=== PATIENT | female | born 1965 | race Caucasian/White ===

== ENCOUNTER → 2024-10-28 | Outpatient (REF) | payer MEDICAID, SELFPAY ==
[2024-10-28 09:16] LABS: Hematocrit 27.8 % (37-47); Hemoglobin 9.1 g/dL (12.0-15.0); Mean Corp Hgb Conc 32.7 g/dL (32-36); Mean Corpuscular Hgb 27.9 pg (27.0-32.0); Mean Corpuscular Volume 85.3 fL (81-99); Mean Platelet Vol. 9.9 fl (6.2-12.0); Platelet Count 155 K/mm3 (150-450); RBC Distribution Width CV 13.5 % (11.6-14.6); RBC Distribution Width SD 41.5 fl (35.1-43.9); Red Blood Count 3.26 M/mm3 (4.2-5.4); White Blood Count 4.9 K/mm3 (4.4-11.0)
[2024-10-28 09:38] LABS: Hemoglobin A1c 5.4 % (<=5.6)
[2024-10-28 09:46] LABS: Anion Gap 9 (5-15); BUN 14 mg/dL (4-19); BUN/Creat Ratio 17.7 RATIO (10-20); Calcium,Total 9.1 mg/dL (7.6-11.0); Chloride 110 mmol/L (98-108); Creatinine, Serum 0.77 mg/dL (0.70-1.20); EST Glomerular Filtration Rate 89 (>60); Glucose 107 mg/dL (70-99); Potassium 4.6 mmol/L (3.3-5.1); Sodium Level 139 mmol/L (133-145)
[2024-10-28 09:48] LABS: Vitamin D,25 Hydroxy 14.6 ng/mL (30-100)
== END | disposition home or self-care (01) ==
LOC: OLS.ACW100 05:00
PROVIDERS: PCP Student in an Organized Health Care Education/Training Program; Visit Provider Family Medicine
DX: Z00.00 Encounter for general adult medical examination without abnormal findings (principal)
CPT/HCPCS: 36415; 80048; 82306; 83036; 84443; 85027

== ENCOUNTER → 2024-11-04 | Outpatient (REF) | payer MEDICAID, SELFPAY ==
[2024-11-04 10:13] LABS: Anion Gap 10 (5-15); BUN 22 mg/dL (4-19); BUN/Creat Ratio 25.6 RATIO (10-20); Calcium,Total 9.4 mg/dL (7.6-11.0); Carbon Dioxide 20.4 mmol/L (21.0-32.0); Chloride 110 mmol/L (98-108); Creatinine, Serum 0.88 mg/dL (0.70-1.20); EST Glomerular Filtration Rate 76 (>60); Glucose 96 mg/dL (70-99); Potassium 4.2 mmol/L (3.3-5.1); Sodium Level 140 mmol/L (133-145)
== END | disposition home or self-care (01) ==
LOC: OLS.ACW100 05:00
PROVIDERS: PCP Student in an Organized Health Care Education/Training Program; Visit Provider Family Medicine
DX: Z00.00 Encounter for general adult medical examination without abnormal findings (principal)
CPT/HCPCS: 36415; 80048

== ENCOUNTER → 2024-12-08 | Outpatient (REF) | payer MEDICAID, SELFPAY ==
[2024-12-08 10:25] LABS: Color, Urine Yellow (Yellow); Glucose, Dipstick Normal (Normal); Ketone-Dipstick Negative (Negative); Leukocyte Esterase-Dipstick 100 /ul (Negative); Nitrite-Dipstick Negative (Negative); Occult Blood-Urine 250 /ul (Negative); Protein-Dipstick 15 mg/dl (Negative); Urine Bilirubin Dipstick Negative (Negative); Urine Clarity Clear (Clear); Urine Urobilinogen Normal (Normal)
== END | disposition home or self-care (01) ==
LOC: OLS.ACW100 01:00
PROVIDERS: PCP Student in an Organized Health Care Education/Training Program; Visit Provider Family Medicine
DX: N39.0 Urinary tract infection, site not specified (principal)
CPT/HCPCS: 81002; 87077; 87086; 87088; 87186

== ENCOUNTER → 2024-12-11 05:00 | Outpatient (REF) | payer MEDICAID, SELFPAY ==
--- OUTSIDE RECORDS SUMMARY | 2024-12-11 04:33 | XMS RPT_ITS | CCD ---
Author Organization [facility] Care Team Providers Care Video Camera Operator Name Role Phone PROVIDER, UNKNOWN Unavailable Unavailable Augustin Jordan Unavailable Unavailable Augustin Jordan Unavailable Unavailable CHRISTINA ANDERSEN, DR ADRIANA Lopez Primary Care Physician Unava ilable AUGUSTIN JORDAN Attending Unavailable Augustin Jordan MD Primary Care Provider NIKKI ANDERSEN, DR WAN Primary Care Physician [phone] DARON CHRISTIANSEN, DR MERLINE Lee Attending Unavailable NIKKI ANDERSEN, DR WAN Primary Care UnavailJOE Painter MD Attending Unavail able CHRISTINA ANDERSEN, DR ADRIANA Lopez Primary Care Unavailable NIKKI ANDERSEN, DR WAN Primary Care UnavailRios ANGEL, OSMAR Richardson Attending Tyson ANGEL, OSMAR Richardson Consulting Tyson ANGEL, OSMAR Richardson Admitting Tyson JORDAN MD, DR RENETTA Jaime Consulting Unavailab brianna SAGASTUME MD, MICHAEL Smalls Attending Unavailable NIKKI ANDERSEN, DR WAN Primary Care UnavailHENRIETTA Gagnon Attending Unavailable AUGUSTIN JORDAN Primary Care Unavailable AUGUSTIN JORDAN Attending Unavailable AUGUSTIN JORDAN Primary Care Unavailable ESTELLAENTHAL, OSBALDO Referring Unavailable JOSE M, OSBALDO Attending Unavailable AUGUSTIN JORDAN Primary Care Unavailable AUGUSTIN JORDAN Primary Care Unavailable HENRIETTA KNOWLES Referring Unavailable HENRIETTA KNOWLES Attending Unavailable MIKEAL, OSBALDO Attending Unavailable MIKEAL, OSBALDO Referring Unavailable AUGUSTIN JORDAN Primary Care Unavailable AUGUSTIN JORDAN Primary Care Unavailable HENRIETTA KNOWLES Referring Unavailable HENRIETTA KNOWLES Attending Unavailable AUGUSTIN JORDAN Primary Care Unavailable HENRIETTA KNOWLES Referring Unavailable HENRIETTA KNOWLES Attending Unavailable AUGUSTIN JORDAN Primary Care Unavailable HENRIETTA KNOWLES Attending Unavailable AUGUSTIN JORDAN Primary Care Unavailable AUGUSTIN JORDAN Primary Care Unavailable AUGUSTIN JORDAN Primary Care Unavailable OSBALDO SALGUERO Attending Unavailable AUGUSTIN JORDAN Primary Care Unavailable Dr. Adriana Vasquez MD Primary Care Provider Adolfo Hughes Attending Provider UnavailAdriana Hernández Primary Care Unavailable Adolfo Hughes Attending Unavailable Adriana Vasquez Primary Care Unavailable Adolfo Hughes Attending Unavailable Adolfo Hughes Attending Unavailable Adriana Vasquez Primary Care Unavailable Allergies Allergy Classification Reported Allergen(s) Allergy Type Date of Onset Reaction(s) Facility (20 sources) buPROPion; Translations: [bupropion] Drug Allergy 10-27-19 16 [facility] (6 sources) Clarithromycin; Translations: [clarithromycin] Drug Allergy 11-28-19 16 Nausea/Vom/Janet [facility] (20 sources) Erythromycin; Translations: [erythromycin] Drug Allergy 11-28-19 16 Nausea/Vom/Janet [facility] (20 sources) Clarithromycin Propensity to adverse reactions 10-27-19 16 [facility] (3 sources) buPROPion; Translations: [bupropion HCl] Drug Allergy 11-28-19 16 Nausea/Vom/Janet [facility] (1 source) Clarithromycin Drug Allergy 11-28-19 16 [facility] (1 source) Erythromycin Drug Allergy 11-28-19 16 [facility] Medications Current Medications Medication Drug Class(es) Dates Sig (Normalized) Sig (Original) acetaminophen 1000 mg oral tablet (1 source) Start: 10-26-2024 Tylenol Dose : 1,000 mg = 2 tab(s), Oral, TID, 0 Refill(s) Start Date: 10/26/24 Status: Ordered Repeat number: 1 albuterol 0.83 mg/ml inhalation solution (20 sources) beta2-Adrenergic Agonist Start: 10-26-2024 albuterol 2.5 mg/3 mL (0.083%) inhalation solution Dose : 2.5 mg = 3 mL, Inhalation, QIDRT, 0 Refill(s) Start Date: 10/26/24 Status: Ordered Repeat number: 1 Start: 09-23-2024 take 4 puff(s) by inhalation o nce 4 puff, Inhalation, Once, On Sat09/23/24 at 1200, For 1 dose Start: 03-09-2024 End: 04-27-2024 take 2 puff(s) by inhalation every six hours as needed for wheezing albuterol 108 (90 Base) MCG/ACT inhaler Indications: Chronic shortness of breath Inhale 2 puffs every 6 hours as needed for wheezing. 8.5 g 3 04/27/2024 Active Start: 12-04-2023 End: 03-09-2024 take 2 puff(s) by inhalation every six hours as needed for wheezing albuterol 108 (90 Base) MCG/ACT inhaler Indications: Chronic shortness of breath Inhale 2 puffs every 6 hours as needed for wheezing. 1 each 2 12/04/2023 03/09/2024 Discontinued Start: 09-17-2023 take 1 dose by inhal ation four times daily albuterol 0.63 mg/3 mL (0.021%) inhalation solution Dose : 0.63 mg = 3 mL, Inhalation, QID, # 90 mL, 0 Refill(s) Start Date: 09/17/23 Status: Ordered Start: 02-22-2023 End: 08-21-2023 take 2 puff(s) by inhalation every six hours as needed for wheezing albuterol 108 (90 Base) MCG/ACT inhaler Indications: Chronic shortness of breath Inhale 2 puffs every 6 hours as needed for wheezing. 1 each 2 08/21/2023 Active amoxicillin 875 mg / clavulanate 125 mg oral tablet (4 sources) Penicillin-class Antibacterial Start: 08-21-2023 End: 08-28-2023 take 1 tablet by mouth twice daily amoxicillin-clavulanate (Augmentin) 875-125 MG tablet Indications: Sinobronchitis Take 1 tablet by mouth 2 times daily for 7 days. 14 tablet 0 08/21/2023 08/28/2023 Active Start: 05-23-2023 End: 05-30-2023 take 1 tablet by mouth twice daily amoxicillin-clavulanate (Augmentin) 875-125 MG tablet Indications: Acute non-recurrent pansinusitis Take 1 tablet by mouth 2 times daily for 7 days. 14 tablet 0 05/23/2023 05/30/2023 Active ARIPiprazole 15 mg oral tablet (20 sources) Atypical Antipsychotic Start: 10-21-2024 ARIPipr azole 15 mg oral tablet Dose : 15 mg = 1 tab(s), Oral, qDay, # 30 tab(s), 0 Refill(s) Start Date: 10/21/24 Status: Ordered Quantity: 30.0 Unit: tab(s) Repeat number: 1 Start: 05-20-2024 take 1 tablet by jp th once daily ARIPiprazole (Abilify) 15 MG tablet Take 15 mg by mouth daily. 05/20/2024 Active Start: 03-12-2023 End: 06-10-2024 ARIPiprazole (Abilify) 10 MG tablet Take 15 mg by mouth daily. 03/12/2023 06/10/2024 Discontinued Start: 03-12-2023 take 1 tablet by jp th once daily ARIPiprazole (Abilify) 10 MG tablet Take 10 mg by mouth daily. 03/12/2023 Active End: 03-26-2023 take 1 tablet by mouth once daily ARIPiprazole (Abilify) 5 MG tablet Take 5 mg by mouth daily. 0 03/26/2023 Discontinued (Therapy completed) atorvastatin 20 mg oral tablet (2 sources) HMG-CoA Reductase Inhibitor Start: 12-01-2019 atorvastatin 20 mg oral tablet Dose : 20 mg = 1 tab(s), take 1 tablet by mouth once daily Start Date: 12/01/19 Status: Ordered azithromycin 500 mg oral tablet (2 sources) Macrolide Antimicrobial Start: 09-16-2023 End: 09-21-2023 take 1 tablet by mouth once daily azithromycin (Zithromax) 500 MG tablet Indications: Bronchitis Take 1 tablet (500 mg) by mouth daily for 5 days. 5 tablet 0 09/16/2023 09/21/2023 Active Start: 03-26-2023 End: 03-31-2023 azithromycin (Zithromax) 250 MG tablet Indications: Bronchitis Take 2 tabs (500 mg) by mouth today, than 1 daily for 4 days. 6 tablet 0 03/26/2023 03/31/2023 Active benzonatate 200 mg oral capsule (1 source) Non-narcotic Antitussive Start: 06-10-2024 End: 06-20-2024 take 1 capsule by mouth three times daily as needed for cough benzonatate (Tessalon) 200 MG capsule Take 1 capsule (200 mg) by mouth 3 times daily as needed for cough for up to 10 days. Do not crush or chew. 30 capsule 06/10/2024 06/20/2024 Active budesonide 0.25 mg/ml inhalation suspension (1 source) Corticosteroid Start: 10-26-2024 budesonide 0.5 mg/2 mL inhalation suspension Dose : 0.5 mg = 2 mL, Inhalation, BIDRT, 0 Refill(s) Start Date: 10/26/24 Status: Ordered Repeat number: 1 0.5 ml buprenorphine 200 mg/ml prefilled syringe (20 sources) Partial Opioid Agonist Start: 10-21-2024 Sublocade 100 mg/0.5 mL subcutaneous solution, extended release Dose : 100 mg =, See Instructions, Saturday, takes shot in abdomen, 0 Refill(s) Start Date: 10/21/24 Status: Ordered Repeat number: 1 buprenorphine ER (Sublocade) 100 mg/0.5mL injection Inject 1 each under the skin every month to absorb continually. Active buprenorphine 8 mg / naloxone 2 mg sublingual film (20 sources) Partial Opioid Agonist, Opioid Antagonist Start: 11-28-2015 Buprenorphine-Naloxo ne (Suboxone 8 Mg-2 Mg Sl Film) 1 EACH film Active 16 NMA SL DAILY November 28, 2015 12:00am Start: 10-14-2015 take 1 dose under th e tongue twice daily Suboxone 8 mg-2 mg sublingual film Dose = 1 EA, Sublingual, BID, 0 Refill(s) Start Date: 10/14/15 Status: Ordered End: 10-22-2023 buprenorphine-naloxone (Subo xone) 2-0.[address] 100 tablets under the tongue. 10/22/2023 Discontinued (Therapy completed) busPIRone hydrochloride 10 mg oral tablet (20 sources) Start: 07-08-2020 busPIRone 10 mg oral tablet Dose : 10 mg = 1 tab(s), Oral, TID, PRN Anxiety, 0 Refill(s) Start Date: 10/20/23 Status: Ordered Repeat number: 1 cephalexin 500 mg oral capsule (2 sources) Cephalosporin Antibacterial Start: 10-20-2023 End: 10-27-2023 cephalexin 500 mg oral capsule Dose : 500 mg = 1 cap(s), Oral, QID, Take with a probiotic, X 7 day(s), # 28 cap(s), 0 Refill(s), 10/27/23 5:40:00 PM EDT, 70 Start Date: 10/20/23 Stop Date: 10/27/23 Status: Ordered cloNIDine hydrochloride 0.1 mg oral tablet (20 sources) Central alpha-2 Adrenergic Agonist Start: 03-29-2021 take 1 tablet by mouth twice daily as needed for anxiety cloNIDine (Catapres) 0.1 MG tablet TAKE 1 TABLET BY MOUTH TWICE A DAY NEEDED FOR RESTLESSNESS OR ANXIETY 03/29/2021 Active docusate sodium 100 mg oral capsule (1 source) Start: 10-26-2024 Colace 100 mg oral capsule Dose : 100 mg = 1 cap(s), Oral, qDay, 0 Refill(s) Start Date: 10/26/24 Status: Ordered Repeat number: 1 60 actuat formoterol fumarate 0.005 mg/actuat / mometasone furoate 0.1 mg/actuat metered dose inhaler (13 sources) Corticosteroid, beta2-Adrenergic Agonist Start: 06-10-2024 End: 10-14-2024 take 2 puff(s) by mouth twice daily mometasone-formote rol (Dulera) 100-5 MCG/ACT inhaler Indications: Centrilobular emphysema (HCC) Inhale 2 puffs 2 times daily. Rinse mouth with water after use to reduce aftertaste and incidence of candidiasis. Do not swallow. 13 g 1 10/14/2024 Active Lasix (2 sources) Loop Diuretic Start: 01-03-2019 Lasix qDay, 0 Refill(s) Start Date: 01/03/19 Status: Ordered hydrOXYzine (4 sources) Antihistamine Start: 01-03-2019 Atarax use hydrOXYzine hydrochloride 0 Refill(s) Start Date: 01/03/19 Status: Ordered Start: 12-02-2015 Vistaril 50 mg oral capsule Dose : 50 mg = 1 cap(s), Oral, TID, PRN as needed for anxiety, # 90 cap(s), 0 Refill(s) Start Date: 12/02/15 Status: Ordered ibuprofen 600 mg oral tablet (1 source) Nonsteroidal Anti-inflammatory Drug Start: 10-26-2024 End: 10-27-2024 ibuprofen 600 mg oral tablet Dose : 600 mg = 1 tab(s), Oral, q8h, # 30 tab(s), 0 Refill(s), 10/27/24 11:56:00 AM EDT, other reason (Rx) Start Date: 10/26/24 Stop Date: 10/27/24 Status: Ordered Quantity: 30.0 Unit: tab(s) Repeat number: 1 ketorolac tromethamine 10 mg oral tablet (1 source) Nonsteroidal Anti-inflammatory Drug, Cyclooxygenase Inhibitor Start: 12-25-2021 End: 12-30-2021 ketorolac 10 mg oral tablet Dose : 10 mg = 1 tab(s), Oral, QID, PRN as needed for pain, not to exceed 40 mg/day and 5 days duration for all dose forms, X 5 day(s), # 20 tab(s), 0 Refill(s), 12/30/21 13:15:00 EDT, Chest wall pain Start Date: 12/25/21 Stop Date: 12/30/21 Status: Ordered mirtazapine 15 mg oral tablet (2 sources) Start: 12-02-2015 Remeron 15 mg oral tablet Dose : 30 mg = 2 tab(s), Oral, qHS, # 60 tab(s), 0 Refill(s) Start Date: 12/02/15 Status: Ordered Multivitamin preparation (1 source) Start: 10-21-2024 take 1 tablet by mouth once daily Multivitamin Dose = 1 tab(s), Oral, Daily, 0 Refill(s) Start Date: 10/21/24 Status: Ordered Repeat number: 1 OLANZapine 5 mg oral tablet (2 sources) Atypical Antipsychotic Start: 12-01-2019 take 1 tablet by mouth at bedtime OLANZapine 5 mg oral tablet take 1 tablet by mouth at bedtime Start Date: 12/01/19 Status: Ordered 24 hr oxybutynin chloride 5 mg extended release oral tablet (2 sources) Cholinergic Muscarinic Antagonist Start: 10-14-2024 take 1 tablet by mouth once daily oxybutynin XL (Ditropan XL) 5 MG 24 hr tablet Indications: OAB (overactive bladder) , Urinary urgency Take 1 tablet (5 mg) by mouth daily. Do not crush, chew, or split. 30 tablet 10/14/2024 Active polyethylene glycol 3350 03573 mg powder for oral solution (1 source) Osmotic Laxative Start: 10-26-2024 Miralax Powder Packet Oral, BID, PRN Constipation, 0 Refill(s) Start Date: 10/26/24 Status: Ordered Repeat number: 1 potassium chloride 20 meq oral tablet (3 sources) Start: 12-01-2019 potassium chloride 20 mEq oral tablet, extended release Dose : 20 mEq = 1 tab(s), Oral, qDay, Take with food, # 30 tab(s), 0 Refill(s), Lymphedema Cellulitis Start Date: 12/01/19 Status: Ordered Phenergan (2 sources) Phenothiazine Start: 01-03-2019 Phenergan 0 Refill(s) Start Date: 01/03/19 Status: Ordered Seroquel (2 sources) Atypical Antipsychotic Start: 01-03-2019 SEROquel Oral, 0 Refill(s) Start Date: 01/03/19 Status: Ordered risperiDONE 1 mg oral tablet (2 sources) Atypical Antipsychotic Start: 12-02-2015 RisperDAL 1 mg oral tablet Dose : 1 mg = 1 tab(s), Oral, qHS, # 30 tab(s), 0 Refill(s) Start Date: 12/02/15 Status: Ordered topiramate 300 mg oral tablet (20 sources) Start: 01-03-2019 take 1 dose by mouth once daily at bedtime Topamax Dose : 300 mg =, Oral, qHS, 0 Refill(s) Start Date: 01/03/19 Status: Ordered Repeat number: 1 Start: 01-03-2019 Topamax Oral, BID, 0 Refill(s) Start Date: 01/03/19 Status: Ordered Start: 08-06-2018 take 3 tablets by mo uth once daily in the evening topiramate (Topamax) 100 MG tablet Take 3 tablets by mouth every evening. 08/06/2018 Active Vitamin D3 (1 source) Start: 10-21-2024 Vitamin D3 Dos e : 10 mcg = 1 tab(s), Oral, Daily, 0 Refill(s) Start Date: 10/21/24 Status: Ordered Repeat number: 1 vortioxetine 20 mg oral tabl et (20 sources) Start: 01-03-2019 Trintellix Ora l, qDay, 0 Refill(s) Start Date: 01/03/19 Status: Ordered Start: 11-05-2016 take 1 dose by mouth once fredo y Trintellix Dose : 20 mg =, Oral, qDay, 0 Refill(s) Start Date: 01/03/19 Status: Ordered Repeat number: 1 Completed/Discontinued Medications Medication Drug Class(es) Dates Sig (Normalized) Sig (Original) benztropine mesylate 0.5 mg oral tablet (9 sources) Anticholinergic, Antihistamine Start: 03-22-2024 End: 06-10-2024 take 1 tablet by mouth once daily benztropine (Cogentin) 0.5 MG tablet Take 0.5 mg by mouth daily. 03/22/2024 06/10/2024 Discontinued (Therapy completed) dextromethorphan hydrobromide 2 mg/ml / guaiFENesin 20 mg/ml oral suspension (2 sources) Uncompetitive A-gmkles-W-aspartat e Receptor Antagonist, Sigma-1 Agonist Start: 03-24-2024 End: 04-15-2024 take 10 mL by mouth every four hours as needed for cough guaiFENesin-dextr omethorphan (Robitussin DM) 100-10 MG/5ML syrup Indications: Bronchitis Take 10 mL by mouth every 4 hours as needed for cough for up to 10 days. 118 mL 03/24/2024 04/15/2024 Discontinued Elastic Bandages & Supports (Medical Compression Stockings) misc (17 sources) Start: 03-04-2023 End: 08-21-2023 [facility] Indications: Varicose veins of both lower extremities with pain 2 each daily. 15-20 mmHg; knee high 2 each 03/04/2023 08/21/2023 Discontinued Start: 03-04-2023 End: 08-21-2023 Elastic Bandages & Supports (Medical Compression Stockings) [facility] [place] Indications: Varicose veins of both lower extremities with pain 2 each daily. 15-20 mmHg; knee high 2 each 0 03/04/2023 08/21/2023 Discontinued Start: 03-04-2023 Elastic Bandag es & Supports (Medical Compression Stockings) [facility] [place] Indications: Varicose veins of both lower extremities with pain 2 each daily. 15-20 mmHg; knee high 2 each 0 03/04/2023 Active fluticasone-salmeterol, sensor, (AirDuo Digihaler) 55-14 MCG/ACT inhaler (2 sources) Start: 03-24-2024 End: 04-15-2024 take 1 puff(s) by mouth twice daily fluticasone-salmeterol, sensor, (AirDuo Digihaler) 55-14 MCG/ACT inhaler Indications: Bronchitis Inhale 1 puff 2 times daily. Rinse mouth with water after use to reduce aftertaste and incidence of candidiasis. Do not swallow. 1 each 03/24/2024 04/15/2024 Discontinued (Med list cleanup) Start: 03-24-2024 End: 03-24-2025 take 1 puff(s) by mouth twice daily fluticasone-salmeterol, sensor, (AirDuo Digihaler) 55-14 MCG/ACT inhaler Indications: Bronchitis Inhale 1 puff 2 times daily. Rinse mouth with water after use to reduce aftertaste and incidence of candidiasis. Do not swallow. 1 each 03/24/2024 03/24/2025 Active 12 hr guaiFENesin 600 mg extended release oral tablet (20 sources) Start: 10-07-2023 End: 11-11-2023 take 1 tablet by mouth twice daily as needed for cough guaiFENesin (Mucinex) 600 MG 12 hr tablet Indications: Bronchitis Take 1 tablet (600 mg) by mouth 2 times daily as needed for cough or congestion. Do not crush, chew, or split. 60 tablet 0 10/07/2023 11/11/2023 Discontinued (Therapy completed) Start: 04-08-2023 End: 04-25-2023 take 10 mL by mouth three times daily as needed for cough guaiFENesin (Robitussin) 100 MG/5ML liquid Indications: Cough, unspecified type , Chest congestion Take 10 mL (200 mg) by mouth 3 times daily as needed for cough or congestion for up to 10 days. 210 mL 04/08/2023 04/15/2023 Discontinued (Reorder) End: 10-14-2024 guaiFENesin (Mucinex) 600 MG 12 hr tablet Take 1,200 mg by mouth 2 times daily. Do not crush, chew, or split. 10/14/2024 Discontinued (Med list cleanup) hydroCHLOROthiazide 25 mg / triamterene 37.5 mg oral tablet (15 sources) Potassium-sparing Diuretic, Thiazide Diuretic Start: 01-31-2024 End: 03-24-2024 take 1 tablet by mouth once daily triamterene-hydrochlorothiazide (Maxzide-25) 37.5-25 MG tablet take 1 tablet by mouth once daily 90 tablet 01/31/2024 03/24/2024 Discontinued (Med list cleanup) Start: 10-22-2023 take 1 tablet by mouth once daily triamterene-hydrochlorothiazide (Maxzide -25) 37.5-25 MG tablet Take 1 tablet by mouth daily. 30 tablet 2 10/22/2023 Active ipratropium bromide 0.042 mg/actuat metered dose nasal spray (4 sources) Anticholinergic Start: 10-05-2022 End: 04-08-2023 ipratropium (Atrovent) 0.06 % nasal spray Indications: Rhinorrhea associated with the Common Cold Administer 2 sprays into each nostril in the morning and 2 sprays at noon and 2 sprays in the evening and 2 sprays before bedtime. Do all this for 7 days. 15 mL 0 10/05/2022 04/08/2023 Discontinued methylPREDNISolone 4 mg oral tablet (20 sources) Corticosteroid Start: 06-10-2024 End: 10-14-2024 methylPREDNISolone (Medrol Dospak) 4 MG tablets Take as directed on package. 21 tablet 06/10/2024 10/14/2024 Discontinued (Med list cleanup) Start: 04-15-2023 End: 08-21-2023 methylPREDNISolone (Medrol D ospak) 4 MG tablets Take as directed on package. 21 tablet 0 04/15/2023 08/21/2023 Discontinued predniSONE 20 mg oral tablet (6 sources) Start: 03-24-2024 End: 04-15-2024 predniSONE (Deltasone) 20 MG tablet Indications: Bronchitis Take 3 tabs (60mg) daily for 3 days, then take 2 tabs (40mg) daily for 3 days, then take 1 tab (20mg) daily for 3 days. 18 tablet 03/24/2024 04/15/2024 Discontinued Start: 10-31-2023 End: 11-11-2023 predniSONE (Deltasone) 20 MG tablet Take 3 tabs (60mg) daily for 5 days, then take 2 tabs (40mg) daily for 3 days, then take 1 tab (20mg) daily for 2 days. 23 tablet 0 10/31/2023 11/11/2023 Discontinued (Therapy completed) Start: 09-16-2023 End: 09-25-2023 predniSONE (Deltasone) 20 MG tablet Indications: Bronchitis Take 3 tabs (60mg) daily for 3 days, then take 2 tabs (40mg) daily for 3 days, then take 1 tab (20mg) daily for 3 days. 18 tablet 0 09/16/2023 09/25/2023 Active Start: 03-26-2023 End: 03-31-2023 take 2 tablets by mouth once daily predniSONE (Deltasone) 20 MG tablet Indications: Bronchitis Take 2 tablets (40 mg) by mouth daily for 5 days. 10 tablet 0 03/26/2023 03/31/2023 Active rosuvastatin calcium 5 mg oral tablet (18 sources) HMG-CoA Reductase Inhibitor Start: 12-13-2021 End: 08-21-2023 take 1 tablet by mouth in the morning rosuvastatin (Crestor) 5 MG tablet Take 1 tablet by mouth in the morning. 12/13/2021 08/21/2023 Discontinued (Other) Problems Active Problems Problem Classification Problem Date Documented Da te Episodic/Chronic Anxiety disorders (20 sources) Panic attack; Translations: [Posttraumatic stress disorder] Onset: 10-27-2015 11-29-2015 Chronic Asthma (4 sources) Uncomplicated moderate persistent asthma; Translations: [Moderate persistent asthma, uncomplicated] Onset: 06-10-2024 09-24-2024 Chronic Chronic obstructive pulmonary disease and bronchiectasis (14 sources) Centriacinar emphysema; Translations: [Centrilobular emphysema] Onset: 06-10-2024 06-10-2024 Chronic Complication of device; implant or graft (15 sources) Pain from breast implant; Translations: [Pain due to other internal prosthetic devices, implants and grafts, initial encounter] 02-22-2023 Episodic Diabetes mellitus without complication (1 source) Hyperglycemia; Translations: [Impaired fasting glucose] 10-07-2023 Episodic Disorders of lipid metabolism (20 sources) Hyperlipidemia; Translations: [Hyperlipidemia, unspecified] Onset: 04-05-2021 02-22-2023 Chronic Essential hypertension (1 source) Essential (primary) hypertension; Translations: [Essential (primary) hypertension] Onset: 11-27-2024 Chronic Fracture of lower limb (3 sources) Closed fracture proximal tibia, bicondylar ; Translations: [Displaced bicondylar fracture of unspecified tibia, initial encounter for closed fracture] Onset: 10-21-2024 Episodic Genitourinary symptoms and ill-defined conditions (20 sources) Urge incontinence of urine; Translations: [Urge incontinence] Onset: 04-06-2019 Resolved: 04-08-2023 04-07-2022 Chronic Genitourinary symptoms and ill-defined conditions (4 sources) Urgent desire to urinate; Translations: [Urgency of urination] Onset: 10-14-2024 10-14-2024 Episodic Heart valve disorders (4 sources) Mitral valve prolapse 11-29-2015 Chronic Hepatitis (20 sources) Chronic hepatitis C; Translations: [Chronic viral hepatitis C] Onset: 12-16-2015 04-07-2022 Chronic Hepatitis (4 sources) Viral hepatitis C 11-29-2015 Episodic Malaise and fatigue (1 source) Weakness; Translations: [Weakness] Onset: 11-26-2024 Episodic Miscellaneous mental health disorders (20 sources) Primary insomnia; Translations: [Primary insomnia] Onset: 12-01-2018 04-07-2022 Chronic Mood disorders (20 sources) Depressive disorder; Translations: [Depression] Onset: 10-27-2015 04-07-2022 Chronic Mood disorders (20 sources) Mood disorders; Translations: [Depression, unspecified] Onset: 04-08-2023 Resolved: 10-14-2024 04-08-2023 Other circulatory disease (3 sources) Pulmonary congestion ; Translations: [Other specified symptoms and signs involving the circulatory and respiratory systems] 04-08-2023 Episodic Other connective tissue disease (1 source) Swelling of bilateral feet; Translations: [Other specified soft tissue disorders] 11-26-2023 Episodic Other connective tissue disease (1 source) Pain of left lower leg; Translations: [Pain in left lower leg] 11-26-2023 Episodic Other diseases of bladder and urethra (20 sources) Overactive bladder; Translations: [Overactive bladder] Onset: 04-06-2019 04-07-2022 Chronic Other diseases of bladder and urethra (2 sources) Spasm of bladder; Translations: [Other specified disorders of bladder] 10-14-2024 Chronic Other diseases of bladder and urethra (2 sources) Other specified disorders of bladder; Translations: [Other specified disorders of bladder] Onset: 10-14-2024 Chronic Other diseases of bladder and urethra (2 sources) Overactive bladder; Translations: [Overactive bladder] Onset: 04-07-2022 Chronic Other fractures (1 source) Multiple fractures of ribs, left side, subsequent encounter for fracture with routine healing; Translations: [Multiple fractures of ribs, left side, subsequent encounter for fracture with routine healing] Onset: 11-26-2024 Episodic Other gastrointestinal disorders (20 sources) Constipation; Translations: [Constipation, unspecified] Onset: 10-27-2015 04-07-2022 Episodic Other inflammatory condition of skin (1 source) Erythema; Translations: [Erythematous condition, unspecified] 11-26-2023 Episodic Other lower respiratory disease (3 sources) Cough; Translations: [Cough, unspecified type] 04-08-2023 Episodic Other lower respiratory disease (2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 mm at baseline OR new 4 mm to < 6 mm Part solid nodule(s) 6 mm total diameter with solid component < 6 mm OR new < 6 mm total diameter Nonsolid nodule(s) (GGN) > 30 mm on baseline or new Atypical cyst Category 4a nodule unchanged for 3 months Category 4A - Suspicious - 3 month follow up or PET/CT when >8mm Solid nodule(s): 8 to < 15 mm at baseline OR growing < 8 mm OR new 6 to <8 mm Part solid nodule(s): > 6 mm with solid component > 6 mm to < 8 mm OR with a new or growing < 4 mm solid component Airway nodule - segmental, more proximal than baseline or new Atypical cyst with thick wall or multilocular or changed Category 4B - Suspicious - chest CT with or without contrast, PET/CT and/or tissue sampling depending on the *probability of malignancy and comorbidities. PET/CT may be used when there is a > 8 mm solid component. For new large nodules that develop on an annual repeat screening CT, a [address] may be recommended. Airway nodule growing Solid nodule(s): > 15 mm OR new or growing, and > 8 mm Part solid nodule(s) with: a solid component > 8 mm OR a new or growing > 4mm solid component Atypical cyst with growth Category 4X - Suspicious - (same work up as Category 4B) Category 3 or 4 nodules with additional features or imaging findings that increases the suspicion of malignancy - spiculation, rapid growth or associated lymph node enlargement Modifier to add to Category 0-4: Category S - Clinically or potentially significant non lung cancer related findings Report Dictated on Electronically Signed By: Devin Quinn MD Electronically Signed Date/Time: 08/13/2024 4:38 PM [facility] RADIOLOGY SYSTEM [facility] Name[facility] 1965 [id number] Exam Date/Time: 08/13/2024 14:23 Procedure: CT LUNG SCREENING LOW DOSE Ordering Provider: KNOWLES HOLLY Reason For Exam: Lung cancer screening, >= 20 pk-yr smoking history (Age >= 50y) CT CHEST SCREENING WITHOUT CONTRAST CLINICAL INDICATION: Long smoking history. Former smoker. Lung-screening CT. Low-dose axial CT images of the thorax from the lung apices through the bases were obtained. Coronal and sagittal reformatted images were also made available for interpretation. Dose reduction was employed with automated exposure control. COMPARISON: None FINDINGS: Mild emphysematous changes are noted diffusely. There are no focal infiltrates. A 0.4 cm perifissural nodule is noted in the right lower lobe (image #233). A punctate 2 mm pleural-based nodule is noted in the left lower lobe (image #215). Both are too small to further characterize. The heart size is normal. There is no significant mediastinal lymphadenopathy. There are no significant coronary arterial calcifications. A ruptured saline breast implant is noted on the left. This is unchanged from a prior mammogram. Upper cuts of the abdomen included on the examination are grossly normal on this unenhanced scan. [facility] RADIOLOGY SYSTEM Devin Quinn MD - 08/13/2024 Patient Name: IDALIA GIPSON : 1965 Exam Date/Time: 08/13/2024 14:23 Procedure: CT LUNG SCREENING LOW DOSE Ordering Provider: KNOWLES HOLLY Reason For Exam: Lung cancer screening, >= 20 pk-yr smoking history (Age >= 50y) CT CHEST SCREENING WITHOUT CONTRAST CLINICAL INDICATION: Long smoking history. Former smoker. Lung-screening CT. Low-dose axial CT images of the thorax from the lung apices through the bases were obtained. Coronal and sagittal reformatted images were also made available for interpretation. Dose reduction was employed with automated exposure control. COMPARISON: None FINDINGS: Mild emphysematous changes are noted diffusely. There are no focal infiltrates. A 0.4 cm perifissural nodule is noted in the right lower lobe (image #233). A punctate 2 mm pleural-based nodule is noted in the left lower lobe (image #215). Both are too small to further characterize. The heart size is normal. There is no significant mediastinal lymphadenopathy. There are no significant coronary arterial calcifications. A ruptured saline breast implant is noted on the left. This is unchanged from a prior mammogram. Upper cuts of the abdomen included on the examination are grossly normal on this unenhanced scan. IMPRESSION: 1. Mild COPD. 2. No focal infiltrates. 3. Tiny right and left lower lobe lung nodules as described. These are too small to further characterize. ASSESSMENT CATEGORY: Lung-RADS Category 2 - Benign appearance or behavior. Recommend continued annual low-dose screening CT in 12 months. No other clinically significant findings. Lung-RADS Version 2022 Assessment Categories - for Screening CT Chest Only. Release date: Apr 2022 Category 0 - Incomplete Part of lungs cannot be evaluated Findings suggestive of an inflammatory or infectious process Category 1 - Negative - Continue annual screening No nodules Nodules with benign characteristics (complete, central, popcorn Ca++) or fat Category 2 - Benign appearance or behavior - Continue annual screening Perifissural nodule(s) < 10 mm at baseline or new with oval, lentiform or triangular shape Solid nodule(s): < 6 mm at baseline or new < 4 mm Part solid nodule(s): < 6 mm mean diameter at baseline Nonsolid nodule(s) (GGN): 30 mm and unchanged or slowly growing Airway nodule in subsegmental branch Category 3 or 4 nodules unchanged for > 6 months Category 3 - Probably benign finding(s) - 6 month follow up Solid nodule(s): 6 to < 8 mm at baseline OR new 4 mm to < 6 mm Part solid nodule(s) 6 mm total diameter with solid component < 6 mm OR new < 6 mm total diameter Nonsolid nodule(s) (GGN) > 30 mm on baseline or new Atypical cyst Category 4a nodule unchanged for 3 months Category 4A - Suspicious - 3 month follow up or PET/CT when >8mm Solid nodule(s): 8 to < 15 mm at baseline OR growing < 8 mm OR new 6 to <8 mm Part solid nodule(s): > 6 mm with solid component > 6 mm to < 8 mm OR with a new or growing < 4 mm solid component Airway nodule - segmental, more proximal than baseline or new Atypical cyst with thick wall or multilocular or changed Category 4B - Suspicious - chest CT with or without contrast, PET/CT and/or tissue sampling depending on the *probability of malignancy and comorbidities. PET/CT may be used when there is a > 8 mm solid component. For new large nodules that develop on an annual repeat screening CT, a [address] may be recommended. Airway nodule growing Solid nodule(s): > 15 mm OR new or growing, and > 8 mm Part solid nodule(s) with: a solid component > 8 mm OR a new or growing > 4mm solid component Atypical cyst with growth Category 4X - Suspicious - (same work up as Category 4B) Category 3 or 4 nodules with additional features or imaging findings that increases the suspicion of malignancy - spiculation, rapid growth or associated lymph node enlargement Modifier to add to Category 0-4: Category S - Clinically or potentially significant non lung cancer related findings Report Dictated on Electronically Signed By: Devin Quinn MD Electronically Signed Date/Time: 08/13/2024 4:38 PM EST [facility] Study observation (narrative) Chely Alvarenga alth CT Chest for screening WO co ntrastOrdered By: Devin Quinn on 08-13-2024 [facility] Work Phone: CT LUNG SCREENING LOW DOSEon 08-13-2024 CT LUNG SCREENING LOW DOSE This is a summary report. The complete report is available in the patient's medical record. If you cannot access the medical record, please contact the sending organization for a detailed fax or copy. Patient Name: IDALIA GIPSON : 1965 Exam Date/Time: 08/13/2024 14:23 Procedure: CT LUNG SCREENING LOW DOSE Ordering Provider: KNOWLES HOLLY Reason For Exam: Lung cancer screening, >= 20 pk-yr smoking history (Age >= 50y) CT CHEST SCREENING WITHOUT CONTRAST CLINICAL INDICATION: Long smoking history. Former smoker. Lung-screening CT. Low-dose axial CT images of the thorax from the lung apices through the bases were obtained. Coronal and sagittal reformatted images were also made available for interpretation. Dose reduction was employed with automated exposure control. COMPARISON: None FINDINGS: Mild emphysematous changes are noted diffusely. There are no focal infiltrates. A 0.4 cm perifissural nodule is noted in the right lower lobe (image #233). A punctate 2 mm pleural-based nodule is noted in the left lower lobe (image #215). Both are too small to further characterize. The heart size is normal. There is no significant mediastinal lymphadenopathy. There are no significant coronary arterial calcifications. A ruptured saline breast implant is noted on the left. This is unchanged from a prior mammogram. Upper cuts of the abdomen included on the examination are grossly normal on this unenhanced scan. IMPRESSION: 1. Mild COPD. 2. No focal infiltrates. 3. Tiny right and left lower lobe lung nodules as described. These are too small to further characterize. ASSESSMENT CATEGORY: Lung-RADS Category 2 - Benign appearance or behavior. Recommend continued annual low-dose screening CT in 12 months. No other clinically significant findings. Lung-RADS Version 2022 Assessment Categories - for Screening CT Chest Only. Release date: Apr 2022 Category 0 - Incomplete Part of lungs cannot be evaluated Findings suggestive of an inflammatory or infectious process Category 1 - Negative - Continue annual screening No nodules Nodules with benign characteristics (complete, central, popcorn Ca++) or fat Category 2 - Benign appearance or behavior - Continue annual screening Perifissural nodule(s) < 10 mm at baseline or new with oval, lentiform or triangular shape Solid nodule(s): < 6 mm at baseline or new < 4 mm Part solid nodule(s): < 6 mm mean diameter at baseline Nonsolid nodule(s) (GGN): 30 mm and unchanged or slowly growing Airway nodule in subsegmental branch Category 3 or 4 nodules unchanged for > 6 months Category 3 - Probably benign finding(s) - 6 month follow up Solid nodule(s): 6 to < 8 mm at baseline OR new 4 mm to < 6 mm Part solid nodule(s) 6 mm total diameter with solid component < 6 mm OR new < 6 mm total diameter Nonsolid nodule(s) (GGN) > 30 mm on baseline or new Atypical cyst Category 4a nodule unchanged for 3 months Category 4A - Suspicious - 3 month follow up or PET/CT when >8mm Solid nodule(s): 8 to < 15 mm at baseline OR growing < 8 mm OR new 6 to <8 mm Part solid nodule(s): > 6 mm with solid component > 6 mm to < 8 mm OR with a new or growing < 4 mm solid component Airway nodule - segmental, more proximal than baseline or new Atypical cyst with thick wall or multilocular or changed Category 4B - Suspicious - chest CT with or without contrast, PET/CT and/or tissue sampling depending on the *probability of malignancy and comorbidities. PET/CT may be used when there is a > 8 mm solid component. For new large nodules that develop on an annual repeat screening CT, a [address] may be recommended. Airway nodule growing Solid nodule(s): > 15 mm OR new or growing, and > 8 mm Part solid nodule(s) with: a solid component > 8 mm OR a new or growing > 4mm solid component Atypical cyst with growth Category 4X - Suspicious - (same work up as Category 4B) Category 3 or 4 nodules with additional features or imaging findings that increases the suspicion of malignancy - spiculation, rapid growth or associated lymph node enlargement Modifier to add to Category 0-4: Category S - Clinically or potentially significant non lung cancer related findings Report Dictated on Electronically Signed By: Devin Quinn MD Electronically Signed Date/Time: 08/13/2024 4:38 PM EST FORMER SMOKER QUIT 2 MONTHS. 30 YEARS 1 PPD. [facility] Office Visiton 06-10-2024 Follow-up visit [id number] Elizabeth Gipson 1965 F Date Provider Department Center 06/10/2024 [id number] [facility]ORDAN [facility] Family History Problem Relation Age of Onset Other Mother Comments: cancer Heart disease Mother Mental illness Mother COPD Mother Skin cancer Mother 50 Cervical cancer Mother 50 Colon cancer Mother 50 Stomach cancer Mother 50 Drug abuse Father Drug abuse Sister Mental illness Sister Leukemia Paternal Grandmother 50 Breast cancer Father's Sister 40 Family Status - Relation Status Age at Mother Alive Father Alive Sister Sister Alive Paternal Grandmother Father's Sister Level of Service:28091 [place] OFFICE/OUTPATIENT ESTABLISHED LOW MDM 20 MIN Reason for Visit and Comments: Wheezing [[id number]] - When start moving around - bring up light green Cough [28] Chills [[id number]] - Sometimes hot and sometimes cold [facility] Progress Noteon 06-10-2024 Progress Note Dulera 100-5 2 puffs twice a day, continue to use albuterol as needed and follow-up for testing as scheduled. [facility] Progress Note 06/10/2024 Idalia Jaime Brandan (: 1965) is a 58 y.o. female , Established patient, here for evaluation of the following chief complaint(s): Wheezing (When start moving around - bring up light green), Cough, and Chills (Sometimes hot and sometimes cold) ASSESSMENT/PLAN: 1. Centrilobular emphysema (HCC) Assessment & Plan: Dulera 100-5 2 puffs twice a day, continue to use albuterol as needed and follow-up for testing as scheduled. Follow up if symptoms worsen or fail to improve. SUBJECTIVE/OBJECTIVE: HPI -Idalia comes in today stating that she is very anxious and worried about her breathing, a friend gave her a inhaler called Breztri and she says that when she gets up in the morning if she is wheezy and cannot hardly breathe so she takes 2 puffs on the Breztri and that opens her up and she does not have to use her albuterol inhaler as often but she said this is a several and she is afraid she is going to run out and she is not going to be able to breathe and she can end up going emergency room. Review of Systems Constitutional: Negative for chills and fever. HENT: Negative for ear pain, rhinorrhea and sinus pressure. Respiratory: Positive for shortness of breath and wheezing. Cardiovascular: Negative for chest pain and palpitations. Vitals: 06/10/24 1411 BP: 133/78 Pulse: 66 Temp: 37.1 ?C (98.8 ?F) SpO2: 94% Weight: 193 lb 6.4 oz (87.7 kg) Height: 5' 6" (1.676 m) Physical Exam Vitals and nursing note reviewed. Constitutional: General: She is not in acute distress. Appearance: Normal appearance. HENT: Head: Normocephalic and atraumatic. Right Ear: Tympanic membrane, ear canal and external ear normal. Left Ear: Tympanic membrane, ear canal and external ear normal. Mouth/Throat: Mouth: Mucous membranes are moist. Pharynx: Oropharynx is clear. Eyes: Extraocular Movements: Extraocular movements intact. Pupils: Pupils are equal, round, and reactive to light. Cardiovascular: Rate and Rhythm: Normal rate and regular rhythm. Heart sounds: Normal heart sounds. No murmur heard. Pulmonary: Effort: Pulmonary effort is normal. Breath sounds: Examination of the right-lower field reveals decreased breath sounds. Examination of the left-lower field reveals decreased breath sounds. Decreased breath sounds present. Musculoskeletal: Cervical back: Neck supple. Lymphadenopathy: Cervical: No cervical adenopathy. Neurological: Mental Status: She is alert. An electronic signature was used to authenticate this note. Augustin Jordan MD 06/10/2024 3:14 PM [facility] Progress Note Patient verified by last name and date of . [facility] 36on 06-09-2024 36 S: Patient spoke ta swenson [facility] nurse regarding Cough chest congestion chills and hot flashes Provider: Dr. Jordan Practice Name: [facility] B: Onset of symptoms/concern 3 days A: Starting to have wheezes, coughing, coughed up sputum, starting to look bad, starting to feel pretty sick, getting hot and cold but hasn't checked temp, hasn't been exposed, states she has stayed away from everyone so no covid or flu exposure, using rescue inhaler more frequently, R: Patient scheduled tomorrow with Dr. Jordan 06/10 at 2:15p. Advised to wear mask to appointment due to symptoms. Patient understands care advice. No further needs at this time. Patient instructed to call back with new or worsening symptoms. Reason for Disposition Continuous (nonstop) coughing interferes with work or school and no improvement using cough treatment per Care Advice Protocols used: [id number] [address] 06-05-2024 36 Thank you Valerie. [address] 06-04-2024 36 Spoke to Idalia, she is going to call to schedule this. [address] 06-01-2024 36 Please check with Idalia if she still plans to get this done. Thank you. [facility] 36 Pt given orders for CT-Lung Screen on 04/15/24 Several attempts to contact pt including a follow up letter were made. No response from pt to sched; Okay to closed orders? [address] 05-22-2024 36 S: Patient spoke ta [facility] nurse regarding cough B: Onset of symptoms/concern 3 days A: Wheezing, non productive cough. Pt speaking in full sentences without audible wheezing. Denies - shortness of breath, fever, chest congestion Pt requesting to have prednisone to be sent to pharmacy. R: Home care advised given for non-productive cough - Cough - Acute Vfk-Kmjofjcaza-ISQLH-A H Care Advice COUGH DROPS FOR COUGH: * Cough drops can help a lot, especially for mild coughs. They reduce coughing by soothing your irritated throat and removing that tickle sensation in the back of the throat. * Cough drops also have the advantage of portability - you can carry them with you. * Cough drops are available [id number] (OTC). * HOME REMEDY - HARD CANDY: Hard candy works just as well as a medicine-flavored OTC cough drops. COUGHING SPELLS: * Drink warm fluids. Inhale warm mist. This can help relax the airway and also loosen up phlegm. * Suck on cough drops or hard candy to coat the irritated throat. HUMIDIFIER: * If the air is dry, use a humidifier in the bedroom. * Dry air makes coughs worse. AVOID TOBACCO SMOKE: * Avoid smoke from tobacco and e-cigarettes. * Smoking or being exposed to smoke makes coughs much worse. CALL BACK IF: * Cough lasts over 3 weeks * Continuous coughing lasts over 2 hours after cough treatment * Fever over 103 F (39.4 C) * Fever lasts more than 3 days * Difficulty breathing occurs * You become worse HOME CARE: * You should be able to treat this at home. Patient understands care advice. No further needs at this time. Patient instructed to call back with new or worsening symptoms. 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 Medication dosage: 2 puff(s) Monthly quantity needed: N/A How many day supply requestin days Medication route: inhalation (inhaler) Medication administration time(s): every 6 hours If taking medication PRN, reason for taking medication: Wheezing If this is a controlled substance do you receive this or any other controlled medication from any other doctor or facility: N/A Ordering provider: Dr. Jordan Date of last office visit: 04/15/2024 Date of next office visit: 10/14/2024 Date of last refill: (see medication tab): 03/24/2024 Updated/Validated preferred pharmacy: Yes Patient instructed to contact the pharmacy prior to picking up the medication: Yes [facility] 36on 04-24-2024 36 Noted [place] [address] Please leave open fo r 90 days. Then if not scheduled ok to close. [facility] 36 Pt given orders for Complete PFT on 03/24/24 Several attempts to contact pt including a follow up letter were maid. No response from pt to sched; Okay to closed orders? [facility] Office Visiton 04-15-2024 Follow-up visit [id number] Elizabeth Gipson 1965 F Date Provider Department Center 04/15/2024 [id number] KNOWLES [facility] Family History Problem Relation Age of Onset Other Mother Comments: cancer Heart disease Mother Mental illness Mother COPD Mother Skin cancer Mother 50 Cervical cancer Mother 50 Colon cancer Mother 50 Stomach cancer Mother 50 Drug abuse Father Drug abuse Sister Mental illness Sister Leukemia Paternal Grandmother 50 Breast cancer Father's Sister 40 Family Status - Relation Status Age at Mother Alive Father Alive Sister Sister Alive Paternal Grandmother Father's Sister Level of Service:77295 [place] PERIODIC PREVENTIVE MED EST PATIENT 40-64YRS Reason for Visit and Comments: Gynecologic Exam [50] Health Maintenance [872] - Lung cx screen- declines CRCS- declines Flu- agrees Covid- not done Blood Work [773719] [facility] Progress Noteon 04-15-2024 Progress Note Patient verified by last name and . After obtaining consent, and per orders of STANLEY Payne, injection of Influenza given in the Right Deltoid by Damaris Linda. Patient instructed to report any adverse reactions immediately. [facility] Progress Note [facility] - [address] [address] Dept: [phone] Dept Loc: [phone] HPI: Idalia Gipson is a 58 y.o. female who presents today for her medical conditions/complaints as noted below. Idalia Gipson is c/o of Gynecologic Exam, Health Maintenance (Lung cx screen- declines /CRCS- declines /Flu- agrees/Covid- not done ), and Blood Work HPI- Idalia Gipson presents today for her well female examination. LMP was in 2018. Insomnia: Takes Topamax at bedtime and this helps. Feels symptoms are stable. Chronic Hep C/History of Drug Abuse: Has been clean for 8.5 years. Is doing well overall. States she was fully treated for hep c and was told she is clear. Constipation: States symptoms are currently well controlled. Strives to remain well hydrated. Denies current concerns or worries. OAB/Cystocele: Feels symptoms are well controlled. Denies current concerns or worries. Denies issues with recurrent UTI's, pelvic pain/pressure, or difficulty urinating. Hyperlipidemia: Has not been taking her Rosuvastatin. Her levels were stable off of the medication when checked last checked in February 2023. Would like to remain off of the medication at this time. Will recheck levels today. Component Ref Range & Units (02/22/23) (04/04/22) (05/12/21) (04/03/21) (11/25/19) CHOLESTEROL, TOTAL <200 mg/dL 220 High HDL CHOLESTEROL > OR = 50 mg/dL 107 70 High R 67 High R 67 High R 54 R TRIGLYCERIDES <150 mg/dL 83 114 139 103 287 Abnormal LDL-CHOLESTEROL mg/dL (calc) 96 CHOL/HDLC RATIO <5.0 (calc) 2.1 NON HDL CHOLESTEROL <130 mg/dL (calc) 113 Depression/Anxiety/PTS D: Takes Abilify, Buspar, and Trintellix as prescribed. Continues to follow up with weekly counseling and psych. Her mother last week, which has been difficult. Feels she has a good social and emotional support system. Nicotine Use: Currently smoking less than 1 PPD recently but typically smokes 1 PPD and has been smoking for the past 52 years. Denies interest in smoking cessation. Health Maintenance: Mammogram was 05/20/23- normal findings- would like a new order placed. Pap smear was 04/08/23- normal findings. Declines screening for HIV- states she had this done several years ago and it was negative. Declines a colonoscopy for colon cancer screening, but willing to do a home Cologuard test- had an order placed and never got this done. Declines to have it done at this time. Declines to be vaccinated for COVID-19. Is current on her pneumococcal vaccinations (PCV13 on 05/21/18 and PPSV23 on 06/01/19). Tdap is current: 02/04/23. Is fully vaccinated for shingles. Would like a lung CT for lung cancer screening. Would like a flu vaccine. See ROS for additional information. Past Medical History: Diagnosis Date Anxiety Bronchitis 12/13/2021 Chest wall pain 12/13/2021 Constipation Dependent edema 04/06/2019 Depression Drug abuse (CMS/HCC) (HCC) Dysfunctional uterine bleeding 03/17/2019 Headache Hyperlipidemia 04/05/2021 Mitral valve prolapse PTSD (post-traumatic stress disorder) Urge incontinence 04/06/2019 Urge incontinence 04/06/2019 Uterine prolapse Uterine prolapse Viral URI with cough 10/05/2022 Past Surgical History: Procedure Laterality Date BREAST ENHANCEMENT SURGERY 1994 EXPLORATORY LAPAROTOMY EXTREMITY SURGERY 2002 After water skiing accident, significant issues with antibiotic and wound healing TEMPOROMANDIBULAR JOINT SURGERY 1989 Family History Problem Relation Name Age of Onset Other (88450) Mother cancer Heart disease Mother Mental illness Mother COPD Mother Skin cancer Mother 50 Cervical cancer Mother 50 Colon cancer Mother 50 Stomach cancer Mother 50 Drug abuse Father Drug abuse Sister Mental illness Sister Leukemia Paternal Grandmother 50 Breast cancer Father's Sister 40 Social History Tobacco Use Smoking status: Every Day Current packs/day: 1.00 Average packs/day: 1 pack/day for 52.7 years (52.7 ttl pk-yrs) Types: Cigarettes Start date: 1971 Smokeless tobacco: Never Tobacco comments: Quit smoking: Attempted multiple times Substance Use Topics Alcohol use: No E-cigarette/Vaping Questions Responses E-cigarette/Vaping Use Never User Current Outpatient Medications Medication Sig Dispense Refill albuterol 108 (90 Base) MCG/ACT inhaler Inhale 2 puffs every 6 hours as needed for wheezing. 8.5 g 0 ARIPiprazole (Abilify) 10 MG tablet Take 15 mg by mouth daily. benztropine (Cogentin) 0.5 MG tablet Take 0.5 mg by mouth daily. buprenorphine ER (Sublocade) 100 mg/0.5mL injection Inject 1 each under the skin every month to absorb continually. busPIRone (Buspar) 10 MG tablet Take 10 mg by mouth in the morning and 10 mg in the evening. cloNIDine (Catapres) 0.1 MG tablet TAKE 1 TABLET BY MOUTH T (more content not included)... [facility] Office Visiton 03-24-2024 Follow-up visit [id number] Elizabeth Gipson 1965 F Date Provider Department Center 03/24/2024 [id number] SALGUERO [facility] Family History Problem Relation Age of Onset Other Mother Comments: cancer Heart disease Mother Mental illness Mother COPD Mother Skin cancer Mother 50 Cervical cancer Mother 50 Colon cancer Mother 50 Stomach cancer Mother 50 Drug abuse Father Drug abuse Sister Mental illness Sister Leukemia Paternal Grandmother 50 Breast cancer Father's Sister 40 Family Status - Relation Status Age at Mother Alive Father Alive Sister Sister Alive Paternal Grandmother Father's Sister Level of Service:22661 [place] OFFICE/OUTPATIENT ESTABLISHED LOW [facility] 20 MIN Reason for Visit and Comments: Cough [28] - States that she has been wheezing, feels like her chest is crackling, feels like she can't breathe. Also has an ear ache along with sore throat. Has been using her albuterol. [facility] PATINSon 03-24-2024 PATINS Please call Central Scheduling at [phone] to schedule your outpatient test [facility] Progress Noteon 03-24-2024 Progress Note Suspect COPD. Will obtain PFT [facility] Progress Note Will treat for suspected COPD exacerbation. Most likely secondary to viral illness. No acute distress, pulse ox 94% on room air. Recommend starting ICS/LABA for better control of symptoms. Obtain PFTs [facility] Progress Note Patient verified by last name and . [facility] Progress Note 03/24/2024 Idalai Gipson (: 1965) is a 58 y.o. female , Established patient, here for evaluation of the following chief complaint(s): Cough (States that she has been wheezing, feels like her chest is crackling, feels like she can't breathe. Also has an ear ache along with sore throat. Has been using her albuterol. ) ASSESSMENT/PLAN: 1. Bronchitis Assessment & Plan: Will treat for suspected COPD exacerbation. Most likely secondary to viral illness. No acute distress, pulse ox 94% on room air. Recommend starting ICS/LABA for better control of symptoms. Obtain PFTs Orders: - predniSONE (Deltasone) 20 MG tablet; Take 3 tabs (60mg) daily for 3 days, then take 2 tabs (40mg) daily for 3 days, then take 1 tab (20mg) daily for 3 days., Normal - fluticasone-salmeterol , sensor, (AirDuo Digihaler) 55-14 MCG/ACT inhaler; Inhale 1 puff 2 times daily. Rinse mouth with water after use to reduce aftertaste and incidence of candidiasis. Do not swallow., Starting Sat03/24/2024, Until Sat03/24/2025, Normal - guaiFENesin-dextrometh orphan (Robitussin DM) 100-10 MG/5ML syrup; Take 10 mL by mouth every 4 hours as needed for cough for up to 10 days., Starting Sat03/24/2024, Until Sat04/03/2024 at 2359, Normal 2. Chronic shortness of breath Assessment & Plan: Suspect COPD. Will obtain PFT Orders: - Complete PFT pre and post bronchodilator - albuterol 108 (90 Base) MCG/ACT inhaler; Inhale 2 puffs every 6 hours as needed for wheezing., Starting Sat03/24/2024, Normal Follow up for as directed pending test results. SUBJECTIVE/OBJECTIVE: PADMA Gipson (: 1965) is a 58 y.o. female , Established patient, here for the evaluation of the following chief complaint(s): Cough (States that she has been wheezing, feels like her chest is crackling, feels like she can't breathe. Also has an ear ache along with sore throat. Has been using her albuterol. ) Coughing, felt feverish slightly. Initially has sore throat, denies nasal congestion. Started couple days ago. Shortness of breath, tightness. No known sick contacts. Increased sputum of thick green/yellow. No chest pain. Has been using albuterol inhaler a lot without significant relief. Smoker. Has decreased to 1/2 pack daily. Hx of recurrent bronchitis. Not officially diagnosed with copd. States last spring was using an inhaler Breo that her friend gave her samples of and was using that for several months. Reports she felt a lot better and was not needing the albuterol at all. Ran out of the Breo about 6 months ago. Thinks she used it for about 3-4 months in total. Prior to Admission medications Medication Sig Start Date End Date Taking? Authorizing Provider albuterol 108 (90 Base) MCG/ACT inhaler INHALE 2 PUFFS EVERY 6 HOURS NEEDED FOR WHEEZING 03/09/24 Yes Augustin Jordan MD ARIPiprazole (Abilify) 10 MG tablet Take 15 mg by mouth daily. 03/12/23 Yes Historical Provider, benztropine (Cogentin) 0.5 MG tablet Take 0.5 mg by mouth daily. 03/22/24 Yes Historical Provider, buprenorphine ER (Sublocade) 100 mg/0.5mL injection Inject 1 each under the skin every month to absorb continually. Yes Historical Provider, busPIRone (Buspar) 10 MG tablet Take 10 mg by mouth in the morning and 10 mg in the evening. 07/08/20 Yes Historical Provider, cloNIDine (Catapres) 0.1 MG tablet TAKE 1 TABLET BY MOUTH TWICE A DAY NEEDED FOR RESTLESSNESS OR ANXIETY 03/29/21 Yes Historical Provider, topiramate (Topamax) 100 MG tablet Take 3 tablets by mouth every evening. 08/06/18 Yes Historical Provider, Vortioxetine HBr (Trintellix) 20 MG tablet Take 20 mg by mouth in the morning. 11/05/16 Yes Historical Provider, triamterene-hydrochlor othiazide (Maxzide-25) 37.5-25 MG tablet take 1 tablet by mouth once daily Patient not taking: Reported on 03/24/2024 01/31/24 Henrietta Knowles APRN - COLLECTIONS ASSISTANT Review of Systems Constitutional: Positive for activity change and fatigue. Negative for chills and fever. HENT: Positive for sore throat. Negative for congestion, postnasal drip, rhinorrhea, sinus pressure and trouble swallowing. Respiratory: Positive for cough, chest tightness, shortness of breath and wheezing. Cardiovascular: Negative for chest pain. Gastrointestinal: Negative. Genitourinary: Negative. Neurological: Positive for headaches (mild). Negative for dizziness and light-headedness. Vitals: 03/24/24 1056 BP: 110/68 Pulse: 103 Temp: 36.9 ?C (98.4 ?F) SpO2: 94% Weight: 193 lb (87.5 kg) Height: 5' 6" (1.676 m) Physical Exam Constitutional: General: She is not in acute distress. Appearance: Normal appearance. She is ill-appearing. HENT: Head: Normocephalic and atraumatic. Right Ear: Tympanic membrane normal. Left Ear: Tympanic membrane normal. Nose: Nose normal. Mouth/Throat: Mouth: Mucous membranes are moist. Pharynx: Oropharynx is clear. No posterior oropharyngeal erythema. (more content not included)... [facility] 36on 03-23-2024 36 Noted. Agree with disposition. [facility] 36 S: Patient spoke wit h [facility] nurse regarding congestion, difficulty breathing. B: Onset of symptoms/concern couple days A: Calls with concern of having wheezing, and using her albuterol inhaler, has green sputum, slight throat and ears pain. Had chills yesterday, feeling hot. Has not taken covid test with this call. Able to speak in complete sentences without audible wheezing or distress noted. Denies chest pain. R: Insurance verified. Scheduled appointment for tomorrow as declined offered POD for today. Advised to wear mask, bring ID and insurance cards, current medications and arrive 15 minutes early. Given home care advice to include increasing fluids, inhale mist of warm liquids. Patient understands care advice. No further needs at this time. Patient instructed to call back with new or worsening symptoms. Reason for Disposition Longstanding difficulty breathing (e.g., CHF, COPD, emphysema) and worse than normal Protocols used: Breathing [id number] [facility] 36on 03-17-2024 36 I gave her the danyel ge on her results from Dr. Jordan. [facility] 36 Name of caller: Idalia Contact phone number: [phone] Relationship to Patient: naun Provider: Dr. Jordan Practice: [facility] Chief Complaint/Reason for Call: Pt requesting call back to discuss recent lab results. Pt states she does not use My Chart Best time of day caller can be reached: Any Patient advised that office/PCP has 24-48 business hours to return their call: No [facility] Progress Noteon 03-16-2024 Progress Note Venipuncture complet ed by [facility]. [place] [address]on 03-12-2024 36 Notified. [place] [address]on 03-11-2024 36 Left a message to return call. [facility] 36 Labs ordered [facility] 36 Name of caller: Idalia Contact phone number: [phone] Relationship to Patient: patient Provider: Dr Jordan Practice: [facility] Chief Complaint/Reason for Call: Patient is requesting order for Hormone level blood work lab. Patient states that she has been going through menopause, which she thinks is causing her anxiety. Patient states that her psych doctor advised her to check levels. Please call patient when order has been placed. Please advise. Best time of day caller can be reached: any Patient advised that office/PCP has 24-48 business hours to return their call: Yes [place] [address]on 03-09-2024 36 Prescription Request : Last medication check: 10/07/2023 Last physical exam: 04/08/2023 Next scheduled appointment: 04/15/2024 Last date of refill on this medication: 12/04/2023 [place] [address]on 02-03-2024 36 Refill not appropriate. [facility] 36 Prescription Request : Last medication check: 11/11/23 Last physical exam: 04/08/23 Next scheduled appointment: 04/15/24 Last date of refill on this medication UNK ' [facility] 36 RX refused- short te rm use only. [facility] 36 Please refuse. 3601-31-2024 36 Rx sent. Follow up a s scheduled. [facility] 36 Prescription Request : Last medication check: 10/07/2023 Last physical exam: 04/08/2023 Next scheduled appointment: 04/15/2024 Last date of refill on this medication: 10/22/2023 [facility] Progress Noteon 12-18-2023 Progress Note Venipuncture complet ed by [employer]. [facility] 36on 12-14-2023 36 We have been unable to reach your patient to schedule their testing. Test Name: Vascular Ultrasound 1st Attempt: Mychart 2nd Attempt: Voicemail message [facility] 36on 12-11-2023 36 LM to call for appointment. Will try to submit for removal of rupture but patient may have to pay for new implant. Did patient stop smoking. [address] 12-04-2023 36 Spoke to patient, no questions. [place] [address] Rx sent [place] [address] S: Patient called [facility] clinical access center with complaint of shortness of breath B: She ran out of her rescue inhaler last evening A: She has symptoms of mild shortness of breath , She is speaking in complete sentences and has no audible wheezing . She has has a nebulizer machine with solution but stated " I don't want to waste the solution" . R: She was advised to use her nebulizer , refill request sent to office . She declined to schedule an appointment. Patient instructed to call back with worsening symptoms, concerns or questions. Reason for Disposition MILD difficulty breathing (e.g., minimal/no SOB at rest, SOB with walking, pulse < 100) of new-onset or worse than normal Protocols used: Breathing [id number] [address] 12-02-2023 36 Thank you appreciate your help [place] [address] Spoke to patient, e states when she saw Dr. Parker he advised her he couldn't do anything further for her. I let her know I will send this message to Dr. Parker to advise on what other studies and lab work she should have so we can order. [address] 11-29-2023 36 I reviewed his [facility] visit note and he did not say she needed to see a vascular surgeon he said she possibly needed some more vascular studies but she also needed some more lab work and I am not sure why he did not order these because he is perfectly capable of ordering labs and vascular studies. I am not sure what he is thinking as far as which studies he thinks he needs. I would recommend a follow-up visit with him and he can order what ever labs and studies he thinks are appropriate. [place] [address] Name of caller: Idalia Contact phone number: [phone] Relationship to Patient: patient Provider: Practice: [facility] Chief Complaint/Reason for Call: Patient states told her needs needs a vascular referral so patient would like to know if she can get one put in. Please advise Best time of day caller can be reached: Any Patient advised that office/PCP has 24-48 business hours to return their call: No [facility] Office Visiton 11-26-2023 Follow-up visit [id number] Elizabeth Gipson 1965 F Date Provider Department Center 11/26/2023 [id number] PARKER [facility] None Family History Problem Relation Age of Onset Other Mother Comments: cancer Heart disease Mother Mental illness Mother COPD Mother Skin cancer Mother 50 Cervical cancer Mother 50 Colon cancer Mother 50 Stomach cancer Mother 50 Drug abuse Father Drug abuse Sister Mental illness Sister Leukemia Paternal Grandmother 50 Breast cancer Father's Sister 40 Family Status - Relation Status Age at Mother Alive Father Alive Sister Sister Alive Paternal Grandmother Father's Sister Level of Service:51536 [place] OFFICE/OUTPATIENT NEW LOW MDM 30 MINUTES Reason for Visit and Comments: New Patient [542] Foot Pain [838541] - left [facility] Progress Noteon 11-26-2023 Progress Note [facility] [address] [place] [address] Dept: [phone] Dept Chief Complaint Patient presents with New Patient Foot Pain left Subjective History of Present Illness: Idalia Gipson is a 58 y.o. female who presents today for evaluation of left foot pain. Location: lateral and medial Onset: 1 month Injury: no Quality: aching, throbbing, and pins and needles also swelling Radiation of symptoms: yes - into the front of her ankle Severity: 5/10 at rest and 5/10 at worst Exacerbating factor(s): walking, prolonged standing, climbing/descending stairs, and wearing certain shoes Relieving factor(s): Advil Timing: all day Note: Onset, acute Redness and swelling was treated as cellulitis a month ago. By ER and PCP. improved. Has noted continued mild swelling and faint erythema of the lower one third leg and foot. Not associated with pain. She had some preliminary blood work, sed rate, CRP, CBC and uric acid level while she was on prednisone. Labs look relatively normal but there may have been some normalization of the CRP and sed rate from the prednisone that is less diagnostic. Imaging to date: X-ray October 2023 ankle and foot nondiagnostic. Treatment to date: PT/OT/HEP: no Ice: yes, helpful Heat: no Medications: Tylenol: no NSAIDs: no Oral steroids: was given prednisone but wasn't helpful Muscle relaxants: no Nerve medications: no Targeted injections: none Assistive devices: none Prior surgery: no Occupation: Unemployed Fall risk assessment: Less than 65, not applicable Objective There were no vitals taken for this visit. Physical Exam: General: Alert, well appearing, no acute distress. Respiratory: Breathing comfortably on room air. No respiratory distress. Skin: Warm, dry, intact. No visible rashes or erythema overlying area of focused exam. Physical Exam Musculoskeletal: Right foot: Normal range of motion and normal capillary refill. Swelling (Trace) and tenderness (Diffuse mild foot) present. No deformity, bunion, Charcot foot or foot drop. Normal pulse. Left foot: Normal range of motion and normal capillary refill. Swelling (Trace) and tenderness (Diffuse mild lower leg ankle and foot) present. No deformity, bunion, Charcot foot or foot drop. Normal pulse. Comments: Sensation intact to light touch Strength and range of motion intact. External Notes No pertinent interval updates Labs Lab Results Component Value Date HGBA1C 5.5 10/07/2023 Lab Results Component Value Date CREATININE 0.90 10/07/2023 Imaging Images reviewed with patient today I have personally reviewed the images pertinent to the appointment today EMG/NCT N/A Procedure No procedures completed today Assessment Diagnosis Plan 1. Erythema of foot 2. Bilateral swelling of feet Plan Unclear etiology for her foot erythema and faint swelling. We discussed there are limited number of things in the lower extremities including skin, does not appear to be dermatologic: Musculoskeletal, x-rays within normal limits, range of motion, muscle testing intact, no indications of underlying arthritis. Vascular pulses palpable today but cannot rule out underlying vascular pathology, consider additional arterial or venous evaluations. And possible metabolic or rheumatological. It is possible that her blood work was altered by her course of prednisone, I would consider more extensive hematological workup including thyroid. Autoimmune processes and repeating inflammatory markers now that she is off of the prednisone. No follow-ups on file. Shahab Parker MD 11/26/2023 1:40 PM Please note that portions of this note may have been completed with voice recognition software. Documentation reviewed prior to signing but minor errors in hand tool lapper may have occurred. [facility] No Panel Informationon 11-13 Radiology Study observation (narrative) Chely julian XR Ankle - left 3 Viewson No acute osseous abnormality of the left ankle. Report Dictated on Electronically Signed By: Shahab Pinto MD Electronically Signed Date/Time: 11/14/2023 4:36 PM EDT [facility] Patient Name: IDALIA MEJIA : 1965 Exam Date/Time: 11/14/2023 12:18 Procedure: XR ANKLE 3+ VIEWS LEFT Ordering Provider: JORDAN DARRELL Reason For Exam: left ankle and foot pain CLINICAL INDICATION: left ankle and foot pain COMPARISON: None. Technique: AP, lateral, and oblique views were obtained of the left ankle. FINDINGS: Three views of the left ankle show no acute fracture or dislocation. The joint spaces are normal and the alignment is anatomic. The talar dome is intact and the ankle mortise is congruent. There is no effusion. The soft tissues are unremarkable. [facility] Miriam Pinto MD - 11/14/2023 Patient Name: IDALIA MEJIA : 1965 Exam Date/Time: 11/14/2023 12:18 Procedure: XR ANKLE 3+ VIEWS LEFT Ordering Provider: JORDAN DARRELL Reason For Exam: left ankle and foot pain CLINICAL INDICATION: left ankle and foot pain COMPARISON: None. Technique: AP, lateral, and oblique views were obtained of the left ankle. FINDINGS: Three views of the left ankle show no acute fracture or dislocation. The joint spaces are normal and the alignment is anatomic. The talar dome is intact and the ankle mortise is congruent. There is no effusion. The soft tissues are unremarkable. IMPRESSION: No acute osseous abnormality of the left ankle. Report Dictated on Electronically Signed By: Shahab Pinto MD Electronically Signed Date/Time: 11/14/2023 4:36 PM EDT [facility] XR Ankle - left 3 ViewsOrder ed By: Miriam Pinto on 11-14-2023 [facility] Work Phone: XR Foot - left 3 Viewson No acute osseous abnormality of the left foot. Report Dictated on Electronically Signed By: Shahab Pinto MD Electronically Signed Date/Time: 11/14/2023 4:[address] [facility] Patient Name: IDALIA MEJIA : 1965 Exam Date/Time: 11/14/2023 12:18 Procedure: XR FOOT 3+ VIEWS LEFT Ordering Provider: JORDAN DARRELL Reason For Exam: left ankle and foot pain CLINICAL HISTORY: Foot pain. COMPARISON: None. Technique: AP, lateral, and oblique views were obtained of the left foot. FINDINGS: Three views of the left foot show no acute fracture or dislocation. The joint spaces are normal and the alignment is anatomic. There is no effusion.The soft tissues are unremarkable. [facility] Miriam Pinto MD - 11/14/2023 Patient Name: IDALIA MEJIA : 1965 Exam Date/Time: 11/14/2023 12:18 Procedure: XR FOOT 3+ VIEWS LEFT Ordering Provider: JORDAN DARRELL Reason For Exam: left ankle and foot pain CLINICAL HISTORY: Foot pain. COMPARISON: None. Technique: AP, lateral, and oblique views were obtained of the left foot. FINDINGS: Three views of the left foot show no acute fracture or dislocation. The joint spaces are normal and the alignment is anatomic. There is no effusion.The soft tissues are unremarkable. IMPRESSION: No acute osseous abnormality of the left foot. Report Dictated on Electronically Signed By: Shahab Pinto MD Electronically Signed Date/Time: 11/14/2023 4:35 PM EDT [facility] DBT Breast - bilateral diagn osticon 05-20-2023 Ruptured left breast saline implant. No mammographic evidence of malignancy. A one year screening exam is recommended. Markings on images: BB's = Nipples; skin lesions Open manzanita = Palpable Line = Scar ASSESSMENT: Category 2 Benign RECOMMENDATION: Routine screening mammogram in 1 year. Bilateral Report Dictated on Electronically Signed By: Yanet Cardona MD Electronically Signed Date/Time: 05/20/2023 11:[address] [facility] Patient Name: IDALIA MEJIA : 1965 Exam Date/Time: 05/20/2023 11:13 Procedure: BI MAMMOGRAM DIAGNOSTIC TOMOSYNTHESIS BILATERAL Ordering Provider: BOUDREAUX ASHLEY Reason For Exam: possible ruptured left breast implant Prior study Comparisons: 02/13/2019 Image views: 2D CC and MLO views were acquired. 3D CC and MLO views were acquired. Tissue Density: BIRADS B - There are scattered fibroglandular densities. Images were reviewed with CAD. Findings: The patient presents for a bilateral diagnostic mammogram due to the history of a left implant rupture. The patient has bilateral saline implants with rupture of the left implant. No suspicious mass, calcifications, or architectural distortion is seen in either breast. There are no suspicious findings seen within either breast. [facility] Yanet Cardona MD - 05/20/2023 Patient Name: IDALIA MEJIA : 1965 Exam Date/Time: 05/20/2023 11:13 Procedure: BI MAMMOGRAM DIAGNOSTIC TOMOSYNTHESIS BILATERAL Ordering Provider: BOUDREAUX ASHLEY Reason For Exam: possible ruptured left breast implant Prior study Comparisons: 02/13/2019 Image views: 2D CC and MLO views were acquired. 3D CC and MLO views were acquired. Tissue Density: BIRADS B - There are scattered fibroglandular densities. Images were reviewed with CAD. Findings: The patient presents for a bilateral diagnostic mammogram due to the history of a left implant rupture. The patient has bilateral saline implants with rupture of the left implant. No suspicious mass, calcifications, or architectural distortion is seen in either breast. There are no suspicious findings seen within either breast. IMPRESSION: Ruptured left breast saline implant. No mammographic evidence of malignancy. A one year screening exam is recommended. Markings on images: BB's = Nipples; skin lesions Open manzanita = Palpable Line = Scar ASSESSMENT: Category 2 Benign RECOMMENDATION: Routine screening mammogram in 1 year. Bilateral Report Dictated on Electronically Signed By: Yanet Cardona MD Electronically Signed Date/Time: 05/20/2023 11:12 AM EST [facility] Radiology Study observation (narrative) [facility] DBT Breast - bilateral diagn osticOrdered By: Yanet Cardona on 05-20-2023 [facility] XR Chest 2 Viewson 3 No acute cardiopulmonary disease. Report Dictated on Electronically Signed By: Carmelo Espitia MD Electronically Signed Date/Time: 04/12/2023 7:12 PM EDT [facility] Patient Name: IDALIA MEJIA : 1965 Exam Date/Time: 04/12/2023 16:26 Procedure: XR CHEST 2 VIEWS Ordering Provider: KNOWLES HOLLY Reason For Exam: shortness of breath and chest congestion CHEST X-RAY PA/LATERAL CLINICAL INDICATION: shortness of breath and chest congestion Frontal and lateral plain films of the chest were obtained. COMPARISON: None FINDINGS: The cardiac silhouette is within normal limits. No focal consolidation is seen within the lungs. No pleural effusion or pneumothorax is identified. The bony structures of the chest are unremarkable as visualized for the patient's age. [facility] Carmelo Espitia MD - 04/12/2023 Patient Name: IDALIA MEJIA : 1965 Exam Date/Time: 04/12/2023 16:26 Procedure: XR CHEST 2 VIEWS Ordering Provider: KNOWLES HOLLY Reason For Exam: shortness of breath and chest congestion CHEST X-RAY PA/LATERAL CLINICAL INDICATION: shortness of breath and chest congestion Frontal and lateral plain films of the chest were obtained. COMPARISON: None FINDINGS: The cardiac silhouette is within normal limits. No focal consolidation is seen within the lungs. No pleural effusion or pneumothorax is identified. The bony structures of the chest are unremarkable as visualized for the patient's age. IMPRESSION: No acute cardiopulmonary disease. Report Dictated on Electronically Signed By: Carmelo Espitia MD Electronically Signed Date/Time: 04/12/2023 7:12 PM EDT [facility] Radiology Study observation (narrative) [facility] XR Chest 2 ViewsOrdered By: Carmelo Espitia on 04-12-2023 [facility] Work Phone: 36on 06-21-2022 36 Idalia Lofton. This is an important reminder about your recent Cologuard order. Our records indicate that you have not returned your Cologuard collection kit yet. Please plan to return your kit within the next two weeks. If it?s lost or you need a new kit, please contact the [facility] patient support team at . Pt on suboxone, has kit. Only goes to bathroom every two weeks or so but will try to get sent in within the next two weeks. [place] [address]on 05-04-2022 36 Called again and cou ld not reach pharmacy. Called in script on their vm instead. [address] 05-03-2022 36 Called 2x and cannot get through to anyone, the automated prompt menu just keeps going in circles. [place] [address] Tried to call the pharmacy to check on this but they are at lunch. [place] [address] Name of caller: Idalia Davila Contact phone number: [phone] Relationship to Patient: patient Provider: Nikki Yates Practice: [facility] Chief Complaint/Reason for Call: Patient states the pharmacy never received :Breestojl-Gylcrzno-GA 30-1-20 MG/5ML liquid . Please advise. Best time of day caller can be reached: any Patient advised that office/PCP has 24-48 business hours to return their call: Yes [facility] 36on 04-25-2022 36 Called and notified that her pap smear results were normal. [facility] 36 Please send this to Henrietta she is the one that did her Pap [facility] 36 Name of caller: Idalia Davila Contact phone number: [phone] Relationship to Patient: patient Provider: Augustin Jordan MD Practice: [facility] Chief Complaint/Reason for Call: Would like a call back of her Pap Smear on 04/04/22. Best time of day caller can be reached: any Patient advised that office/PCP has 24-48 business hours to return their call: No [facility] LABORATORYOrdered By: Lincoln Cunningham on 12-25-2021 Basophil, Absolute 0.1 103/mcL Invalid Interpretation Code 0.0 - 0.2 10^3/mcL AO Workflow SS Basophils/100 WBC (Bld) 0.9 % Invalid Interpretation Code 0.0 - 2.5 % AO Workflow SS Calcium [Mass/Vol] 9.5 mg/dL Invalid Interpretation Code 8.4 - 10.2 mg/dL AO ADM SS Chloride [Moles/Vol] 106 mmol/L Invalid Interpretation Code 98 - 107 mmol/L AO ADM SS CO2 [Moles/Vol] 26 mmol/L Invalid Interpretation Code 22 - 29 mmol/L AO ADM SS Creatinine [Mass/Vol] 1.06 mg/dL Invalid Interpretation Code 0.55 - 1.02 mg/dL AO ADM SS Electrolyte Balance 9.0 mEq/L Invalid Interpretation Code 4.0 - 15.0 mEq/L AO ADM SS Eosinophil, Absolute 0.1 103/mcL Invalid Interpretation Code 0.0 - 0.4 10^3/mcL AO Workflow SS Eosinophils/100 WBC (Bld) 1.1 % Invalid Interpretation Code 0.0 - 7.0 % AO Workflow SS Erythrocyte distribution width (RBC) [Ratio] 13.7 % Invalid Interpretation Code 11.5 - 14.5 % AO Workflow SS Fibrin D-dimer DDU (PPP) [Mass/Vol] 332 ng/mL D-DU Invalid Interpretation Code 0 - 230 ng/mL D-DU AO Coag SS Glucose [Mass/Vol] 106 mg/dL Invalid Interpretation Code 70 - 105 mg/dL AO ADM SS Hematocrit (Bld) [Volume fraction] 42.7 % Invalid Interpretation Code 37.0 - 47.0 % AO Workflow SS Hemoglobin (Bld) [Mass/Vol] 14.6 G/dL Invalid Interpretation Code 12.0 - 16.0 G/dL AO Workflow SS Lymphocyte, Absolute 2.6 103/mcL Invalid Interpretation Code 0.8 - 3.9 10^3/mcL AO Workflow SS Lymphocytes/100 WBC (Bld) 36.3 % Invalid Interpretation Code 10.0 - 50.0 % AO Workflow SS MCH (RBC) [Entitic mass] 29.4 pg Invalid Interpretation Code 27.0 - 31.2 pg AO Workflow SS MCHC 34.2 G/dL Invalid Interpretation Code 33.0 - 37.0 G/dL AO Workflow SS MCV (RBC) [Entitic vol] 86.0 fL Invalid Interpretation Code 80.0 - 94.0 fL AO Workflow SS Monocyte distribution width Auto (Bld) [Entitic vol] 15.02 Invalid Interpretation Code 0.00 - 20.00 AO Workflow SS Comment on above: Result Comment: For ED adult patients suspected of sepsis, MDW<=20.0 does not rule out sepsis or risk of sepsis Monocyte, Absolute 0.7 103/mcL Invalid Interpretation Code 0.2 - 1.0 10^3/mcL AO Workflow SS Monocytes/100 WBC (Bld) 9.7 % Invalid Interpretation Code 1.7 - 13.0 % AO Workflow SS Neutrophil, Absolute 3.7 103/mcL Invalid Interpretation Code 2.9 - 6.2 10^3/mcL AO Workflow SS Neutrophils/100 WBC (Bld) 52.0 % Invalid Interpretation Code 37.0 - 80.0 % AO Workflow SS Platelet mean volume (Bld) [Entitic vol] 7.8 fL Invalid Interpretation Code 7.4 - 10.4 fL AO Workflow SS Platelets (Bld) [#/Vol] 153 103/mcL Invalid Interpretation Code 130 - 400 10^3/mcL AO Workflow SS Potassium [Moles/Vol] 4.0 mmol/L Invalid Interpretation Code 3.5 - 5.1 mmol/L AO ADM SS RBC (Bld) [#/Vol] 4.97 106/mcL Invalid Interpretation Code 4.20 - 5.40 10^6/mcL AO Workflow SS Sodium [Moles/Vol] 141 mmol/L Invalid Interpretation Code 136 - 145 mmol/L AO ADM SS Troponin I.cardiac DL <= 0.01 ng/mL [Mass/Vol] 5.1 ng/L Invalid Interpretation Code 0.0 - 51.4 ng/L AO ADM SS Urea nitrogen [Mass/Vol] 12 mg/dL Invalid Interpretation Code 7 - 18 mg/dL AO ADM SS Urea nitrogen/Creatinine [Mass ratio] 11 ratio Invalid Interpretation Code 7 - 27 ratio AO ADM SS WBC 7.1 103/mcL Invalid Interpretation Code 4.6 - 10.8 10^3/mcL AO Workflow SS LABORATORYOrdered By: SYSTEM SYSTEM on 12-25-2021 GFR 65 ml/min/1.73sqm Invalid Interpretation Code AO Chemistry S GFR Non- 54 ml/min/1.73sqm Invalid Interpretation Code AO Chemistry S CMPon 08-11-2020 Albumin [Mass/Vol] 4.5 g/dL Normal 3.2-5.0 [facility] Comment on above: Performed By: #### L 500.22698, L500.31942 #### [facility] [address] [place] [address] Albumin/Globulin [Mass ratio] 1.7 {ratio} Normal 0.8-2.0 [facility] Comment on above: Performed By: #### L 500.68026, L500.39869 #### [facility] [address] [place] [address] ALK PHOS 50 U/L Normal 45-117 [facility] Comment on above: Performed By: #### L 500.90851, L500.38904 #### [facility] [address] [place], [place] [id number] ALT [Catalytic activity/Vol] 9 U/L Low 13-61 [facility] Comment on above: Result Comment: RESU LTS MAY BE FALSELY DEPRESSED AFTER THE ADMINISTRATION OF SULFASALAZINE AND/OR SULFAPYRIDINE. Performed By: #### L 500.15637, L500.48728 #### [facility] [address] [place], [place] [id number] Anion gap [Moles/Vol] 7 mmol/L Normal 5-16 [facility] Comment on above: Performed By: #### L 500.19260, L500.76711 #### [facility] [place] [id number] AST [Catalytic activity/Vol] 19 U/L Normal 8-34 [facility] Comment on above: Result Comment: RESU LTS MAY BE FALSELY DEPRESSED AFTER THE ADMINISTRATION OF SULFASALAZINE AND/OR SULFAPYRIDINE. Performed By: #### L 500.65167, L500.25285 #### [facility] [address] [place] [address] BILI TOTAL 0.30 MG/DL Normal 0.2-1.0 [facility] Comment on above: Performed By: #### L 500.93211, L500.06681 #### [facility] [address] [place] [address] Calcium [Mass/Vol] 10.8 mg/dL High 8.5-10.5 [facility] Comment on above: Result Comment: NOTE NEW NORMAL RANGE DUE TO REAGENT CHANGE Performed By: #### L 500.00854, L500.77834 #### [facility] [address] [place] [address] Chloride [Moles/Vol] 109 mmol/L High 98-107 [facility] Comment on above: Performed By: #### L 500.27093, L500.64239 #### [facility] [address] [place] [address] CO2 [Moles/Vol] 24.0 mmol/L Normal 21-32 [facility] Comment on above: Performed By: #### L 500.76658, L500.61502 #### [facility] [address] [place] [address] Creatinine [Mass/Vol] 0.82 mg/dL Normal 0.510-0.950 [facility] Comment on above: Result Comment: Brionna ents receiving either N-Acetylcysteine (NAC) or Metamizole prior to venipuncture, may have falsely depressed results. Performed By: #### L 500.42120, L500.61410 #### [facility] [place] [address] Globulin (S) [Mass/Vol] 2.6 g/dL Normal 2.2-4.2 [facility] Comment on above: Performed By: #### L 500.08547, L500.81912 #### [facility] [address] [place] [address] Glucose [Mass/Vol] 94 mg/dL Normal 70-100 [facility] Comment on above: Result Comment: 70-1 00- Normal Fasting; 100-125 Impaired Fasting; greater than 126 on more than one result- Diabetes. ADA guidelines. Results may be falsely elevated after the administration of Sulfapyridine. Results may be falsely depressed after the administration of Sulfasalazine. Performed By: #### L 500.61920, L500.34376 #### [facility] [address] [place] [address] Potassium [Moles/Vol] 4.5 mmol/L Normal 3.5-5.1 [facility] Comment on above: Result Comment: Slig ht Hemolysis, Result may be affected. Performed By: #### L 500.90245, L500.33040 #### [facility] [address] [place] [id number] Protein [Mass/Vol] 7.1 g/dL Normal 6.0-8.5 [facility] Comment on above: Performed By: #### L 500.25288, L500.83673 #### [facility] [address] [place] [address] Sodium [Moles/Vol] 140 mmol/L Normal 136-145 [facility] Comment on above: Performed By: #### L 500.12132, L500.82010 #### [facility] [place] [address] Urea nitrogen [Mass/Vol] 13 mg/dL Normal - [facility] Comment on above: Performed By: #### L 500.33160, L500.42953 #### [facility] [address] [place] [address] Urea nitrogen/Creatinine [Mass ratio] 16 mg/mg Normal 15-24 [facility] Comment on above: Performed By: #### L 500.11937, L500.07786 #### [facility] [address] [place] [address] GFR ESTon 08-11-2020 IF AMER Greater than 60 Normal [facility] Comment on above: Performed By: #### L 500.55433, L500.62036 #### [facility] [address] [place] [address] IF non-AFR AMER Greater than 60 Normal [facility] Comment on above: Performed By: #### L 500.88584, L500.68972 #### [facility] [address] [place] [address] Glucose,Bedsideon 06-18-2019 Glucose [Mass/Vol] 102 mg/dL High 70-100 [facility] [employer] [facility] Comment on above: Result Comment: Test performed by glucose meter. Results may be 10%-15% lower than serum/plasma values. (CLIA ID [id number]) Performed By: #### B GLU #### [facility] [address] [place] [address] US Pelvis TA/TVon 02-20-2019 US Pelvis TA/TV Patient Name: IDALIA LAROSE Ultrasound Exam Date/Time 02/19/2019 15:59:55 EDT Exam US Pelvis TA/TV Ordering Physician MD JORDAN DARRELL LEROY Accession Number [id number] CPT4 Codes 80507 (US Pelvis TA/TV), 53443 (US Transvaginal) Reason For Exam PAIN, PELVIS Report TRANSABDOMINAL AND TRANSVAGINAL PELVIC SONOGRAM History: Postmenopausal bleed, pelvic cramps, endometriosis Findings: Transabdominal and transvaginal pelvic sonogram were done. The uterus is heterogeneous measuring 8 x 5.4 x 3.9 cm and has at least two heterogeneous masses suggesting fibroids, one is isoechoic measuring 2.7 x 1.8 x 2.7 cm and the other is hyperechoic measuring 1.8 x 1.8 x 2.1 cm. The endometrium could not be clearly visualized for evaluation due to obscuring fibroids but measures approximately 6.3 mm in thickness. There are small cervical nabothian cysts. There is no free fluid in the cul-de-sac. To the extent visualized, the right ovary measures 2.7 x 1.7 x 1.4 cm and has color Doppler and spectral flow. The left ovary could not be visualized. There are degrading bowel gas artifacts. IMPRESSION: Heterogeneous uterus with at least two masses suggesting fibroids. Limited visualization of the endometrium. Unremarkable right ovary. Left ovary could not be visualized. Report Dictated on Final Dictating Physician: MD LAWSON AHMAD Signed Date and Time: 02/20/2019 8:20 am Signed by: MD LAWSON AHMAD Transcribed Date and Time: 02/20/2019 8:21 Normal [facility] MG Breast Tomosynthesis Scr Blon 02-13-2019 MG Breast Tomosynthesis Scr Bl Patient Name: IDALIA LAROSE Mammography Exam Date/Time 02/13/2019 16:41:27 EDT Exam MG Breast Tomosynthesis BI Scr Ordering Physician FLAVIA KNOWLES HOLLY S Accession Number [id number] CPT4 Codes 42723 (MG Breast Tomosynthesis Scr Bl), 49873 (MG MAMMO 2D SCREENING) Reason For Exam screening Report PATIENT HISTORY: Patient had first child at age 31. Family history of unknown cancer at age 50 in mother, breast cancer at age 40 in paternal aunt, unknown cancer in paternal grandmother. Saline implants in both breasts, 1994. Took hormonal contraceptives for 10 years. Patient is an every day smoker, and has smoked for 40 years. Patient's BMI is 29.6. TIME SINCE LAST MAMMOGRAM: Baseline mammogram. REASON FOR EXAM: screening, asymptomatic. PROCEDURE: MG BREAST TOMOSYNTHESIS BL SCR: FEBRUARY 13, 2019 - 2D/3D Procedure 3D Bilateral CC and MLO view(s) were taken. 2D Bilateral CC and MLO view(s) were taken. TISSUE DENSITY: There are scattered fibroglandular densities. . FINDINGS: The patient has bilateral implants. Additional Maura pushback views were obtained in both projections. The implants move freely for the pushback views. No suspicious masses, architectural distortions or suspiciously clustered microcalcifications are identified. This was a baseline study. Therefore, there were no studies used for comparison. Markings on images: BB's = Nipples; skin lesions Open manzanita = Palpable Line = Scar 2D digital mammography and tomosynthesis imaging were performed and reviewed with CAD. ASSESSMENT: Category 1 Negative No mammographic evidence of malignancy. RECOMMENDATION: Routine screening mammogram of both breasts in 1 year. . Report Dictated on Cancer Risk Assessment: This risk assessment is based on patient provided information collected in a risk survey taken at the time of this examination. Lifetime breast cancer risk: 26.3% - If greater than or equal to 20%, consider annual mammogram and annual screening Breast MRI or follow up in high risk clinic. Is the patient at elevated risk based on the HBOC criteria? Yes (Hereditary Breast and Ovarian Cancer) - If yes, consider genetic counseling and testing with high risk follow up. HNPCC mutation risk (Dobson Syndrome): 1% - if greater than or equal to 5%, consider genetic counseling, testing and screening colonoscopy. Final Signed Date and Time: 02/16/2019 8:10 am Signed by: MD DE LA O KERISTEN L [facility] CR Ankle 2 Views Lefton 04- CR Ankle 2 Views Left Patient Name: IDALIA LAROSE Diagnostic Radiology Exam Date/Time 10/09/2018 14:57:53 EDT Exam CR Ankle 2 Views Left Ordering Physician FLAVIA KNOWLES HOLLY S Accession Number [id number] CPT4 Codes 33195 () Reason For Exam fall with injury; pain and swelling Report Left ankle: 10/09/2018. Clinical Information: Pain. Findings: 3 weightbearing views of the left ankle reveal the bones to be well mineralized. There is no evidence of fracture or dislocation. The ankle mortise is intact. There is a small retrocalcaneal spur. There is soft tissue swelling over the lateral malleolus. Impression: Degenerative changes. No acute process. Report Dictated on Final Dictating Physician: MD TORRES RISA Signed Date and Time: 10/09/2018 3:01 pm Signed by: MD TORRES RISA Transcribed Date and Time: 10/09/2018 3:02 [facility] CR Foot Complete 3+ Views [place] 10-09-2018 CR Foot Complete 3+ Views Left Patient Name: IDALIA LAROSE Diagnostic Radiology Exam Date/Time 10/09/2018 14:57:53 EDT Exam CR Foot Complete 3+ Views Left Ordering Physician FLAVIA KNOWLES HOLLY S Accession Number [id number] CPT4 Codes [id number] () Reason For Exam fall with injury; pain and swelling Report LEFT FOOT: CLINICAL INDICATION: Fall with injury. Pain and swelling. TECHNIQUE: AP, Lat, Oblique all weightbearing views COMPARISON: None. FINDINGS: There is soft tissue swelling about the dorsal aspect of the foot. No evidence for fracture. There is a posterior calcaneal enthesophyte. Slight widening of the Lisfranc interval. IMPRESSION: 1. Swelling over the dorsal foot with slight widening of the Lisfranc interval. This finding can be seen in the setting of Lisfranc injury. Orthopedic surgery consult is recommended. Report Dictated on Final Dictating Physician: MD ASTORGA GEORGE RICHARD Signed Date and Time: 10/09/2018 4:08 pm Signed by: MD ASTORGA GEORGE RICHARD Transcribed Date and Time: 10/09/2018 4:09 Normal [facility] Vital Signs Date Time Vital Sign Value Performing Clinician Linda levi 10-26-2024 13:31-0400 Body temperature 98.6 [degF] OSMARMK MARQUEZANKUSH WATER CHEMIST-COLLECTIONS ASSISTANT [facility] 10-26-2024 13:31-0400 Diastolic Blood Pressure Non-Invasive 66 mm[Hg] OSMARMK BRITOVera WATER CHEMIST-COLLECTIONS ASSISTANT [facility] 10-26-2024 13:31-0400 Heart rate 91 /min OSMARMK BRITOVera WATER CHEMIST-COLLECTIONS ASSISTANT [facility] 10-26-2024 13:31-0400 Reason For Taking VItal Signs OSMAR BRITOVera WATER CHEMIST-COLLECTIONS ASSISTANT [facility] 10-26-2024 13:31-0400 Respiratory rate 16 /min OSMAR MARQUEZANKUSH WATER CHEMIST-COLLECTIONS ASSISTANT [facility] 10-26-2024 13:31-0400 Systolic Blood Pressure Non-Invasive 123 mm[Hg] OSMAR BRITOVera WATER CHEMIST-COLLECTIONS ASSISTANT [facility] 10-26-2024 10:58-0400 Body temperature 98.06 [degF] OSMAR BRITOVera WATER CHEMIST-COLLECTIONS ASSISTANT [facility] 10-26-2024 10:58-0400 Diastolic Blood Pressure Non-Invasive 73 mm[Hg] OSMARMK BRITOVera WATER CHEMIST-COLLECTIONS ASSISTANT [facility] 10-26-2024 10:58-0400 Heart rate 96 /min OSMAR BRITOVera WATER CHEMIST-COLLECTIONS ASSISTANT [facility] 10-26-2024 10:58-0400 Reason For Taking VItal Signs OSMAR BRITOVera WATER CHEMIST-COLLECTIONS ASSISTANT [facility] 10-26-2024 10:58-0400 Respiratory rate 16 /min OSMAR BRITON WATER CHEMIST-COLLECTIONS ASSISTANT [facility] 10-26-2024 10:58-0400 Systolic Blood Pressure Non-Invasive 131 mm[Hg] OSMARMK BRITON WATER CHEMIST-COLLECTIONS ASSISTANT [facility] 10-26-2024 09:48-0400 Heart rate 87 /min OSMARMK BRITON WATER CHEMIST-COLLECTIONS ASSISTANT [facility] 10-26-2024 09:48-0400 Respiratory rate 16 /min OSMARMK BRITON WATER CHEMIST-COLLECTIONS ASSISTANT [facility] 10-26-2024 06:28-0400 Body temperature 98.06 [degF] OSMARMK MARQUEZNEN WATER CHEMIST-COLLECTIONS ASSISTANT [facility] 10-26-2024 06:28-0400 Diastolic Blood Pressure Non-Invasive 75 mm[Hg] OSMARMK BRITON WATER CHEMIST-COLLECTIONS ASSISTANT [facility] 10-26-2024 06:28-0400 Heart rate 90 /min OSMARMK BRITON WATER CHEMIST-COLLECTIONS ASSISTANT [facility] 10-26-2024 06:28-0400 Reason For Taking VItal Signs OSMARMK BRITON WATER CHEMIST-COLLECTIONS ASSISTANT [facility] 10-26-2024 06:28-0400 Systolic Blood Pressure Non-Invasive 134 mm[Hg] OSMARMK MARQUEZNEN WATER CHEMIST-COLLECTIONS ASSISTANT [facility] 10-26-2024 06:14-0400 Heart rate 80 /min OSMARMK MARQUEZNEN WATER CHEMIST-COLLECTIONS ASSISTANT [facility] 10-26-2024 03:41-0400 Heart rate 87 /min OSMARMK MARQUEZNEN WATER CHEMIST-COLLECTIONS ASSISTANT [facility] 10-21-2024 15:38-0400 Body height 167.6 cm OSMAR WILBURN WATER CHEMIST-COLLECTIONS ASSISTANT [facility] 10-21-2024 15:38-0400 Body weight 91.3 kg OSMAR WILBURN WATER CHEMIST-COLLECTIONS ASSISTANT [facility] 10-21-2024 15:38-0400 Body weight 32.5 kg/m2 OSMAR WILBURN WATER CHEMIST-COLLECTIONS ASSISTANT [facility] 10-21-2024 14:39-0400 Mean blood pressure 80 mm[Hg] OSMAR WILBURN WATER CHEMIST-COLLECTIONS ASSISTANT [facility] 10-14-2024 12:58-0400 Body height 167.6 cm Henrietta Knowles WATER CHEMIST - COLLECTIONS ASSISTANT Work Phone: [facility] [employer] 10-14-2024 12:58-0400 Body mass index (BMI) [Ratio] 31.64 kg/m2 Henrietta Knowles WATER CHEMIST - COLLECTIONS ASSISTANT Work Phone: [employer] 10-14-2024 12:58-0400 Body weight 88.91 kg Henrietta Knowles WATER CHEMIST - COLLECTIONS ASSISTANT Work Phone: [employer] 10-14-2024 12:58-0400 Diastolic blood pressure 81 mm[Hg] Henrietta Benson WATER CHEMIST - COLLECTIONS ASSISTANT Work Phone: [employer] 10-14-2024 12:58-0400 Heart rate 75 /min Henrietta Knowles WATER CHEMIST - COLLECTIONS ASSISTANT Work Phone: [employer] 10-14-2024 12:58-0400 SaO2% (BldA) [Mass fraction] 94 % Henrietta Benson WATER CHEMIST - COLLECTIONS ASSISTANT Work Phone: [employer] 10-14-2024 12:58-0400 Systolic blood pressure 129 mm[Hg] Henrietta Benson WATER CHEMIST - COLLECTIONS ASSISTANT Work Phone: [facility] [employer] 09-25-2024 13:51-0400 Body height 167.6 cm Henrietta Knowles WATER CHEMIST - COLLECTIONS ASSISTANT Work Phone: [employer] 09-25-2024 13:51-0400 Body mass index (BMI) [Ratio] 31.47 kg/m2 Henrietta Knowles WATER CHEMIST - COLLECTIONS ASSISTANT Work Phone: [employer] 09-25-2024 13:51-0400 Body weight 88.45 kg Henrietta Knowles WATER CHEMIST - COLLECTIONS ASSISTANT Work Phone: [employer] 06-10-2024 14:11-0500 Body height 167.6 cm Augustin Jordan MD Work Phone: [employer] 06-10-2024 14:11-0500 Body mass index (BMI) [Ratio] 31.22 kg/m2 Augustin Jordan MD Work Phone: [employer] 06-10-2024 14:11-0500 Body temperature 98.8 [degF] Augustin Jordan MD Work Phone: [employer] 06-10-2024 14:11-0500 Body weight 87.73 kg Augustin Jordan MD Work Phone: [employer] 06-10-2024 14:11-0500 Diastolic blood pressure 78 mm[Hg] Augustin Jordan MD Work Phone: [employer] 06-10-2024 14:11-0500 Heart rate 66 /min Augustin Jordan MD Work Phone: [employer] 06-10-2024 14:11-0500 SaO2% (BldA) [Mass fraction] 94 % Augustin Jordan MD Work Phone: [employer] 06-10-2024 14:11-0500 Systolic blood pressure 133 mm[Hg] Augustin Jordan MD Work Phone: [employer] 04-15-2024 10:57-0400 Body height 167.6 cm Henrietta Knowles WATER CHEMIST - COLLECTIONS ASSISTANT Work Phone: [employer] 04-15-2024 10:57-0400 Body mass index (BMI) [Ratio] 31.38 kg/m2 Henrietta Knowles WATER CHEMIST - COLLECTIONS ASSISTANT Work Phone: [employer] 04-15-2024 10:57-0400 Body weight 88.18 kg Henrietta Knowles WATER CHEMIST - COLLECTIONS ASSISTANT Work Phone: [employer] 04-15-2024 10:57-0400 Diastolic blood pressure 80 mm[Hg] Henrietta Knowles WATER CHEMIST - COLLECTIONS ASSISTANT Work Phone: [employer] 04-15-2024 10:57-0400 Heart rate 90 /min Henrietta Knowles WATER CHEMIST - COLLECTIONS ASSISTANT Work Phone: [employer] 04-15-2024 10:57-0400 SaO2% (BldA) [Mass fraction] 95 % Henrietta Knowles WATER CHEMIST - COLLECTIONS ASSISTANT Work Phone: [employer] 04-15-2024 10:57-0400 Systolic blood pressure 118 mm[Hg] Henrietta Knowles WATER CHEMIST - COLLECTIONS ASSISTANT Work Phone: [employer] 03-24-2024 10:56-0400 Body height 167.6 cm Osbaldo Bridenthal WATER CHEMIST - COLLECTIONS ASSISTANT Work Phone: [employer] 03-24-2024 10:56-0400 Body mass index (BMI) [Ratio] 31.15 kg/m2 Osbaldo Bridenthal WATER CHEMIST - COLLECTIONS ASSISTANT Work Phone: [employer] 03-24-2024 10:56-0400 Body temperature 98.4 [degF] Osbaldo Bridenthal WATER CHEMIST - COLLECTIONS ASSISTANT Work Phone: [employer] 03-24-2024 10:56-0400 Body weight 87.54 kg Osbaldo Bridenthal WATER CHEMIST - COLLECTIONS ASSISTANT Work Phone: [employer] 03-24-2024 10:56-0400 Diastolic blood pressure 68 mm[Hg] Osbaldo Bridenthal WATER CHEMIST - COLLECTIONS ASSISTANT Work Phone: [employer] 03-24-2024 10:56-0400 Heart rate 103 /min Osbaldo Bridenthal WATER CHEMIST - COLLECTIONS ASSISTANT Work Phone: [employer] 03-24-2024 10:56-0400 SaO2% (BldA) [Mass fraction] 94 % Osbaldo Salguero WATER CHEMIST - COLLECTIONS ASSISTANT Work Phone: [employer] 03-24-2024 10:56-0400 Systolic blood pressure 110 mm[Hg] Osbaldo Salguero WATER CHEMIST - COLLECTIONS ASSISTANT Work Phone: [employer] 11-26-2023 13:40-0400 Body height 167.6 cm Shahab Parker MD Work Phone: [employer] 11-26-2023 13:40-0400 Body mass index (BMI) [Ratio] 30.83 kg/m2 Shahab Parker MD Work Phone: [employer] 11-26-2023 13:40-0400 Body weight 86.64 kg Shahab Parker MD Work Phone: [employer] 11-11-2023 13:17-0400 Body height 167.6 cm Augustin Jordan MD Work Phone: [employer] 11-11-2023 13:17-0400 Body mass index (BMI) [Ratio] 30.86 kg/m2 Augustin Jordan MD Work Phone: [employer] 11-11-2023 13:17-0400 Body weight 86.73 kg Augustin Jordan MD Work Phone: [employer] 11-11-2023 13:17-0400 Diastolic blood pressure 77 mm[Hg] Augustin Jordan MD Work Phone: [employer] 11-11-2023 13:17-0400 Heart rate 80 /min Augustin Jordan MD Work Phone: [employer] 11-11-2023 13:17-0400 SaO2% (BldA) [Mass fraction] 95 % Augustin Jordan MD Work Phone: [employer] 11-11-2023 13:17-0400 Systolic blood pressure 119 mm[Hg] Augustin Jordan MD Work Phone: [facility] [employer] 10-31-2023 10:31-0400 Body height 167.6 cm Augustin Jordan MD Work Phone: [facility] [employer] 10-31-2023 10:31-0400 Body mass index (BMI) [Ratio] 30.28 kg/m2 Augustin Jordan MD Work Phone: [facility] [employer] 10-31-2023 10:31-0400 Body weight 85.09 kg Augustin Jordan MD Work Phone: [facility] [employer] 10-31-2023 10:31-0400 Diastolic blood pressure 73 mm[Hg] Augustin Jordan MD Work Phone: [facility] [employer] 10-31-2023 10:31-0400 Heart rate 88 /min Augustin Jordan MD Work Phone: [facility] [employer] 10-31-2023 10:31-0400 SaO2% (BldA) [Mass fraction] 92 % Augustin Jordan MD Work Phone: [facility] [employer] 10-31-2023 10:31-0400 Systolic blood pressure 123 mm[Hg] Augustin Jordan MD Work Phone: [facility] [employer] 10-22-2023 08:14-0400 Body height 167.6 cm Augustin Jordan MD Work Phone: [facility] [employer] 10-22-2023 08:14-0400 Body mass index (BMI) [Ratio] 31.22 kg/m2 Augustin Jordan MD Work Phone: [facility] [employer] 10-22-2023 08:14-0400 Body weight 87.73 kg Augustin Jordan MD Work Phone: [facility] [employer] 10-22-2023 08:14-0400 Diastolic blood pressure 65 mm[Hg] Augustin Jordan MD Work Phone: [facility] [employer] 10-22-2023 08:14-0400 Heart rate 98 /min Augustin Jordan MD Work Phone: [facility] [employer] 10-22-2023 08:14-0400 SaO2% (BldA) [Mass fraction] 96 % Augustin Jordan MD Work Phone: [facility] [employer] 10-22-2023 08:14-0400 Systolic blood pressure 109 mm[Hg] Augustin Jordan MD Work Phone: [facility] 10-20-2023 17:26-[address] MERLINE NERI DO [facility] 10-20-2023 17:26-0400 Body temperature 98.24 [degF] DR MERLINE NERI DO [facility] 10-20-2023 17:26-0400 Diastolic Blood Pressure Non-Invasive 82 mm[Hg] DR MERLINE NERI DO [facility] 10-20-2023 17:26-0400 Heart rate 104 /min DR MERLINE NERI DO [facility] 10-20-2023 17:26-0400 Respiratory rate 16 /min DR MERLINE NERI DO [facility] 10-20-2023 17:26-0400 Systolic Blood Pressure Non-Invasive 137 mm[Hg] DR MERLINE NERI DO [facility] 10-07-2023 13:11-0400 Body height 167.6 cm Henrietta Knowles WATER CHEMIST - COLLECTIONS ASSISTANT Work Phone: [facility] [employer] 10-07-2023 13:11-0400 Body mass index (BMI) [Ratio] 30.96 kg/m2 Henrietta Knowles WATER CHEMIST - COLLECTIONS ASSISTANT Work Phone: [facility] [employer] 10-07-2023 13:11-0400 Body weight 87 kg Henrietta Knowles WATER CHEMIST - COLLECTIONS ASSISTANT Work Phone: [facility] [employer] 10-07-2023 13:11-0400 Diastolic blood pressure 72 mm[Hg] Henrietta Knowles WATER CHEMIST - COLLECTIONS ASSISTANT Work Phone: [facility] 10-07-2023 13:11-0400 Heart rate 67 /min Henrietta Knowles WATER CHEMIST - COLLECTIONS ASSISTANT Work Phone: [facility] 10-07-2023 13:11-0400 SaO2% (BldA) [Mass fraction] 95 % Henrietta Knowles WATER CHEMIST - COLLECTIONS ASSISTANT Work Phone: [facility] 10-07-2023 13:11-0400 Systolic blood pressure 118 mm[Hg] Henrietta Knowles WATER CHEMIST - COLLECTIONS ASSISTANT Work Phone: [facility] 09-17-2023 10:37-0400 Diastolic Blood Pressure Non-Invasive 67 mm[Hg] JOE TINOCO MD [facility] 09-17-2023 10:37-0400 Heart rate 87 /min JOE TINOCO MD [facility] 09-17-2023 10:37-0400 Respiratory rate 20 /min JOE TINOCO MD [facility] 09-17-2023 10:37-0400 Systolic Blood Pressure Non-Invasive 117 mm[Hg] JOE TINOCO MD [facility] 09-17-2023 09:57-0400 Heart rate 88 /min JOE TINOCO MD [facility] 09-17-2023 09:57-0400 Respiratory rate 20 /min JOE TINOCO MD [facility] 09-17-2023 09:50-0400 Blood Pressure Location JOE TINOCO MD [facility] 09-17-2023 09:50-0400 Blood Pressure Method JOE TINOCO MD [facility] 09-17-2023 09:50-0400 Body temperature 97.7 [degF] JOE TINOCO MD [facility] 09-17-2023 09:50-0400 Diastolic Blood Pressure Non-Invasive 68 mm[Hg] JOE TINOCO MD [facility] 09-17-2023 09:50-0400 Heart rate 92 /min JOE TINOCO MD [facility] 09-17-2023 09:50-0400 Respiratory rate 20 /min JOE TINOCO MD [facility] 09-17-2023 09:50-0400 Systolic Blood Pressure Non-Invasive 157 mm[Hg] JOE TINOCO MD [facility] 09-16-2023 09:14-0400 Body mass index (BMI) [Ratio] 29.7 kg/m2 Osbaldo Bridenthal WATER CHEMIST - COLLECTIONS ASSISTANT Work Phone: [facility] [employer] 09-16-2023 09:14-0400 Body temperature 97.7 [degF] Osbaldo Bridenthal WATER CHEMIST - COLLECTIONS ASSISTANT Work Phone: [facility] [employer] 09-16-2023 09:14-0400 Body weight 83.46 kg Osbaldo Bridenthal WATER CHEMIST - COLLECTIONS ASSISTANT Work Phone: [facility] [employer] 09-16-2023 09:14-0400 Diastolic blood pressure 65 mm[Hg] Osbaldo Bridenthal WATER CHEMIST - COLLECTIONS ASSISTANT Work Phone: [facility] [employer] 09-16-2023 09:14-0400 Heart rate 81 /min Osbaldo Bridenthal WATER CHEMIST - COLLECTIONS ASSISTANT Work Phone: [facility] [employer] 09-16-2023 09:14-0400 Respiratory rate 26 /min Osbaldo Wilsonal WATER CHEMIST - COLLECTIONS ASSISTANT Work Phone: [employer] 09-16-2023 09:14-0400 SaO2% (BldA) [Mass fraction] 95 % Osbaldoenmanuel Bairdenthal WATER CHEMIST - COLLECTIONS ASSISTANT Work Phone: [employer] 09-16-2023 09:14-0400 Systolic blood pressure 117 mm[Hg] Osbaldo Bridenthal WATER CHEMIST - COLLECTIONS ASSISTANT Work Phone: [employer] 08-21-2023 14:51-0500 Body height 167.6 cm Henrietta Knowles WATER CHEMIST - COLLECTIONS ASSISTANT Work Phone: [employer] 08-21-2023 14:51-0500 Body mass index (BMI) [Ratio] 29.7 kg/m2 Henrietta Benson WATER CHEMIST - COLLECTIONS ASSISTANT Work Phone: [employer] 08-21-2023 14:51-0500 Body temperature 98.71 [degF] Henrietta Knowles WATER CHEMIST - COLLECTIONS ASSISTANT Work Phone: [employer] 08-21-2023 14:51-0500 Body weight 83.46 kg Henrietta Knowles WATER CHEMIST - COLLECTIONS ASSISTANT Work Phone: [employer] 08-21-2023 14:51-0500 Diastolic blood pressure 70 mm[Hg] Henrietta Benson WATER CHEMIST - COLLECTIONS ASSISTANT Work Phone: [employer] 08-21-2023 14:51-0500 Heart rate 75 /min Henrietta Knowles WATER CHEMIST - COLLECTIONS ASSISTANT Work Phone: [employer] 08-21-2023 14:51-0500 SaO2% (BldA) [Mass fraction] 95 % Henrietta Knowles WATER CHEMIST - COLLECTIONS ASSISTANT Work Phone: [employer] 08-21-2023 14:51-0500 Systolic blood pressure 115 mm[Hg] Henriettamarivel Knowles WATER CHEMIST - COLLECTIONS ASSISTANT Work Phone: [employer] 04-08-2023 13:26-0400 Body mass index (BMI) [Ratio] 25.92 kg/m2 Henrietta Knowles WATER CHEMIST - COLLECTIONS ASSISTANT Work Phone: [facility] [employer] 04-08-2023 13:26-0400 Body temperature 97.81 [degF] Henrietta Knowles WATER CHEMIST - COLLECTIONS ASSISTANT Work Phone: [facility] [employer] 04-08-2023 13:26-0400 Body weight 72.85 kg Henrietta Knowles WATER CHEMIST - COLLECTIONS ASSISTANT Work Phone: [facility] [employer] 04-08-2023 13:26-0400 Diastolic blood pressure 62 mm[Hg] Henrietta Knowles WATER CHEMIST - COLLECTIONS ASSISTANT Work Phone: [facility] [employer] 04-08-2023 13:26-0400 Heart rate 73 /min Henrietta Knowles WATER CHEMIST - COLLECTIONS ASSISTANT Work Phone: [facility] [employer] 04-08-2023 13:26-0400 Respiratory rate 24 /min Henrietta Knowles WATER CHEMIST - COLLECTIONS ASSISTANT Work Phone: [facility] [employer] 04-08-2023 13:26-0400 SaO2% (BldA) [Mass fraction] 95 % Henrietta Knowles WATER CHEMIST - COLLECTIONS ASSISTANT Work Phone: [facility] [employer] 04-08-2023 13:26-0400 Systolic blood pressure 97 mm[Hg] Henrietta Knowles WATER CHEMIST - COLLECTIONS ASSISTANT Work Phone: [facility] [employer] 03-26-2023 14:30-0400 Body mass index (BMI) [Ratio] 25.82 kg/m2 Osbaldo Estellaenthal WATER CHEMIST - COLLECTIONS ASSISTANT Work Phone: [facility] [employer] 03-26-2023 14:30-0400 Body temperature 98.01 [degF] Osbaldo Bridenthal WATER CHEMIST - COLLECTIONS ASSISTANT Work Phone: [facility] [employer] 03-26-2023 14:30-0400 Body weight 72.58 kg Osbaldo Bridenthal WATER CHEMIST - COLLECTIONS ASSISTANT Work Phone: [facility] [employer] 03-26-2023 14:30-0400 Diastolic blood pressure 60 mm[Hg] Osbaldo Bridenthal WATER CHEMIST - COLLECTIONS ASSISTANT Work Phone: [facility] [employer] 03-26-2023 14:30-0400 Heart rate 88 /min Osbaldo Bridenthal WATER CHEMIST - COLLECTIONS ASSISTANT Work Phone: [employer] 03-26-2023 14:30-0400 Respiratory rate 24 /min Osbaldo Bridenthal WATER CHEMIST - COLLECTIONS ASSISTANT Work Phone: [facility] [employer] 03-26-2023 14:30-0400 SaO2% (BldA) [Mass fraction] 96 % Osbaldo Bridenthal WATER CHEMIST - COLLECTIONS ASSISTANT Work Phone: [employer] 03-26-2023 14:30-0400 Systolic blood pressure 120 mm[Hg] Osbaldo Bridenthal WATER CHEMIST - COLLECTIONS ASSISTANT Work Phone: [facility] [employer] 03-04-2023 11:13-0400 Body height 167.6 cm Henrietta Knowles WATER CHEMIST - COLLECTIONS ASSISTANT Work Phone: [facility] [employer] 03-04-2023 11:13-0400 Body mass index (BMI) [Ratio] 25.02 kg/m2 Henrietta Benson WATER CHEMIST - COLLECTIONS ASSISTANT Work Phone: [employer] 03-04-2023 11:13-0400 Body temperature 98.4 [degF] Henrietta Benson WATER CHEMIST - COLLECTIONS ASSISTANT Work Phone: [employer] 03-04-2023 11:13-0400 Body weight 70.31 kg Henrietta Benson WATER CHEMIST - COLLECTIONS ASSISTANT Work Phone: [facility] [employer] 03-04-2023 11:13-0400 Diastolic blood pressure 60 mm[Hg] Henrietta Knowles WATER CHEMIST - COLLECTIONS ASSISTANT Work Phone: [employer] 03-04-2023 11:13-0400 Heart rate 78 /min Henrietta Benson WATER CHEMIST - COLLECTIONS ASSISTANT Work Phone: [employer] 03-04-2023 11:13-0400 SaO2% (BldA) [Mass fraction] 98 % Henrietta Knowles WATER CHEMIST - COLLECTIONS ASSISTANT Work Phone: [facility] [employer] 03-04-2023 11:13-0400 Systolic blood pressure 106 mm[Hg] Henrietta Knowles WATER CHEMIST - COLLECTIONS ASSISTANT Work Phone: [facility] [employer] 02-22-2023 07:37-0400 Body height 167.6 cm Henrietta Knowles WATER CHEMIST - COLLECTIONS ASSISTANT Work Phone: [facility] [employer] 02-22-2023 07:37-0400 Body mass index (BMI) [Ratio] 24.05 kg/m2 Henrietta Knowles WATER CHEMIST - COLLECTIONS ASSISTANT Work Phone: [facility] [employer] 02-22-2023 07:37-0400 Body weight 67.59 kg Henrietta Knowles WATER CHEMIST - COLLECTIONS ASSISTANT Work Phone: [facility] [employer] 02-22-2023 07:37-0400 Diastolic blood pressure 60 mm[Hg] Henrietta Knowles WATER CHEMIST - COLLECTIONS ASSISTANT Work Phone: [facility] [employer] 02-22-2023 07:37-0400 Heart rate 80 /min Henrietta Knowles WATER CHEMIST - COLLECTIONS ASSISTANT Work Phone: [facility] [employer] 02-22-2023 07:37-0400 SaO2% (BldA) [Mass fraction] 97 % Henrietta Knowles WATER CHEMIST - COLLECTIONS ASSISTANT Work Phone: [facility] [employer] 02-22-2023 07:37-0400 Systolic blood pressure 120 mm[Hg] Henrietta Knowles WATER CHEMIST - COLLECTIONS ASSISTANT Work Phone: [facility] 12-25-2021 11:47-0400 Body height 167.6 cm JOE TINOCO MD [facility] 12-25-2021 11:47-0400 Body temperature 98.42 [degF] JOE TINOCO MD [facility] 12-25-2021 11:47-0400 Body weight 70 kg JOE TINOCO MD [facility] 12-25-2021 11:47-0400 Diastolic blood pressure 96 mm[Hg] JOE TINOCO MD [facility] 12-25-2021 11:47-0400 Heart rate 89 /min JOE TINOCO MD [facility] 12-25-2021 11:47-0400 Respiratory rate 20 /min JOE TINOCO MD [facility] 12-25-2021 11:47-0400 Systolic blood pressure 145 mm[Hg] JOE TINOCO MD [facility] Encounters Encounter Date Encounter Type Care Provider Facility Start: 12-08-2024 ambulatory Adolfo Kelley ity:[facility] Start: 11-04-2024 End: 11-04-[address] Adriana Vasquez MD Work Phone: [facility] Work Phone: Start: 11-04-2024 End: 11-04-2024 Departed Referred Adolfo Adams -[facility] - [address] Start: 11-04-2024 End: 11-04-2024 ambulatory Adriana Vasquez Facility:[facility] Start: 10-28-2024 End: 10-28-[address] Adriana Vasquez MD Work Phone: [facility] Work Phone: Start: 10-28-2024 End: 10-28-2024 Departed Referred Adolfo Adams -[facility] - [address] Start: 10-28-2024 Registered Referred Adolfo Adams -[facility] - [address] Start: 10-28-2024 End: 10-28-2024 ambulatory Adriana Vasquez Facility:[facility] Start: 10-21-2024 End: 10-26-2024 Evaluation and management of inpatient OSMAR WILBURN WATER CHEMIST-COLLECTIONS ASSISTANT [facility] Start: 10-14-2024 End: 10-14-2024 Office outpatient visit 25 minutes Henrietta Knowles WATER CHEMIST - COLLECTIONS ASSISTANT Work Phone: [facility] Comment on above: Primary insomnia (Pr imary Dx); History of drug abuse (HCC); Constipation, unspecified constipation type; OAB (overactive bladder); Midline cystocele; Urinary urgency; Bladder spasms; Hyperlipidemia, unspecified hyperlipidemia type; Mild episode of recurrent major depressive disorder (HCC); Anxiety; PTSD (post-traumatic stress disorder); Centrilobular emphysema (HCC); Cigarette nicotine dependence with nicotine-induced disorder Start: 10-14-2024 End: 10-14-2024 ambulatory [facility] Start: 09-25-2024 End: 09-25-2024 Subsequent hospital visit by physician Henrietta Knowles APRN - COLLECTIONS ASSISTANT Work Phone: [facility] Comment on above: Screening mammogram for breast cancer Start: 09-25-2024 End: 09-25-2024 ambulatory [facility] Start: 09-23-2024 End: 09-23-2024 Subsequent hospital visit by physician Osbaldo Salguero WATER CHEMIST - COLLECTIONS ASSISTANT Work Phone: [facility] Comment on above: Chronic shortness of breath Start: 09-23-2024 End: 09-23-2024 [facility]ulatory [facility] Start: 09-04-2024 End: 09-04-2024 ambulatory [facility] Start: 09-04-2024 End: 09-04-2024 Patient encounter procedure [facility] Start: 09-04-2024 End: 09-04-2024 Emergency department patient visit MICHAEL SAGASTUME MD Facility:[facility] Start: 08-14-2024 End: 08-14-2024 Telephone encounter Augustin Jordan MD Work Phone: [facility] Comment on above: Advice Only Start: 08-13-2024 End: 08-13-2024 Subsequent hospital visit by physician Henrietta Knowles WATER CHEMIST - COLLECTIONS ASSISTANT Work Phone: [facility] CT Comment on above: Cigarette nicotine d ependence without complication; Screening for lung cancer Start: 08-13-2024 End: 08-13-2024 ambulatory [facility] Start: 08-04-2024 End: 08-04-2024 ambulatory OSBALDO SALGUERO [facility] Start: 07-22-2024 End: 07-22-2024 ambulatory [facility] Start: 06-10-2024 End: 06-10-2024 Office outpatient visit 15 minutes Augustin Jordan MD Work Phone: [facility] Comment on above: Centrilobular emphys jocelyn (HCC) (Primary Dx) Start: 06-10-2024 End: 06-10-2024 ambulatory [facility] Start: 06-09-2024 End: 06-09-2024 ambulatory Maricruz Resendez RN [facility] Clinical Communication Start: 06-09-2024 End: 06-09-2024 Patient encounter procedure Maricruz Resendez RN [facility] Clinical Communication Start: 06-01-2024 End: 06-01-2024 Telephone encounter Henrietta Knowles WATER CHEMIST - COLLECTIONS ASSISTANT Work Phone: [facility] Comment on above: Orders (CT-Lung Scre en) Start: 05-22-2024 End: 05-22-2024 ambulatory Maria L Chen RN [facility] Clinical Communication Start: 05-22-2024 End: 05-22-2024 Patient encounter procedure Maria L Chen RN [facility] Clinical Communication Start: 04-27-2024 End: 04-27-2024 Refill Augustin Jordan MD Work Phone: [facility] Comment on above: Chronic shortness of breath Start: 04-15-2024 End: 04-15-2024 Patient encounter status Henrietta Knowles WATER CHEMIST - COLLECTIONS ASSISTANT Work Phone: [facility] Start: 04-15-2024 End: 04-15-2024 Periodic preventive med est patient 40-64yrs Henrietta Knowles WATER CHEMIST - COLLECTIONS ASSISTANT Work Phone: [facility] Comment on above: Well female exam wit h routine gynecological exam (Primary Dx); Primary insomnia; History of hepatitis C; History of drug abuse (CMS/HCC) (HCC); Constipation, unspecified constipation type; OAB (overactive bladder); Midline cystocele; Hyperlipidemia, unspecified hyperlipidemia type; Mild episode of recurrent major depressive disorder (HCC); Anxiety; PTSD (post-traumatic stress disorder); Cigarette nicotine dependence without complication; Encounter for Papanicolaou smear for cervical cancer screening; Screening for diabetes mellitus; Screening for lung cancer; Screening mammogram for breast cancer; Flu vaccine need Start: 04-15-2024 End: 04-15-2024 ambulatory [facility] Start: 04-15-2024 End: 04-15-2024 Encounter for gynecological examination (general) (routine) without abnormal findings [facility] Start: 03-24-2024 End: 03-24-2024 Office outpatient visit 15 minutes Osbaldo Salguero APRN - COLLECTIONS ASSISTANT Work Phone: [facility] Comment on above: Bronchitis (Primary Dx); Chronic shortness of breath Start: 03-24-2024 End: 03-24-2024 ambulatory OSBALDO SALGUERO [facility] Start: 03-23-2024 End: 03-25-2024 ambulatory [facility]arn[facility] Start: 03-23-2024 End: 03-25-2024 Patient encounter procedure Earnestine [facility]ween[facility] Start: 03-16-2024 End: 03-16-2024 ambulatory AUGUSTIN JORDAN [facility] Start: 03-11-2024 End: 03-11-2024 Telephone encounter Augustin Jordan MD Work Phone: [facility] Comment on above: Request For Order(s) Start: 03-08-2024 End: 03-09-2024 Refill Augustin Jordan MD Work Phone: [facility] Comment on above: Chronic shortness of breath Start: 12-18-2023 End: 12-18-2023 ambulatory [facility] Start: 12-14-2023 End: 12-14-2023 Telephone encounter Shahab Parker MD Work Phone: [facility] Central Scheduling Comment on above: Scheduling Start: 11-29-2023 Telephone encounter Augustin Mcfadden MD Work Phone: [facility] Comment on above: Referral Start: 11-26-2023 End: 11-26-2023 Office outpatient new 30 minutes Shahab Parker MD Work Phone: [facility] Comment on above: Erythema of foot (Pr imary Dx); Bilateral swelling of feet; Pain and swelling of left lower leg Start: 11-26-2023 End: 11-26-2023 ambulatory AUGUSTIN [facility] Start: 11-14-2023 Telephone encounter Augustin Mcfadden MD Work Phone: [facility] Comment on above: Test Scheduling Start: 11-14-2023 End: 11-14-2023 Subsequent hospital visit by physician Augustin Jordan MD Work Phone: [facility] Radiology Comment on above: Acute left ankle marilu n; Left foot pain Start: 11-11-2023 End: 11-11-2023 Office outpatient visit 15 minutes Augustin Jordan MD Work Phone: [facility] Comment on above: Dependent edema (Nicol siomara Dx); Acute left ankle pain; Left foot pain Start: 10-31-2023 End: 10-31-2023 Office outpatient visit 15 minutes Augustin Jordan MD Work Phone: [facility] Comment on above: Acute left ankle marilu n (Primary Dx) Start: 10-22-2023 End: 10-22-2023 Office outpatient visit 25 minutes Augustin Jordan MD Work Phone: [facility] Comment on above: Dependent edema (Nicol siomara Dx); OAB (overactive bladder); Mixed stress and urge urinary incontinence Start: 10-20-2023 End: 10-20-2023 Emergency department patient visit DR MERLINE NERI DO Facility:B Start: 10-20-2023 End: 10-20-2023 Emergency department patient visit DR MERLINE NERI DO [facility] Start: 10-07-2023 End: 10-07-2023 Office outpatient visit 25 minutes Henrietta Knowles WATER CHEMIST - COLLECTIONS ASSISTANT Work Phone: [facility] Medicine Comment on above: Primary insomnia (Pr imary Dx); History of hepatitis C; History of drug abuse (CMS/HCC) (HCC); Constipation, unspecified constipation type; OAB (overactive bladder); Midline cystocele; Hyperlipidemia, unspecified hyperlipidemia type; Mild episode of recurrent major depressive disorder (HCC); Anxiety; PTSD (post-traumatic stress disorder); Elevated fasting glucose; Cigarette nicotine dependence without complication; Bronchitis; Pedal edema; Screening for colon cancer Start: 09-17-2023 End: 09-17-2023 Emergency department patient visit JOE TINOCO MD Facility:[facility] Start: 09-17-2023 End: 09-17-2023 Emergency department patient visit JOE TINOCO MD [facility] Start: 09-16-2023 ambulatory [facility] Start: 09-16-2023 Patient encounter procedure Sravanthi Granda RN [facility] Start: 09-16-2023 End: 09-16-2023 Office outpatient visit 15 minutes Osbaldo Salguero WATER CHEMIST - COLLECTIONS ASSISTANT Work Phone: [facility] Comment on above: Bronchitis (Primary Dx); Cigarette nicotine dependence without complication Start: 08-21-2023 End: 08-21-2023 Office outpatient visit 15 minutes Henrietta Knowles WATER CHEMIST - COLLECTIONS ASSISTANT Work Phone: [facility] Comment on above: Sinobronchitis (Prim ken Dx); Chronic shortness of breath Start: 08-21-2023 ambulatory Sneha Spivey RN [facility] Start: 08-21-2023 Patient encounter procedure Sneha Spivey RN [facility] Clinical Communication Start: 05-29-2023 End: 05-29-2023 Office outpatient visit 10 minutes Godfrey Minaya MD Work Phone: [facility] Comment on above: Pain from breast imp lant, initial encounter (Primary Dx); Ruptured left breast implant, initial encounter Start: 05-29-[address] [facility] Godfrey Minaya MD Work Phone: [facility] Comment on above: Pain from breast imp lant, initial encounter (Primary Dx) Start: 05-29-2023 ambulatory Godfrey Minaya MD Work Phone: [facility] Start: 05-23-2023 ambulatory Betty Patino RN [facility] Clinical Communication Start: 05-23-2023 End: 05-23-2023 Office outpatient visit 15 minutes Trudy Perez WATER CHEMIST - COLLECTIONS ASSISTANT Work Phone: [facility] Comment on above: Acute non-recurrent pansinusitis (Primary Dx) Start: 05-23-2023 Patient encounter procedure Betty Patino RN [facility] Clinical Communication Start: 05-20-2023 End: 05-20-2023 Subsequent hospital visit by physician Rach Boudreaux PA-C Work Phone: [facility] Comment on above: Pain from breast imp lant, initial encounter; Ruptured left breast implant, initial encounter Start: 04-19-2023 Orders Only Rach guy PA-C Work Phone: [facility] Comment on above: Pain from breast imp lant, initial encounter (Primary Dx); Ruptured left breast implant, initial encounter Start: 04-12-2023 End: 04-12-2023 Subsequent hospital visit by physician Henrietta Knowles APRN - COLLECTIONS ASSISTANT Work Phone: [facility] Radiology Comment on above: Cough, unspecified t ype; Chest congestion; Cigarette nicotine dependence without complication Start: 04-10-2023 End: 04-10-2023 Telephone encounter Godfrey Minaya MD Work Phone: [facility] Comment on above: Surgery Scheduling ( [facility] ) Start: 04-10-2023 End: 04-10-2023 Office outpatient new 30 minutes Godfrey Minaya MD Work Phone: [facility] Comment on above: Pain from breast imp lant, initial encounter (Primary Dx); Ruptured left breast implant, initial encounter Start: 04-08-2023 End: 04-08-2023 Patient encounter status Henrietta Knowles WATER CHEMIST - COLLECTIONS ASSISTANT Work Phone: [facility] [employer] Work Phone: Start: 04-08-2023 End: 04-08-2023 Periodic preventive med est patient 40-64yrs Henrietta Knowles WATER CHEMIST - COLLECTIONS ASSISTANT Work Phone: [facility] Comment on above: Well female exam wit h routine gynecological exam (Primary Dx); Chronic hepatitis C without hepatic coma (CMS/HCC) (HCC); Primary insomnia; History of drug abuse (CMS/HCC) (HCC); Constipation, unspecified constipation type; OAB (overactive bladder); Midline cystocele; Hyperlipidemia, unspecified hyperlipidemia type; Mild episode of recurrent major depressive disorder (HCC); Anxiety; PTSD (post-traumatic stress disorder); Cough, unspecified type; Chest congestion; Cigarette nicotine dependence without complication; Encounter for Papanicolaou smear for cervical cancer screening Start: 03-26-2023 End: 03-26-2023 Office outpatient visit 15 minutes Osbaldo Salguero WATER CHEMIST - COLLECTIONS ASSISTANT Work Phone: [facility] Comment on above: Bronchitis (Primary Dx) Start: 03-04-2023 End: 03-04-2023 Office outpatient visit 15 minutes Henrietta Knowles WATER CHEMIST - COLLECTIONS ASSISTANT Work Phone: [facility] Comment on above: Varicose veins of belkis th lower extremities with pain (Primary Dx) Start: 02-22-2023 End: 02-22-2023 Office outpatient visit 25 minutes Henrietta Knowles WATER CHEMIST - COLLECTIONS ASSISTANT Work Phone: [facility] Comment on above: Pain from breast imp lant, initial encounter (Primary Dx); Ruptured left breast implant, initial encounter; Hyperlipidemia, unspecified hyperlipidemia type; Screening for diabetes mellitus Start: 05-01-2022 End: 05-01-2022 ambulatory AUGUSTIN JORDAN [facility] Start: 12-25-2021 End: 12-25-2021 Emergency department patient visit JOE TINOCO MD [facility] Start: 09-18-2017 Ambulatory UNKNOWN PROVIDER [facility] Procedures Date Procedure Procedure Detail Performing Clinician Start: 10-28-2024 Vitamin D, 25-hydrox y measurement Dr. Adriana Vasquez MD Work Phone: Comment on above: Vitamin D StatusDefi ciency: <20 ng/mL (50nmol/L)Insufficiency: 20-30 ng/mL (50-75 nmol/L)Sufficiency: 30-100 ng/mL (75-250 nmol/L)Toxicity: >100 ng/mL (>250 nmol/L) Start: 10-14-2024 Urnls dip stick/tabl et rgnt non-auto w/o micrscp Henrietta Knowles WATER CHEMIST - COLLECTIONS ASSISTANT Work Phone: Start: 09-25-2024 End: 09-25-2024 Screening digital breast tomosynthesis bi Henrietta Knowles WATER CHEMIST - COLLECTIONS ASSISTANT Work Phone: Start: 09-23-2024 Brncdilat rspse spmt ry pre&post-brncdilat admn Osbaldoenmanuel Salguero WATER CHEMIST - COLLECTIONS ASSISTANT Work Phone: Start: 08-13-2024 CT Chest for screeni ng WO contrast Henrietta Knowles WATER CHEMIST - COLLECTIONS ASSISTANT Work Phone: Start: 04-15-2024 Lipid 1996 panel - S jayde or Plasma Augustin Jordan MD Work Phone: Start: 04-15-2024 Microscopic observat ion [Identifier] in Cervix by Cyto stain Augustin Jordan MD Work Phone: Start: 12-18-2023 Thyrotropin [Units/v olume] in Serum or Plasma Augustin Jordan MD Work Phone: Start: 11-14-2023 Radex ankle complete minimum 3 views Augustin Jordan MD Work Phone: Start: 05-20-2023 End: 05-20-2023 Diagnostic mammography computer-aided detcj bi Rach Boudreaux PA-C Work Phone: Start: 04-12-2023 Radiologic exam ches t 2 views Henrietta Knowles WATER CHEMIST - COLLECTIONS ASSISTANT Work Phone: Start: 04-08-2023 Microscopic observat ion [Identifier] in Cervix by Cyto stain Rach Boudreaux PA-C Work Phone: Start: 02-22-2023 Lipid 1996 panel - S jayde or Plasma Henrietta Knowles WATER CHEMIST - COLLECTIONS ASSISTANT Work Phone: Start: 04-04-2022 Lipid 1996 panel - S jayde or Plasma Henrietta Knowles WATER CHEMIST - COLLECTIONS ASSISTANT Work Phone: Start: 04-04-2022 Microscopic observat ion [Identifier] in Cervix by Cyto stain Henrietta Knowles WATER CHEMIST - COLLECTIONS ASSISTANT Work Phone: Abscess (disorder) OSMAR ROSALINO LEZAMA WATER CHEMIST-COLLECTIONS ASSISTANT Comment on above: removal right leg Augmentation mammoplasty ZAKIA WILBURN WATER CHEMIST-COLLECTIONS ASSISTANT Plan of Treatment Date Care Activity Detail Author Start: 2040 RSV Immunization for Adults (1 - 1-dose 75+ series) RSV Immunization for Adults (1 - 1-dose 75+ series) [employer] Start: 02-04-2033 DTaP/Tdap/Td Vaccines (2 - Td or Tdap) DTaP/Tdap/Td Vaccines (2 - Td or Tdap) [employer] Start: 2030 Pneumococcal Vaccine: Pediatrics (0 to 5 Years) and At-Risk Patients (6 to 64 Years) (3 - PPSV23 if available, else PCV20) Pneumococcal Vaccine: Pediatrics (0 to 5 Years) and At-Risk Patients (6 to 64 Years) (3 - PPSV23 if available, else PCV20) [facility] Start: 2030 Pneumococcal Vaccine: Pediatrics (0 to 5 Years) and At-Risk Patients (6 to 64 Years) (3 - PPSV23 or PCV20) Pneumococcal Vaccine: Pediatrics (0 to 5 Years) and At-Risk Patients (6 to 64 Years) (3 - PPSV23 or PCV20) [facility] Start: 2030 Pneumococcal Vaccine: Pediatrics (0 to 5 Years) and At-Risk Patients (6 to 64 Years) (3 of 3 - PPSV23 or PCV20) Pneumococcal Vaccine: Pediatrics (0 to 5 Years) and At-Risk Patients (6 to 64 Years) (3 of 3 - PPSV23 or PCV20) [facility] Start: 04-15-2029 Lipid panel Lipid Panel [facility] Start: 04-15-2029 Screening for malignant neoplasm of cervix [facility] Start: 02-23-2028 Lipid panel Lipid Panel [facility] Start: 04-15-2027 Screening for malignant neoplasm of cervix Pap Smear [facility] Start: 04-04-2027 Lipid panel Lipid Panel [facility] Start: 10-06-2026 Diabetes mellitus screening Diabetes Screening [facility] Start: 04-08-2026 Screening for malignant neoplasm of cervix [facility] Start: 04-03-2026 Screening for malignant neoplasm of cervix [facility] Start: 09-25-2025 Screening for malignant neoplasm of breast Mammogram [facility] Start: 08-13-2025 Screening for malignant neoplasm of lung Lung Cancer Screening [facility] Start: 2025 RSV Immunization aged 60 or older (1 - 1-dose 60+ series) RSV Immunization aged 60 or older (1 - 1-dose 60+ series) [facility] Start: 04-15-2025 COVID-19 Vaccine ( season) COVID-19 Vaccine ( season) [facility] Comment on above: Postponed from 02/23/2024 (Patient Refus ed) Start: 04-15-2025 Depression Monitoring Depression Monitoring [facility] Start: 04-04-2025 Screening for malignant neoplasm of cervix Pap Smear [facility] Start: 12-17-2024 Thyroid stimulating hormone measurement TSH Level [facility] Start: 11-18-2024 End: 11-18-2024 Patient encounter procedure 11/18/2024 10:40 AM EDT Office Visit [facility] [address] [facility] [place] [address] Henrietta Knowles, WATER CHEMIST - COLLECTIONS ASSISTANT [address] [facility] [place] [address] [facility] Start: 10-14-2024 End: 10-14-2025 Basic metabolic 1998 panel - Serum or Plasma Basic metabolic panel Lab Routine Primary insomnia History of drug abuse (HCC) Constipation, unspecified constipation type OAB (overactive bladder) Midline cystocele Urinary urgency Bladder spasms Mild episode of recurrent major depressive disorder (HCC) Anxiety PTSD (post-traumatic stress disorder) Centrilobular emphysema (HCC) Cigarette nicotine dependence with nicotine-induced disorder Expected: 10/14/2024 (Approximate), Expires: 10/14/2025 [facility] Work Phone: Comment on above: Expected: 10/14/2024 (Approximate), Expi res: 10/14/2025 Start: 10-14-2024 Depression Monitoring Depression Monitoring [facility] Start: 10-14-2024 End: 10-14-2024 Patient encounter procedure 10/14/2024 1:00 PM EDT Office Visit [facility] [address] [facility] [place] [address] Henrietta Knowles, WATER CHEMIST - COLLECTIONS ASSISTANT [address] [facility] [place] [address] [facility] Start: 10-06-2024 Diabetes mellitus screening Diabetes Screening [facility] Start: 10-06-2024 HIV screening HIV Screening [facility] Comment on above: Postponed from 1965 (Patient Refus ed) Start: 09-25-2024 End: 09-25-2024 Patient encounter procedure 09/25/2024 2:00 PM EDT Appointment [facility] [address] [place] [phone] Henrietta Knowles, WATER CHEMIST - COLLECTIONS ASSISTANT [address] [place] [address] [place] [address] [facility] Start: 09-23-2024 End: 09-23-2024 Patient encounter procedure 09/23/2024 12:00 PM EDT Appointment [facility] [address] [place] [phone] Osbaldo Salguero, WATER CHEMIST - COLLECTIONS ASSISTANT [address] [place] [address] [place] [address] [facility] Start: 08-04-2024 End: 08-04-2024 Patient encounter procedure 08/04/2024 9:30 AM EST Appointment [facility] [address] [place] [phone] Osbaldo Salguero, WATER CHEMIST - COLLECTIONS ASSISTANT [address] [place] [address] [place] [address] [facility] Start: 07-22-2024 End: 07-22-2024 Patient encounter procedure 07/22/2024 12:40 PM EST Appointment [facility] [address] [place] [phone] Henrietta Knowles, WATER CHEMIST - COLLECTIONS ASSISTANT [address] [place] [address] [facility] Start: 07-22-2024 End: 07-22-2024 Patient encounter procedure 07/22/2024 11:30 AM EST Appointment [facility] [address] [place] [phone] Henrietta Knowles, WATER CHEMIST - COLLECTIONS ASSISTANT [address] [place] [address] [facility] [address] Start: 06-10-2024 End: 06-10-2024 Patient encounter procedure 06/10/2024 2:15 PM EST Office Visit [facility] [address] [place] [address] Augustin Jordan MD [address] [place] [address] [place] [address] [facility] Start: 06-01-2024 Pneumococcal Vaccine: 50+ Years (3 of 3 - PCV20 or PCV21) Pneumococcal Vaccine: 50+ Years (3 of 3 - PCV20 or PCV21) [facility] Start: 05-21-2024 End: 06-15-2025 DBT Breast - bilateral screening Bilateral screening mammogram with tomosynthesis Imaging Routine Screening mammogram for breast cancer Expected: 05/21/2024, Expires: 06/15/2025 [facility] Comment on above: Expected: 05/21/2024, Expires: Start: 05-20-2024 Screening for malignant neoplasm of breast Mammogram [facility] Start: 04-15-2024 End: 04-14-2025 Comprehensive metabolic 1998 panel - Serum or Plasma Comprehensive metabolic panel Lab Routine Primary insomnia History of hepatitis C History of drug abuse (CMS/HCC) (HCC) Constipation, unspecified constipation type OAB (overactive bladder) Midline cystocele Hyperlipidemia, unspecified hyperlipidemia type Mild episode of recurrent major depressive disorder (HCC) Anxiety PTSD (post-traumatic stress disorder) Cigarette nicotine dependence without complication Screening for diabetes mellitus Expected: 04/15/2024 (Approximate), Expires: 04/14/2025 [facility] [employer] Comment on above: Expected: 04/15/2024 (Approximate), Expi res: 04/14/2025 Start: 04-15-2024 End: 04-15-2025 CT Chest for screening WO contrast CT lung screening low dose Imaging Routine Cigarette nicotine dependence without complication Screening for lung cancer Expected: 04/15/2024, Expires: 04/15/2025 [facility] [employer] Comment on above: Expected: 04/15/2024, Expires: Start: 04-15-2024 End: 04-14-2025 Lipid 1996 panel - Serum or Plasma Lipid panel Lab Routine Hyperlipidemia, unspecified hyperlipidemia type Expected: 04/15/2024 (Approximate), Expires: 04/14/2025 [facility] Work Phone: Comment on above: Expected: 04/15/2024 (Approximate), Expi res: 04/14/2025 Start: 04-15-2024 End: 04-15-2024 Patient encounter procedure [facility] Start: 04-08-2024 COVID-19 Vaccine (#1) COVID-19 Vaccine (#1) [facility] Comment on above: Postponed from 01/24/1966 (Patient Refus ed) Start: 04-08-2024 COVID-19 Vaccine () COVID-19 Vaccine () [facility] Comment on above: Postponed from 02/22/2023 (Patient Refus ed) Start: 04-08-2024 MMR Vaccines (1 of 1 - Standard series) MMR Vaccines (1 of 1 - Standard series) [facility] Comment on above: Postponed from 1966 (Patient Refus ed) Start: 04-07-2024 Depression Monitoring Depression Monitoring [facility] Start: 04-07-2024 Depresssion Monitoring Depresssion Monitoring [facility] Start: 03-24-2024 End: 03-24-2025 Complete PFT pre and post bronchodilator Complete PFT pre and post bronchodilator PFT Routine Chronic shortness of breath Expected: 03/24/2024 (Approximate), Expires: 03/24/2025 [facility] Work Phone: Comment on above: Expected: 03/24/2024 (Approximate), Expi res: 03/24/2025 Start: 03-16-2024 End: 03-16-2024 Clinical Support 03/16/2024 11:00 AM EDT Clinical Support [address] [facility] Start: 03-11-2024 End: 03-11-2025 Estradiol Estradiol Lab Routine Menopause Expected: 03/11/2024 (Approximate), Expires: 03/11/2025 [facility] [employer] Work Phone: Comment on above: Expected: 03/11/2024 (Approximate), Expi res: 03/11/2025 Start: 03-11-2024 End: 03-11-2025 Follicle stimulating hormone Follicle stimulating hormone Lab Routine Menopause Expected: 03/11/2024 (Approximate), Expires: 03/11/2025 [facility] Comment on above: Expected: 03/11/2024 (Approximate), Expi res: 03/11/2025 Start: 03-11-2024 End: 03-11-2025 Luteinizing hormone Luteinizing hormone Lab Routine Menopause Expected: 03/11/2024 (Approximate), Expires: 03/11/2025 [facility] Comment on above: Expected: 03/11/2024 (Approximate), Expi res: 03/11/2025 Start: 03-11-2024 End: 03-11-2025 Progesterone Progesterone Lab Routine Menopause Expected: 03/11/2024 (Approximate), Expires: 03/11/2025 [facility] Comment on above: Expected: 03/11/2024 (Approximate), Expi res: 03/11/2025 Start: 02-23-2024 COVID-19 Vaccine ( season) COVID-19 Vaccine ( season) [facility] Start: 02-23-2024 Influenza vaccination Influenza Vaccine (#1) [facility] Start: 12-02-2023 End: 12-01-2024 Antistreptolysin O screen Antistreptolysin O screen Lab Routine Bilateral lower extremity edema Polyarthralgia Expected: 12/02/2023 (Approximate), Expires: 12/01/2024 [facility] [employer] Work Phone: Comment on above: Expected: 12/02/2023 (Approximate), Expi res: 12/01/2024 Start: 12-02-2023 End: 12-01-2024 C reactive protein [Mass/volume] in Serum or Plasma C-reactive protein Lab Routine Bilateral lower extremity edema Polyarthralgia Expected: 12/02/2023 (Approximate), Expires: 12/01/2024 [facility] Comment on above: Expected: 12/02/2023 (Approximate), Expi res: 12/01/2024 Start: 12-02-2023 End: 12-01-2024 CBC W Auto Differential panel - Blood CBC auto differential Lab Routine Bilateral lower extremity edema Polyarthralgia Expected: 12/02/2023 (Approximate), Expires: 12/01/2024 [facility] [employer] Comment on above: Expected: 12/02/2023 (Approximate), Expi res: 12/01/2024 Start: 12-02-2023 End: 12-01-2024 Comprehensive metabolic 1998 panel - Serum or Plasma Comprehensive metabolic panel Lab Routine Bilateral lower extremity edema Polyarthralgia Expected: 12/02/2023 (Approximate), Expires: 12/01/2024 [facility] [employer] Comment on above: Expected: 12/02/2023 (Approximate), Expi res: 12/01/2024 Start: 12-02-2023 End: 12-01-2024 Nuclear Ab [Titer] in Serum by Immunofluorescence SIGIFREDO Lab Routine Bilateral lower extremity edema Polyarthralgia Expected: 12/02/2023 (Approximate), Expires: 12/01/2024 [facility] [employer] Comment on above: Expected: 12/02/2023 (Approximate), Expi res: 12/01/2024 Start: 12-02-2023 End: 12-01-2024 Rheumatoid factor [Units/volume] in Serum or Plasma Rheumatoid factor Lab Routine Bilateral lower extremity edema Polyarthralgia Expected: 12/02/2023 (Approximate), Expires: 12/01/2024 [facility] [employer] Comment on above: Expected: 12/02/2023 (Approximate), Expi res: 12/01/2024 Start: 12-02-2023 End: 12-01-2024 Thyrotropin [Units/volume] in Serum or Plasma TSH Lab Routine Bilateral lower extremity edema Polyarthralgia Hypothyroidism, unspecified type Expected: 12/02/2023 (Approximate), Expires: 12/01/2024 [facility] [employer] Comment on above: Expected: 12/02/2023 (Approximate), Expi res: 12/01/2024 Start: 12-02-2023 End: 12-01-2024 Urate [Mass/volume] in Serum or Plasma Uric acid Lab Routine Bilateral lower extremity edema Polyarthralgia Expected: 12/02/2023 (Approximate), Expires: 12/01/2024 [facility] Comment on above: Expected: 12/02/2023 (Approximate), Expi res: 12/01/2024 Start: 11-11-2023 End: 11-10-2024 C reactive protein [Mass/volume] in Serum or Plasma C-reactive protein Lab Routine Acute left ankle pain Left foot pain Expected: 11/11/2023 (Approximate), Expires: 11/10/2024 [facility] Comment on above: Expected: 11/11/2023 (Approximate), Expi res: 11/10/2024 Start: 11-11-2023 End: 11-10-2024 CBC panel - Blood by Automated count CBC Lab Routine Acute left ankle pain Left foot pain Expected: 11/11/2023 (Approximate), Expires: 11/10/2024 [facility] Comment on above: Expected: 11/11/2023 (Approximate), Expi res: 11/10/2024 Start: 11-11-2023 End: 11-10-2024 Erythrocyte sedimentation rate Sedimentation rate, automated Lab Routine Acute left ankle pain Left foot pain Expected: 11/11/2023 (Approximate), Expires: 11/10/2024 [facility] [employer] Comment on above: Expected: 11/11/2023 (Approximate), Expi res: 11/10/2024 Start: 11-11-2023 End: 11-10-2024 Urate [Mass/volume] in Serum or Plasma Uric acid Lab Routine Acute left ankle pain Left foot pain Expected: 11/11/2023 (Approximate), Expires: 11/10/2024 [facility] [employer] Comment on above: Expected: 11/11/2023 (Approximate), Expi res: 11/10/2024 Start: 11-11-2023 End: 11-10-2024 XR Ankle - left 3 Views XR ankle 3+ views left Imaging Routine Acute left ankle pain Left foot pain Expected: 11/11/2023, Expires: 11/10/2024 [facility] [employer] Comment on above: Expected: 11/11/2023, Expires: Start: 11-11-2023 End: 11-10-2024 XR Foot - left 3 Views XR foot 3+ views left Imaging Routine Acute left ankle pain Left foot pain Expected: 11/11/2023, Expires: 11/10/2024 [employer] Work Phone: Comment on above: Expected: 11/11/2023, Expires: Start: 10-08-2023 Depresssion Monitoring Depresssion Monitoring [facility] Start: 10-07-2023 End: 10-06-2024 Basic metabolic 1998 panel - Serum or Plasma Basic metabolic panel Lab Routine Primary insomnia History of hepatitis C History of drug abuse (CMS/HCC) (HCC) Constipation, unspecified constipation type OAB (overactive bladder) Midline cystocele Hyperlipidemia, unspecified hyperlipidemia type Mild episode of recurrent major depressive disorder (HCC) Anxiety PTSD (post-traumatic stress disorder) Elevated fasting glucose Cigarette nicotine dependence without complication Pedal edema Expected: 10/07/2023 (Approximate), Expires: 10/06/2024 [facility] Comment on above: Expected: 10/07/2023 (Approximate), Expi res: 10/06/2024 Start: 10-07-2023 End: 10-06-2024 Hemoglobin A1c measurement Hemoglobin A1c Lab Routine Elevated fasting glucose Expected: 10/07/2023 (Approximate), Expires: 10/06/2024 [employer] Work Phone: Comment on above: Expected: 10/07/2023 (Approximate), Expi res: 10/06/2024 Start: 10-07-2023 End: 10-06-2024 XR Chest 2 Views XR chest 2 views Imaging Routine Cigarette nicotine dependence without complication Bronchitis Expected: 10/07/2023, Expires: 10/06/2024 [employer] Comment on above: Expected: 10/07/2023, Expires: Start: 10-07-2023 End: 10-07-2023 Patient encounter procedure 10/07/2023 1:20 PM EDT Office Visit [facility] [address] [place] [address] [place] [address] Henrietta Knowles, WATER CHEMIST - COLLECTIONS ASSISTANT [address] [place] [address] [facility] Start: 08-21-2023 End: 08-21-2024 Complete PFT study Complete PFT study PFT Routine Chronic shortness of breath Expected: 08/21/2023 (Approximate), Expires: 08/21/2024 [facility] Work Phone: Comment on above: Expected: 08/21/2023 (Approximate), Expi res: 08/21/2024 Start: 05-24-2023 End: 05-24-2023 Patient encounter procedure 05/24/2023 2:00 PM EST Office Visit [facility] [address] [place] [phone] Godfrey Minaya MD [address] [place], [place] [id number] [facility] Start: 05-20-2023 End: 05-20-2023 Patient encounter procedure [facility] Start: 05-08-2023 End: 05-08-2023 Patient encounter procedure 05/08/2023 2:00 PM EST Office Visit [facility] [address] [place] [phone] Godfrey Minaya MD [address] [place], [place] [id number] [facility] Start: 04-19-2023 End: 06-19-2024 DBT Breast - bilateral diagnostic Bilateral diagnostic mammogram with tomosynthesis Imaging Routine Pain from breast implant, initial encounter Ruptured left breast implant, initial encounter Expected: 04/19/2023, Expires: 06/19/2024 [facility] Work Phone: Comment on above: Expected: 04/19/2023, Expires: Start: 04-19-2023 End: 06-19-2024 US Breast - left limited Left breast US limited Imaging Routine Pain from breast implant, initial encounter Ruptured left breast implant, initial encounter Expected: 04/19/2023, Expires: 06/19/2024 [employer] Work Phone: Comment on above: Expected: 04/19/2023, Expires: Start: 04-10-2023 End: 04-10-2023 Patient encounter procedure [facility] Start: 04-08-2023 End: 04-08-2024 XR Chest 2 Views XR chest 2 views Imaging Routine Cough, unspecified type Chest congestion Cigarette nicotine dependence without complication Expected: 04/08/2023, Expires: 04/08/2024 [employer] Work Phone: Comment on above: Expected: 04/08/2023, Expires: Start: 04-08-2023 End: 04-08-2023 Patient encounter procedure 04/08/2023 1:20 PM EDT Procedure Visit [facility] [address] [place], [place] [id number] Henrietta Knowles S, WATER CHEMIST - COLLECTIONS ASSISTANT [address] [place] [address] [facility] Start: 02-22-2023 End: 02-23-2024 CBC panel - Blood by Automated count CBC Lab Routine Pain from breast implant, initial encounter Ruptured left breast implant, initial encounter Expected: 02/22/2023 (Approximate), Expires: 02/23/2024 [employer] Work Phone: Comment on above: Expected: 02/22/2023 (Approximate), Expi res: 02/23/2024 Start: 02-22-2023 End: 02-23-2024 Comprehensive metabolic 1998 panel - Serum or Plasma Comprehensive metabolic panel Lab Routine Hyperlipidemia, unspecified hyperlipidemia type Screening for diabetes mellitus Expected: 02/22/2023 (Approximate), Expires: 02/23/2024 [facility] Comment on above: Expected: 02/22/2023 (Approximate), Expi res: 02/23/2024 Start: 02-22-2023 End: 02-23-2024 Lipid 1996 panel - Serum or Plasma Lipid panel Lab Routine Hyperlipidemia, unspecified hyperlipidemia type Expected: 02/22/2023 (Approximate), Expires: 02/23/2024 [facility] Comment on above: Expected: 02/22/2023 (Approximate), Expi res: 02/23/2024 Start: 2015 Screening for malignant neoplasm of lung Lung Cancer Screening [facility] Start: 2005 Screening for malignant neoplasm of breast Mammogram [facility] Start: 1983 Diabetes mellitus screening Diabetes Screening [facility] Start: 1977 Depresssion Monitoring Depresssion Monitoring [facility] Start: 1966 MMR Vaccines (1 of 1 - Standard series) MMR Vaccines (1 of 1 - Standard series) [facility] Start: 01-24-1966 COVID-19 Vaccine (#1) COVID-19 Vaccine (#1) [facility] Start: 1965 HIV screening HIV Screening [facility] Start: 1965 Screening for malignant neoplasm of colon [facility] Start: 1965 Thyroid stimulating hormone measurement TSH Level [facility] [facility] Cologuard colon cancer screening Lab Routine Screening for colon cancer Ordered: 10/07/2023 [employer] Comment on above: Ordered: 10/07/2023 Cytology Cervical or vaginal smear or scraping study Pap Smear Pathology and Cytology Routine Encounter for Papanicolaou smear for cervical cancer screening Ordered: 04/08/2023 [employer] Comment on above: Ordered: 04/08/2023 Cytology Cervical or vaginal smear or scraping study Pap Smear Pathology and Cytology Routine Encounter for Papanicolaou smear for cervical cancer screening 04/15/2024 11:27 AM EDT [facility] DBT Breast - bilater al diagnostic Bilateral diagnostic mammogram with tomosynthesis Imaging Routine Pain from breast implant, initial encounter Ruptured left breast implant, initial encounter Ordered: 04/10/2023 [employer] Work Phone: Comment on above: Ordered: 04/10/2023 HPV High Risk PCR HPV High Risk PCR Microbiology Routine Encounter for Papanicolaou smear for cervical cancer screening 04/15/2024 11:27 AM EDT [facility] OUTSIDE PROCEDURE SCAN OUTSIDE P ROCEDURE SCAN Procedures Ordered: 11/14/2023 [employer] Comment on above: Ordered: 11/14/2023 End: 05-20-2023 US Breast - left limited Left breast US limited Imaging Routine Pain from breast implant, initial encounter Ruptured left breast implant, initial encounter Once for 1 Occurrences starting 05/20/2023 until 05/20/2023 [facility] Work Phone: Comment on above: Once for 1 Occurrences starting 05/20/20 until 05/20/2023 Immunizations Immunization Date Immunization Notes Care Provider Gael galvez 04-15-2024 influenza virus vacc ine, unspecified formulation SOMAR WILBURN WATER CHEMIST-COLLECTIONS ASSISTANT [facility] 04-15-2024 influenza, seasonal, injectable, preservative free Henrietta Knowles WATER CHEMIST - COLLECTIONS ASSISTANT Work Phone: [facility] 02-04-2023 influenza, injectabl e, quadrivalent, preservative free Henrietta Knowles WATER CHEMIST - COLLECTIONS ASSISTANT Work Phone: [facility] 02-04-2023 tetanus toxoid, redu anjel diphtheria toxoid, and acellular pertussis vaccine, adsorbed Henrietta Knowles WATER CHEMIST - COLLECTIONS ASSISTANT Work Phone: [facility] 02-04-2023 influenza virus vacc ine, unspecified formulation Augustin Jordan MD Work Phone: [facility] 04-04-2022 influenza virus vacc ine, unspecified formulation OSMAR WILBURN WATER CHEMIST-COLLECTIONS ASSISTANT [facility] Comment on above: Result Comment: 2024: VIS DATE: 01/27/2021 04-04-2022 influenza, injectabl e, quadrivalent, preservative free Henrietta Knowles WATER CHEMIST - COLLECTIONS ASSISTANT Work Phone: [facility] 04-03-2021 influenza virus vacc ine, unspecified formulation OSMAR WILBURN WATER CHEMIST-COLLECTIONS ASSISTANT [facility] Comment on above: Result Comment: 2024: VIS DATE: 01/27/2021 04-03-2021 influenza, injectabl e, quadrivalent, contains preservative Henrietta Benson WATER CHEMIST - COLLECTIONS ASSISTANT Work Phone: [facility] [employer] 08-15-2020 influenza virus vacc ine, unspecified formulation OSMAR WILBURN WATER CHEMIST-COLLECTIONS ASSISTANT [facility] Comment on above: Result Comment: 2024: VIS DATE: 02/05/2019 08-15-2020 influenza, injectabl e, quadrivalent, contains preservative Henrietta Knowles WATER CHEMIST - COLLECTIONS ASSISTANT Work Phone: [facility] [employer] 06-03-2019 influenza virus vacc ine, unspecified formulation OSMAR WILBURN WATER CHEMIST-COLLECTIONS ASSISTANT [facility] Comment on above: Result Comment: 2024: VIS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 Practice Name: [facility] B: Onset of symptoms/concern 3 days A: Starting to have wheezes, coughing, coughed up sputum, starting to look bad, starting to feel pretty sick, getting hot and cold but hasn't checked temp, hasn't been exposed, states she has stayed away from everyone so no covid or flu exposure, using rescue inhaler more frequently, R: Patient scheduled tomorrow with Dr. Jordan 06/10 at 2:15p. Advised to wear mask to appointment due to symptoms. Patient understands care advice. No further needs at this time. Patient instructed to call back with new or worsening symptoms. Reason for Disposition Continuous (nonstop) coughing interferes with work or school and no improvement using cough treatment per Care Advice Protocols used: Wefid-OHLYP-VH [facility] [id number] Miscellaneous Notes* Telephone Encounter - Maricruz Resendez RN - 06/09/2024 2:53 PM EST S: Patient spoke with [facility] nurse regarding Cough chest congestion chills and hot flashes Provider: Dr. Jordan Practice Name: [facility] B: Onset of symptoms/concern 3 days A: Starting to have wheezes, coughing, coughed up sputum, starting to look bad, starting to feel pretty sick, getting hot and cold but hasn't checked temp, hasn't been exposed, states she has stayed away from everyone so no covid or flu exposure, using rescue inhaler more frequently, R: Patient scheduled tomorrow with Dr. Jordan 06/10 at 2:15p. Advised to wear mask to appointment due to symptoms. Patient understands care advice. No further needs at this time. Patient instructed to call back with new or worsening symptoms. Reason for Disposition Continuous (nonstop) coughing interferes with work or school and no improvement using cough treatment per Care Advice Protocols used: Zrqjf-ALWVR-JB documented in this encounterSBrecksville VA / Crille [id number] Telephone encounter Note* Telephone Encounter - CASSIE Guaman CNP - 06/05/2024 8:12 AM EST Thank you Valerie. [facility] [id number] Miscellaneous Notes* Telephone Encounter - CASSIE Guaman CNP - 06/05/2024 8:12 AM EST Thank you Valerie. * Telephone Encounter - Valerie Desir MA - 06/04/2024 5:12 PM EST Spoke to Idalia, she is going to call to schedule this. * Telephone Encounter - CASSIE Guaman CNP - 06/01/2024 1:14 PM EST Please check with Idalia if she still plans to get this done. Thank you. * Telephone Encounter - Osbaldo Liz - 06/01/2024 9:16 AM EST Pt given orders for CT-Lung Screen on 04/15/24 Several attempts to contact pt including a follow up letter were made. No response from pt to sched; Okay to closed orders? documented in this encounterSBrecksville VA / Crille [id number] Telephone encounter Note* Telephone Encounter - Valerie Desir MA - 06/04/2024 5:12 PM EST Spoke to Idalia, she is going to call to schedule this. [facility] [id number] Miscellaneous Notes* Telephone Encounter - Valerie Desir MA - 06/04/2024 5:12 PM EST Spoke to Idalia, she is going to call to schedule this. * Telephone Encounter - CASSIE Guaman CNP - 06/01/2024 1:14 PM EST Please check with Idalia if she still plans to get this done. Thank you. * Telephone Encounter - Osbaldo Liz - 06/01/2024 9:16 AM EST Pt given orders for CT-Lung Screen on 04/15/24 Several attempts to contact pt including a follow up letter were made. No response from pt to sched; Okay to closed orders? documented in this encounterSBrecksville [facility] [id number] Telephone encounter Note* Telephone Encounter - CASSIE Guaman CNP - 06/01/2024 1:14 PM EST Please check with Idalia if she still plans to get this done. Thank you. [facility] [id number] Telephone encounter Note* Telephone Encounter - Osbaldo Liz - 06/01/2024 9:16 AM EST Pt given orders for CT-Lung Screen on 04/15/24 Several attempts to contact pt including a follow up letter were made. No response from pt to sched; Okay to closed orders? [facility] [id number] Telephone encounter Note* Telephone Encounter - Maria L Chen RN - 05/22/2024 2:29 PM EST S: Patient spoke with [facility] nurse regarding cough B: Onset of symptoms/concern 3 days A: Wheezing, non productive cough. Pt speaking in full sentences without audible wheezing. Denies - shortness of breath, fever, chest congestion Pt requesting to have prednisone to be sent to pharmacy. R: Home care advised given for non-productive cough - Cough - Acute Evv-Qhqnaloefe-HULDD- Care Advice COUGH DROPS FOR COUGH: * Cough drops can help a lot, especially for mild coughs. They reduce coughing by soothing your irritated throat and removing that tickle sensation in the back of the throat. *Cough drops also have the advantage of portability - you can carry them with you. * Cough drops areavailable dywd-bem-oizfanh (OTC). * HOME REMEDY - HARD CANDY: Hard candy works just as well as a medicine-flavored OTC cough drops. COUGHING SPELLS: * Drink warm fluids. Inhale warm mist. This can help relax the airway and also loosen up phlegm. * Suck on cough drops or hard candy to coat the irritated throat. HUMIDIFIER: * If the air is dry, use a humidifier in the bedroom. * Dry air makes coughs worse. AVOID TOBACCO SMOKE: * Avoid smoke from tobacco and e-cigarettes. * Smoking or being exposed to smoke makes coughs much worse. CALL BACK IF: * Cough lasts over 3 weeks * Continuous coughing lasts over 2 hours after cough treatment * Fever over 103 F (39.4 C) * Fever lasts more than 3 days * Difficulty breathing occurs * You become worse HOME CARE: * You should be able to treat this at home. Patient understands care advice. No further needs at this time. Patient instructed to call back with new or worsening symptoms. Reason for Disposition Cough Protocols used: Cough - Acute Onv-Hwdllvfxkh-AVTOU- [facility] [id number] Miscellaneous Notes* Telephone Encounter - Maria L Chen RN - 05/22/2024 2:29 PM EST S: Patient spoke with [facility] nurse regarding cough B: Onset of symptoms/concern 3 days A: Wheezing, non productive cough. Pt speaking in full sentences without audible wheezing. Denies - shortness of breath, fever, chest congestion Pt requesting to have prednisone to be sent to pharmacy. R: Home care advised given for non-productive cough - Cough - Acute Jeq-Avolrcmlaj-YMNXY- Care Advice COUGH DROPS FOR COUGH: * Cough drops can help a lot, especially for mild coughs. They reduce coughing by soothing your irritated throat and removing that tickle sensation in the back of the throat. *Cough drops also have the advantage of portability - you can carry them with you. * Cough drops areavailable ejpv-nic-uiykgwv (OTC). * HOME REMEDY - HARD CANDY: Hard candy works just as well as a medicine-flavored OTC cough drops. COUGHING SPELLS: * Drink warm fluids. Inhale warm mist. This can help relax the airway and also loosen up phlegm. * Suck on cough drops or hard candy to coat the irritated throat. HUMIDIFIER: * If the air is dry, use a humidifier in the bedroom. * Dry air makes coughs worse. AVOID TOBACCO SMOKE: * Avoid smoke from tobacco and e-cigarettes. * Smoking or being exposed to smoke makes coughs much worse. CALL BACK IF: * Cough lasts over 3 weeks * Continuous coughing lasts over 2 hours after cough treatment * Fever over 103 F (39.4 C) * Fever lasts more than 3 days * Difficulty breathing occurs * You become worse HOME CARE: * You should be able to treat this at home. Patient understands care advice. No further needs at this time. Patient instructed to call back with new or worsening symptoms. 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 Medication dosage: 2 puff(s) Monthly quantity needed: N/A How many day supply requestin days Medication route: inhalation (inhaler) Medication administration time(s): every 6 hours If taking medication PRN, reason for taking medication: Wheezing If this is a controlled substance do you receive this or any other controlled medication from any other doctor or facility: N/A Ordering provider: Dr. 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 Medication dosage: 2 puff(s) Monthly quantity needed: N/A How many day supply requestin days Medication route: inhalation (inhaler) Medication administration time(s): every 6 hours If taking medication PRN, reason for taking medication: Wheezing If this is a controlled substance do you receive this or any other controlled medication from any other doctor or facility: N/A Ordering provider: Dr. Jordan Date of last office visit: 04/15/2024 Date of next office visit: 10/14/2024 Date of last refill: (see medication tab): 03/24/2024 Updated/Validated preferred pharmacy: Yes Patient instructed to contact the pharmacy prior to picking up the medication: Yes documented in this [facility]10-23-2024 History of Present illness Narrative* Damaris Linda MA - 04/15/2024 11:20 AM EDT Patient verified by last name and . After obtaining consent, and per orders of STANLEY Payne, injection of Influenza given in the Right Deltoid by Damaris Linda. Patient instructed to report any adverse reactions immediately. * CASSIE Guaman CNP - 04/15/2024 11:20 AM EDT Images from the original note were not included. [address] [address] Dept: [phone] Dept Loc: [phone] HPI: Idalia Gipson is a 58 y.o. female who presents today for her medical conditions/complaints as noted below. Idalia Gipson is c/o of Gynecologic Exam, Health Maintenance (Lung cx screen- declines /CRCS- declines /Flu- agrees/Covid- not done ), and Blood Work HPI- Idalia MejiaMashaDavon presents today for her well female examination. LMP was in 2018. Insomnia: Takes Topamax at bedtime and this helps. Feels symptoms are stable. Chronic Hep C/History of Drug Abuse: Has been clean for 8.5 years. Is doing well overall. States she was fully treated for hep c and was told she is clear. Constipation: States symptoms are currently well controlled. Strives to remain well hydrated. Denies current concerns or worries. OAB/Cystocele: Feels symptoms are well controlled. Denies current concerns or worries. Denies issues with recurrent UTI's, pelvic pain/pressure, or difficulty urinating. Hyperlipidemia: Has not been taking her Rosuvastatin. Her levels were stable off of the medication when checked last checked in February 2023. Would like to remain off of the medication at this time. Will recheck levels today. Component Ref Range & Units (02/22/23) (04/04/22) (05/12/21) (04/03/21) (11/25/19) CHOLESTEROL, TOTAL <200 mg/dL 220 High HDL CHOLESTEROL > OR = 50 mg/dL 107 70 High R 67 High R 67 High R 54 R TRIGLYCERIDES <150 mg/dL 83 114 139 103 287 Abnormal LDL-CHOLESTEROL mg/dL (calc) 96 CHOL/HDLC RATIO <5.0 (calc) 2.1 NON HDL CHOLESTEROL <130 mg/dL (calc) 113 Depression/Anxiety/PTSD: Takes Abilify, Buspar, and Trintellix as prescribed. Continues to follow up with weekly counseling and psych. Her mother last week, which has been difficult. Feels she has a good social and emotional support system. Nicotine Use: Currently smoking less than 1 PPD recently but typically smokes 1 PPD and has been smoking for the past 52 years. Denies interest in smoking cessation. Health Maintenance: Mammogram was 05/20/23- normal findings- would like a new order placed. Pap smear was 04/08/23- normal findings. Declines screening for HIV- states she had this done several yearsago and it was negative. Declines a colonoscopy for colon cancer screening, but willing to do a home Cologuard test- had an order placed and never got this done. Declines to have it done at this time. Declines to be vaccinated for COVID-19. Is current on her pneumococcal vaccinations (PCV13 on 05/21/18 and PPSV23 on 06/01/19). Tdap is current: 02/04/23. Is fully vaccinated for shingles. Would like a lung CT for lung cancer screening. Would like a flu vaccine. See ROS for additional information. Past Medical History: Diagnosis Date Anxiety Bronchitis 12/13/2021 Chest wall pain 12/13/2021 Constipation Dependent edema 04/06/2019 Depression Drug abuse (CMS/HCC) (HCC) Dysfunctional uterine bleeding 03/17/2019 Headache Hyperlipidemia 04/05/2021 Mitral valve prolapse PTSD (post-traumatic stress disorder) Urge incontinence 04/06/2019 Urge incontinence 04/06/2019 Uterine prolapse Uterine prolapse Viral URI with cough 10/05/2022 Past Surgical History: Procedure Laterality Date BREAST ENHANCEMENT SURGERY 1994 EXPLORATORY LAPAROTOMY EXTREMITY SURGERY 2002 After water skiing accident, significant issues with antibiotic and wound healing TEMPOROMANDIBULAR JOINT SURGERY 1989 Family History Problem Relation Name Age of Onset Other (37683) Mother cancer Heart disease Mother Mental illness Mother COPD Mother Skin cancer Mother 50 Cervical cancer Mother 50 Colon cancer Mother 50 Stomach cancer Mother 50 Drug abuse Father Drug abuse Sister Mental illness Sister Leukemia Paternal Grandmother 50 Breast cancer Father's Sister 40 Social History Tobacco Use Smoking status: Every Day Current packs/day: 1.00 Average packs/day: 1 pack/day for 52.7 years (52.7 ttl pk-yrs) Types: Cigarettes Start date: 1971 Smokeless tobacco: Never Tobacco comments: Quit smoking: Attempted multiple times Substance Use Topics Alcohol use: No E-cigarette/Vaping Questions Responses E-cigarette/Vaping Use Never User Current Outpatient Medications Medication Sig Dispense Refill albuterol 108 (90 Base) MCG/ACT inhaler Inhale 2 puffs every 6 hours as needed for wheezing. 8.5 g 0 ARIPiprazole (Abilify) 10 MG tablet Take 15 mg by mouth daily. benztropine (Cogentin) 0.5 MG tablet Take 0.5 mg by mouth daily. buprenorphine ER (Sublocade) 100 mg/0.5mL injection Inject 1 each under the skin every month to absorb continually. busPIRone (Buspar) 10 MG tablet Take 10 mg by mouth in the morning and 10 mg in the evening. cloNIDine (Catapres) 0.1 MG tablet TAKE 1 TABLET BY MOUTH TWICE A DAY NEEDED FOR RESTLESSNESS ORANXIETY topiramate (Topamax) 100 MG tablet Take 3 tablets by mouth every evening. Vortioxetine HBr (Trintellix) 20 MG tablet Take 20 mg by mouth in the morning. No current facility-administered medications for this visit. Allergies Allergen Reactions Bupropion Other Irritability Wellbutrin Clarithromycin Biaxin Erythromycin Health Maintenance Topic Date Due Colorectal Cancer Screening Never done Lung Cancer Screening Never done Influenza Vaccine (1) 02/23/2024 Depression Monitoring 04/07/2024 Mammogram 05/20/2024 HIV Screening 10/06/2024 (Originally 1965) COVID-19 Vaccine () 04/15/2025 (Originally 02/23/2024) Diabetes Screening 10/06/2024 TSH Level 12/17/2024 Cervical Cancer Screening 04/08/2026 Lipid Panel 02/23/2028 Pneumococcal Vaccine: Pediatrics (0 to 5 Years) and At-Risk Patients (6 to 64 Years) (3 of 3 - PPSV23 or PCV20) 2030 DTaP/Tdap/Td Vaccines (2 - Td or Tdap) 02/04/2033 RSV Immunization for Adults (1 - 1-dose 75+ series) 2040 Hepatitis B Vaccines Completed Hepatitis A Vaccines Completed Zoster Vaccines Completed RSV Immunization under 20 Months Aged Out HIB Vaccines Aged Out IPV Vaccines Aged Out Meningococcal Vaccine Aged Out Rotavirus Vaccines Aged Out HPV Vaccines Aged Out MMR Vaccines Discontinued Subjective: Review of Systems Constitutional: Negative for chills and fever. HENT: Negative for hearing loss and trouble swallowing. Eyes: Negative for pain and visual disturbance. Respiratory: Negative for cough, chest tightness, shortness of breath and wheezing. Cardiovascular: Negative for chest pain, palpitations and leg swelling. Gastrointestinal: Positive for constipation. Negative for abdominal distention, abdominal pain, blood in stool and diarrhea. Endocrine: Negative for polydipsia, polyphagia and polyuria. Genitourinary: Negative for dysuria, hematuria, menstrual problem, pelvic pain, vaginal bleeding, vaginal discharge and vaginal pain. Musculoskeletal: Negative for arthralgias and myalgias. Skin: Negative for color change, pallor, rash and wound. Neurological: Negative for dizziness, syncope, weakness and headaches. Hematological: Does not bruise/bleed easily. Psychiatric/Behavioral: Positive for dysphoric mood. Negative for self-injury and suicidal ideas. The patient is nervous/anxious. Objective: BP 118/80 Pulse 90 Ht 5' 6" (1.676 m) Wt 194 lb 6.4 oz (88.2 kg) SpO2 95% BMI 31.38 kg/m Last 3 PHQ-2 Scores 04/15/2024 1124 Patient Health Questionnaire-2 Score: 6 Physical Exam Constitutional: Oriented to person, place, and time. Appears well-developed and well-nourished. No distress. HENT: Head: Normocephalic and atraumatic. Right Ear: External ear normal. Left Ear: External ear normal. Nose: Nose normal. Mouth/Throat: Oropharynx is clear and moist. No oropharyngeal exudate. Bilateral TM's pearly chavez with a good cone of light bilaterally. Eyes: Conjunctivae and EOM are normal. Pupils are equal, round, and reactive to light. Right eye exhibits no discharge. Left eye exhibits no discharge. Neck: Normal range of motion. Neck supple. No thyromegaly present. Cardiovascular: Normal rate, regular rhythm, normal heart sounds and intact distal pulses. Exam reveals no friction rub. No murmur heard. Carotid upstrokes brisk and without bruits bilaterally. Pulmonary/Chest: Effort normal and breath sounds normal. No respiratory distress. No wheezes. No rales. Breast Examination: Bilateral breast symmetrical and smooth without masses. Free from discoloration, thickening of the skin, and prominent pores. Nipples without discharge,asymmetry, ulcerations, rashes, and inversions bilaterally. Breasts free from dimpling and retractions. [place] palpatedbilaterally and free from axillary lymphadenopathy. Left breast implant palpable. Abdominal: Soft. Bowel sounds are normal. No distension and no mass. There is no hepatosplenomegaly. There is no tenderness. Pelvic Examination: There is no rash, tenderness, or lesion on the right labia. There is no rash, tenderness or lesion on the left labia. Urethra without swelling or lesion. Rectum negative for external hemorrhoid, lesions, or abnormal tone. Vagina with normal rugae. Mild cystocele noted. Uterus normal size, shape, and consistency; non tender to compression. Cervix exhibits no motion tenderness, no discharge, and no friability. Right adnexum displays no mass, no tenderness and no fullness. Leftadnexum displays no mass, no tenderness and no fullness. Pap smear obtained. Musculoskeletal: Normal range of motion. No edema, tenderness or deformity. Strength 5/5 with flexion and extension of extremities x4. Lymphadenopathy: No cervical adenopathy. Neurological: Alert and oriented to person, place, and time.Normal reflexes. Coordination normal. Skin: Skin is warm and dry. No rash noted. No erythema. No pallor. Psychiatric: Tearful affect. Behavior is normal. Judgment and thought content normal. Assessment and Plan: 1. Well female exam with routine gynecological exam - Encouraged a healthy diet low in cholesterol and saturated fats. - Encouraged regular exercise. 2. Primary insomnia - Comprehensive metabolic panel - Stable with Topiramate. Will continue current treatment plan. 3. History of hepatitis C - Comprehensive metabolic panel - Stable. 4. History of drug abuse (CMS/HCC) (HCC) - Comprehensive metabolic panel - Stable. 5. Constipation, unspecified constipation type - Comprehensive metabolic panel - Stable. 6. OAB (overactive bladder) - Comprehensive metabolic panel - Stable. 7. Midline cystocele - Comprehensive metabolic panel - Stable. 8. Hyperlipidemia, unspecified hyperlipidemia type - Lipid panel - Comprehensive metabolic panel - Managed via lifestyle modifications. Will notify of blood work results and provide recommendations accordingly. 9. Mild episode of recurrent major depressive disorder (HCC) - Comprehensive metabolic panel - Not well controlled with recent loss of mother. Encouraged close follow up with counseling and psych. Denies suicidal ideations at time of visit. 10. Anxiety - Comprehensive metabolic panel - Not well controlled with recent loss of mother. Encouraged close follow up with counseling and psych. Denies suicidal ideations at time of visit. 11. PTSD (post-traumatic stress disorder) - Comprehensive metabolic panel - Not well controlled with recent loss of mother. Encouraged close follow up with counseling and psych. Denies suicidal ideations at time of visit. 12. Cigarette nicotine dependence without complication - Comprehensive metabolic panel - CT lung screening low dose - Encouraged smoking cessation. Denies interest at this time. 13. Encounter for Papanicolaou smear for cervical cancer screening - Pap Smear 14. Screening for diabetes mellitus - Comprehensive metabolic panel - Will notify of blood work results. 15. Screening for lung cancer - CT lung screening low dose 16. Screening mammogram for breast cancer - Bilateral screening mammogram with tomosynthesis 17. Flu vaccine need - Flu vaccine (FLUZONE/FLULAVAL/FLUARIX), trivalent, split virus (VFC product) - VIS provided in AVS. Idalia A received counseling on the following healthy behaviors: continue current medications Patient given educational materials on: flu vaccinations Discussed use, benefit, and side effects of prescribed medications. Barriers to medication compliance addressed. All patient questions answered. Pt voiced understanding. Follow Up: Follow up in about 6 months (around 10/14/2024) for medication maintenance. Orders Placed This Encounter Procedures CT lung screening low dose Standing Status: Future Standing Expiration Date: 04/15/2025 Order Specific Question: Is the patient ? Answer: No Order Specific Question: For this exam, the patient must be between 50-80 years of age. Does this patient meet that criteria? Answer: Yes Order Specific Question: Does the patient show any signs or symptoms of lung cancer? Answer: No Order Specific Question: Is this the first (baseline) CT or an annual exam? Answer: Baseline [1] Order Specific Question: What is the patient's current smoking status? Answer: Current Smoker Order Specific Question: What type of nicotine is the patient using? Answer: Cigarettes Order Specific Question: What is the patient's total pack years? (must be at least 20 pack years) Answer: 52 Order Specific Question: Is there documentation of shared decision making? Answer: Yes Order Specific Question: Has it been at least 11 months since the patient's last CT scan? Answer: Yes Bilateral screening mammogram with tomosynthesis Standing Status: Future Standing Expiration Date: 06/15/2025 Flu vaccine (FLUZONE/FLULAVAL/FLUARIX), trivalent, split virus (VFC product) Lipid panel Standing Status: Future Number of Occurrences: 1 Standing Expiration Date: 04/14/2025 Comprehensive metabolic panel Standing Status: Future Number of Occurrences: 1 Standing Expiration Date: 04/14/2025 CASSIE Guaman CNP 04/15/2024 11:26 AM documented in this [facility]10-01-2024 Evaluation + Plan note* Assessment & Plan Note - CASSIE Mora CNP - 03/24/2024 12:53 PM EDTAssociated Problem(s): Chronic shortness of breath Suspect COPD. Will obtain PFT [facility] [id number] Miscellaneous Notes* Assessment & Plan Note - CASSIE Mora CNP - 03/24/2024 12:53 PM EDTAssociated Problem(s): Chronic shortness of breath Suspect COPD. Will obtain PFT * Assessment & Plan Note - CASSIE Mora CNP - 03/24/2024 12:51 PM EDTAssociated Problem(s): Bronchitis Will treat for suspected COPD exacerbation. Most likely secondary to viral illness. No acute distress, pulse ox 94% on room air. Recommend starting ICS/LABA for better control of symptoms. Obtain PFTs documented in this encounterSBrec[facility] [id number] Evaluation + Plan note* Assessment & Plan Note - CASSIE Mora CNP - 03/24/2024 12:51 PM EDTAssociated Problem(s): Bronchitis Will treat for suspected COPD exacerbation. Most likely secondary to viral illness. No acute distress, pulse ox 94% on room air. Recommend starting ICS/LABA for better control of symptoms. Obtain PFTs [facility] [id number] History of Present illness Narrative* CASSIE Mora CNP - 03/24/2024 11:00 AM EDT Images from the original note were not included. 03/24/2024 Idalia Gipson (: 1965) is a 58 y.o. female , Established patient, here for evaluation of the following chief complaint(s): Cough (States that she has been wheezing, feels like her chest is crackling, feels like she can't breathe. Also has an ear ache along with sore throat. Has been using her albuterol. ) ASSESSMENT/PLAN: 1. Bronchitis Assessment & Plan: Will treat for suspected COPD exacerbation. Most likely secondary to viral illness. No acute distress, pulse ox 94% on room air. Recommend starting ICS/LABA for better control of symptoms. Obtain PFTs Orders: - predniSONE (Deltasone) 20 MG tablet; Take 3 tabs (60mg) daily for 3 days, then take 2 tabs (40mg)daily for 3 days, then take 1 tab (20mg) daily for 3 days., Normal - fluticasone-salmeterol, sensor, (AirDuo Digihaler) 55-14 MCG/ACT inhaler; Inhale 1 puff 2 times daily. Rinse mouth with water after use to reduce aftertaste and incidence of candidiasis. Do not swallow., Starting Sat03/24/2024, Until Sat03/24/2025, Normal - guaiFENesin-dextromethorphan (Robitussin DM) 100-10 MG/5ML syrup; Take 10 mL by mouth every 4 hours as needed for cough for up to 10 days., Starting Sat03/24/2024, Until Sat04/03/2024 at 2359, Normal 2. Chronic shortness of breath Assessment & Plan: Suspect COPD. Will obtain PFT Orders: - Complete PFT pre and post bronchodilator - albuterol 108 (90 Base) MCG/ACT inhaler; Inhale 2 puffs every 6 hours as needed for wheezing., Starting Sat03/24/2024, Normal Follow up for as directed pending test results. SUBJECTIVE/OBJECTIVE: HPI - Idalia Gipson (: 1965) is a 58 y.o. female , Established patient, here for the evaluation of the following chief complaint(s): Cough (States that she has been wheezing, feels like her chest is crackling, feels like she can't breathe. Also has an ear ache along with sore throat. Has been using her albuterol. ) Coughing, felt feverish slightly. Initially has sore throat, denies nasal congestion. Started couple days ago. Shortness of breath, tightness. No known sick contacts. Increased sputum of thick green/yellow. No chest pain. Has been using albuterol inhaler a lot without significant relief. Smoker. Has decreased to 1/2 pack daily. Hx of recurrent bronchitis. Not officially diagnosed with copd. States last spring was using an inhaler Breo that her friend gave her samples of and was using that for several months. Reports she felt a lot better and was not needing the albuterol at all. Ran out of the Breo about 6 months ago. Thinks she used it for about 3-4 months in total. Prior to Admission medications Medication Sig Start Date End Date Taking? Authorizing Provider albuterol 108 (90 Base) MCG/ACT inhaler INHALE 2 PUFFS EVERY 6 HOURS NEEDED FOR WHEEZING 03/09/24Yes Augustin Jordan MD ARIPiprazole (Abilify) 10 MG tablet Take 15 mg by mouth daily. 03/12/23 Yes Historical Provider, benztropine (Cogentin) 0.5 MG tablet Take 0.5 mg by mouth daily. 03/22/24 Yes Historical Provider, buprenorphine ER (Sublocade) 100 mg/0.5mL injection Inject 1 each under the skin every month to absorb continually. Yes Historical Provider, busPIRone (Buspar) 10 MG tablet Take 10 mg by mouth in the morning and 10 mg in the evening. 07/08/20 Yes Historical Provider, cloNIDine (Catapres) 0.1 MG tablet TAKE 1 TABLET BY MOUTH TWICE A DAY NEEDED FOR RESTLESSNESS ORANXIETY 03/29/21 Yes Historical Provider, topiramate (Topamax) 100 MG tablet Take 3 tablets by mouth every evening. 08/06/18 Yes Historical Provider, Vortioxetine HBr (Trintellix) 20 MG tablet Take 20 mg by mouth in the morning. 11/05/16 Yes Historical Provider, triamterene-hydrochlorothiazide (Maxzide-25) 37.5-25 MG tablet take 1 tablet by mouth once daily Patient not taking: Reported on 03/24/2024 01/31/24 CASSIE Guaman CNP Review of Systems Constitutional: Positive for activity change and fatigue. Negative for chills and fever. HENT: Positive for sore throat. Negative for congestion, postnasal drip, rhinorrhea, sinus pressureand trouble swallowing. Respiratory: Positive for cough, chest tightness, shortness of breath and wheezing. Cardiovascular: Negative for chest pain. Gastrointestinal: Negative. Genitourinary: Negative. Neurological: Positive for headaches (mild). Negative for dizziness and light-headedness. Vitals: 03/24/24 1056 BP: 110/68 Pulse: 103 Temp: 36.9 C (98.4 F) SpO2: 94% Weight: 193 lb (87.5 kg) Height: 5' 6" (1.676 m) Physical Exam Constitutional: General: She is not in acute distress. Appearance: Normal appearance. She is ill-appearing. HENT: Head: Normocephalic and atraumatic. Right Ear: Tympanic membrane normal. Left Ear: Tympanic membrane normal. Nose: Nose normal. Mouth/Throat: Mouth: Mucous membranes are moist. Pharynx: Oropharynx is clear. No posterior oropharyngeal erythema. Eyes: Conjunctiva/sclera: Conjunctivae normal. Cardiovascular: Rate and Rhythm: Normal rate and regular rhythm. Pulses: Normal pulses. Heart sounds: Normal heart sounds. Pulmonary: Effort: Pulmonary effort is normal. Breath sounds: Wheezing and rhonchi present. Comments: Intermittent productive sounding cough, speaking full sentences without difficulty Lymphadenopathy: Cervical: No cervical adenopathy. Neurological: Mental Status: She is alert. An electronic signature was used to authenticate this note. CASSIE Hernandez CNP 03/24/2024 12:53 PM * Damaris Linda MA - 03/24/2024 11:00 AM EDT Patient verified by last name and . documented in this [facility]10-01-2024 Instructions* Patient Instructions* CASSIE Mora CNP - 03/24/2024 11:00 AM EDT Please call Central Scheduling at [phone] to schedule your outpatient test * Attachments The following attachments cannot be sent through Care Everywhere. * Acute Bronchitis Discharge Instructions, Adult (Zambian) documented in this encounterSBrecksville [facility] [id number] Telephone encounter Note* Telephone Encounter - CASSIE Mora CNP - 03/23/2024 12:07 PM EDT Noted. Agree with disposition. [facility] [id number] Miscellaneous Notes* Telephone Encounter - CASSIE Mora CNP - 03/23/2024 12:07 PM EDT Noted. Agree with disposition. * Telephone Encounter - Earnestine Sweeney RN - 03/23/2024 10:44 AM EDT S: Patient spoke with [facility] nurse regarding congestion, difficulty breathing. B: Onset of symptoms/concern couple days A: Calls with concern of having wheezing, and using her albuterol inhaler, has green sputum, slightthroat and ears pain. Had chills yesterday, feeling hot. Has not taken covid test with this call. Able to speak in complete sentences without audible wheezing or distress noted. Denies chest pain. R: Insurance verified. Scheduled appointment for tomorrow as declined offered POD for today. Advised to wear mask, bring ID and insurance cards, current medications and arrive 15 minutes early. Givenhome care advice to include increasing fluids, inhale mist of warm liquids. Patient understands care advice. No further needs at this time. Patient instructed to call back with new or worsening symptoms. Reason for Disposition Longstanding difficulty breathing (e.g., CHF, COPD, emphysema) and worse than normal Protocols used: Breathing [id number] documented in this encounterSBrecksville VA / Crille [id number] Telephone encounter Note* Telephone Encounter - Earnestine Sweeney RN - 03/23/2024 10:44 AM EDT S: Patient spoke with [facility] nurse regarding congestion, difficulty breathing. B: Onset of symptoms/concern couple days A: Calls with concern of having wheezing, and using her albuterol inhaler, has green sputum, slightthroat and ears pain. Had chills yesterday, feeling hot. Has not taken covid test with this call. Able to speak in complete sentences without audible wheezing or distress noted. Denies chest pain. R: Insurance verified. Scheduled appointment for tomorrow as declined offered POD for today. Advised to wear mask, bring ID and insurance cards, current medications and arrive 15 minutes early. Givenhome care advice to include increasing fluids, inhale mist of warm liquids. Patient understands care advice. No further needs at this time. Patient instructed to call back with new or worsening symptoms. Reason for Disposition Longstanding difficulty breathing (e.g., CHF, COPD, emphysema) and worse than normal Protocols used: Breathing [id number] [facility] [id number] Telephone encounter Note* Telephone Encounter - Valerie Desir MA - 03/12/2024 1:26 PM EDT Notified. [facility] [id number] Miscellaneous Notes* Telephone Encounter - Valerie Desir MA - 03/12/2024 1:26 PM EDT Notified. * Telephone Encounter - Damaris Linda MA - 03/11/2024 4:35 PM EDT Left a message to return call. * Telephone Encounter - Augustin Jordan MD - 03/11/2024 3:32 PM EDT Labs ordered * Telephone Encounter - Ayah Robertson - 03/11/2024 12:05 PM EDT Name of caller: Idalia Contact phone number: [phone] Relationship to Patient: patient Provider: Dr Jordan Practice: [facility] Chief Complaint/Reason for Call: Patient is requesting order for Hormone level blood work lab. Patient states that she has been going through menopause, which she thinks is causing her anxiety. Patient states that her psych doctor advised her to check levels. Please call patient when order has beenplaced. Please advise. Best time of day caller can be reached: any Patient advised that office/PCP has 24-48 business hours to return their call: Yes documented in this encounterSBrecksville [facility]ille [id number] Telephone encounter Note* Telephone Encounter - Damaris Linda MA - 03/11/2024 4:35 PM EDT Left a message to return call. [facility] [id number] Miscellaneous Notes* Telephone Encounter - Damaris Linda MA - 03/11/2024 4:35 PM EDT Left a message to return call. * Telephone Encounter - Augustin Jordan MD - 03/11/2024 3:32 PM EDT Labs ordered * Telephone Encounter - Ayah Robertson - 03/11/2024 12:05 PM EDT Name of caller: Idalia Contact phone number: [phone] Relationship to Patient: patient Provider: Dr Jordan Practice: [facility] Chief Complaint/Reason for Call: Patient is requesting order for Hormone level blood work lab. Patient states that she has been going through menopause, which she thinks is causing her anxiety. Patient states that her psych doctor advised her to check levels. Please call patient when order has beenplaced. Please advise. Best time of day caller can be reached: any Patient advised that office/PCP has 24-48 business hours to return their call: Yes documented in this encounterSBrecksville VA / Crille [id number] Telephone encounter Note* Telephone Encounter - Augustin Jordan MD - 03/11/2024 3:32 PM EDT Labs ordered [facility] [id number] Telephone encounter Note* Telephone Encounter - Ayah Robertson - 03/11/2024 12:05 PM EDT Name of caller: Idalia Contact phone number: [phone] Relationship to Patient: patient Provider: Dr Jordan Practice: [facility] Chief Complaint/Reason for Call: Patient is requesting order for Hormone level blood work lab. Patient states that she has been going through menopause, which she thinks is causing her anxiety. Patient states that her psych doctor advised her to check levels. Please call patient when order has beenplaced. Please advise. Best time of day caller can be reached: any Patient advised that office/PCP has 24-48 business hours to return their call: Yes [facility] [id number] Telephone encounter Note* Telephone Encounter - Damaris Linda MA - 03/09/2024 8:58 AM EDT Prescription Request: Last medication check: 10/07/2023 Last physical exam: 04/08/2023 Next scheduled appointment: 04/15/2024 Last date of refill on this medication: 12/04/2023 [facility] [id number] Miscellaneous Notes* Telephone Encounter - Damaris Linda MA - 03/09/2024 8:58 AM EDT Prescription Request: Last medication check: 10/07/2023 Last physical exam: 04/08/2023 Next scheduled appointment: 04/15/2024 Last date of refill on this medication: 12/04/2023 documented in this [facility]06-22-2024 Telephone encounter Note* Telephone Encounter - Daly Sanchez - 12/14/2023 10:15 AM EDT We have been unable to reach your patient to schedule their testing. Test Name: Vascular Ultrasound 1st Attempt: Mychart 2nd Attempt: Voicemail message [facility] [id number] Miscellaneous Notes* Telephone Encounter - Daly Sanchez - 12/14/2023 10:15 AM EDT We have been unable to reach your patient to schedule their testing. Test Name: Vascular Ultrasound 1st Attempt: Mychart 2nd Attempt: Voicemail message documented in this [facility]06-19-2024 Telephone encounter Note* Telephone Encounter - Sharyn Mann - 12/11/2023 10:44 AM EDT LM to call for appointment. Will try to submit for removal of rupture but patient may have to pay for new implant. Did patient stop smoking. [facility] [id number] Miscellaneous Notes* Telephone Encounter - Sharyn Mann - 12/11/2023 10:44 AM EDT LM to call for appointment. Will try to submit for removal of rupture but patient may have to pay for new implant. Did patient stop smoking. * Telephone Encounter - Sharyn Mann - 04/10/2023 12:24 PM EDT Case# Procedure: Sx Date: Time: Location: Anesthesia: CPT: ICD-10: Special Equipment: PAT: Submitted auth thru insurance portal, awaiting determination. * Telephone Encounter - Sharyn Mann - 04/10/2023 12:23 PM EDT ----- Message from Godfrey Minaya MD sent at 04/10/2023 12:02 PM EDT ----- Can you please submit this patient's paperwork to her insurance for preauthorization. Bilateral mildly patient mastopexy. I informed the patient that her insurance due to the fact she had in the pastprocedure. If that is the case please provide her a quote for self pay. Also written her for a mammogram. Please confirm that the mammogram is negative to her surgery. Breast implants. Thank you. documented in this encounterSBrecksville VA / Crille [id number] Telephone encounter Note* Telephone Encounter - Augustin Jordan MD - 12/02/2023 1:08 PM EDT Thank you appreciate your help [facility] [id number] Miscellaneous Notes* Telephone Encounter - Augustin Jordan MD - 12/02/2023 1:08 PM EDT Thank you appreciate your help * Addendum Note - Shahab Parker MD - 12/02/2023 1:01 PM EDTAddended by: SHAHAB PARKER on: 12/02/2023 01:01 PM Modules accepted: Orders * Telephone Encounter - Shahab Parker MD - 12/02/2023 12:59 PM EDT Appreciate above note, we can start the workup and send her off for secondary referrals as indicated. Preliminary and labs ordered, pending results we will need to have her see a cloth finishing range operator, not sports medicine issue. Bilateral lower extremity edema, preliminary testing ordered, follow-up with cardiology for underlying vascular issue, not sports medicine issue * Telephone Encounter - Valerie Desir MA - 12/02/2023 10:29 AM EDT Spoke to patient, she states when she saw Dr. Parker he advised her he couldn't do anything further for her. I let her know I will send this message to Dr. Parker to advise on what other studies and lab work she should have so we can order. * Telephone Encounter - Augustin Jordan MD - 11/29/2023 12:29 PM EDT I reviewed his office visit note and he did not say she needed to see a vascular surgeon he said she possibly needed some more vascular studies but she also needed some more lab work and I am not sure why he did not order these because he is perfectly capable of ordering labs and vascular studies. I am not sure what he is thinking as far as which studies he thinks he needs. I would recommend a follow-up visit with him and he can order what ever labs and studies he thinks are appropriate. * Telephone Encounter - Ko Loera - 11/29/2023 10:34 AM EDT Name of caller: Idalia Contact phone number: [phone] Relationship to Patient: patient Provider: Practice: [facility] Chief Complaint/Reason for Call: Patient states told her needs needs a vascular referral so patient would like to know if she can get one put in. Please advise Best time of day caller can be reached: Any Patient advised that office/PCP has 24-48 business hours to return their call: No documented in this [facility]06-10-2024 Note* Addendum Note - Shahab Parker MD - 12/02/2023 1:01 PM EDTAddended by: SHAHAB PARKER on: 12/02/2023 01:01 PM Modules accepted: Orders [facility] [id number] Note* Addendum Note - Shahab Parker MD - 12/02/2023 1:01 PM EDTAddended by: SHAHAB PARKER on: 12/02/2023 01:01 PM Modules accepted: Orders [facility] [id number] Note* Addendum Note - Shahab Parker MD - 12/02/2023 1:01 PM EDTAddended by: SHAHAB PARKER on: 12/02/2023 01:01 PM Modules accepted: Orders [facility] [id number] NoteAddended by: SHAHAB PARKER on: 12/02/2023 01:01 PM Modules accepted: [facility]06-10-2024 NoteAppreciate above note, we can start the workup and send her off for secondary referrals as indicated. Preliminary and labs ordered, pending results we will need to have her see a cloth finishing range operator, not sports medicine issue. Bilateral lower extremity edema, preliminary testing ordered, follow-up with cardiology for underlying vascular issue, not sports medicine issueSMcLaren Bay [facility]06-10-2024 Telephone encounter Note* Telephone Encounter - Shahab Parker MD - 12/02/2023 12:59 PM EDT Appreciate above note, we can start the workup and send her off for secondary referrals as indicated. Preliminary and labs ordered, pending results we will need to have her see a cloth finishing range operator, not sports medicine issue. Bilateral lower extremity edema, preliminary testing ordered, follow-up with cardiology for underlying vascular issue, not sports medicine issue [facility] [id number] Telephone encounter Note* Telephone Encounter - Valerie Desir MA - 12/02/2023 10:29 AM EDT Spoke to patient, she states when she saw Dr. Parker he advised her he couldn't do anything further for her. I let her know I will send this message to Dr. Parker to advise on what other studies and lab work she should have so we can order. [facility] [id number] Telephone encounter Note* Telephone Encounter - Augustin Jordan MD - 11/29/2023 12:29 PM EDT I reviewed his office visit note and he did not say she needed to see a vascular surgeon he said she possibly needed some more vascular studies but she also needed some more lab work and I am not sure why he did not order these because he is perfectly capable of ordering labs and vascular studies. I am not sure what he is thinking as far as which studies he thinks he needs. I would recommend a follow-up visit with him and he can order what ever labs and studies he thinks are appropriate. [facility] [id number] Telephone encounter Note* Telephone Encounter - Ko Loera - 11/29/2023 10:34 AM EDT Name of caller: Idalia Contact phone number: [phone] Relationship to Patient: patient Provider: Practice: [facility] Chief Complaint/Reason for Call: Patient states told her needs needs a vascular referral so patient would like to know if she can get one put in. Please advise Best time of day caller can be reached: Any Patient advised that office/PCP has 24-48 business hours to return their call: No [facility] [id number] History of Present illness Narrative* Sal Springer MA - 11/26/2023 1:45 PM EDT Images from the original note were not included. [facility] [address] [place] [address] Dept: [phone] Dept Chief Complaint Patient presents with New Patient Foot Pain left Subjective History of Present Illness: Idalia Gipson is a 58 y.o. female who presents today for evaluation of left foot pain. Location: lateral and medial Onset: 1 month Injury: no Quality: aching, throbbing, and pins and needles also swelling Radiation of symptoms: yes - into the front of her ankle Severity: 5/10 at rest and 5/10 at worst Exacerbating factor(s): walking, prolonged standing, climbing/descending stairs, and wearing certain shoes Relieving factor(s): Advil Timing: all day Note: Onset, acute Redness and swelling was treated as cellulitis a month ago. By ER and PCP. improved. Has noted continued mild swelling and faint erythema of the lower one third leg and foot. Not associated with pain. She had some preliminary blood work, sed rate, CRP, CBC and uric acid level while she was on prednisone. Labs look relatively normal but there may have been some normalization of the CRP and sed rate from the prednisone that is less diagnostic. Imaging to date: X-ray October 2023 ankle and foot nondiagnostic. Treatment to date: PT/OT/HEP: no Ice: yes, helpful Heat: no Medications: Tylenol: no NSAIDs: no Oral steroids: was given prednisone but wasn't helpful Muscle relaxants: no Nerve medications: no Targeted injections: none Assistive devices: none Prior surgery: no Occupation: Unemployed Fall risk assessment: Less than 65, not applicable Objective There were no vitals taken for this visit. Physical Exam: General: Alert, well appearing, no acute distress. Respiratory: Breathing comfortably on room air. No respiratory distress. Skin: Warm, dry, intact. No visible rashes or erythema overlying area of focused exam. Physical Exam Musculoskeletal: Right foot: Normal range of motion and normal capillary refill. Swelling (Trace) and tenderness (Diffuse mild foot) present. No deformity, bunion, Charcot foot or foot drop. Normal pulse. Left foot: Normal range of motion and normal capillary refill. Swelling (Trace) and tenderness (Diffuse mild lower leg ankle and foot) present. No deformity, bunion, Charcot foot or foot drop. Normalpulse. Comments: Sensation intact to light touch Strength and range of motion intact. External Notes No pertinent interval updates Labs Lab Results Component Value Date HGBA1C 5.5 10/07/2023 Lab Results Component Value Date CREATININE 0.90 10/07/2023 Imaging Images reviewed with patient today I have personally reviewed the images pertinent to the appointment today EMG/NCT N/A Procedure No procedures completed today Assessment Diagnosis Plan 1. Erythema of foot 2. Bilateral swelling of feet Plan Unclear etiology for her foot erythema and faint swelling. We discussed there are limited number ofthings in the lower extremities including skin, does not appear to be dermatologic: Musculoskeletal, x-rays within normal limits, range of motion, muscle testing intact, no indications of underlying arthritis. Vascular pulses palpable today but cannot rule out underlying vascular pathology, consider additional arterial or venous evaluations. And possible metabolic or rheumatological. It is possible that her blood work was altered by her course of prednisone, I would consider more extensive hematological workup including thyroid. Autoimmune processes and repeating inflammatory markers now thatshe is off of the prednisone. No follow-ups on file. Shahab Parker MD 11/26/2023 1:40 PM Please note that portions of this note may have been completed with voice recognition software. Documentation reviewed prior to signing but minor errors in hand tool lapper may have occurred. documented in this [facility]05-24-2024 Telephone encounter Note* Telephone Encounter - CASSIE Guaman CNP - 11/15/2023 8:20 AM EDT Noted. Thank you. [facility] [id number] Miscellaneous Notes* Telephone Encounter - CASSIE Guaman CNP - 11/15/2023 8:20 AM EDT Noted. Thank you. * Telephone Encounter - Obi Rice - 11/14/2023 11:55 AM EDT DOMINGA called to schedule pt for PFT put in by Henrietta Knowles on 08.21.23 1st attempt-My Chart 11/04/2023 TJ 2nd attempt//pt at and wants another mychart message sent with info, she will c/b to schedule// TE to office// 11.14.23 KGK documented in this [facility]05-23-2024 Telephone encounter Note* Telephone Encounter - Obi Rice - 11/14/2023 11:55 AM EDT DOMINGA called to schedule pt for PFT put in by Henrietta Knowles on 08.21.23 1st attempt-My Chart 11/04/2023 TJ 2nd attempt//pt at and wants another mychart message sent with info, she will c/b to schedule// TE to office// 11.14.23 KGK [facility] [id number] Evaluation + Plan note* Assessment & Plan Note - Augustin Jordan MD - 11/11/2023 2:01 PM EDTAssociated Problem(s): Left foot pain X-ray of the foot and ankle, lab work to be obtained. [facility] [id number] Miscellaneous Notes* Assessment & Plan Note - Augustin Jordan MD - 11/11/2023 2:01 PM EDTAssociated Problem(s): Left foot pain X-ray of the foot and ankle, lab work to be obtained. * Assessment & Plan Note - Augustin Jordan MD - 11/11/2023 2:00 PM EDT Associated Problem(s): Dependent edema Lab work to be done, she is to keep her leg elevated. * Assessment & Plan Note - Augustin Jordan MD - 11/11/2023 2:00 PM EDT Associated Problem(s): Acute left ankle pain X-ray to be obtained. Will get blood work looking for signs of infection or inflammation. documented in this encounterSBrecksville VA / [facility]ille [id number] Evaluation + Plan note* Assessment & Plan Note - Augustin Jordan MD - 11/11/2023 2:00 PM EDT Associated Problem(s): Dependent edema Lab work to be done, she is to keep her leg elevated. [facility] [id number] Evaluation + Plan note* Assessment & Plan Note - Augustin Jordan MD - 11/11/2023 2:00 PM EDTAssociated Problem(s): Acute left ankle pain X-ray to be obtained. Will get blood work looking for signs of infection or inflammation. [facility] [id number] History of Present illness Narrative* Rosa M Kate MA - 11/11/2023 1:15 PM EDT * Augustin Jordan MD - 11/11/2023 1:15 PM EDT Images from the original note were not included. 11/11/2023 Idalia Mejia (: 1965) is a 58 y.o. female , Established patient, here for evaluation of the following chief complaint(s): Follow-up (Left foot and leg- still painful, swollen up to knee and pain goes to under knee cap/Finished steroid /Antibiotic- pt thinks has given her diarrhea - has 2 more days and not sure if she can finish it (was given Keflex from a previous ED visit )) ASSESSMENT/PLAN: 1. Dependent edema Assessment & Plan: Lab work to be done, she is to keep her leg elevated. 2. Acute left ankle pain Assessment & Plan: X-ray to be obtained. Will get blood work looking for signs of infection or inflammation. Orders: - XR foot 3+ views left - XR ankle 3+ views left - CBC - C-reactive protein - Sedimentation rate, automated - Uric acid 3. Left foot pain Assessment & Plan: X-ray of the foot and ankle, lab work to be obtained. Orders: - XR foot 3+ views left - XR ankle 3+ views left - CBC - C-reactive protein - Sedimentation rate, automated - Uric acid Follow up if symptoms worsen or fail to improve. SUBJECTIVE/OBJECTIVE: HPI -Idalia comes in again today complaining of the left ankle and foot pain and some swelling. Currently there is almost no swelling and she does have some mild tenderness to palpation around theankle but nothing real significant. Review of Systems Respiratory: Negative for shortness of breath. Cardiovascular: Positive for leg swelling. Negative for chest pain and palpitations. Musculoskeletal: Positive for gait problem, joint swelling and myalgias. Negative for arthralgias. Vitals: 11/11/23 1317 BP: 119/77 Pulse: 80 SpO2: 95% Weight: 191 lb 3.2 oz (86.7 kg) Height: 5' 6" (1.676 m) Physical Exam Vitals and nursing note reviewed. Constitutional: General: She is not in acute distress. Appearance: Normal appearance. Musculoskeletal: General: Swelling and tenderness present. No deformity. Comments: She has minimal swelling around her left ankle, she has some mild tenderness to palpationshe has good pulses both DP and PT Neurological: Mental Status: She is alert. An electronic signature was used to authenticate this note. Augustin Jordan MD 11/11/2023 2:02 PM documented in this [facility]05-09-2024 Evaluation + Plan note* Assessment & Plan Note - Augustin Jordan MD - 10/31/2023 10:48 AM EDT Associated Problem(s): Acute left ankle pain I am still not convinced that this is a cellulitis but I want her to finish all the antibiotics, will start her on prednisone, instructions given. I suspect this could be gout so when this is cleared up we will check her uric acid level. [id number] Miscellaneous Notes* Assessment & Plan Note - Augustin Jordan MD - 10/31/2023 10:48 AM EDTAssociated Problem(s): Acute left ankle pain I am still not convinced that this is a cellulitis but I want her to finish all the antibiotics, will start her on prednisone, instructions given. I suspect this could be gout so when this is cleared up we will check her uric acid level. documented in this [facility]05-09-2024 History of Present illness Narrative* Rosa M Kate MA - 10/31/2023 10:30 AM EDT Patient verified by last name and date of . * Augustin Jordan MD - 10/31/2023 10:30 AM EDT Images from the original note were not included. 10/31/2023 Idalia Mejia (: 1965) is a 58 y.o. female , Established patient, here for evaluation of the following chief complaint(s): Foot Problem (Left- still red, hard to bend at ankle area, painful ) ASSESSMENT/PLAN: 1. Acute left ankle pain Assessment & Plan: I am still not convinced that this is a cellulitis but I want her to finish all the antibiotics, will start her on prednisone, instructions given. I suspect this could be gout so when this is cleared up we will check her uric acid level. Follow up if symptoms worsen or fail to improve. SUBJECTIVE/OBJECTIVE: PADMA Curry comes in today for follow-up on her left foot and ankle pain, she did get her antibiotics and has been started on those however she continues to have pain along the anterior aspect of her farfan down into her foot some pain along the lateral aspect of her ankle and the medial aspect ofher ankle. She does have some redness to it but there is no warmth to it. She said she has been taking 3 ibuprofen at a time without significant benefit. Review of Systems Musculoskeletal: Positive for arthralgias, gait problem and joint swelling. Negative for myalgias. Neurological: Negative for weakness and numbness. Vitals: 10/31/23 1031 BP: 123/73 Pulse: 88 SpO2: 92% Weight: 187 lb 9.6 oz (85.1 kg) Height: 5' 6" (1.676 m) Physical Exam Vitals and nursing note reviewed. Constitutional: General: She is not in acute distress. Appearance: Normal appearance. Musculoskeletal: Comments: Left ankle with some mild swelling around the ankle itself, there is redness mostly on the lateral aspect of the foot and ankle, she has pain to palpation along the flexor tendons of the ankle. She has normal muscle strength with pain with resistance of dorsiflexion of the foot. Neurological: Mental Status: She is alert. An electronic signature was used to authenticate this note. Augustin Jordan MD 10/31/2023 10:48 AM documented [facility] this [id number] Evaluation + Plan note* Assessment & Plan Note - Augustin Jordan MD - 10/22/2023 12:46 PM EDT Associated Problem(s): Dependent edema Stable, edema is significantly decreased from yesterday no erythema will give her Maxzide to use susan as-needed basis if she wakes up and can make a dent in her skin she is to take a water pill. [facility] [id number] Miscellaneous Notes* Assessment & Plan Note - Augustin Jordan MD - 10/22/2023 12:46 PM EDTAssociated Problem(s): Dependent edema Stable, edema is significantly decreased from yesterday no erythema will give her Maxzide to use susan as-needed basis if she wakes up and can make a dent in her skin she is to take a water pill. * Assessment & Plan Note - Augustin Jordan MD - 10/22/2023 12:45 PM EDT Associated Problem(s): OAB (overactive bladder) Discussed possible use of medication if needed currently she is deferring. * Assessment & Plan Note - Augustin Jordan MD - 10/22/2023 12:45 PM EDT Associated Problem(s): Mixed stress and urge urinary incontinence Discussed Kegel exercises at length, she will start doing these multiple times during the day and call or return if she continues to have a problem. documented in this [facility]SB[facility] [id number] Evaluation + Plan note* Assessment & Plan Note - Augustin Jordan MD - 10/22/2023 12:45 PM EDT Associated Problem(s): OAB (overactive bladder) Discussed possible use of medication if needed currently she is deferring. [facility] [id number] Evaluation + Plan note* Assessment & Plan Note - Augustin Jordan MD - 10/22/2023 12:45 PM EDTAssociated Problem(s): Mixed stress and urge urinary incontinence Discussed Kegel exercises at length, she will start doing these multiple times during the day and call or return if she continues to have a problem. [facility] [id number] History of Present illness Narrative* Rosa M Kate MA - 10/22/2023 7:45 AM EDT Patient verified by last name and date of . * Augustin Jordan MD - 10/22/2023 7:45 AM EDT Images from the original note were not included. 10/22/2023 Idalia Mejia (: 1965) is a 58 y.o. female , Established patient, here for evaluation of the following chief complaint(s): ER Follow-up (Berta Rowland- 10/20/23- started on Keflex but has not started it yet - cellulitis //Leg swelling ) ASSESSMENT/PLAN: 1. Dependent edema Assessment & Plan: Stable, edema is significantly decreased from yesterday no erythema will give her Maxzide to use susan as-needed basis if she wakes up and can make a dent in her skin she is to take a water pill. 2. OAB (overactive bladder) Assessment & Plan: Discussed possible use of medication if needed currently she is deferring. 3. Mixed stress and urge urinary incontinence Assessment & Plan: Discussed Kegel exercises at length, she will start doing these multiple times during the day and call or return if she continues to have a problem. Follow up if symptoms worsen or fail to improve. SUBJECTIVE/OBJECTIVE: PADMA Curry comes in today complaining of swelling in her legs she says they are doing better over the weekend they were much worse and she went to the emergency room where they said she had cellulitis gave her 2 doses of Keflex and send in a prescription if she has not picked up yet. The swelling has decreased significantly and she has almost no redness to her legs. She also is complaining that she is having some issues with urge and stress incontinence, she does have a history of OAB and we discussed Kegel exercises which she says she will start doing we also discussed medications for OAB if she is interested. Follow-up Review of Systems Constitutional: Negative for chills and fever. Respiratory: Negative for shortness of breath. Cardiovascular: Positive for leg swelling. Negative for chest pain and palpitations. Gastrointestinal: Negative for abdominal pain, constipation and diarrhea. Genitourinary: Positive for frequency and urgency. Negative for dysuria. Vitals: 10/22/23 0814 BP: 109/65 Pulse: 98 SpO2: 96% Weight: 193 lb 6.4 oz (87.7 kg) Height: 5' 6" (1.676 m) Physical Exam Vitals and nursing note reviewed. Constitutional: General: She is not in acute distress. Appearance: Normal appearance. HENT: Head: Normocephalic and atraumatic. Mouth/Throat: Mouth: Mucous membranes are moist. Pharynx: Oropharynx is clear. Eyes: Extraocular Movements: Extraocular movements intact. Pupils: Pupils are equal, round, and reactive to light. Cardiovascular: Rate and Rhythm: Normal rate and regular rhythm. Heart sounds: Normal heart sounds. No murmur heard. Pulmonary: Effort: Pulmonary effort is normal. Breath sounds: Normal breath sounds. Abdominal: General: Abdomen is flat. Bowel sounds are normal. Palpations: Abdomen is soft. Tenderness: There is no abdominal tenderness. Musculoskeletal: Cervical back: Neck supple. Right lower leg: No tenderness. 1+ Edema present. Left lower leg: No tenderness. 2+ Edema present. Comments: There is no erythema of her legs at this time. Lymphadenopathy: Cervical: No cervical adenopathy. Neurological: Mental Status: She is alert. An electronic signature was used to authenticate this note. Augustin Jordan MD 10/22/2023 12:46 PM documented in this [facility]04-28-2024 Hospital Discharge instructions Patient Education 10/20/2023 17:40:26 Cellulitis Skin Infection Cellulitis Cellulitis is an infection of the deep layers of skin. A break in the skin, such as a cut or scratch, can let bacteria under the skin. If the bacteria get to deep layers of the skin, it can be serious. If not treated, cellulitis can get into the bloodstream and lymph nodes. The infection can then spread throughout the body. This causes serious illness. Cellulitis causes the affected skin to become red, swollen, warm, and sore. The reddened areas havea visible border. An open sore may leak fluid (pus). You may have a fever, chills, and pain. Cellulitis is treated with antibiotics taken for 7 to 10 days. An open sore may be cleaned and covered with cool wet gauze. Symptoms should get better 1 to 2 days after treatment is started. Make sure to take all the antibiotics for the full number of days until they are gone. Keep taking the medicine even if your symptoms go away. Home care Follow these tips: Limit the use of the part of your body with cellulitis. If the infection is on your leg, keep your leg raised while sitting. This will help to reduce swelling. Take all of the antibiotic medicine exactly as directed until it is gone. Do not miss any doses, especially during the first 7 days. Don t stop taking the medicine when your symptoms get better. Keep the affected area clean and dry. Wash your hands with soap and warm water before and after touching your skin. Anyone else who touches your skin should also wash his or her hands. Don't share towels. Follow-up care Follow up with your healthcare provider, or as advised. If your infection does not go away on the first antibiotic, your healthcare provider will prescribe a different one. When to seek medical advice Call your healthcare provider right away if any of these occur: Red areas that spread Swelling or pain that gets worse Fluid leaking from the skin (pus) Fever higher of 100.4 F (38.0 C) or higher after 2 days on antibiotics 8631-3209 The [employer]. [address] [place] [address]. All rights reserved. This information is not intended as a substitute for professional medical care. Always follow yourhealthcare professional's instructions. Follow Up Care 10/20/2023 17:12:53 With:AUGUSTIN JORDAN MD Address: [address] [place] [address]- When:2-4 days [facility] 04-28-2024 Emergency department Discharge summary Discharge Instructions Thank you for allowing [facility] to assist you with your healthcare needs. The following is importantdischarge information regarding your hospital visit. Diagnosis from Today's Visit BLE Leg pain-swelling What to Do Next Instructions from Your Care Team No qualifying data available. Post Acute Orders No qualifying data available. You Need to Schedule the Following Appointments Follow Up with AUGUSTIN JORDAN MD When Within 2-4 days Where: [address] [place] [address]- Allergies Biaxin Wellbutrin erythromycin base Medications Please ask your primary doctor or pharmacist before taking any other medication not listed, including over the counter drugs, herbal medications, vitamins and or supplements as they may interact withyour home medications. What How Much When Why Instructions Last Dose New cephalexin (cephalexin 500 mg oral capsule) 1 cap by mouth Four (4) times a day Duration: 7 Days Take with a probiotic Printed Prescription Unchanged ARIPiprazole (ARIPiprazole 10 mg oral tablet) See instructions 1 tab(s) Oral qDay Unchanged buprenorphine-naloxone (Suboxone 8 mg-2 mg sublingual film) 1 Each under the tongue Two (2) times a day Unchanged busPIRone (busPIRone 10 mg oral tablet) See instructions 1 tab(s) Oral BID Unchanged potassium chloride (potassium chloride 20 mEq oral tablet, extended release) 1 tab(s) by mouth Once a day Lymphedema Cellulitis Take with food Unchanged topiramate (Topamax) by mouth Two (2) times a day Unchanged vortioxetine (Trintellix) by mouth Once a day Please take this list to your next doctor s visit. Bring all medications you take, including over the counter medications, herbals and other supplements with you to your doctor s visit. Patients and families are reminded to discard old lists and to update any records with all medication providers or retail pharmacies. Medication Leaflets cephalexin (sef a MAINOR in) What is the most important information I should know about cephalexin? You should not use this medicine if you are allergic to cephalexin or to similar antibiotics, such as Ceftin, Cefzil, Omnicef, and others. Tell your doctor if you are allergic to any drugs, especially penicillins or other antibiotics. What is cephalexin? Cephalexin is a cephalosporin (SEF a low spor in) antibiotic that is used to treat bacterial infections of the lungs, ear, skin, bones, bladder, and kidneys. Cephalexin is used to treat infections in adults and children who are at least 1 year old. Cephalexin may also be used for purposes not listed in this medication guide. What should I discuss with my healthcare provider before taking cephalexin? You should not use this medicine if you are allergic to cephalexin or any other cephalosporin antibiotic (cefdinir, cefadroxil, cefoxitin, cefprozil, ceftriaxone, cefuroxime, Omnicef, and others). Tell your doctor if you have ever had: an allergy to any drug (especially penicillin); liver or kidney disease; or intestinal problems, such as colitis. The liquid form of cephalexin may contain sugar. This may affect you if you have diabetes. Tell your doctor if you are or breast-feeding. How should I take cephalexin? Follow all directions on your prescription label and read all medication guides or instruction sheets. Use the medicine exactly as directed. Do not use cephalexin to treat any condition that has not been checked by your doctor. Measure liquid medicine carefully. Use the dosing syringe provided, or use a medicine dose-measuring device (not a kitchen spoon). Use this medicine for the full prescribed length of time, even if your symptoms quickly improve. Skipping doses can increase your risk of infection that is resistant to medication. Cephalexin will not treat a viral infection such as the flu or a common cold. Do not share cephalexin with another person, even if they have the same symptoms you have. This medicine can affect the results of certain medical tests. Tell any doctor who treats you that you are using cephalexin. Store the tablets and capsules at room temperature away from moisture, heat, and light. Store the liquid medicine in the refrigerator. Throw away any unused liquid after 14 days. What happens if I miss a dose? Take the medicine as soon as you can, but skip the missed dose if it is almost time for your next dose. Do not take two doses at one time. What happens if I overdose? Seek emergency medical attention or call the Poison Help line at . Overdose symptoms may include nausea, vomiting, stomach pain, diarrhea, and blood in your urine. What should I avoid while taking cephalexin? Antibiotic medicines can cause diarrhea, which may be a sign of a new infection. If you have diarrhea that is watery or bloody, call your doctor before using anti-diarrhea medicine. What are the possible side effects of cephalexin? Get emergency medical help if you have signs of an allergic reaction (hives, difficult breathing, swelling in your face or throat) or a severe skin reaction (fever, sore throat, burning eyes, skin pain, red or purple skin rash with blistering and peeling). Call your doctor at once if you have: severe stomach pain, diarrhea that is watery or bloody (even if it occurs months after your last dose); unusual tiredness, feeling light-headed or short of breath; easy bruising, unusual bleeding, purple or red spots under your skin; a seizure; pale skin, cold hands and feet; yellowed skin, dark colored urine; fever, weakness; or pain in your side or lower back, painful urination. Common side effects may include: diarrhea; nausea, vomiting; indigestion, stomach pain; or vaginal itching or discharge. This is not a complete list of side effects and others may occur. Call your doctor for medical advice about side effects. You may report side effects to FDA at 8-746-QNL-7437. What other drugs will affect cephalexin? Tell your doctor about all your other medicines, especially: metformin; or probenecid. This list is not complete. Other drugs may affect cephalexin, including prescription and gbqe-zob-moorqsx medicines, vitamins, and herbal products. Not all possible drug interactions are listed here. Where can I get more information? Your pharmacist can provide more information about cephalexin. Remember, keep this and all other medicines out of the reach of children, never share your medicines with others, and use this medication only for the indication prescribed. Every effort has been made to ensure that the information provided by [employer]. ('[employer]') is accurate, up-to-date, and complete, but no guarantee is made to that effect. Drug information contained herein may be time sensitive. [employer] information has been compiled for use by healthcare practitioners and consumers in the [place] and therefore [employer] does not warrant that uses outside of the [place] are appropriate, unless specifically indicated otherwise. [employer] drug information does not endorse drugs, diagnose patients or recommend therapy. [employer] drug information isan informational resource designed to assist licensed healthcare practitioners in caring for their p atients and/or to serve consumers viewing this service as a supplement to, and not a substitute for, the expertise, skill, knowledge and judgment of healthcare practitioners. The absence of a warningfor a given drug or drug combination in no way should be construed to indicate that the drug or drug combination is safe, effective or appropriate for any given patient. [employer] does not assume any responsibility for any aspect of healthcare administered with the aid of information [employer] provides. The information contained herein is not intended to cover all possible uses, directions, precautions, warnings, drug interactions, allergic reactions, or adverse effects. If you have questions about the drugs you are taking, check with your doctor, nurse or pharmacist. Copyright 4165-9606 [employer]. Version: .. Revision Date: 01/23/2023. Education Materials Cellulitis Cellulitis is an infection of the deep layers of skin. A break in the skin, such as a cut or scratch, can let bacteria under the skin. If the bacteria get to deep layers of the skin, it can be serious. If not treated, cellulitis can get into the bloodstream and lymph nodes. The infection can then spread throughout the body. This causes serious illness. Cellulitis causes the affected skin to become red, swollen, warm, and sore. The reddened areas havea visible border. An open sore may leak fluid (pus). You may have a fever, chills, and pain. Cellulitis is treated with antibiotics taken for 7 to 10 days. An open sore may be cleaned and covered with cool wet gauze. Symptoms should get better 1 to 2 days after treatment is started. Make sure to take all the antibiotics for the full number of days until they are gone. Keep taking the medicine even if your symptoms go away. Home care Follow these tips: Limit the use of the part of your body with cellulitis. If the infection is on your leg, keep your leg raised while sitting. This will help to reduce swelling. Take all of the antibiotic medicine exactly as directed until it is gone. Do not miss any doses, especially during the first 7 days. Don t stop taking the medicine when your symptoms get better. Keep the affected area clean and dry. Wash your hands with soap and warm water before and after touching your skin. Anyone else who touches your skin should also wash his or her hands. Don't share towels. Follow-up care Follow up with your healthcare provider, or as advised. If your infection does not go away on the first antibiotic, your healthcare provider will prescribe a different one. When to seek medical advice Call your healthcare provider right away if any of these occur: Red areas that spread Swelling or pain that gets worse Fluid leaking from the skin (pus) Fever higher of 100.4 F (38.0 C) or higher after 2 days on antibiotics 8271-5827 [employer]. [address] [place] [address]. All rights reserved. This information is not intended as a substitute for professional medical care. Always follow yourhealthcare professional's instructions. Additional Information VACCINATE! IT SAVES LIVES! Members of the community who have not yet received the COVID-19 vaccine and would like to receive it can visit one of [facility] vaccine clinics. There are many vaccine clinic locations within the [facility]. For locations and available times, please visit www.gettheshot.coronavirus.[place].gov/. It is important to note that some COVID mobile vaccine clinics are held outdoors and may be canceled in rainy or stormy conditions. To learn more about pediatric vaccinations (ages 5-11), we invite you to visit the [facility] webpage. [email or web address]/pages/[email or web address]-[email or web address]-Hjjglzokyc-Lipyh-[email or web address].htmlTo learn more about the COVID-19 vaccine, we invite you to visit the CDC website for a list of frequently asked questions. https://www.cdc.gov/coronavirus/2019-ncov/vaccines/faq.html [employer] Patient Portal Access Instructions: Stay connected with your healthcare team and access your personal medical information anytime with the [employer] Patient Portal. If you would like a full copy of your medical records please contact the [place] [facility] Saturday through Saturday between 8a.m. and 4:30p.m. Please follow the directions below to access the portal: 1.Access the email account you provided upon registration to the [facility].2.Look for an invitation email from [facility].3.Open the email and access the invitation link: Accept Invitation to [employer]4.Fill in the required smith to create your account. Sign into [email or web address] with your username and password that you created in the above steps to stay up to date. You can then view a summary of results, a summary of your visits, and the ability to download your summaries to your computer or send the information securely to a physician. Remember that your healthcare information is confidential, so carefully consider who you will allow to register on the [employer] Patient Portal for access to your information. You can also access the [employer] Patient Portal on the [employer]. Simply click on "Health Records" under "HealthData" and then click on the [employer] logo. HOW TO SAFELY DISPOSE OF PRESCRIPTION MEDICATIONS Please use one of the following methods to safely dispose of your unused medications. 1.Use a drug disposal kit: the drug disposal pouch allows you to safely discard your old and unuseddrugs. Ask your nurse to give you one when you are discharged.2.Visit a local take-back location: Many local pharmacies and police departments have programs that collect old and unwanted prescriptiondrugs. Call your local pharmacy or go to http://[employer] second hand information company.ly/6R2Ut6k to find one close to you.3.Make use of household items: Use cat litter or old coffee grounds to dispose medications if other options arenot available. Mix your drugs with these household products, seal them in an airtight container andthrow it into the garbage. Call [facility]: [phone] to be sure your drugs can be disposed of in this way. Some medicines may require a different approach.4.Never flush your medications down the toilet. IF YOU HAVE BEEN PRESCRIBED AN OPIOIDS FOR PAIN If you have been prescribed an opioid (such as hydrocodone, oxycodone or morphine), it is critical to understand the possible side effects and risks of opioid pain medications. Even when taken as directed, opioids can have several side effects including: Tolerance, meaning you might need to take more of a medication for the same pain relief. Nausea, vomiting and/or constipation. Sleepiness, dizziness, dry mouth, confusion, depression or itching. Physical dependence, meaning you have withdrawal symptoms when a medication is stopped ? this can develop within a few days. KNOW YOUR RESPONSIBILITIES It is important to know exactly how much and how often to take the opioid pain medications you are prescribed. Never take opioids in higher amounts or more often than prescribed. Do not combine opioids with alcohol or other drugs that cause drowsiness, such as benzodiazepines, also known as benzos,including diazepam and alprazolam, muscle relaxants or sleep aids. Never sell or share prescriptionopioids. This is illegal. Store opioids in a secure place and out of reach of others (including children, family, friends and visitors). The last page(s) of this document has been signed and retained as a CHART COPY Signatures Patient Education Materials Cellulitis Skin Infection Medication Leaflets cephalexin My discharge plan and instructions have been reviewed and explained to me and I,IDALIA GIPSON understand my current condition and have read and understand these discharge instructions. I have received a written copy of the plan/instructions. If I have questions, I am aware that I should contact my doctor. Patient/Waste Duster Signature: Date/Time: Relationship to Patient: Witness Name/Signature: Date/Time: [facility]04-15-2024 History of Present illness Narrative * Henrietta Knowles, CASSIE - COLLECTIONS ASSISTANT - 10/07/2023 1:20 PM EDT Images from the original note were not included. 10/07/2023 Idalia Mejia (: 1965) is a 58 y.o. female , Established patient, here for evaluation of the following chief complaint(s): Medication Check, Health Maintenance (HIV screen- declines/CRCS- has cologaurd at home /), Hyperlipidemia, Anxiety, and Depression ASSESSMENT/PLAN: 1. Primary insomnia - Basic metabolic panel - Stable with Topiramate. Will continue current treatment plan. 2. History of hepatitis C - Basic metabolic panel - Stable. 3. History of drug abuse (CMS/HCC) (HCC) - Basic metabolic panel - Stable. 4. Constipation, unspecified constipation type - Basic metabolic panel - Stable. 5. OAB (overactive bladder) - Basic metabolic panel - Stable. 6. Midline cystocele - Basic metabolic panel - Stable. 7. Hyperlipidemia, unspecified hyperlipidemia type - Basic metabolic panel - Stable off of medication. 8. Mild episode of recurrent major depressive disorder (HCC) - Basic metabolic panel - Stable. Follow up with specialist as directed. 9. Anxiety - Basic metabolic panel - Stable. Follow up with specialist as directed. 10. PTSD (post-traumatic stress disorder) - Basic metabolic panel - Stable. Follow up with specialist as directed. 11. Elevated fasting glucose - Hemoglobin A1c - Basic metabolic panel - Will notify of blood work results. 12. Cigarette nicotine dependence without complication - Basic metabolic panel - XR chest 2 views - Encouraged smoking cessation. 13. Bronchitis - XR chest 2 views - guaiFENesin (Mucinex) 600 MG 12 hr tablet; Take 1 tablet (600 mg) by mouth 2 times daily as needed for cough or congestion. Do not crush, chew, or split., Starting 10/07/2023, Normal - Will obtain a CXR for further evaluation and have her take Mucinex for cough and congestion. 14. Pedal edema - Basic metabolic panel - Will notify of blood work results. - Elevated legs when sitting down. 15. [facility] Follow up in about 6 months (around 04/07/2024) for WFE and fasting blood work. SUBJECTIVE/OBJECTIVE: HPI - Idalia presents today for follow up on her chronic health conditions. Insomnia: Takes Topamax at bedtime and this helps. Feels symptoms are stable. Chronic Hep C/History of Drug Abuse: Has been clean for 8 years. Is doing well overall. States she was fully treated for hep c and was told she is clear. Constipation: States symptoms are currently well controlled. Strives to remain well hydrated. Denies current concerns or worries. OAB/Cystocele: Feels symptoms are well controlled. Denies current concerns or worries. Denies issues with recurrent UTI's, pelvic pain/pressure, or difficulty urinating. Hyperlipidemia: Has not been taking her Rosuvastatin. Her levels were stable off of the medication when checked last checked in February 2023. Would like to remain off of the medication at this time. Component Ref Range & Units 7 mo ago (02/22/23) 1 yr ago (04/04/22) 2 yr ago (05/12/21) 2 yr ago (04/03/21) 3 yr ago (11/25/19) CHOLESTEROL, TOTAL <200 mg/dL 220 High HDL CHOLESTEROL > OR = 50 mg/dL 107 70 High R 67 High R 67 High R 54 R TRIGLYCERIDES <150 mg/dL 83 114 139 103 287 Abnormal LDL-CHOLESTEROL mg/dL (calc) 96 CHOL/HDLC RATIO <5.0 (calc) 2.1 NON HDL CHOLESTEROL <130 mg/dL (calc) 113 Depression/Anxiety/PTSD: Takes Abilify, Buspar, and Trintellix as prescribed. Continues to follow up with weekly counseling and psych. Feels symptoms are stable. Was treated for bronchitis back at the end of August and does not feel she has completely recovered.Was treated with a prednisone taper and azithromycin. Has noticed some swelling in her feet since being treated. Continues to cough and feel congested. Continues to smoke daily (less than half of a pack). Has not been using her PRN Albuterol inhaler. Her fasting blood sugar was mildly elevated at 111 back at her physical in February 2023. Will recheck today for follow up with a hemoglobin A1c. Health Maintenance: Mammogram was 05/20/23- normal findings. Pap smear was 04/08/23- normal findings. Declines screening for HIV- states she had this done several years ago and it was negative. Declines a colonoscopy for colon cancer screening, but willing to do a home Cologuard test. Declines to be vaccinated for COVID-19. Is current on her pneumococcal vaccinations (PCV13 on 05/21/18 and NPGA09ay 06/01/19). Tdap is current: 02/04/23. Is fully vaccinated for shingles. States she was vaccinated for MMR as a child. Review of Systems Constitutional: Negative for chills and fever. HENT: Positive for congestion. Negative for rhinorrhea. Respiratory: Positive for cough. Negative for chest tightness, shortness of breath and wheezing. Cardiovascular: Negative for chest pain and palpitations. Gastrointestinal: Negative for abdominal distention, abdominal pain and blood in stool. Skin: Negative for color change, pallor, rash and wound. Neurological: Negative for dizziness, syncope and headaches. Psychiatric/Behavioral: Positive for dysphoric mood. Negative for self-injury and suicidal ideas. The patient is nervous/anxious. Vitals: 10/07/23 1311 BP: 118/72 Pulse: 67 SpO2: 95% Weight: 191 lb 12.8 oz (87 kg) Height: 5' 6" (1.676 m) Body mass index is 30.96 kg/m . Physical Exam Constitutional: General: She is not in acute distress. Appearance: She is not ill-appearing. HENT: Head: Normocephalic and atraumatic. Right Ear: Tympanic membrane, ear canal and external ear normal. Left Ear: Tympanic membrane and external ear normal. Nose: Nose normal. Mouth/Throat: Mouth: Mucous membranes are moist. Pharynx: Oropharynx is clear. No oropharyngeal exudate. Neck: Vascular: No carotid bruit. Cardiovascular: Rate and Rhythm: Normal rate and regular rhythm. Pulses: Normal pulses. Heart sounds: Normal heart sounds. No murmur heard. No friction rub. Pulmonary: Effort: Pulmonary effort is normal. No accessory muscle usage or respiratory distress. Breath sounds: Normal breath sounds. No decreased air movement. No decreased breath sounds, wheezing, rhonchi or rales. Abdominal: General: Bowel sounds are normal. Palpations: Abdomen is soft. There is no mass. Tenderness: There is no abdominal tenderness. Musculoskeletal: Cervical back: Neck supple. Right lower leg: No edema. Left lower leg: No edema. Lymphadenopathy: Cervical: No cervical adenopathy. Skin: General: Skin is warm and dry. Coloration: Skin is not pale. Findings: No erythema or rash. Neurological: Mental Status: She is alert and oriented to person, place, and time. Psychiatric: Mood and Affect: Mood normal. Behavior: Behavior normal. Thought Content: Thought content normal. Judgment: Judgment normal. An electronic signature was used to authenticate this note. CASSIE Guaman CNP 10/07/2023 2:17 PM * Damaris Linda MA - 10/07/2023 1:20 PM EDT Patient verified by last name and . documented in this [facility]03-26-2024 Hospital Discharge instructions Patient Education 09/17/2023 10:22:29 Shortness of Breath (Dyspnea) Shortness of Breath (Dyspnea) Shortness of breath is the feeling that you can't catch your breath or get enough air. It is also known as dyspnea. Dyspnea can be caused by many different conditions. They include: Acute asthma attack Worsening of chronic lung diseases such as chronic bronchitis and emphysema Heart failure. This is when weak heart muscle allows extra fluid to collect in the lungs. Panic attacks or anxiety. Fear can cause rapid breathing (hyperventilation). Pneumonia, or an infection in the lung tissue Exposure to toxic substances, fumes, smoke, or certain medicines Blood clot in the lung (pulmonary embolism). This is often from a piece of blood clot in a deep vein of the leg (deep vein thrombosis) that breaks off and travels to the lungs. Heart attack or heart-related chest pain (angina) Anemia Collapsed lung (pneumothorax) Dehydration Based on your visit today, the exact cause of your shortness of breath is not certain. Your tests don t show any of the serious causes of dyspnea. You may need other tests to find out if you have a serious problem. It s important to watch for any new symptoms or symptoms that get worse. Follow up with your healthcare provider as directed. Home care Follow these tips to take care of yourself at home: When your symptoms are better, go back to your usual activities. If you smoke, you should stop. Join a quit-smoking program or ask your healthcare provider for help. Eat a healthy diet and get plenty of sleep. Get regular exercise. Talk with your healthcare provider before starting to exercise, especially ifyou have other medical problems. Cut down on the amount of caffeine and stimulants you consume. Follow-up care Follow up with your healthcare provider, or as advised. If tests were done, you will be told if your treatment needs to be changed. You can call as directed for the results. If an X-ray was taken, a specialist will review it. You will be notified of any new findings that may affect your care. Call 911 Shortness of breath may be a sign of a serious medical problem. For example, it may be a problem with your heart or lungs. Call 911 if you have worsening shortness of breath or trouble breathing, especially with any of the symptoms below: Confusion or difficulty waking Fainting or loss of consciousness. Fast or irregular heartbeat Coughing up blood Pain in your chest, arm, shoulder, neck, or upper back Sweating When to seek medical advice Call your healthcare provider right away if any of these occur: Slight shortness of breath or wheezing Redness, pain or swelling in your leg, arm, or other body area Swelling in both legs or ankles Fast weight gain Dizziness or weakness Fever of 100.4 F (38 C) or higher, or as directed by your healthcare provider 5551-4508 [employer]. [address] [place] [address], [place] [address]. All rights reserved. This information is not intended as a substitute for professional medical care. Always follow yourhealthcare professional's instructions. Follow Up Care 09/17/2023 09:43:40 With:Follow up with primary care provider Address:Unknown When:2-4 days [facility] 03-26-2024 Note Discharge Instructions Thank you for allowing [facility] to assist you with your healthcare needs. The following is importantdischarge information regarding your hospital visit. Diagnosis from Today's Visit Dyspnea Shortness of breath What to Do Next Instructions from Your Care Team No qualifying data available. Post Acute Orders No qualifying data available. You Need to Schedule the Following Appointments Follow Up with Follow up with primary care provider When Within 2-4 days Allergies Biaxin Wellbutrin erythromycin base Medications Please ask your primary doctor or pharmacist before taking any other medication not listed, including over the counter drugs, herbal medications, vitamins and or supplements as they may interact withyour home medications. What How Much When Why Instructions Last Dose New albuterol (albuterol 0.63 mg/ 3 mL (0.021%) inhalation solution) 3 Milliliter by inhalation Four (4) times a day Printed Prescription Unchanged atorvastatin (atorvastatin 20 mg oral tablet) 1 tab(s) take 1 tablet by mouth once daily Unchanged buprenorphine-naloxone (Suboxone 8 mg-2 mg sublingual film) 1 Each under the tongue Two (2) times a day Unchanged furosemide (Lasix) Once a day Unchanged hydrOXYzine (Atarax use hydrOXYzine hydrochloride ) Unchanged hydrOXYzine (Vistaril 50 mg oral capsule) 1 cap by mouth Three (3) times a day as needed for as needed for anxiety Unchanged mirtazapine (Remeron 15 mg oral tablet) 2 tab(s) by mouth Daily at bedtime Unchanged OLANZapine (OLANZapine 5 mg oral tablet) take 1 tablet by mouth at bedtime Unchanged potassium chloride (potassium chloride 20 mEq oral tablet, extended release) 1 tab(s) by mouth Once a day Lymphedema Cellulitis Take with food Unchanged promethazine (Phenergan) Unchanged QUEtiapine (SEROquel) by mouth Unchanged risperiDONE (RisperDAL 1 mg oral tablet) 1 tab(s) by mouth Daily at bedtime Unchanged topiramate (Topamax) by mouth Two (2) times a day Unchanged vortioxetine (Trintellix) by mouth Once a day Please take this list to your next doctor s visit. Bring all medications you take, including over the counter medications, herbals and other supplements with you to your doctor s visit. Patients and families are reminded to discard old lists and to update any records with all medication providers or retail pharmacies. Education Materials Shortness of Breath (Dyspnea) Shortness of breath is the feeling that you can't catch your breath or get enough air. It is also known as dyspnea. Dyspnea can be caused by many different conditions. They include: Acute asthma attack Worsening of chronic lung diseases such as chronic bronchitis and emphysema Heart failure. This is when weak heart muscle allows extra fluid to collect in the lungs. Panic attacks or anxiety. Fear can cause rapid breathing (hyperventilation). Pneumonia, or an infection in the lung tissue Exposure to toxic substances, fumes, smoke, or certain medicines Blood clot in the lung (pulmonary embolism). This is often from a piece of blood clot in a deep vein of the leg (deep vein thrombosis) that breaks off and travels to the lungs. Heart attack or heart-related chest pain (angina) Anemia Collapsed lung (pneumothorax) Dehydration Based on your visit today, the exact cause of your shortness of breath is not certain. Your tests don t show any of the serious causes of dyspnea. You may need other tests to find out if you have a serious problem. It s important to watch for any new symptoms or symptoms that get worse. Follow up with your healthcare provider as directed. Home care Follow these tips to take care of yourself at home: When your symptoms are better, go back to your usual activities. If you smoke, you should stop. Join a quit-smoking program or ask your healthcare provider for help. Eat a healthy diet and get plenty of sleep. Get regular exercise. Talk with your healthcare provider before starting to exercise, especially ifyou have other medical problems. Cut down on the amount of caffeine and stimulants you consume. Follow-up care Follow up with your healthcare provider, or as advised. If tests were done, you will be told if your treatment needs to be changed. You can call as directed for the results. If an X-ray was taken, a specialist will review it. You will be notified of any new findings that may affect your care. Call 911 Shortness of breath may be a sign of a serious medical problem. For example, it may be a problem with your heart or lungs. Call 911 if you have worsening shortness of breath or trouble breathing, especially with any of the symptoms below: Confusion or difficulty waking Fainting or loss of consciousness. Fast or irregular heartbeat Coughing up blood Pain in your chest, arm, shoulder, neck, or upper back Sweating When to seek medical advice Call your healthcare provider right away if any of these occur: Slight shortness of breath or wheezing Redness, pain or swelling in your leg, arm, or other body area Swelling in both legs or ankles Fast weight gain Dizziness or weakness Fever of 100.4 F (38 C) or higher, or as directed by your healthcare provider [id number] [employer]. [address] [place] [address]. All rights reserved. This information is not intended as a substitute for professional medical care. Always follow yourhealthcare professional's instructions. Additional Information VACCINATE! IT SAVES LIVES! Members of the community who have not yet received the COVID-19 vaccine and would like to receive it can visit one of [facility] vaccine clinics. There are many vaccine clinic locations within the [facility]. For locations and available times, please visit www.gettheshot.coronavirus.[place].gov/. It is important to note that some COVID mobile vaccine clinics are held outdoors and may be canceled in rainy or stormy conditions. To learn more about pediatric vaccinations (ages 5-11), we invite you to visit the [facility] webpage. https://www.[email or web address].org/pages/[email or web address]-Ucjxleuexx-[email or web address] stions.htmlTo learn more about the COVID-19 vaccine, we invite you to visit the CDC website for a list of frequently asked questions. https://www.cdc.gov/coronavirus/2019-ncov/vaccines/faq.html [facility] Access Instructions: Stay connected with your healthcare team and access your personal medical information anytime with the [facility] Patient Portal. If you would like a full copy of your medical records please contact the [facility] Medical Records Department Saturday through Saturday between 8a.m. and 4:30p.m. Please follow the directions below to access the portal: 1.Access the email account you provided upon registration to the [facility].2.Look for an invitation email from [facility].3.Open the email and access the invitation link: Accept Invitation to [facility] [employer].Fill in the required smith to create your account. Sign into [email or web address] with your username and password that you created in the above steps to stay up to date. You can then view a summary of results, a summary of your visits, and the ability to download your summaries to your computer or send the information securely to a physician. Remember that your healthcare information is confidential, so carefully consider who you will allow to register on the [facility] Patient Portal for access to your information. You can also access the [facility] Patient Portal on the [employer]. Simply click on "Health Records" under "[facility]" and then click on the [employer] logo. HOW TO SAFELY DISPOSE OF PRESCRIPTION MEDICATIONS Please use one of the following methods to safely dispose of your unused medications. 1.Use a drug disposal kit: the drug disposal pouch allows you to safely discard your old and unuseddrugs. Ask your nurse to give you one when you are discharged.2.Visit a local take-back location: Many local pharmacies and police departments have programs that collect old and unwanted prescriptiondrugs. Call your local pharmacy or go to http://[employer]/1N5Ys9z to find one close to you.3.Make use of household items: Use cat litter or old coffee grounds to dispose medications if other options arenot available. Mix your drugs with these household products, seal them in an airtight container andthrow it into the garbage. Call [facility]: [phone] to be sure your drugs can be disposed of in this way. Some medicines may require a different approach.4.Never flush your medications down the toilet. IF YOU HAVE BEEN PRESCRIBED AN OPIOIDS FOR PAIN If you have been prescribed an opioid (such as hydrocodone, oxycodone or morphine), it is critical to understand the possible side effects and risks of opioid pain medications. Even when taken as directed, opioids can have several side effects including: Tolerance, meaning you might need to take more of a medication for the same pain relief. Nausea, vomiting and/or constipation. Sleepiness, dizziness, dry mouth, confusion, depression or itching. Physical dependence, meaning you have withdrawal symptoms when a medication is stopped ? this can develop within a few days. KNOW YOUR RESPONSIBILITIES It is important to know exactly how much and how often to take the opioid pain medications you are prescribed. Never take opioids in higher amounts or more often than prescribed. Do not combine opioids with alcohol or other drugs that cause drowsiness, such as benzodiazepines, also known as benzos,including diazepam and alprazolam, muscle relaxants or sleep aids. Never sell or share prescriptionopioids. This is illegal. Store opioids in a secure place and out of reach of others (including children, family, friends and visitors). The last page(s) of this document has been signed and retained as a CHART COPY Signatures Patient Education Materials Shortness of Breath (Dyspnea) Medication Leaflets My discharge plan and instructions have been reviewed and explained to me and I,IDALIA GIPSON understand my current condition and have read and understand these discharge instructions. I have received a written copy of the plan/instructions. If I have questions, I am aware that I should contact my doctor. Patient/Waste Duster Signature: Date/Time: Relationship to Patient: Witness Name/Signature: Date/Time: [facility]03-25-2024 Evaluation + Plan note* Assessment & Plan Note - CASSIE Mora CNP - 09/16/2023 12:04 PM EDT Associated Problem(s): Cigarette nicotine dependence without complication Encourage cessation [id number] Evaluation + Plan note* Assessment & Plan Note - CASSIE Mora CNP - 09/16/2023 12:04 PM EDTAssociated Problem(s): Bronchitis Will treat for suspected copd exacerbation. No acute distress, pulse ox 95% on RA. Recommend getting the PFT completed to further evaluate once feeling a bet better and back to baseline. [facility] [id number] Miscellaneous Notes* Assessment & Plan Note - CASSIE Mora CNP - 09/16/2023 12:04 PM EDTAssociated Problem(s): Cigarette nicotine dependence without complication Encourage cessation * Assessment & Plan Note - CASSIE Mora CNP - 09/16/2023 12:04 PM EDTAssociated Problem(s): Bronchitis Will treat for suspected copd exacerbation. No acute distress, pulse ox 95% on RA. Recommend getting the PFT completed to further evaluate once feeling a bet better and back to baseline. documented in this [facility]03-25-2024 History of Present illness Narrative* Ruby Cee - 09/16/2023 9:40 AM EDT Patient was identified by name and Date of . * CASSIE Mora CNP - 09/16/2023 9:40 AM EDT Images from the original note were not included. 09/16/2023 Idalia Mejia (: 1965) is a 58 y.o. female , Established patient, here for evaluation of the following chief complaint(s): Cough, Shortness of Breath, and Wheezing (/) ASSESSMENT/PLAN: 1. Bronchitis Assessment & Plan: Will treat for suspected copd exacerbation. No acute distress, pulse ox 95% on RA. Recommend getting the PFT completed to further evaluate once feeling a bet better and back to baseline. Orders: - predniSONE (Deltasone) 20 MG tablet; Take 3 tabs (60mg) daily for 3 days, then take 2 tabs (40mg)daily for 3 days, then take 1 tab (20mg) daily for 3 days., Normal - azithromycin (Zithromax) 500 MG tablet; Take 1 tablet (500 mg) by mouth daily for 5 days., Starting 09/16/2023, Until 09/21/2023, Normal 2. Cigarette nicotine dependence without complication Assessment & Plan: Encourage cessation Follow up if symptoms worsen or fail to improve. SUBJECTIVE/OBJECTIVE: HPI - Idalia Mejia (: 1965) is a 58 y.o. female , Established patient, here for the evaluationof the following chief complaint(s): Cough, Shortness of Breath, and Wheezing (/) Reports that she has not been any better since being seen late in July. Chest pain with the coughing. Wheezing. Has been doing albuterol with the nebulizer. Helps for a short while only. Smoker. Hx of getting bronchitis. Was treated in July for sinusitis with Augmentin. Reports the sinus symptoms improved but the chest congestion worsened. No fever or chills. Is supposed to get a PFT done to further evaluate her shortness of breath. In the past she has had improvement in her symptoms with steroid burst and azithromycin. Prior to Admission medications Medication Sig Start Date End Date Taking? Authorizing Provider albuterol 108 (90 Base) MCG/ACT inhaler Inhale 2 puffs every 6 hours as needed for wheezing. 08/21/23 Yes Henrietta Knowles, WATER CHEMIST - COLLECTIONS ASSISTANT ARIPiprazole (Abilify) 10 MG tablet Take 10 mg by mouth daily. 03/12/23 Yes Historical Provider, buprenorphine ER (Sublocade) 100 mg/0.5mL injection Inject 1 each under the skin every month to absorb continually. Yes Historical Provider, buprenorphine-naloxone (Suboxone) 2-0.[address] 100 tablets under the tongue. Yes Historical Provider, busPIRone (Buspar) 10 MG tablet Take 10 mg by mouth in the morning and 10 mg in the evening. 07/08/20 Yes Historical Provider, cloNIDine (Catapres) 0.1 MG tablet TAKE 1 TABLET BY MOUTH TWICE A DAY NEEDED FOR RESTLESSNESS ORANXIETY 03/29/21 Yes Historical Provider, topiramate (Topamax) 100 MG tablet Take 3 tablets by mouth every evening. 08/06/18 Yes Historical Provider, Vortioxetine HBr (Trintellix) 20 MG tablet Take 20 mg by mouth in the morning. 11/05/16 Yes Historical Provider, Review of Systems Constitutional: Positive for activity change, appetite change and fatigue. Negative for chills and fever. HENT: Positive for congestion. Negative for sinus pressure, sneezing and sore throat. Respiratory: Positive for cough, chest tightness, shortness of breath and wheezing. Cardiovascular: Positive for chest pain (with cough). Gastrointestinal: Negative. Genitourinary: Negative for difficulty urinating. Neurological: Negative. Vitals: 09/16/23 0914 BP: 117/65 Pulse: 81 Resp: 26 Temp: 36.5 C (97.7 F) TempSrc: Infrared SpO2: 95% Weight: 184 lb (83.5 kg) Physical Exam Constitutional: General: She is not in acute distress. Appearance: Normal appearance. She is ill-appearing. HENT: Head: Normocephalic and atraumatic. Right Ear: Tympanic membrane normal. Left Ear: Tympanic membrane normal. Nose: Nose normal. Mouth/Throat: Mouth: Mucous membranes are moist. Pharynx: Oropharynx is clear. No posterior oropharyngeal erythema. Eyes: Conjunctiva/sclera: Conjunctivae normal. Cardiovascular: Rate and Rhythm: Normal rate and regular rhythm. Pulses: Normal pulses. Heart sounds: Normal heart sounds. Pulmonary: Effort: No respiratory distress. Breath sounds: Wheezing and rhonchi present. Comments: Speaking full sentences without difficulty Skin: General: Skin is warm and dry. Neurological: Mental Status: She is alert and oriented to person, place, and time. An electronic signature was used to authenticate this note. CASSIE Mora CNP 09/16/2023 12:04 PM documented in this [facility]03-25-2024 Instructions* Patient Instructions* CASSIE Mora CNP - 09/16/2023 9:40 AM EDT Please call Central Scheduling at [phone] to schedule your outpatient test -call and schedule your pulmonary function testing once you are feeling a little better. documented in this [facility]03-25-2024 Telephone encounter Note* Telephone Encounter - Sravanthi Granda RN - 09/16/2023 8:49 AM EDT S: Patient spoke with [facility] nurse regarding sinus congestion. B: Onset of symptoms A: Chest congestion, crackling and SOB and wheezing. Using nebulizer and inhaler. R: Appointment scheduled, address given to the patient, instructed to bring photo ID, insurance info and medication list to the appointment. Patient understands care advice. No further needs at this time. Patient instructed to call back with new or worsening symptoms. Reason for Disposition MILD difficulty breathing (e.g., minimal/no SOB at rest, SOB with walking, pulse <100) and stillpresent when not coughing Protocols used: [id number] [facility] [id number] Miscellaneous Notes* Telephone Encounter - Sravanthi Granda RN - 09/16/2023 8:49 AM EDT S: Patient spoke with [facility] nurse regarding sinus congestion. B: Onset of symptoms A: Chest congestion, crackling and SOB and wheezing. Using nebulizer and inhaler. R: Appointment scheduled, address given to the patient, instructed to bring photo ID, insurance info and medication list to the appointment. Patient understands care advice. No further needs at this time. Patient instructed to call back with new or worsening symptoms. Reason for Disposition MILD difficulty breathing (e.g., minimal/no SOB at rest, SOB with walking, pulse <100) and stillpresent when not coughing Protocols used: [id number] documented in this [facility]02-28-2024 History of Present illness Narrative* CASSIE Guaman CNP - 08/21/2023 2:40 PM EST Images from the original note were not included. 08/21/2023 Idalia Mejia (: 1965) is a 58 y.o. female , Established patient, here for evaluation of the following chief complaint(s): Earache (B/l), Sinus Problem (Congestion. States more respiratory, mucus started coming out of chest and nose, last Saturday started turning a green color Saturday/Saturday. OTC ), Fever, and Generalized Body Aches ASSESSMENT/PLAN: 1. Sinobronchitis - amoxicillin-clavulanate (Augmentin) 875-125 MG tablet; Take 1 tablet by mouth 2 times daily for 7days., Starting Sat08/21/2023, Until Sat08/28/2023, Normal - Saline nasal spray for congestion. - Encouraged increasing oral fluids to keep mucous secretions moist. - May use Tylenol/Motrin as needed for pain relief. - Sleep with humidified air. - Continue PRN Albuterol. 2. Chronic shortness of breath - albuterol 108 (90 Base) MCG/ACT inhaler; Inhale 2 puffs every 6 hours as needed for wheezing., Starting Sat08/21/2023, Normal - Complete PFT study - Will obtain a PFT for further evaluation- instructed to not have this done until current illness has resolved. Follow up in 7 weeks (on 10/07/2023) for Next scheduled follow-up. SUBJECTIVE/OBJECTIVE: HPI - Idalia presents today with concerns of bilateral ear pain, fevers, sinus pressure/pain, and congestion, with general malaise for the past 10 days. 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 Has been taking Mucinex, Sudafed, and other OTC cough/cold medications without much improvement. Has also been taking Ibuprofen- took some todaywithin the past 6 hours. Has not tested for COVID-19. Denies loss of taste or smell. Has a PRN Albuterol inhaler that she uses and this has been helpful. Needs a refill on this today. Has never been formally diagnosed with asthma but has had issues with intermittent wheezing and needing a rescue inhaler since she was a child. Is a chronic smoker as well. Had a CXR in March 2023 that did not show changes consistent with COPD. Review of Systems Constitutional: Positive for chills and fever. HENT: Positive for congestion, ear pain, rhinorrhea, sinus pressure, sinus pain and sore throat. Negative for ear discharge. Respiratory: Negative for cough, chest tightness, shortness of breath and wheezing. Cardiovascular: Negative for chest pain. Gastrointestinal: Negative for abdominal distention, abdominal pain, diarrhea, nausea and vomiting. Hematological: Positive for adenopathy. Vitals: 08/21/23 1451 BP: 115/70 Pulse: 75 Temp: 37.1 C (98.7 F) TempSrc: Oral SpO2: 95% Weight: 184 lb (83.5 kg) Height: 5' 6" (1.676 m) Body mass index is 29.7 kg/m . Physical Exam Constitutional: General: She is not in acute distress. Appearance: She is ill-appearing. She is not toxic-appearing or diaphoretic. HENT: Head: Normocephalic and atraumatic. Right Ear: Tympanic membrane, ear canal and external ear normal. Left Ear: Tympanic membrane, ear canal and external ear normal. Nose: Congestion and rhinorrhea present. Rhinorrhea is purulent. Right Turbinates: Swollen. Left Turbinates: Swollen. Mouth/Throat: Lips: [place]. Mouth: Mucous membranes are moist. Pharynx: Oropharynx is clear. No pharyngeal swelling, oropharyngeal exudate or posterior oropharyngeal erythema. Tonsils: No tonsillar exudate. Cardiovascular: Rate and Rhythm: Normal rate and regular rhythm. Heart sounds: Normal heart sounds. No murmur heard. No friction rub. Pulmonary: Effort: Pulmonary effort is normal. No respiratory distress. Breath sounds: No stridor. Wheezing (faint expiratory anteriorly) present. No rhonchi or rales. Lymphadenopathy: Head: Right side of head: No tonsillar adenopathy. Left side of head: No tonsillar adenopathy. Cervical: No cervical adenopathy. Skin: General: Skin is warm and dry. Coloration: Skin is not pale. Findings: No erythema or rash. Neurological: Mental Status: She is alert and oriented to person, place, and time. Psychiatric: Mood and Affect: Mood normal. Behavior: Behavior normal. Thought Content: Thought content normal. Judgment: Judgment normal. An electronic signature was used to authenticate this note. CASSIE Guaman CNP 08/21/2023 3:22 PM * Damaris Linda MA - 08/21/2023 2:40 PM EST Patient verified by name and documented in this [facility]02-28-2024 Telephone encounter Note* Telephone Encounter - Sneha Spivey RN - 08/21/2023 9:32 AM EST S: Patient spoke with [facility] nurse regarding URI symptoms B: Onset of symptoms/concern 1 week A: Patient states symptoms began 1 week ago with fever and fatigue states for the past few days shehas had ear pain and sinus congestion with green mucous production. Denies chest pain, shortness ofbreath, difficulty breathing, fevers. R: Insurance verified, appointment scheduled with James Knowles. Advised to wear a mask, arrive 15 minutes early, bring photo ID, list of medications and insurance card. Discussed Neti pot, over the counter decongestants, Flonase, Mucinex, and increasing fluids. Patient understands care advice. No further needs at this time. Patient instructed to call back with new or worsening symptoms. Reason for Disposition Earache Protocols used: Sinus Pain or [id number] [facility] [id number] Miscellaneous Notes* Telephone Encounter - Sneha Spivey RN - 08/21/2023 9:32 AM EST S: Patient spoke with [facility] nurse regarding URI symptoms B: Onset of symptoms/concern 1 week A: Patient states symptoms began 1 week ago with fever and fatigue states for the past few days shehas had ear pain and sinus congestion with green mucous production. Denies chest pain, shortness ofbreath, difficulty breathing, fevers. R: Insurance verified, appointment scheduled with James Knowles. Advised to wear a mask, arrive 15 minutes early, bring photo ID, list of medications and insurance card. Discussed Neti pot, over the counter decongestants, Flonase, Mucinex, and increasing fluids. Patient understands care advice. No further needs at this time. Patient instructed to call back with new or worsening symptoms. Reason for Disposition Earache Protocols used: Sinus Pain or [id number] documented in this [facility]12-06-2023 History of Present illness Narrative* Godfrey Minaya MD - 05/29/2023 3:15 PM EST Idalia Mejia is a very pleasant 57 years old female patient which was seen and evaluated on 04/10/2023 for left breast pain and possible ruptured left breast implant with breast asymmetry. After conducted clinical examination. The patient's left saline breast implant ruptured. Patient was sent for a screening mammogram to evaluate the status of the breast parenchyma as well as perform the implant rupture. Patient is presenting today to discuss her mammogram results prior to proceeding with her planned surgery. The mammogram revealed: Findings: The patient presents for a bilateral diagnostic mammogram due to the history of a left implant rupture. The patient has bilateral saline implants with rupture of the left implant. No suspicious mass, calcifications, or architectural distortion is seen in either breast. There are no suspicious findings seen within either breast. IMPRESSION: Ruptured left breast saline implant. No mammographic evidence of malignancy. A one year screening exam is recommended. Markings on images: BB's = Nipples; skin lesions Open manzanita = Palpable Line = Scar ASSESSMENT: Category 2 Benign RECOMMENDATION: Routine screening mammogram in 1 year. Bilateral Today patient is complaining of excessive pain particular with movements along the lateral aspect of the left chest wall. On clinical examination, patient was found to have subpectoral replacement with the breast implant which did explain the pain associated with animation deformity. Unfortunately, patient is still actively smoking tobacco. We discussed smoking cessation today as well as well as the adverse effect of smoking on nipple viability and wound healing following mastopexy. Of also recommended removing the breast implants and performing total capsulectomy placement of thebreast implants. Patient's left breast adequate C cup volume which is reasonable for her physique. Performing bilateral mastopexy will most likely be satisfactory without the need simultaneous breast augmentation. This patient happens to be dissatisfied with her breast size few months postoperatively, we can consider breast augmentation. In summary, patient will benefit from bilateral flanks capsulectomy, bilateral removal of breast implant and bilateral mastopexy. I recommended that the patient after surgery at least 2 months following complete smoking cessation. Meanwhile we will submit the patient's paperwork to her insurance for preauthorization. Photos were obtained and available upon request. Reason for Consult: Possible ruptured left breast implant with bilateral breast asymmetry Requesting Physician: Self-referral CHIEF COMPLAINT: Left breast pain secondary to possible ruptured left breast implant. History Obtained From: patient HISTORY OF PRESENT ILLNESS: The patient is a 57 y.o. female who presents with significant past surgical history of breast augmentation [place] [address] Whitley. Patient reported no issues with the breast implant September 2022 when she suddenly felt some breast pain and immediate deflation of her left breast. Patient suspected left breast implant rupture. However, she recently started to develop breast pain and discomfort and hence sought medical attention. Patient's last mammogram was 2 years ago and was negative for any suspicious lesions as per the patient. She is an active smoker, 1 pack/day for the last 45 years. She denies any chest pain or shortness of breath with walking. She has a significant past medical history. In her paternal great aunt. Past Medical History: Medical History Past Medical History: Diagnosis Date Anxiety Bronchitis 12/13/2021 Chest wall pain 12/13/2021 Constipation Dependent edema 04/06/2019 Depression Drug abuse (CMS/HCC) (HCC) Dysfunctional uterine bleeding 03/17/2019 Headache Hyperlipidemia 04/05/2021 Mitral valve prolapse PTSD (post-traumatic stress disorder) Urge incontinence 04/06/2019 Urge incontinence 04/06/2019 Uterine prolapse Uterine prolapse Viral URI with cough 10/05/2022 Past Surgical History: Surgical History Past Surgical History: Procedure Laterality Date BREAST ENHANCEMENT SURGERY 1994 EXPLORATORY LAPAROTOMY EXTREMITY SURGERY 2002 After water skiing accident, significant issues with antibiotic and wound healing TEMPOROMANDIBULAR JOINT SURGERY 1989 Current Medications: Current Outpatient Medications Medication Instructions albuterol 108 (90 Base) MCG/ACT inhaler 2 puffs, Inhalation, Every 6 hours PRN ARIPiprazole (ABILIFY) 10 mg, Oral, Daily buprenorphine ER (Sublocade) 100 mg/0.5mL injection 1 each, SubCUTAneous, Over 1 month buprenorphine-naloxone (Suboxone) 2-0.5 MG SL tablet 100 tablets, SubLINGual busPIRone (BUSPAR) 10 mg, Oral, 2 time daily cloNIDine (Catapres) 0.1 MG tablet TAKE 1 TABLET BY MOUTH TWICE A DAY NEEDED FOR RESTLESSNESS ORANXIETY Elastic Bandages & Supports (Medical Compression Stockings) misc 2 each, Does not apply, Daily,15-20 mmHg; knee high guaiFENesin (ROBITUSSIN) 200 mg, Oral, 3 times daily PRN rosuvastatin (Crestor) 5 MG tablet 1 tablet, Oral, Daily topiramate (Topamax) 100 MG tablet 3 tablets, Oral, Every evening Trintellix 20 mg, Oral, Daily Allergies: Bupropion, Clarithromycin, and Erythromycin Social History: Social History Socioeconomic History Marital status: Spouse name: Not on file Number of children: Not on file Years of education: Not on file Highest education level: Not on file Occupational History Not on file Tobacco Use Smoking status: Every Day Packs/day: 1 Types: Cigarettes Start date: 1971 Smokeless tobacco: Never Tobacco comments: Quit smoking: Attempted multiple times Substance and Sexual Activity Alcohol use: No Drug use: Not Currently Sexual activity: Not on file Other Topics Concern Not on file Social History Narrative Not on file Social Determinants of Health Financial Resource Strain: Low Risk (05/01/2022) Overall Financial Resource Strain (CARDIA) Difficulty of Paying Living Expenses: Not very hard Food Insecurity: No Food Insecurity (05/01/2022) Hunger Vital Sign Worried About Running Out of Food in the Last Year: Never true Ran Out of Food in the Last Year: Never true Transportation Needs: No Transportation Needs (05/01/2022) PRAPARE - Transportation Lack of Transportation (Medical): No Lack of Transportation (Non-Medical): No Physical Activity: Not on file Stress: Not on file Social Connections: Not on file Intimate Partner Violence: Not on file Housing Stability: Not on file Family History: Family History Family History Problem Relation Name Age of Onset Other ([id number]) Mother cancer Heart disease Mother Mental illness Mother Breast cancer Other Paternal Great Aunt COPD Mother Cancer Mother Skin, Cervical, Colon, Stomach Drug abuse Sister Drug abuse Father Mental illness Sister REVIEW OF SYSTEMS: CONSTITUTIONAL: negative for fevers, chills, sweats and fatigue EYES: negative for dipolpia or acute vision loss. RESPIRATORY: negative for dry cough, cough with sputum, dyspnea, wheezing and chest pain CARDIOVASCULAR: negative for chest pain, dyspnea, palpitations, syncope GASTROINTESTINAL: negative for nausea, vomiting, change in bowel habits, diarrhea, constipation andabdominal pain EXTREMITIES: negative for edema MUSCULOSKELETAL: negative for muscle weakness SKIN: negative for itching or rashes. BEHAVIOR/PSYCH: negative for poor appetite, increased appetite, decreased sleep and poor concentration PHYSICAL EXAM: VITALS: There were no vitals taken for this visit. CONSTITUTIONAL: awake, alert, cooperative, no apparent distress, and appears stated age EYES: PERRLA, EOMI, no signs of occular infection LUNGS: No increased work of breathing, good air exchange, clear to auscultation bilaterally, no crackles or wheezing CARDIOVASCULAR: Normal apical impulse, regular rate and rhythm, normal S1 and S2, no S3 or S4, and no murmur noted ABDOMEN: Soft, nontender nondistended. BREAST: Examination of the right breast reveals a palpable palpable deformity with the breast implant sitting higher than her breast mounds. This is due to her third- degree ptosis which developed over the years. Palpation of the breast reveals no palpable masses or lumps. No evidence of capsular contracture. Significant rippling is felt indicative of the possibility of saline breast implants. Patient shows animation deformity indicative of subpectoral placement of the breast implant. Examination of the right axilla reveals no palpable lymphadenopathy. Examination of the left breast reveals no palpable lumps. Left breast is 6 deflated due to the possible rupture of her saline breast implant. The left nipple is slightly retracted. Examination of theleft axilla reveals no palpable lymphadenopathy. Breast measurements are as follows: Right suprasternal notch to the nipple is at 29.5 cm, left is at 29.5 cm. Nipple to inframammary fold on the right is at 13 cm and on the left is at 12.5 cm. Midline to the nipple on the right is at 12 cm and on the left is at 12 cm. Areolar diameter on the right and left is at 4.5 cm. Patient has grade 3 ptosis bilaterally. Projected new nipple position is at 24 cm from the suprasternal notch. Patient has an inferior circumareolar incision which was utilized for her bilateral breast augmentation in the past. Incisions did heal well with primary intention. There is no evidence of capsular contracture bilaterally. EXTREMITIES: no signs of clubbing or cyanosis. MUSCULOSKELETAL: negative for flaccid muscle tone or spastic movements. SKIN: gross examination reveals no signs of rashes, or diaphoresis. NEURO: Cranial nerves II-XII grossly intact. No signs of agitated mood. CBC: Lab Results Component Value Date WBC 5.0 02/22/2023 RBC 4.55 02/22/2023 HGB 12.9 02/22/2023 HCT 39.8 02/22/2023 MCV 87.5 02/22/2023 MCH 28.4 02/22/2023 MCHC 32.4 02/22/2023 RDW 13.6 02/22/2023 PLT TNP 02/22/2023 MPV 9.7 04/04/2022 BMP: Lab Results Component Value Date NA 139 04/04/2022 K 4.7 04/04/2022 CL 110 (H) 04/04/2022 CO2 28 02/22/2023 BUN 16 02/22/2023 CREATININE 0.81 02/22/2023 CALCIUM 10.2 02/22/2023 GLUCOSE 111 (H) 02/22/2023 Hepatic Function Panel: Lab Results Component Value Date ALKPHOS 42 02/22/2023 ALT 26 02/22/2023 AST 25 02/22/2023 PROT 7.2 02/22/2023 BILITOT 0.5 02/22/2023 Data- Radiology Review: We will order screening mammogram IMPRESSION/RECOMMENDATIONS: Diagnosis: 1-ruptured left breast saline implant. 2-Breast asymmetry and pain. The Patients EMR report has been reviewed We will plan 1-ordered screening mammogram of bilateral 2-patient would benefit from augmentation mastopexy. This would manage both her third-degree ptosisand augment her breast. 3-patient reports that her breast implants are of the textured nature. Due to the increased risk ofBIA-ALCL and HAILEE-SCC of recommended removing both saline implants even the intact right breast implant. Risks or complications including but not limited to infection, bleeding, seroma and hematoma formation as well as remote risk of vascular compromise to the nipple areolar complex with partial or complete necrosis. Diminished nipple sensation. We also discussed risks associated with breast implants including but not limited to capsular contracture, loss of breast implant infection, implant rupture, implant malposition, and HAILEE-ALCL as well as HAILEE-SCC Follow Up In 1 months. Please disregard any typographical errors. This note was partially dictated using voice recognitionsoftware. Reason for Consult: Possible ruptured left breast implant with bilateral breast asymmetry Requesting Physician: Self-referral CHIEF COMPLAINT: Left breast pain secondary to possible ruptured left breast implant. History Obtained From: patient HISTORY OF PRESENT ILLNESS: The patient is a 57 y.o. female who presents with significant past surgical history of breast [place] [address] Whitley. Patient reported no issues with the breast implant September 2022 when she suddenly felt some breast pain and immediate deflation of her left breast. Patient suspected left breast implant rupture. However, she recently started to develop breast pain and discomfort and hence sought medical attention. Patient's last mammogram was 2 years ago and was negative for any suspicious lesions as per the patient. She is an active smoker, 1 pack/day for the last 45 years. She denies any chest pain or shortness of breath with walking. She has a significant past medical history. In her paternal great aunt. Past Medical History: Medical History Past Medical History: Diagnosis Date Anxiety Bronchitis 12/13/2021 Chest wall pain 12/13/2021 Constipation Dependent edema 04/06/2019 Depression Drug abuse ([facility]/HCC) (HCC) Dysfunctional uterine bleeding 03/17/2019 Headache Hyperlipidemia 04/05/2021 Mitral valve prolapse PTSD (post-traumatic stress disorder) Urge incontinence 04/06/2019 Urge incontinence 04/06/2019 Uterine prolapse Uterine prolapse Viral URI with cough 10/05/2022 Past Surgical History: Surgical History Past Surgical History: Procedure Laterality Date BREAST ENHANCEMENT SURGERY 1994 EXPLORATORY LAPAROTOMY EXTREMITY SURGERY 2002 After water skiing accident, significant issues with antibiotic and wound healing TEMPOROMANDIBULAR JOINT SURGERY 1989 Current Medications: Current Outpatient Medications Medication Instructions albuterol 108 (90 Base) MCG/ACT inhaler 2 puffs, Inhalation, Every 6 hours PRN ARIPiprazole (ABILIFY) 10 mg, Oral, Daily buprenorphine ER (Sublocade) 100 mg/0.5mL injection 1 each, SubCUTAneous, Over 1 month buprenorphine-naloxone (Suboxone) 2-0.5 MG SL tablet 100 tablets, SubLINGual busPIRone (BUSPAR) 10 mg, Oral, 2 time daily cloNIDine (Catapres) 0.1 MG tablet TAKE 1 TABLET BY MOUTH TWICE A DAY NEEDED FOR RESTLESSNESS ORANXIETY Elastic Bandages & Supports (Medical Compression Stockings) misc 2 each, Does not apply, Daily,15-20 mmHg; knee high guaiFENesin (ROBITUSSIN) 200 mg, Oral, 3 times daily PRN rosuvastatin (Crestor) 5 MG tablet 1 tablet, Oral, Daily topiramate (Topamax) 100 MG tablet 3 tablets, Oral, Every evening Trintellix 20 mg, Oral, Daily Allergies: Bupropion, Clarithromycin, and Erythromycin Social History: Social History Socioeconomic History Marital status: Spouse name: Not on file Number of children: Not on file Years of education: Not on file Highest education level: Not on file Occupational History Not on file Tobacco Use Smoking status: Every Day Packs/day: 1 Types: Cigarettes Start date: 1971 Smokeless tobacco: Never Tobacco comments: Quit smoking: Attempted multiple times Substance and Sexual Activity Alcohol use: No Drug use: Not Currently Sexual activity: Not on file Other Topics Concern Not on file Social History Narrative Not on file Social Determinants of Health Financial Resource Strain: Low Risk (05/01/2022) Overall Financial Resource Strain (CARDIA) Difficulty of Paying Living Expenses: Not very hard Food Insecurity: No Food Insecurity (05/01/2022) Hunger Vital Sign Worried About Running Out of Food in the Last Year: Never true Ran Out of Food in the Last Year: Never true Transportation Needs: No Transportation Needs (05/01/2022) PRAPARE - Transportation Lack of Transportation (Medical): No Lack of Transportation (Non-Medical): No Physical Activity: Not on file Stress: Not on file Social Connections: Not on file Intimate Partner Violence: Not on file Housing Stability: Not on file Family History: Family History Family History Problem Relation Name Age of Onset Other (39519) Mother cancer Heart disease Mother Mental illness Mother Breast cancer Other Paternal Great Aunt COPD Mother Cancer Mother Skin, Cervical, Colon, Stomach Drug abuse Sister Drug abuse Father Mental illness Sister REVIEW OF SYSTEMS: CONSTITUTIONAL: negative for fevers, chills, sweats and fatigue EYES: negative for dipolpia or acute vision loss. RESPIRATORY: negative for dry cough, cough with sputum, dyspnea, wheezing and chest pain CARDIOVASCULAR: negative for chest pain, dyspnea, palpitations, syncope GASTROINTESTINAL: negative for nausea, vomiting, change in bowel habits, diarrhea, constipation andabdominal pain EXTREMITIES: negative for edema MUSCULOSKELETAL: negative for muscle weakness SKIN: negative for itching or rashes. BEHAVIOR/PSYCH: negative for poor appetite, increased appetite, decreased sleep and poor concentration PHYSICAL EXAM: VITALS: There were no vitals taken for this visit. CONSTITUTIONAL: awake, alert, cooperative, no apparent distress, and appears stated age EYES: PERRLA, EOMI, no signs of occular infection LUNGS: No increased work of breathing, good air exchange, clear to auscultation bilaterally, no crackles or wheezing CARDIOVASCULAR: Normal apical impulse, regular rate and rhythm, normal S1 and S2, no S3 or S4, and no murmur noted ABDOMEN: Soft, nontender nondistended. BREAST: Examination of the right breast reveals a palpable palpable deformity with the breast implant sitting higher than her breast mounds. This is due to her third- degree ptosis which developed over the years. Palpation of the breast reveals no palpable masses or lumps. No evidence of capsular contracture. Significant rippling is felt indicative of the possibility of saline breast implants. Patient shows animation deformity indicative of subpectoral placement of the breast implant. Examination of the right axilla reveals no palpable lymphadenopathy. Examination of the left breast reveals no palpable lumps. Left breast is 6 deflated due to the possible rupture of her saline breast implant. The left nipple is slightly retracted. Examination of theleft axilla reveals no palpable lymphadenopathy. Breast measurements are as follows: Right suprasternal notch to the nipple is at 29.5 cm, left is at 29.5 cm. Nipple to inframammary fold on the right is at 13 cm and on the left is at 12.5 cm. Midline to the nipple on the right is at 12 cm and on the left is at 12 cm. Areolar diameter on the right and left is at 4.5 cm. Patient has grade 3 ptosis bilaterally. Projected new nipple position is at 24 cm from the suprasternal notch. Patient has an inferior circumareolar incision which was utilized for her bilateral breast augmentation in the past. Incisions did heal well with primary intention. There is no evidence of capsular contracture bilaterally. EXTREMITIES: no signs of clubbing or cyanosis. MUSCULOSKELETAL: negative for flaccid muscle tone or spastic movements. SKIN: gross examination reveals no signs of rashes, or diaphoresis. NEURO: Cranial nerves II-XII grossly intact. No signs of agitated mood. CBC: Lab Results Component Value Date WBC 5.0 02/22/2023 RBC 4.55 02/22/2023 HGB 12.9 02/22/2023 HCT 39.8 02/22/2023 MCV 87.5 02/22/2023 MCH 28.4 02/22/2023 MCHC 32.4 02/22/2023 RDW 13.6 02/22/2023 PLT TNP 02/22/2023 MPV 9.7 04/04/2022 BMP: Lab Results Component Value Date NA 139 04/04/2022 K 4.7 04/04/2022 CL 110 (H) 04/04/2022 CO2 28 02/22/2023 BUN 16 02/22/2023 CREATININE 0.81 02/22/2023 CALCIUM 10.2 02/22/2023 GLUCOSE 111 (H) 02/22/2023 Hepatic Function Panel: Lab Results Component Value Date ALKPHOS 42 02/22/2023 ALT 26 02/22/2023 AST 25 02/22/2023 PROT 7.2 02/22/2023 BILITOT 0.5 02/22/2023 Data- Radiology Review: We will order screening mammogram IMPRESSION/RECOMMENDATIONS: Diagnosis: 1-ruptured left breast saline implant. 2-Breast asymmetry and pain. The Patients EMR report has been reviewed We will plan 1-ordered screening mammogram of bilateral 2-patient would benefit from augmentation mastopexy. This would manage both her third-degree ptosisand augment her breast. 3-patient reports that her breast implants are of the textured nature. Due to the increased risk ofBIA-ALCL and HAILEE-SCC of recommended removing both saline implants even the intact right breast implant. Risks or complications including but not limited to infection, bleeding, seroma and hematoma formation as well as remote risk of vascular compromise to the nipple areolar complex with partial or complete necrosis. Diminished nipple sensation. We also discussed risks associated with breast implants including but not limited to capsular contracture, loss of breast implant infection, implant rupture, implant malposition, and HAILEE-ALCL as well as HAILEE-SCC Follow Up In 1 months. Please disregard any typographical errors. This note was partially dictated using voice recognitionsoftware. documented in this [facility]11-30-2023 History of Present illness Narrative* Trudy Preez APRN - COLLECTIONS ASSISTANT - 05/23/2023 2:00 PM EST Images from the original note were not included. Patient was identified and seen today via Telehealth by agreement and consent. I used the followingTelehealth technology: Audio and video capabilities. Patient location: Patient Location: Home. This patient encounter is appropriate and reasonable under the circumstances: too sick to leave home . The patient has been advised of the potential risks and limitations of this mode of treatment (including but not limited to the absence of in-person examination) and has agreed to be treated in a remote fashion in spite of them. Any and all of the patient's/patient's family's questions on this issue have been answered and I have made no promises or guarantees to the patient. The patient has alsobeen advised to contact this office for worsening conditions or problems, and seek emergency medical treatment and/or call 911 if the patient deems either necessary. The patient stated that they are currently in the [facility]. If the patient is a minor, permission has been obtained by the parent or guardian for the patient to receive medical care at this visit. [address] [address] Dept: [phone] Dept Visit type: Established patient Reason for Visit: No chief complaint on file. Assessment and Plan 1. Acute non-recurrent pansinusitis - amoxicillin-clavulanate (Augmentin) 875-125 MG tablet; Take 1 tablet by mouth 2 times daily for 7days., Starting Bhavani 05/23/2023, Until Bhavani 05/30/2023, Normal Acute. Day 6 and worsening. Will cover with abx. Risks/benefits/side effects of medication(s) prescribed were discussed. Follow up for new or worsening symptoms. Subjective HPI Pt initiated VV for acute concern POD schedule from Dr. Jordan States that sx started 6d ago States that she had wind in her ears at night and woke up the next am with swollen glands and ear pain Reports ear fullness, sore throat, congestion, facial pressure Has productive cough and states that mucous is green [place] feverish the first night but not since Pt states that sx are getting worse Review of Systems Constitutional: Positive for fatigue. Negative for activity change, chills and fever. Respiratory: Positive for cough. Negative for shortness of breath and wheezing. Cardiovascular: Negative for chest pain. Gastrointestinal: Negative for diarrhea, nausea and vomiting. Musculoskeletal: Positive for myalgias (resolved). Allergies Allergen Reactions Bupropion Other Irritability Wellbutrin Clarithromycin Biaxin Erythromycin Outpatient Medications Prior to Visit Medication Sig Dispense Refill albuterol 108 (90 Base) MCG/ACT inhaler Inhale 2 puffs every 6 hours as needed for wheezing. 1 each2 ARIPiprazole (Abilify) 10 MG tablet Take 10 mg by mouth daily. buprenorphine ER (Sublocade) 100 mg/0.5mL injection Inject 1 each under the skin every month to absorb continually. buprenorphine-naloxone (Suboxone) 2-0.[address] 100 tablets under the tongue. busPIRone (Buspar) 10 MG tablet Take 10 mg by mouth in the morning and 10 mg in the evening. cloNIDine (Catapres) 0.1 MG tablet TAKE 1 TABLET BY MOUTH TWICE A DAY NEEDED FOR RESTLESSNESS ORANXIETY Elastic Bandages & Supports (Medical Compression Stockings) misc 2 each daily. 15-20 mmHg; kneehigh 2 each 0 methylPREDNISolone (Medrol Dospak) 4 MG tablets Take as directed on package. 21 tablet 0 rosuvastatin (Crestor) 5 MG tablet Take 1 tablet by mouth in the morning. topiramate (Topamax) 100 MG tablet Take 3 tablets by mouth every evening. Vortioxetine HBr (Trintellix) 20 MG tablet Take 20 mg by mouth in the morning. No facility-administered medications prior to visit. Past Medical History: Diagnosis Date Anxiety Bronchitis 12/13/2021 Chest wall pain 12/13/2021 Constipation Dependent edema 04/06/2019 Depression Drug abuse (CMS/HCC) (HCC) Dysfunctional uterine bleeding 03/17/2019 Headache Hyperlipidemia 04/05/2021 Mitral valve prolapse PTSD (post-traumatic stress disorder) Urge incontinence 04/06/2019 Urge incontinence 04/06/2019 Uterine prolapse Uterine prolapse Viral URI with cough 10/05/2022 Social History Tobacco Use Smoking status: Every Day Packs/day: 1 Types: Cigarettes Start date: 1971 Smokeless tobacco: Never Tobacco comments: Quit smoking: Attempted multiple times Substance Use Topics Alcohol use: No Past Surgical History: Procedure Laterality Date BREAST ENHANCEMENT SURGERY 1994 EXPLORATORY LAPAROTOMY EXTREMITY SURGERY 2002 After water skiing accident, significant issues with antibiotic and wound healing TEMPOROMANDIBULAR JOINT SURGERY 1989 Family History Problem Relation Name Age of Onset Other ([id number]) Mother cancer Heart disease Mother Mental illness Mother COPD Mother Skin cancer Mother 50 Cervical cancer Mother 50 Colon cancer Mother 50 Stomach cancer Mother 50 Drug abuse Father Drug abuse Sister Mental illness Sister Leukemia Paternal Grandmother 50 Breast cancer Father's Sister 40 Objective There were no vitals taken for this visit. Physical Exam Constitutional: Appearance: She is ill-appearing (appears not to feel well). HENT: Nose: Comments: Voice sounds nasally congested Pulmonary: Effort: Pulmonary effort is normal. Comments: Able to speak full sentences. No cough or wheeze noted. Neurological: Mental Status: She is alert. Psychiatric: Mood and Affect: Mood normal. Data Reviewed and Summarized Labs: Imaging/Testing: CASSIE Larios CNP documented in this [facility]SBrec[id number] Telephone encounter Note* Telephone Encounter - CASSIE Mora CNP - 05/23/2023 12:06 PM EST Noted. Agree with disposition. [facility] [id number] Miscellaneous Notes* Telephone Encounter - CASSIE Mora CNP - 05/23/2023 12:06 PM EST Noted. Agree with disposition. * Telephone Encounter - Betty Patino RN - 05/23/2023 10:35 AM EST S: Patient spoke with [facility] nurse regarding sore throat B: Onset of symptoms/concern 05/17/23 A: Patient states they have sore throat, chest congestion with burning sensation when coughing, nasal congestion, ear pain. States they have severe sore throat pain "that feels like razor blades." Denies fever, denies shortness of breath, denies chest pain. R: POD MyChart appointment 05/23/23 @ 1400 with Janet Perez. Patient advised to log into MyChart 20 minutes early to complete e-check in and click begin visit to enter virtual waiting room. Patient understands care advice rest, hydration, OTC pain/fever relievers per package directions, cough drops, and warm fluids, warm salt water gargles. No further needs at this time. Patient instructed to call back with new or worsening symptoms. Reason for Disposition Earache also present Protocols used: Sore [id number] documented in this [facility]11-30-2023 Telephone encounter Note* Telephone Encounter - Betty Patino RN - 05/23/2023 10:35 AM EST S: Patient spoke with [facility] nurse regarding sore throat B: Onset of symptoms/concern 05/17/23 A: Patient states they have sore throat, chest congestion with burning sensation when coughing, nasal congestion, ear pain. States they have severe sore throat pain "that feels like razor blades." Denies fever, denies shortness of breath, denies chest pain. R: POD MyChart appointment 05/23/23 @ 1400 with Janet Perez. Patient advised to log into Appstarterhart 20 minutes early to complete e-check in and click begin visit to enter virtual waiting room. Patient understands care advice rest, hydration, OTC pain/fever relievers per package directions, cough drops, and warm fluids, warm salt water gargles. No further needs at this time. Patient instructed to call back with new or worsening symptoms. Reason for Disposition Earache also present Protocols used: Sore [id number] [facility] [id number] Telephone encounter Note* Telephone Encounter - Sharyn Mann - 04/10/2023 12:24 PM EDT Case# Procedure: Sx Date: Time: Location: Anesthesia: CPT: ICD-10: Special Equipment: PAT: Submitted auth thru insurance portal, awaiting determination. [facility] [id number] Telephone encounter Note* Telephone Encounter - Sharyn Mann - 04/10/2023 12:23 PM EDT ----- Message from Godfrey Minaya MD sent at 04/10/2023 12:02 PM EDT ----- Can you please submit this patient's paperwork to her insurance for preauthorization. Bilateral mildly patient mastopexy. I informed the patient that her insurance due to the fact she had in the pastprocedure. If that is the case please provide her a quote for self pay. Also written her for a mammogram. Please confirm that the mammogram is negative to her surgery. Breast implants. Thank you. [facility] [id number] History of Present illness Narrative* Godfrey Minaya MD - 04/10/2023 10:45 AM EDT Department of Plastic Surgery - Adult Attending Consult Note Reason for Consult: Possible ruptured left breast implant with bilateral breast asymmetry Requesting Physician: Self-referral CHIEF COMPLAINT: Left breast pain secondary to possible ruptured left breast implant. History Obtained From: patient HISTORY OF PRESENT ILLNESS: The patient is a 57 y.o. female who presents with significant past surgical history of breast [place] [address] Whitley. Patient reported no issues with the breast implant September 2022 when she suddenly felt some breast pain and immediate deflation of her left breast. Patient suspected left breast implant rupture. However, she recently started to develop breast pain and discomfort and hence sought medical attention. Patient's last mammogram was 2 years ago and was negative for any suspicious lesions as per the patient. She is an active smoker, 1 pack/day for the last 45 years. She denies any chest pain or shortness of breath with walking. She has a significant past medical history. In her paternal great aunt. Past Medical History: Past Medical History: Diagnosis Date Anxiety Bronchitis 12/13/2021 Chest wall pain 12/13/2021 Constipation Dependent edema 04/06/2019 Depression Drug abuse (CMS/HCC) (HCC) Dysfunctional uterine bleeding 03/17/2019 Headache Hyperlipidemia 04/05/2021 Mitral valve prolapse PTSD (post-traumatic stress disorder) Urge incontinence 04/06/2019 Urge incontinence 04/06/2019 Uterine prolapse Uterine prolapse Viral URI with cough 10/05/2022 Past Surgical History: Past Surgical History: Procedure Laterality Date BREAST ENHANCEMENT SURGERY 1994 EXPLORATORY LAPAROTOMY EXTREMITY SURGERY 2002 After water skiing accident, significant issues with antibiotic and wound healing TEMPOROMANDIBULAR JOINT SURGERY 1989 Current Medications: Current Outpatient Medications Medication Instructions albuterol 108 (90 Base) MCG/ACT inhaler 2 puffs, Inhalation, Every 6 hours PRN ARIPiprazole (ABILIFY) 10 mg, Oral, Daily buprenorphine ER (Sublocade) 100 mg/0.5mL injection 1 each, SubCUTAneous, Over 1 month buprenorphine-naloxone (Suboxone) 2-0.5 MG SL tablet 100 tablets, SubLINGual busPIRone (BUSPAR) 10 mg, Oral, 2 time daily cloNIDine (Catapres) 0.1 MG tablet TAKE 1 TABLET BY MOUTH TWICE A DAY NEEDED FOR RESTLESSNESS ORANXIETY Elastic Bandages & Supports (Medical Compression Stockings) misc 2 each, Does not apply, Daily,15-20 mmHg; knee high guaiFENesin (ROBITUSSIN) 200 mg, Oral, 3 times daily PRN rosuvastatin (Crestor) 5 MG tablet 1 tablet, Oral, Daily topiramate (Topamax) 100 MG tablet 3 tablets, Oral, Every evening Trintellix 20 mg, Oral, Daily Allergies: Bupropion, Clarithromycin, and Erythromycin Social History: Social History Socioeconomic History Marital status: Spouse name: Not on file Number of children: Not on file Years of education: Not on file Highest education level: Not on file Occupational History Not on file Tobacco Use Smoking status: Every Day Packs/day: 1 Types: Cigarettes Start date: 1971 Smokeless tobacco: Never Tobacco comments: Quit smoking: Attempted multiple times Substance and Sexual Activity Alcohol use: No Drug use: Not Currently Sexual activity: Not on file Other Topics Concern Not on file Social History Narrative Not on file Social Determinants of Health Financial Resource Strain: Low Risk (05/01/2022) Overall Financial Resource Strain (CARDIA) Difficulty of Paying Living Expenses: Not very hard Food Insecurity: No Food Insecurity (05/01/2022) Hunger Vital Sign Worried About Running Out of Food in the Last Year: Never true Ran Out of Food in the Last Year: Never true Transportation Needs: No Transportation Needs (05/01/2022) PRAPARE - Transportation Lack of Transportation (Medical): No Lack of Transportation (Non-Medical): No Physical Activity: Not on file Stress: Not on file Social Connections: Not on file Intimate Partner Violence: Not on file Housing Stability: Not on file Family History: Family History Problem Relation Name Age of Onset Other (98374) Mother cancer Heart disease Mother Mental illness Mother Breast cancer Other Paternal Great Aunt COPD Mother Cancer Mother Skin, Cervical, Colon, Stomach Drug abuse Sister Drug abuse Father Mental illness Sister REVIEW OF SYSTEMS: CONSTITUTIONAL: negative for fevers, chills, sweats and fatigue EYES: negative for dipolpia or acute vision loss. RESPIRATORY: negative for dry cough, cough with sputum, dyspnea, wheezing and chest pain CARDIOVASCULAR: negative for chest pain, dyspnea, palpitations, syncope GASTROINTESTINAL: negative for nausea, vomiting, change in bowel habits, diarrhea, constipation andabdominal pain EXTREMITIES: negative for edema MUSCULOSKELETAL: negative for muscle weakness SKIN: negative for itching or rashes. BEHAVIOR/PSYCH: negative for poor appetite, increased appetite, decreased sleep and poor concentration PHYSICAL EXAM: VITALS: There were no vitals taken for this visit. CONSTITUTIONAL: awake, alert, cooperative, no apparent distress, and appears stated age EYES: PERRLA, EOMI, no signs of occular infection LUNGS: No increased work of breathing, good air exchange, clear to auscultation bilaterally, no crackles or wheezing CARDIOVASCULAR: Normal apical impulse, regular rate and rhythm, normal S1 and S2, no S3 or S4, and no murmur noted ABDOMEN: Soft, nontender nondistended. BREAST: Examination of the right breast reveals a palpable palpable deformity with the breast implant sitting higher than her breast mounds. This is due to her third- degree ptosis which developed over the years. Palpation of the breast reveals no palpable masses or lumps. No evidence of capsular contracture. Significant rippling is felt indicative of the possibility of saline breast implants. Patient shows animation deformity indicative of subpectoral placement of the breast implant. Examination of the right axilla reveals no palpable lymphadenopathy. Examination of the left breast reveals no palpable lumps. Left breast is 6 deflated due to the possible rupture of her saline breast implant. The left nipple is slightly retracted. Examination of theleft axilla reveals no palpable lymphadenopathy. Breast measurements are as follows: Right suprasternal notch to the nipple is at 29.5 cm, left is at 29.5 cm. Nipple to inframammary fold on the right is at 13 cm and on the left is at 12.5 cm. Midline to the nipple on the right is at 12 cm and on the left is at 12 cm. Areolar diameter on the right and left is at 4.5 cm. Patient has grade 3 ptosis bilaterally. Projected new nipple position is at 24 cm from the suprasternal notch. Patient has an inferior circumareolar incision which was utilized for her bilateral breast augmentation in the past. Incisions did heal well with primary intention. There is no evidence of capsular contracture bilaterally. EXTREMITIES: no signs of clubbing or cyanosis. MUSCULOSKELETAL: negative for flaccid muscle tone or spastic movements. SKIN: gross examination reveals no signs of rashes, or diaphoresis. NEURO: Cranial nerves II-XII grossly intact. No signs of agitated mood. CBC: Lab Results Component Value Date WBC 5.0 02/22/2023 RBC 4.55 02/22/2023 HGB 12.9 02/22/2023 HCT 39.8 02/22/2023 MCV 87.5 02/22/2023 MCH 28.4 02/22/2023 MCHC 32.4 02/22/2023 RDW 13.6 02/22/2023 PLT TNP 02/22/2023 MPV 9.7 04/04/2022 BMP: Lab Results Component Value Date NA 139 04/04/2022 K 4.7 04/04/2022 CL 110 (H) 04/04/2022 CO2 28 02/22/2023 BUN 16 02/22/2023 CREATININE 0.81 02/22/2023 CALCIUM 10.2 02/22/2023 GLUCOSE 111 (H) 02/22/2023 Hepatic Function Panel: Lab Results Component Value Date ALKPHOS 42 02/22/2023 ALT 26 02/22/2023 AST 25 02/22/2023 PROT 7.2 02/22/2023 BILITOT 0.5 02/22/2023 Data- Radiology Review: We will order screening mammogram IMPRESSION/RECOMMENDATIONS: Diagnosis: 1-ruptured left breast saline implant. 2-Breast asymmetry and pain. The Patients EMR report has been reviewed We will plan 1-ordered screening mammogram of bilateral 2-patient would benefit from augmentation mastopexy. This would manage both her third-degree ptosisand augment her breast. 3-patient reports that her breast implants are of the textured nature. Due to the increased risk ofBIA-ALCL and HAILEE-SCC of recommended removing both saline implants even the intact right breast implant. Risks or complications including but not limited to infection, bleeding, seroma and hematoma formation as well as remote risk of vascular compromise to the nipple areolar complex with partial or complete necrosis. Diminished nipple sensation. We also discussed risks associated with breast implants including but not limited to capsular contracture, loss of breast implant infection, implant rupture, implant malposition, and HAILEE-ALCL as well as HAILEE-SCC Follow Up In 1 months. Please disregard any typographical errors. This note was partially dictated using voice recognitionsoftware. documented in this [facility]10-16-2023 History of Present illness Narrative* Ruby Cee - 04/08/2023 1:20 PM EDT Patient was identified by name and Date of . * Henrietta Knowles APRN - FLAVIA - 04/08/2023 1:20 PM EDT Images from the original note were not included. [facility] [address] [place] [place] [address] [place] [address] Dept: [phone] Dept Loc: [phone] HPI: Idalia Mejia is a 57 y.o. female who presents today for her medical conditions/complaints as noted below. Idalia Mejia is c/o of Gynecologic Exam HPI- Idalia Mejia presents today for her well female examination. No longer has menstrual cycles- has not had one in over 2 years. Had fasting blood work drawn last month so she does not need this repeated today. Is scheduled to see a plastic surgeon on 04/10/23 due to breast pain and concerns that her breast implant in the left breast may have ruptured. Insomnia: Takes Topamax at bedtime and this helps. Feels symptoms are stable. Chronic Hep C/History of Drug Abuse: Has been clean for 7 years. Is doing well overall. States she was fully treated for hep c and was told she is clear. Constipation: States symptoms are currently well controlled. Denies current concerns or worries. OAB/Cystocele: Feels symptoms are well controlled. Denies current concerns or worries. Denies issues with recurrent UTI's, pelvic pain/pressure, or difficulty urinating. Hyperlipidemia: Has not been taking her Rosuvastatin. Her levels were stable off of the medication when checked last month. Would like to remain off of the medication at this time. Depression/Anxiety/PTSD: Takes Abilify, Buspar, and Trintellix as prescribed. Continues to follow up with weekly counseling and psych. Feels symptoms are stable. Was treated for bronchitis a couple of weeks ago and is still feeling winded and has ongoing chest congestion. Denies fevers. Health Maintenance: Performs self breast examinations; denies nipple discharge, nodules, or discoloration. Positive family history of breast cancer- paternal great aunt. Last mammogram was 02/13/19- refuses repeat imaging stating it is too painful. Last pap smear was 04/04/22- normal findings. Declines screening for STI's. Declines screening for HIV- states she had this done several years ago and it was negative. Declines a colonoscopy for colon cancer screening, but willing to do a home Cologuard test- has this at home and plans to complete. Declines to be vaccinated for COVID-19. Is current on her pneumococcal vaccinations (PCV13 on 05/21/18 and PPSV23 on 06/01/19). Tdap is current: 02/04/23. Flu vaccination current: 02/04/23. Is fully vaccinated for shingles. See ROS for additional information. Past Medical History: Diagnosis Date Anxiety Bronchitis 12/13/2021 Chest wall pain 12/13/2021 Constipation Dependent edema 04/06/2019 Depression Drug abuse (CMS/HCC) (HCC) Dysfunctional uterine bleeding 03/17/2019 Headache Hyperlipidemia 04/05/2021 Mitral valve prolapse PTSD (post-traumatic stress disorder) Urge incontinence 04/06/2019 Urge incontinence 04/06/2019 Uterine prolapse Uterine prolapse Viral URI with cough 10/05/2022 Past Surgical History: Procedure Laterality Date BREAST ENHANCEMENT SURGERY 1994 EXPLORATORY LAPAROTOMY EXTREMITY SURGERY 2002 After water skiing accident, significant issues with antibiotic and wound healing TEMPOROMANDIBULAR JOINT SURGERY 1989 Family History Problem Relation Name Age of Onset Other (17697) Mother cancer Heart disease Mother Mental illness Mother Breast cancer Other Paternal Great Aunt COPD Mother Cancer Mother Skin, Cervical, Colon, Stomach Drug abuse Sister Drug abuse Father Mental illness Sister Social History Tobacco Use Smoking status: Every Day Packs/day: 1 Types: Cigarettes Start date: 1971 Smokeless tobacco: Never Tobacco comments: Quit smoking: Attempted multiple times Substance Use Topics Alcohol use: No Current Outpatient Medications Medication Sig Dispense Refill albuterol 108 (90 Base) MCG/ACT inhaler Inhale 2 puffs every 6 hours as needed for wheezing. 1 each2 ARIPiprazole (Abilify) 10 MG tablet Take 10 mg by mouth daily. buprenorphine ER (Sublocade) 100 mg/0.5mL injection Inject 1 each under the skin every month to absorb continually. busPIRone (Buspar) 10 MG tablet Take 10 mg by mouth in the morning and 10 mg in the evening. cloNIDine (Catapres) 0.1 MG tablet TAKE 1 TABLET BY MOUTH TWICE A DAY NEEDED FOR RESTLESSNESS ORANXIETY Elastic Bandages & Supports (Medical Compression Stockings) misc 2 each daily. 15-20 mmHg; kneehigh 2 each 0 rosuvastatin (Crestor) 5 MG tablet Take 1 tablet by mouth in the morning. topiramate (Topamax) 100 MG tablet Take 3 tablets by mouth every evening. Vortioxetine HBr (Trintellix) 20 MG tablet Take 20 mg by mouth in the morning. guaiFENesin (Robitussin) 100 MG/5ML liquid Take 10 mL (200 mg) by mouth 3 times daily as needed forcough or congestion for up to 10 days. 210 mL 0 No current facility-administered medications for this visit. Allergies Allergen Reactions Bupropion Other Irritability Wellbutrin Clarithromycin Biaxin Erythromycin Health Maintenance Topic Date Due HIV Screening Never done Colorectal Cancer Screening Never done Diabetes Screening Never done Mammogram Never done MMR Vaccines (1 of 1 - Standard series) 04/08/2024 (Originally 1966) COVID-19 Vaccine (1) 04/08/2024 (Originally 01/24/1966) Depresssion Monitoring 10/08/2023 Cervical Cancer Screening 04/03/2026 Lipid Panel 02/23/2028 Pneumococcal Vaccine: Pediatrics (0 to 5 Years) and At-Risk Patients (6 to 64 Years) (3 - PPSV23 orPCV20) 2030 DTaP/Tdap/Td Vaccines (2 - Td or Tdap) 02/04/2033 Hepatitis B Vaccines Completed Hepatitis A Vaccines Completed Influenza Vaccine Completed Zoster Vaccines Completed HIB Vaccines Aged Out IPV Vaccines Aged Out Meningococcal Vaccine Aged Out Rotavirus Vaccines Aged Out HPV Vaccines Aged Out Subjective: Review of Systems Constitutional: Negative for chills and fever. HENT: Positive for congestion. Negative for rhinorrhea, sinus pressure, sinus pain and sore throat. Eyes: Negative for pain and visual disturbance. Respiratory: Positive for cough and shortness of breath. Negative for chest tightness and wheezing. Cardiovascular: Negative for chest pain, palpitations and leg swelling. Gastrointestinal: Negative for abdominal distention, abdominal pain, blood in stool, constipation and diarrhea. Endocrine: Negative for polydipsia, polyphagia and polyuria. Genitourinary: Negative for dysuria, hematuria, menstrual problem, pelvic pain, vaginal bleeding, vaginal discharge and vaginal pain. Musculoskeletal: Negative for arthralgias and myalgias. Skin: Negative for color change, pallor, rash and wound. Neurological: Negative for dizziness, syncope, weakness and headaches. Hematological: Does not bruise/bleed easily. Psychiatric/Behavioral: Positive for dysphoric mood. Negative for self-injury and suicidal ideas. The patient is nervous/anxious. Objective: BP 97/62 Pulse 73 Temp 36.6 C (97.8 F) (Infrared) Resp 24 Wt 160 lb 9.6 oz (72.8 kg) [id number]% BMI 25.92 kg/m Physical Exam Constitutional: Oriented to person, place, and time. Appears well-developed and well-nourished. No distress. HENT: Head: Normocephalic and atraumatic. Right Ear: External ear normal. Left Ear: External ear normal. Nose: Nose normal. Mouth/Throat: Oropharynx is clear and moist. No oropharyngeal exudate. Bilateral TM's pearly chavez with a good cone of light bilaterally. Eyes: Conjunctivae and EOM are normal. Pupils are equal, round, and reactive to light. Right eye exhibits no discharge. Left eye exhibits no discharge. Neck: Normal range of motion. Neck supple. No thyromegaly present. Cardiovascular: Normal rate, regular rhythm, normal heart sounds and intact distal pulses. Exam reveals no friction rub. No murmur heard. Carotid upstrokes brisk and without bruits bilaterally. Pulmonary/Chest: Effort normal and breath sounds normal. No respiratory distress. No wheezes. No rales. Breast Examination: Breast asymmetry noted. Small firm, tender area noted in left breast. Right breast smooth without masses. Free from discoloration, thickening of the skin, and prominent pores. Nipples without discharge, asymmetry, ulcerations, rashes, and inversions bilaterally. Breasts free from dimpling and retractions. [place] palpated bilaterally and free from axillary lymphadenopathy. Abdominal: Soft. Bowel sounds are normal. No distension and no mass. There is no hepatosplenomegaly. There is no tenderness. Pelvic Examination: There is no rash, tenderness, or lesion on the right labia. There is no rash, tenderness or lesion on the left labia. Vagina with normal rugae.Uterus normal size, shape, and consistency; non tender to compression. Cervix exhibits no motion tenderness, no discharge, and no friability. Right adnexum displays no mass, no tenderness and no fullness. Left adnexum displays no mass, no tenderness and no fullness. Pap smear obtained. Mild cystocele noted. Musculoskeletal: Normal range of motion. No edema, tenderness or deformity. Strength 5/5 with flexion and extension of extremities x4. Lymphadenopathy: No cervical adenopathy. Neurological: Alert and oriented to person, place, and time.Normal reflexes. Coordination normal. Skin: Skin is warm and dry. No rash noted. No erythema. No pallor. Psychiatric: Normal mood and affect. Behavior is normal. Judgment and thought content normal. Assessment and Plan: 1. Well female exam with routine gynecological exam - Encouraged a healthy diet low in cholesterol and saturated fats. - Encouraged regular exercise. 2. Chronic hepatitis C without hepatic coma (CMS/HCC) (HCC) - Treated. Denies current concerns or worries. 3. Primary insomnia - Stable with Topamax. Will continue current treatment plan. 4. History of drug abuse (CMS/HCC) (HCC) - Clean for 7+ years and doing well. 5. Constipation, unspecified constipation type - Symptoms currently well controlled with lifestyle modifications. 6. OAB (overactive bladder) - Symptoms currently well controlled. 7. Midline cystocele - Symptoms currently well controlled. 8. Hyperlipidemia, unspecified hyperlipidemia type - Currently well controlled via lifestyle modifications. Wishes to remain off of Rosuvastatin at this time. 9. Mild episode of recurrent major depressive disorder (HCC) - Stable with Abilify, Buspar, and Trintellix. Will continue current treatment plan. - Continue to follow up with specialists as directed. 10. Anxiety - Stable with Abilify, Buspar, and Trintellix. Will continue current treatment plan. - Continue to follow up with specialists as directed. 11. PTSD (post-traumatic stress disorder) - Stable with Abilify, Buspar, and Trintellix. Will continue current treatment plan. - Continue to follow up with specialists as directed. 12. Cough, unspecified type - XR chest 2 views - guaiFENesin (Robitussin) 100 MG/5ML liquid; Take 10 mL (200 mg) by mouth 3 times daily as needed for cough or congestion for up to 10 days., Starting 04/08/2023, Until Bhavani 04/18/2023 at 2359, Normal - Will obtain a CXR for further evaluation. 13. Chest congestion - XR chest 2 views - guaiFENesin (Robitussin) 100 MG/5ML liquid; Take 10 mL (200 mg) by mouth 3 times daily as needed for cough or congestion for up to 10 days., Starting 04/08/2023, Until Bhavani 04/18/2023 at 2359, Normal - Will obtain a CXR for further evaluation. 14. Cigarette nicotine dependence without complication - XR chest 2 views - Encouraged smoking cessation. 15. Encounter for Papanicolaou smear for cervical cancer screening - Pap Smear Idalia Jaime received counseling on the following healthy behaviors: continue current medications Patient given educational materials on: pap smear Discussed use, benefit, and side effects of prescribed medications. Barriers to medication compliance addressed. All patient questions answered. Pt voiced understanding. Follow Up: Follow up in about 6 months (around 10/08/2023) for medication maintenance. Orders Placed This Encounter Procedures XR chest 2 views Standing Status: Future Standing Expiration Date: 04/08/2024 Order Specific Question: Is the patient ? Answer: No CASSIE Guaman CNP 04/08/2023 2:01 PM documented in this [facility]SBrec[id number] Evaluation + Plan note* Assessment & Plan Note - CASSIE Mora CNP - 03/26/2023 6:04 PM EDTAssociated Problem(s): Bronchitis Will will treat for suspected COPD exacerbation. A Zithromax x5 days and steroid burst, albuterol inhaler as directed. Follow-up for worsening or failure for symptoms to improve, consider obtaining PFT in future to further [id number] Miscellaneous Notes* Assessment & Plan Note - CASSIE Mora CNP - 03/26/2023 6:04 PM EDTAssociated Problem(s): Bronchitis Will will treat for suspected COPD exacerbation. A Zithromax x5 days and steroid burst, albuterol inhaler as directed. Follow-up for worsening or failure for symptoms to improve, consider obtaining PFT in future to further evaluate documented in this [facility]10-03-2023 History of Present illness Narrative* Ruby Cee - 03/26/2023 2:20 PM EDT Patient was identified by name and Date of . * CASSIE Mora CNP - 03/26/2023 2:20 PM EDT Images from the original note were not included. 03/26/2023 Idalia Mejia (: 1965) is a 57 y.o. female , Established patient, here for evaluation of the following chief complaint(s): Cough, Shortness of Breath, and Wheezing ASSESSMENT/PLAN: 1. Bronchitis Assessment & Plan: Will will treat for suspected COPD exacerbation. A Zithromax x5 days and steroid burst, albuterol inhaler as directed. Follow-up for worsening or failure for symptoms to improve, consider obtaining PFT in future to further evaluate Orders: - albuterol 108 (90 Base) MCG/ACT inhaler; Inhale 2 puffs every 6 hours as needed for wheezing., Starting Sat03/26/2023, Normal - azithromycin (Zithromax) 250 MG tablet; Take 2 tabs (500 mg) by mouth today, than 1 daily for 4 days., Normal - predniSONE (Deltasone) 20 MG tablet; Take 2 tablets (40 mg) by mouth daily for 5 days., Starting Sat03/26/2023, Until 03/31/2023, Normal Follow up if symptoms worsen or fail to improve. SUBJECTIVE/OBJECTIVE: HPI - Idalia Mejia (: 1965) is a 57 y.o. female , Established patient, here for the evaluationof the following chief complaint(s): Cough, Shortness of Breath, and Wheezing Symptoms greater than 10 days. Cough, shortness of breath, wheezing, cough is productive yellow with some green. Symptoms not improving. Smokes. Using albuterol inh helps some. Prior to Admission medications Medication Sig Start Date End Date Taking? Authorizing Provider albuterol 108 (90 Base) MCG/ACT inhaler Inhale 2 puffs every 6 hours as needed for wheezing. 02/22/23Yes CASSIE Guaman CNP ARIPiprazole (Abilify) 10 MG tablet Take 10 mg by mouth daily. 03/12/23 Yes Historical Provider, buprenorphine ER (Sublocade) 100 mg/0.5mL injection Inject 1 each under the skin every month to absorb continually. Yes Historical Provider, busPIRone (Buspar) 10 MG tablet Take 10 mg by mouth in the morning and 10 mg in the evening. 07/08/20 Yes Historical Provider, cloNIDine (Catapres) 0.1 MG tablet TAKE 1 TABLET BY MOUTH TWICE A DAY NEEDED FOR RESTLESSNESS ORANXIETY 03/29/21 Yes Historical Provider, Elastic Bandages & Supports (Medical Compression Stockings) misc 2 each daily. 15-20 mmHg; kneehigh 03/04/23 Yes CASSIE Guaman CNP ipratropium (Atrovent) 0.06 % nasal spray Administer 2 sprays into each nostril in the morning and 2 sprays at noon and 2 sprays in the evening and 2 sprays before bedtime. Do all this for 7 days. 10/05/22 03/26/23 Yes CASSIE Mora CNP rosuvastatin (Crestor) 5 MG tablet Take 1 tablet by mouth in the morning. 12/13/21 Yes Historical Provider, topiramate (Topamax) 100 MG tablet Take 3 tablets by mouth every evening. 08/06/18 Yes Historical Provider, Vortioxetine HBr (Trintellix) 20 MG tablet Take 20 mg by mouth in the morning. 11/05/16 Yes Historical Provider, ARIPiprazole (Abilify) 5 MG tablet Take 5 mg by mouth daily. 03/26/23 Historical Provider, Review of Systems Constitutional: Positive for fatigue. Negative for chills. HENT: Negative. Respiratory: Positive for cough, chest tightness, shortness of breath and wheezing. Cardiovascular: Negative for chest pain and palpitations. Neurological: Negative. Vitals: 03/26/23 1430 BP: 120/60 Pulse: 88 Resp: 24 Temp: 36.7 C (98 F) TempSrc: Infrared SpO2: 96% Weight: 160 lb (72.6 kg) Physical Exam Constitutional: General: She is not in acute distress. Appearance: Normal appearance. She is ill-appearing. HENT: Head: Normocephalic and atraumatic. Right Ear: Tympanic membrane normal. Left Ear: Tympanic membrane normal. Nose: Rhinorrhea present. Mouth/Throat: Mouth: Mucous membranes are dry. Pharynx: Oropharynx is clear. Eyes: Conjunctiva/sclera: Conjunctivae normal. Pulmonary: Effort: Pulmonary effort is normal. No respiratory distress. Breath sounds: No stridor. Wheezing and rhonchi present. No rales. Musculoskeletal: Right lower leg: No edema. Left lower leg: No edema. Skin: General: Skin is warm and dry. Neurological: Mental Status: She is alert and oriented to person, place, and time. An electronic signature was used to authenticate this note. CASSIE Mora CNP 03/26/2023 6:06 PM documented in this [facility]09-11-2023 History of Present illness Narrative* CASSIE Guaman CNP - 03/04/2023 11:00 AM EDT Images from the original note were not included. 03/04/2023 Idalia Mejia (: 1965) is a 57 y.o. female , Established patient, here for evaluation of the following chief complaint(s): Leg Swelling (Left leg swelling, warm) ASSESSMENT/PLAN: 1. Varicose veins of both lower extremities with pain - Elastic Bandages & Supports (Medical Compression Stockings) misc; 2 each daily. 15-20 mmHg; knee high, Starting 03/04/2023, Print - Keep feet elevated when sitting down. - Discussed signs and symptoms warranting follow up in the office- verbalized understanding. Follow up if symptoms worsen or fail to improve. SUBJECTIVE/OBJECTIVE: HPI - Idalia presents today with concerns of swelling and redness in her left leg behind her left knee that has been present for the past several weeks. Denies known injury or trauma to the area. Feels the swelling gets worse over the course of the day and improves when she lays down or elevatesher legs. When speaking with Idalia she is actually experiencing symptoms in both of her lower extremities. Review of Systems Cardiovascular: Positive for leg swelling (BLE). Skin: Positive for color change. Negative for wound. Vitals: 03/04/23 1113 BP: 106/60 Pulse: 78 Temp: 36.9 C (98.4 F) SpO2: 98% Weight: 155 lb (70.3 kg) Height: 5' 6" (1.676 m) Body mass index is 25.02 kg/m . Physical Exam Constitutional: General: She is not in acute distress. Appearance: She is not ill-appearing or diaphoretic. Cardiovascular: Comments: Varicose veins noted to BLE. Negative for erythema, edema, or open wounds. Warm to the touch. Pulmonary: Effort: Pulmonary effort is normal. Skin: General: Skin is warm and dry. Coloration: Skin is not pale. Findings: No erythema or rash. Neurological: Mental Status: She is alert and oriented to person, place, and time. Psychiatric: Mood and Affect: Mood normal. Behavior: Behavior normal. Thought Content: Thought content normal. Judgment: Judgment normal. An electronic signature was used to authenticate this note. CASSIE Guaman CNP 03/04/2023 11:48 AM documented in this [facility]09-01-2023 History of Present illness Narrative* CASSIE Guaman CNP - 02/22/2023 7:40 AM EDT Images from the original note were not included. 02/22/2023 Idalia Jaime Starr (: 1965) is a 57 y.o. female , Established patient, here for evaluation of the following chief complaint(s): breast implant problem ASSESSMENT/PLAN: 1. Pain from breast implant, initial encounter - [facility] Plastic Surgery - Referral placed with specialist. Discussed signs and symptoms warranting immediate attention- verbalized understanding. 2. Ruptured left breast implant, initial encounter - [facility] Plastic Surgery - Referral placed with specialist. Discussed signs and symptoms warranting immediate attention- verbalized understanding. 3. Hyperlipidemia, unspecified hyperlipidemia type - Comprehensive metabolic panel - Lipid panel - Will notify of blood work results and provide recommendations accordingly. 4. Screening for diabetes mellitus - Comprehensive metabolic panel - Will notify of blood work results. Follow up in about 6 weeks (around 04/05/2023) for WFE- does not need to fast. SUBJECTIVE/OBJECTIVE: PADMA Friedman presents today with concerns of her left breast implant bursting and being painful.States she gave her dad a hug and later that day she was topless and looked in the mirror and realized the left breast was "deflated". States she has left breast pain and discomfort when she raises her arms. States this happened about 3 months ago. Had bilateral breast implants (saline) in 1994. Denies skin discoloration, fevers, or open areas or drainage. Last mammogram was 02/13/19- declines to have another mammogram done stating it is too painful. Would like to have her cholesterol levels checked today while she is here. Has not been taking her Rosuvastatin for about 6 months. Would like to see if she still needs to be on this. Is due for her WFE next month and would like her fasting blood work drawn today as well. Review of Systems Constitutional: Negative for chills and fever. Respiratory: Negative for chest tightness. Cardiovascular: Negative for chest pain. Skin: Left breast asymmetry and tenderness. Vitals: 02/22/23 0737 BP: 120/60 Pulse: 80 SpO2: 97% Weight: 149 lb (67.6 kg) Height: 5' 6" (1.676 m) Body mass index is 24.05 kg/m . Physical Exam Constitutional: General: She is not in acute distress. Appearance: She is not ill-appearing or diaphoretic. Cardiovascular: Rate and Rhythm: Normal rate and regular rhythm. Heart sounds: Normal heart sounds. No murmur heard. No friction rub. Pulmonary: Effort: Pulmonary effort is normal. Breath sounds: Normal breath sounds. No wheezing, rhonchi or rales. Chest: Comments: Breast asymmetry- left breast lower than right. Tenderness to the touch. Negative for open areas or drainage. Negative for erythema. Neurological: Mental Status: She is alert and oriented to person, place, and time. An electronic signature was used to authenticate this note. CASSIE Guaman CNP 02/22/2023 8:50 AM documented in this [facility]07-04-2022 Hospital Discharge instructions Patient Education 12/25/2021 13:15:12 Chest Pain, Noncardiac Noncardiac Chest Pain Based on your visit today, the healthcare provider doesn t know what is causing your chest pain. Inmost cases, people who come to the emergency department with chest pain don t have a problem with their heart. Instead, the pain is caused by other conditions. It's important for the healthcare team to be sure you are not having a life threatening cause for chest pain such as a heart attack, blood c lot in the lungs, collapsed lung, ruptured esophagus, or tearing of the aorta. Once these major causes have been ruled out, you may have further evaluation for non-heart causes of chest pain. These may be problems with the lungs, muscles, bones, digestive tract, nerves, or mental health. Lung problems Inflammation around the lungs (pleurisy) Collapsed lung (pneumothorax) Fluid around the lungs (pleural effusion) Lung cancer (a rare cause of chest pain) Muscle or bone problems Inflamed cartilage between the ribs (costochondritis) Fibromyalgia Rheumatoid arthritis Chest wall strain Digestive system problems Reflux Stomach ulcer Spasms of the esophagus Gall stones Gallbladder inflammation Mental health conditions Panic or anxiety attacks Emotional distress Your condition doesn t seem serious and your pain doesn t appear to be coming from your heart. But sometimes the signs of a serious problem take more time to appear. Watch for the warning signs listed below. Home care Follow these guidelines when caring for yourself at home: Rest today and avoid strenuous activity. Take any prescribed medicine as directed. Follow-up care Follow up with your healthcare provider, or as advised, if you don t start to feel better within 24hours. When to seek medical advice Call your healthcare provider right away if any of these occur: A change in the type of pain. Call if it feels different, becomes more serious, lasts longer, or begins to spread into your shoulder, arm, neck, jaw, or back. Shortness of breath You feel more pain when you breathe Cough with dark-colored mucus or blood Weakness, dizziness, or fainting Fever of 100.4 F (38 C) or higher, or as directed by your healthcare provider Swelling, pain, or redness in one leg [id number] The [employer]. [address] [place] [address], [place] [address]. All rights reserved. This information is not intended as a substitute for professional medical care. Always follow yourhealthcare professional's instructions. Follow Up Care 12/25/2021 11:38:52 With:ADRIANA VASQUEZ MD Address: [address] [place] [address] When:2-4 days [facility] 07-04-2022 Evaluation + Plan note Diagnostic Tests Pending * Respiratory ID Panel with COVID-19 by PCR 12/25/21 [facility] 07-04-2022 Note Discharge Instructions Thank you for allowing [facility] to assist you with your healthcare needs. The following is importantdischarge information regarding your hospital visit. Diagnosis from Today's Visit Chest wall pain Chest pain - Pleuritic What to Do Next Instructions from Your Care Team No qualifying data available. Post Acute Orders No qualifying data available. You Need to Schedule the Following Appointments Follow Up with ADRIANA VASQUEZ MD When Within 2-4 days Where: [address] [place] [address] Allergies Biaxin Wellbutrin erythromycin base Medications Please ask your primary doctor or pharmacist before taking any other medication not listed, including over the counter drugs, herbal medications, vitamins and or supplements as they may interact withur home medications. What How Much When Why Instructions Last Dose New ketorolac (ketorolac 10 mg oral tablet) 1 tab(s) by mouth Four (4) times a day as needed for as needed for pain Chest wall pain Duration: 5 Days not to exceed 40 mg/ day and 5 days duration for all dose forms Printed Prescription Unchanged atorvastatin (atorvastatin 20 mg oral tablet) 1 tab(s) take 1 tablet by mouth once daily Unchanged buprenorphine-naloxone (Suboxone 8 mg-2 mg sublingual film) 1 Each under the tongue Two (2) times a day Unchanged furosemide (Lasix) Once a day Unchanged hydrOXYzine (Atarax use hydrOXYzine hydrochloride ) Unchanged hydrOXYzine (Vistaril 50 mg oral capsule) 1 cap by mouth Three (3) times a day as needed for as needed for anxiety Unchanged mirtazapine (Remeron 15 mg oral tablet) 2 tab(s) by mouth Daily at bedtime Unchanged OLANZapine (OLANZapine 5 mg oral tablet) take 1 tablet by mouth at bedtime Unchanged potassium chloride (potassium chloride 20 mEq oral tablet, extended release) 1 tab(s) by mouth Once a day Lymphedema Cellulitis Take with food Unchanged promethazine (Phenergan) Unchanged QUEtiapine (SEROquel) by mouth Unchanged risperiDONE (RisperDAL 1 mg oral tablet) 1 tab(s) by mouth Daily at bedtime Unchanged topiramate (Topamax) by mouth Two (2) times a day Unchanged vortioxetine (Trintellix) by mouth Once a day Please take this list to your next doctor s visit. Bring all medications you take, including over the counter medications, herbals and other supplements with you to your doctor s visit. Patients and families are reminded to discard old lists and to update any records with all medication providers or retail pharmacies. Medication Leaflets ketorolac (oral/injection) (ADDISON mayo ROLE ak) Toradol What is the most important information I should know about ketorolac? Ketorolac can increase your risk of fatal heart attack or stroke. Do not use this medicine just before or after heart bypass surgery (coronary artery bypass graft, or CABG). Ketorolac may also cause stomach or intestinal bleeding, which can be fatal. You should not use ketorolac if you have any active or recent bleeding (including bleeding inside your body), a head injury, a stomach ulcer, severe kidney disease, a bleeding or blood-clotting disorder, a history of severe allergic reaction to aspirin or an NSAID, if you are scheduled to have surgery, if you are in late , or if you are breast-feeding a baby. You should not use ketorolac if you also take pentoxifylline, probenecid, aspirin, or other NSAIDs. What is ketorolac? Ketorolac is a nonsteroidal anti-inflammatory drug (NSAID) that is used short- term (5 days or less)to treat moderate to severe pain. Ketorolac may also be used for purposes not listed in this medication guide. What should I discuss with my healthcare provider before taking ketorolac? Ketorolac can increase your risk of fatal heart attack or stroke, even if you don't have any risk factors. Do not use this medicine just before or after heart bypass surgery (coronary artery bypass graft, or CABG). Ketorolac may also cause stomach or intestinal bleeding, which can be fatal. These conditions can occur without warning while you are using ketorolac, especially in older adults. You should not use ketorolac if you are allergic to it, or if you have: active or recent stomach ulcer, stomach bleeding, or intestinal bleeding; a bleeding or blood-clotting disorder; a closed head injury or bleeding in your brain; bleeding from a recent surgery; severe kidney disease or dehydration; a history of asthma or severe allergic reaction after taking aspirin or an NSAID; if you are scheduled to have surgery (especially bypass surgery); or if you are in late or you are breast-feeding a baby. Some medicines can cause unwanted or dangerous effects when used with ketorolac. Your doctor may need to change your treatment plan if you use any of the following drugs: pentoxifylline; probenecid; or aspirin or other NSAIDs--ibuprofen (Advil, Motrin), naproxen (Aleve), celecoxib, diclofenac, indomethacin, meloxicam, and others. Tell your doctor if you have ever had: heart disease, high blood pressure, high cholesterol, diabetes, or if you smoke; a heart attack, stroke, or blood clot; stomach ulcers or bleeding; inflammatory bowel disease, ulcerative colitis, or Crohn's disease; liver disease; kidney disease (or if you are on dialysis); asthma; or fluid retention. If you are , you should not take ketorolac unless your doctor tells you to. Taking an NSAIDduring the last 20 weeks of can cause serious heart or kidney problems in the unborn babyand possible complications with your . Tell your doctor if you are . Ketorolac is not approved for use by anyone younger than 2 years old. How should I take ketorolac? Follow all directions on your prescription label and read all medication guides. Use the lowest dose that is effective in treating your condition. Ketorolac oral is taken by mouth. Ketorolac injection is given as an infusion into a vein. A healthcare provider will give you this injection Ketorolac should not be used for longer than 5 days, including both injection plus tablets. Long-term use of this medicine can damage your kidneys or cause bleeding. Store at room temperature away from moisture, heat, and light. Keep the bottle tightly closed when not in use. What happens if I miss a dose? Since ketorolac is used for pain, you are not likely to miss a dose. Skip any missed dose if it is almost time for your next dose. Do not use two doses at one time. What happens if I overdose? Seek emergency medical attention or call the Poison Help line at . What should I avoid while taking ketorolac? Avoid drinking alcohol. It may increase your risk of stomach bleeding. Ask a doctor or pharmacist before using other medicines for pain, fever, swelling, or cold/flu symptoms. They may contain ingredients similar to ketorolac (such as aspirin, ibuprofen, ketoprofen, or naproxen). What are the possible side effects of ketorolac? Get emergency medical help if you have signs of an allergic reaction (hives, difficult breathing, swelling in your face or throat) or a severe skin reaction (fever, sore throat, burning in your eyes,skin pain, red or purple skin rash that spreads and causes blistering and peeling). Get emergency medical help if you have signs of a heart attack or stroke: chest pain spreading to your jaw or shoulder, sudden numbness or weakness on one side of the body, slurred speech, feeling short of breath. Stop using ketorolac and call your doctor at once if you have: shortness of breath (even with mild exertion); swelling or rapid weight gain; a skin rash, no matter how mild; signs of stomach bleeding--bloody or tarry stools, coughing up blood or vomit that looks like coffee grounds; liver problems--loss of appetite, stomach pain (upper right side), tiredness, itching, dark urine, morena-colored stools, jaundice (yellowing of the skin or eyes); kidney problems--little or no urination, swelling in your feet or ankles, feeling tired or short ofbreath; o low red blood cells (anemia)--pale skin, unusual tiredness, feeling light-headed or short of breath, cold hands and feet. Common side effects may include: nausea, stomach pain, indigestion, diarrhea; dizziness, drowsiness; headache; or swelling. This is not a complete list of side effects and others may occur. Call your doctor for medical advice about side effects. You may report side effects to FDA at 2-962-CGG-4341. What other drugs will affect ketorolac? Ask your doctor before using ketorolac if you take an antidepressant. Taking certain antidepressants with an NSAID may cause you to bruise or bleed easily. Tell your doctor about all your other medicines, especially: lithium; methotrexate; heparin or warfarin (Coumadin, Jantoven); antipsychotic medicine; heart or blood pressure medication, including a diuretic or 'water pill'; seizure medicine (carbamazepine, phenytoin); or steroid medicine (such as prednisone). This list is not complete. Other drugs may affect ketorolac, including prescription and kqjt-une-pewdfcc medicines, vitamins, and herbal products. Not all possible drug interactions are listed here. Where can I get more information? Your pharmacist can provide more information about ketorolac. Remember, keep this and all other medicines out of the reach of children, never share your medicines with others, and use this medication only for the indication prescribed. Every effort has been made to ensure that the information provided by [employer]. ('[employer]') is accurate, up-to-date, and complete, but no guarantee is made to that effect. Drug information contained herein may be time sensitive. [employer] information has been compiled for use by healthcare practitioners and consumers in the [place] and therefore [employer] does not warrant that uses outside of the [place] are appropriate, unless specifically indicated otherwise. [employer] drug information does not endorse drugs, diagnose patients or recommend therapy. [employer] drug information isan informational resource designed to assist licensed healthcare practitioners in caring for their p atients and/or to serve consumers viewing this service as a supplement to, and not a substitute for, the expertise, skill, knowledge and judgment of healthcare practitioners. The absence of a warningfor a given drug or drug combination in no way should be construed to indicate that the drug or drug combination is safe, effective or appropriate for any given patient. [employer] does not assume any responsibility for any aspect of healthcare administered with the aid of information [employer] provides. The information contained herein is not intended to cover all possible uses, directions, precautions, warnings, drug interactions, allergic reactions, or adverse effects. If you have questions about the drugs you are taking, check with your doctor, nurse or pharmacist. Copyright 4672-7012 [employer]. Version: .. Revision Date: 07/08/2020. Education Materials Noncardiac Chest Pain Based on your visit today, the healthcare provider doesn t know what is causing your chest pain. Inmost cases, people who come to the emergency department with chest pain don t have a problem with their heart. Instead, the pain is caused by other conditions. It's important for the healthcare team to be sure you are not having a life threatening cause for chest pain such as a heart attack, blood c lot in the lungs, collapsed lung, ruptured esophagus, or tearing of the aorta. Once these major causes have been ruled out, you may have further evaluation for non-heart causes of chest pain. These may be problems with the lungs, muscles, bones, digestive tract, nerves, or mental health. Lung problems Inflammation around the lungs (pleurisy) Collapsed lung (pneumothorax) Fluid around the lungs (pleural effusion) Lung cancer (a rare cause of chest pain) Muscle or bone problems Inflamed cartilage between the ribs (costochondritis) Fibromyalgia Rheumatoid arthritis Chest wall strain Digestive system problems Reflux Stomach ulcer Spasms of the esophagus Gall stones Gallbladder inflammation Mental health conditions Panic or anxiety attacks Emotional distress Your condition doesn t seem serious and your pain doesn t appear to be coming from your heart. But sometimes the signs of a serious problem take more time to appear. Watch for the warning signs listed below. Home care Follow these guidelines when caring for yourself at home: Rest today and avoid strenuous activity. Take any prescribed medicine as directed. Follow-up care Follow up with your healthcare provider, or as advised, if you don t start to feel better within 24hours. When to seek medical advice Call your healthcare provider right away if any of these occur: A change in the type of pain. Call if it feels different, becomes more serious, lasts longer, or begins to spread into your shoulder, arm, neck, jaw, or back. Shortness of breath You feel more pain when you breathe Cough with dark-colored mucus or blood Weakness, dizziness, or fainting Fever of 100.4 F (38 C) or higher, or as directed by your healthcare provider Swelling, pain, or redness in one leg [id number] [employer]. [address] [place], [place] [address]. All rights reserved. This information is not intended as a substitute for professional medical care. Always follow yourhealthcare professional's instructions. Additional Information VACCINATE! IT SAVES LIVES! Members of the community who have not yet received the COVID-19 vaccine and would like to receive it can visit one of [facility] vaccine clinics. There are many vaccine clinic locations within the [facility]. For locations and available times, please visit [email or web address]. It is important to note that some COVID mobile vaccine clinics are held outdoors and may be canceled in rainy orstormy conditions. To learn more about pediatric vaccinations (ages 5-11), we invite you to visit the [facility] webpage. [email or web address] [email or web address] learn more about the COVID-19 vaccine, we invite you to visit the [facility] website for a list of frequently asked questions. [email or web address] [facility] Patient Portal Access Instructions: Stay connected with your healthcare team and access your personal medical information anytime with the [facility] Patient Portal. If you would like a full copy of your medical records please contact the [facility] Medical Records Department Saturday through Saturday between 8a.m. and 4:30p.m. Please follow the directions below to access the portal: 1.Access the email account you provided upon registration to the [facility].2.Look for an invitation email from [facility].3.Open the email and access the invitation link: Accept Invitation to [facility]4.Fill in the required smith to create your account. Sign into [email or web address] with your username and password that you created in the above steps to stay up to date. You can then view a summary of results, a summary of your visits, and the ability to download your summaries to your computer or send the information securely to a physician. Remember that your healthcare information is confidential, so carefully consider who you will allow to register on the [facility] [facility] Patient Portal for access to your information. You can also access the [facility] Patient Portal on the [employer]. Simply click on "Health Records" under "[employer]" and then click on the [employer] logo. HOW TO SAFELY DISPOSE OF PRESCRIPTION MEDICATIONS Please use one of the following methods to safely dispose of your unused medications. 1.Use a drug disposal kit: the drug disposal pouch allows you to safely discard your old and unuseddrugs. Ask your nurse to give you one when you are discharged.2.Visit a local take-back location: Many local pharmacies and police departments have programs that collect old and unwanted prescriptiondrugs. Call your local pharmacy or go to http://[employer]/7E4Fn3a to find one close to you.3.Make use of household items: Use cat litter or old coffee grounds to dispose medications if other options arenot available. Mix your drugs with these household products, seal them in an airtight container andthrow it into the garbage. Call [facility]: [phone] to be sure your drugs can be disposed of in this way. Some medicines may require a different approach.4.Never flush your medications down the toilet. IF YOU HAVE BEEN PRESCRIBED AN OPIOIDS FOR PAIN If you have been prescribed an opioid (such as hydrocodone, oxycodone or morphine), it is critical to understand the possible side effects and risks of opioid pain medications. Even when taken as directed, opioids can have several side effects including: Tolerance, meaning you might need to take more of a medication for the same pain relief. Nausea, vomiting and/or constipation. Sleepiness, dizziness, dry mouth, confusion, depression or itching. Physical dependence, meaning you have withdrawal symptoms when a medication is stopped ? this can develop within a few days. KNOW YOUR RESPONSIBILITIES It is important to know exactly how much and how often to take the opioid pain medications you are prescribed. Never take opioids in higher amounts or more often than prescribed. Do not combine opioids with alcohol or other drugs that cause drowsiness, such as benzodiazepines, also known as benzos,including diazepam and alprazolam, muscle relaxants or sleep aids. Never sell or share prescriptionopioids. This is illegal. Store opioids in a secure place and out of reach of others (including children, family, friends and visitors). The last page(s) of this document has been signed and retained as a CHART COPY Signatures Patient Education Materials Chest Pain, Noncardiac Medication Leaflets ketorolac (oral/injection) My discharge plan and instructions have been reviewed and explained to me and I,BRANDAN IDALIA understand my current condition and have read and understand these discharge instructions. I have received a written copy of the plan/instructions. If I have questions, I am aware that I should contact my doctor. Patient/Waste Duster Signature: Date/Time: Relationship to Patient: Witness Name/Signature: Date/Time: [facility]07-04-2022 Note ORIGINAL EXAMINATION: ONE XRAY VIEW OF THE CHEST 12/25/2021 12:43 pm COMPARISON: Chest radiograph April 02, 2019 HISTORY: ORDERING SYSTEM PROVIDED HISTORY: Reason for Exam: SOB/cough/fever FINDINGS: The cardiomediastinal silhouette is relatively stable. No overt central vascular congestion, large pleural effusion or significant appreciable pneumothorax. The lungs are predominantly clear. No acute osseous abnormality. IMPRESSION: No acute radiographic process. Interpreted by: Sharyn Evans MD Preliminary Report By: Sharyn Evans MD Electronically signed By Sharyn Evans MD Dictated Date: 12/25/2021 12:51:57 PM Prelim Date: 12/25/2021 12:53:05 PM Sign Date: 12/25/2021 12:53:05 PM Ordering Provider: JOE TINOCO [facility]07-04-2022 Note ORIGINAL EXAMINATION: ONE XRAY VIEW OF THE CHEST 12/25/2021 12:43 pm COMPARISON: Chest radiograph April 02, 2019 HISTORY: ORDERING SYSTEM PROVIDED HISTORY: Reason for Exam: SOB/cough/fever FINDINGS: The cardiomediastinal silhouette is relatively stable. No overt central vascular congestion, large pleural effusion or significant appreciable pneumothorax. The lungs are predominantly clear. No acute osseous abnormality. IMPRESSION: No acute radiographic process. Interpreted by: Sharyn Evans MD Preliminary Report By: Sharyn Evans MD Electronically signed By Sharyn Evans MD Dictated Date: 12/25/2021 12:51:57 PM Prelim Date: 12/25/2021 12:53:05 PM Sign Date: 12/25/2021 12:53:05 PM Ordering Provider[facility] [place] [facility] Diagnosis Pain from breast implant, initial encounter- Primary Ruptured left breast implant, initial encounter Hyperlipidemia, unspecified hyperlipidemia type Screening for diabetes mellitus [facility] Diagnosis Varicose veins of both lower extremities with pain- Primary [facility]* Diagnosis Bronchitis- Primary Bronchitis, not specified as acute or chronic [facility]* Diagnosis Well female exam with routine gynecological exam- Primary Routine gynecological examination Chronic hepatitis C without hepatic coma (CMS/HCC) (HCC) Primary insomnia Persistent disorder of initiating or maintaining sleep History of drug abuse (CMS/HCC) (HCC) Other, mixed, or unspecified nondependent drug abuse, in remission Constipation, unspecified constipation type OAB (overactive bladder) Midline cystocele Cystocele, midline Hyperlipidemia, unspecified hyperlipidemia type Mild episode of recurrent major depressive disorder (HCC) Anxiety Anxiety state, unspecified PTSD (post-traumatic stress disorder) Posttraumatic stress disorder Cough, unspecified type Chest congestion Other symptoms involving respiratory system and chest Cigarette nicotine dependence without complication Encounter for Papanicolaou smear for cervical cancer screening documented [facility] Diagnosis Pain from breast implant, initial encounter- Primary Ruptured left breast implant, initial encounter [facility]* Diagnosis Cough, unspecified type Chest congestion Other symptoms involving respiratory system and chest Cigarette nicotine dependence without complication [facility]* Diagnosis Pain from breast implant, initial encounter- Primary Ruptured left breast implant, initial encounter [facility]* Diagnosis Pain from breast implant, initial encounter Ruptured left breast implant, initial encounter [facility] Diagnosis Pain from breast implant, initial encounter Ruptured left breast [facility], initial encounter [facility] Diagnosis Acute non-recurrent pansinusitis- Primary [facility]* Diagnosis Pain from breast implant, initial encounter- Primary Ruptured left breast implant, initial encounter documented in this encounter [facility] note* Diagnosis Pain from breast implant, initial encounter- Primary [facility]* Diagnosis Sinobronchitis- Primary Chronic shortness of breath [facility]* Diagnosis Bronchitis- Primary Bronchitis, not specified as acute or chronic Cigarette nicotine dependence without complication documented in this encounter [facility] note* Diagnosis Primary insomnia- Primary Persistent disorder of initiating or maintaining sleep History of hepatitis C Personal history of other infectious and parasitic disease History of drug abuse (CMS/HCC) (HCC) Other, mixed, or unspecified nondependent drug abuse, in remission Constipation, unspecified constipation type OAB (overactive bladder) Midline cystocele Cystocele, midline Hyperlipidemia, unspecified hyperlipidemia type Mild episode of recurrent major depressive disorder (HCC) Anxiety Anxiety state, unspecified PTSD (post-traumatic stress disorder) Posttraumatic stress disorder Elevated fasting glucose Impaired fasting glucose Cigarette nicotine dependence without complication Bronchitis Bronchitis, not specified as acute or chronic Pedal edema Edema Screening for colon cancer Special screening for malignant neoplasms, colon documented in this encounter [facility] note* Diagnosis Dependent edema- Primary Edema OAB (overactive bladder) Mixed stress and urge urinary incontinence Mixed incontinence urge and stress (male)(female) documented [facility] this [facility]* Diagnosis Acute left ankle pain- Primary [facility]* Diagnosis Dependent edema- Primary Edema Acute left ankle pain Left foot pain Pain in soft tissues of limb documented in this encounter [facility] note* Diagnosis Acute left ankle pain Left foot pain Pain in soft tissues of limb [facility]* Diagnosis Erythema of foot- Primary Bilateral swelling of feet Swelling of limb Pain and swelling of left lower leg documented [facility] this [facility]* Diagnosis Bilateral lower extremity edema- Primary Polyarthralgia Pain in joint, multiple sites Hypothyroidism, unspecified type documented [facility]* Diagnosis Chronic shortness of breath documented [facility]* Diagnosis Menopause- Primary Symptomatic menopausal or female climacteric states [facility]* Diagnosis Menopause- Primary Symptomatic menopausal or female climacteric states documented [facility]* Diagnosis Bronchitis- Primary Bronchitis, not specified as acute or chronic Chronic shortness of breath [facility]* Diagnosis Bronchitis- Primary Bronchitis, not specified as acute or chronic Cigarette nicotine dependence without complication Dependent edema- Primary Edema OAB (overactive bladder) Mixed stress and urge urinary incontinence Mixed incontinence urge and stress (male)(female) Well female exam with routine gynecological exam- Primary Routine gynecological examination Primary insomnia Persistent disorder of initiating or maintaining sleep History of hepatitis C Personal history of other infectious and parasitic disease History of drug abuse (CMS/HCC) (HCC) Other, mixed, or unspecified nondependent drug abuse, in remission Constipation, unspecified constipation type OAB (overactive bladder) Midline cystocele Cystocele, midline Hyperlipidemia, unspecified hyperlipidemia type Mild episode of recurrent major depressive disorder ([facility]) Anxiety Anxiety state, unspecified PTSD (post-traumatic stress disorder) Posttraumatic stress disorder Cigarette nicotine dependence without complication Encounter for Papanicolaou smear for cervical cancer screening Screening for diabetes mellitus Screening for lung cancer Screening mammogram for breast cancer Flu vaccine need documented [facility]* Diagnosis Bronchitis- Primary Bronchitis, not specified as acute or chronic Cigarette nicotine dependence without complication Dependent edema- Primary Edema OAB (overactive bladder) Mixed stress and urge urinary incontinence Mixed incontinence urge and stress (male)(female) Chronic shortness of breath documented [facility]* Diagnosis Bronchitis- Primary Bronchitis, not specified as acute or chronic Cigarette nicotine dependence without complication Dependent edema- Primary Edema OAB (overactive bladder) Mixed stress and urge urinary incontinence Mixed incontinence urge and stress (male)(female) Centrilobular emphysema (HCC)- Primary documented [facility]* Diagnosis Bronchitis- Primary Bronchitis, not specified as acute or chronic Cigarette nicotine dependence without complication Dependent edema- Primary Edema OAB (overactive bladder) Mixed stress and urge urinary incontinence Mixed incontinence urge and stress (male)(female) Centrilobular emphysema (HCC)- Primary Cigarette nicotine dependence without complication Screening for lung cancer documented [facility]* Diagnosis Bronchitis- Primary Bronchitis, not specified as acute or chronic Cigarette nicotine dependence without complication Dependent edema- Primary Edema OAB (overactive bladder) Mixed stress and urge urinary incontinence Mixed incontinence urge and stress (male)(female) Centrilobular emphysema (HCC)- Primary Chronic shortness of breath [facility]* Diagnosis Bronchitis- Primary Bronchitis, not specified as acute or chronic Cigarette nicotine dependence without complication Dependent edema- Primary Edema OAB (overactive bladder) Mixed stress and urge urinary incontinence Mixed incontinence urge and stress (male)(female) Centrilobular emphysema (HCC)- Primary Screening mammogram for breast cancer documented in this [facility]* Diagnosis Bronchitis- Primary Bronchitis, not specified as acute or chronic Cigarette nicotine dependence without complication Dependent edema- Primary Edema OAB (overactive bladder) Mixed stress and urge urinary incontinence Mixed incontinence urge and stress (male)(female) Centrilobular emphysema (HCC)- Primary Primary insomnia- Primary Persistent disorder of initiating or maintaining sleep History of drug abuse (HCC) Other, mixed, or unspecified nondependent drug abuse, in remission Constipation, unspecified constipation type OAB (overactive bladder) Midline cystocele Cystocele, midline Urinary urgency Urgency of urination Bladder spasms Hypertonicity of bladder Hyperlipidemia, unspecified hyperlipidemia type Mild episode of recurrent major depressive disorder (HCC) Anxiety Anxiety state, unspecified PTSD (post-traumatic stress disorder) Posttraumatic stress disorder Centrilobular emphysema (HCC) Cigarette nicotine dependence with nicotine-induced disorder documented in this encounter [facility] noteNo assessment information availableWSelect [facility] Work Phone: Hospital course Narrative No data available for this section [facility] Instructions* Attachments The following attachments cannot be sent through Care Everywhere. * Cervical Cancer Screening Tests ([place]ian) [facility] Attachments The following attachments cannot be sent through Care Everywhere. * Flu Vaccine ([place]ian) [facility] (n[facility])* Consultation (Routine) - Pending Review Specialty Diagnoses / Procedures Referred By Kelsey gayle Referred To Contact Plastic Surgery Diagnoses Pain from breast implant, initial encounter Ruptured left breast implant, initial encounter Procedures [place] OFFICE/OUTPATIENT NEW HIGH MDM 60-74 MINUTES Henrietta Knowles, WATER CHEMIST - COLLECTIONS ASSISTANT [address] [place] [address] [facility] [employer] [address] [place] [address] [place] [address] Referral ID Status Reason Start Date Expiration Date Visits Requested Visits Authorized [id number] Pending Review Specialty Services Required 02/22/2023 02/22/2024 1 1 [facility] (narrative)* Consultation (Routine) - Authorized Specialty Diagnoses / Procedures Referred By Contac t Referred To Contact Cardiology Diagnoses Bilateral lower extremity edema Polyarthralgia Hypothyroidism, unspecified type Procedures [place] OFFICE/OUTPATIENT [facility] 60 MINUTES Shahab Parker MD [address] [place] [phone] [facility] [address] [place] [address] Referral ID Status Reason Start Date Expiration Date Visits Requested Visits Authorized [id number] Authorized Specialty Services Required 12/02/2023 12/01/2024 1 1 * Imaging (Routine) - Pending Review Specialty Diagnoses / Procedures Referred By Contac t Referred To Contact Cardiology Diagnoses Bilateral lower extremity edema Procedures Vascular US lower extremity venous duplex right Shahab Parker MD [address] [place] [phone] Referral ID Status Reason Start Date Expiration Date V isits Requested Visits Authorized [id number] Pending Review 12/02/2023 12/01/2024 1 1 * Imaging (Routine) - Pending Review Specialty Diagnoses / Procedures Referred By Contac t Referred To Contact Cardiology Diagnoses Bilateral lower extremity edema Procedures Vascular US lower extremity venous duplex left Shahab Parker MD [address] [place] [phone] Referral ID Status Reason Start Date Expiration Date V isits Requested Visits Authorized [id number] Pending Review 12/02/2023 12/01/2024 1 1 [facility] (n[facility]ative)No reason for referral information availableWSelect Medical Special[facility] [place] Work Phone: Reason for visit Narrative* Imaging (Routine) - Closed Specialty Diagnoses / Procedures Referred By Contac t Referred To Contact Radiology Diagnoses Cigarette nicotine dependence without complication Screening for lung cancer Procedures CT lung screening low dose Henrietta Knowles, WATER CHEMIST - COLLECTIONS ASSISTANT [address] [place] [address] Phone: tel: fax: Referral ID Status Reason Start Date Expiration Date Visits Re quested Visits Authorized [id number] Closed 04/15/2024 04/15/2025 1 1 [facility] N[facility]ative* Imaging (Routine) - Closed Specialty Diagnoses / Procedures Referred By Contac t Referred To Contact Radiology Diagnoses Chronic shortness of breath Procedures Complete PFT pre and post bronchodilator Osbaldo Salguero APRN - COLLECTIONS ASSISTANT [address] [place] [address] Phone: tel: fax: Referral ID Status Reason Start Date Expiration Date Visits Re quested Visits Authorized [id number] Closed 03/24/2024 03/19/2025 1 1 [facility] Summary Purpose Family History No Family History Records FoundNo Family History Records FoundNo Family History Records FoundNo Family History Records Found No data available for this section No data available for this section No Family History Records Found No data available for this section No Family History Records FoundNo Family History Records FoundNo Family History Records Found Advance Directives No Advanced Directives Records FoundNo Advanced Directives Records FoundNo Advanced Directives Records FoundNo Advanced Directives Records FoundNo Advanced Directives Records FoundNo Advanced Directives Records FoundNo Advanced Directives Records FoundNo Advanced Directives Records Found Reason for Referral Specialty Diagnoses / Procedures Referred By Contac t Referred To Contact Radiology Diagnoses Chronic shortness of breath Procedures Complete PFT pre and post bronchodilator Osbaldo Salguero, WATER CHEMIST - COLLECTIONS ASSISTANT [address] [place] [address] Referral ID Status Reason Start Date Expiration Date V isits Requested Visits Authorized [id number] Authorized 03/24/2024 03/19/2025 1 1 Specialty Diagnoses / Procedures Referred By Contac t Referred To Contact Diagnoses Chronic shortness of breath Procedures Complete PFT study Henrietta Knowles, WATER CHEMIST - COLLECTIONS ASSISTANT [address] [place] [address] Referral ID Status Reason Start Date Expiration Date V isits Requested Visits Authorized [id number] Pending Review 08/21/2023 08/15/2024 1 1 Chief Complaint and Reason for Visit Chief Complaint Admit Date LONG-TERM LAB WORK October 28, 2024 5:00 am LABWORK November 04, 2024 5:00a m Chief Complaint Admit Date LABWORK November 04, 2024 5:00a m Additional Source Comments INFORMATION SOURCE (unrecogn ized section and content) DATE CREATED AUTHOR 12/13/2017 [facility] DATE CREATED AUTHOR AUTHOR'S ORGANIZ ATION 07/08/2019 [facility] DATE CREATED AUTHOR AUTHOR'S ORGANIZ ATION 11/08/2020 [facility] DATE CREATED AUTHOR AUTHOR'S ORGANIZ ATION 06/21/2022 [facility] DATE CREATED AUTHOR AUTHOR'S ORGANIZ ATION 10/27/2023 [facility] [place] DATE CREATED AUTHOR AUTHOR'S ORGANIZ ATION 10/31/2024 [facility] DATE CREATED AUTHOR AUTHOR'S ORGANIZ ATION 11/20/2024 [facility] DATE CREATED AUTHOR AUTHOR'S ORGANIZ ATION 12/10/2024 [facility] Care Team (unrecognized sect ion and content) Care Team Personnel Name: CHRISTINA ANDERSEN, ADRIANA Lopez Member Role: Primary Care Physician Address: Address: [address] [place] [address] Care Team Related Persons Name: ASHUTOSH MEJIA Address: Home [address] [place] [address] Reason for Visit (unrecogniz ed section and content) Reason Comments breast implant problem Reason Comments Leg Swelling Left leg swelling, w arm Reason Comments Cough Shortness of Breath Wheezing Reason Comments Gynecologic Exam Reason Comments New Patient Specialty Diagnoses / Procedures Referred By Kelsey gayle Referred To Contact Plastic Surgery Diagnoses Pain from breast implant, initial encounter Ruptured left breast implant, initial encounter Procedures [place] OFFICE/OUTPATIENT NEW HIGH MDM 60-74 MINUTES Henrietta Knowles S, WATER CHEMIST - COLLECTIONS ASSISTANT [address] [place] [address] [place] [address] [facility] [employer] [address] [place] [address] [place] [address] Referral ID Status Reason Start Date Expiration Date Visits Requested Visits Authorized [id number] Pending Review Specialty Services Required 02/22/2023 02/22/2024 1 1 Reason Onset Date Comments Sore Throat 05/23/2023 Reason Comments Follow-up Reason Onset Date Comments Nasal Congestion 08/21/2023 Reason Comments Earache B/l Sinus Problem Congestion. States m ore respiratory, mucus started coming out of chest and nose, last Saturday started turning a green color Saturday/Saturday. OTC Fever Generalized Body Aches Reason Onset Date Comments Breathing Problem 09/16/2023 Cough 09/16/2023 Reason Comments Cough Shortness of Breath Wheezing Reason Comments Medication Check Health Maintenance HIV screen- declines CRCS- has cologaurd at home Hyperlipidemia Anxiety Depression Reason Comments ER Follow-up Berta Rowland- - started on Keflex but has not started it yet - cellulitis Leg swelling Reason Comments Foot Problem Left- still red, lottie d to bend at ankle area, painful Reason Comments Follow-up Left foot and leg- s till painful, swollen up to knee and pain goes to under knee capFinished steroid Antibiotic- pt thinks has given her diarrhea - has 2 more days and not sure if she can finish it (was given Keflex from a previous ED visit ) Reason Onset Date Comments Test Scheduling 11/14/2023 Reason Comments New Patient Foot Pain left Specialty Diagnoses / Procedures Referred By Kelsey gayle Referred To Contact Orthopedic Surgery Diagnoses Pain and swelling of left lower leg Augustin Jordan MD [address] [place] [address] [facility] [address] [place] [address] Referral ID Status Reason Start Date Expiration Date Visits Requested Visits Authorized [id number] Pending Review Specialty Services Required 11/15/2023 11/14/2024 1 1 Reason Onset Date Comments Referral 11/29/2023 Reason Onset Date Comments Surgery Scheduling 04/10/2023 [facility] Reason Onset Date Comments Scheduling 12/14/2023 Reason Comments Med Refill Reason Onset Date Comments Request For Order(s) 03/11/2024 Reason Comments Cough States that she has been wheezing, feels like her chest is crackling, feels like she can't breathe. Also has an ear ache along with sore throat. Has been using her albuterol. Reason Onset Date Comments Shortness of Breath 03/23/2024 Reason Comments Gynecologic Exam Health Maintenance Lung cx screen- decl tiffanie CRCS- declines Flu- agreesCovid- not done Blood Work Reason Onset Date Comments Med Refill 04/27/2024 albuterol 108 (9 0 Base) MCG/ACT inhaler Reason Onset Date Comments Cough 05/22/2024 Reason Onset Date Comments Orders 06/01/2024 CT-Lung Screen Reason Onset Date Comments Cough 06/09/2024 Reason Comments Wheezing When start moving ar ound - bring up light green Cough Chills Sometimes hot and so metimes cold Reason Onset Date Comments Advice Only 08/14/2024 Reason Onset Date Comments Urinary Symptom 09/04/2024 Reason Comments Medication Check Anxiety Depression Hyperlipidemia Insomnia Health Maintenance Hiv screen- declines CRCS- declines PNA- agrees Blood Work Care Teams (unrecognized sec tion and content) Video Camera Operator Relationship Specialty Start Date End Date Augustin Jordan MD [address] [place] [address] [id number] PCP - General 04/26/16 Video Camera Operator Relationship Specialty Start Date End Date Augustin Jordan MD [address] [place] [id number] PCP - General 04/26/16 Video Camera Operator Relationship Specialty Start Date End Date Augustin Jordan MD [address] [place] [address] PCP - General 04/26/16 Video Camera Operator Relationship Specialty Start Date End Date Augustin Jordan MD [address] [place] [address] PCP - General 04/26/16 Video Camera Operator Relationship Specialty Start Date End Date Augustin Jordan MD [address] [place] [address] PCP - General 04/26/16 Video Camera Operator Relationship Specialty Start Date End Date Augustin Jordan MD [address] [place] [address] PCP - General 04/26/16 Video Camera Operator Relationship Specialty Start Date End Date Augustin Jordan MD [address] [place] [address] PCP - General 04/26/16 Video Camera Operator Relationship Specialty Start Date End Date Augustin Jordan MD [address] [place] [address] PCP - General 04/26/16 Video Camera Operator Relationship Specialty Start Date End Date Augustin Jordan MD [address] [place] [address] PCP - General 04/26/16 Video Camera Operator Relationship Specialty Start Date End Date Augustin Jordan MD [address] [place] [address] PCP - General 04/26/16 Video Camera Operator Relationship Specialty Start Date End Date Augustin Jordan MD [address] [place] [address] PCP - General 04/26/16 Video Camera Operator Relationship Specialty Start Date End Date Augustin Jordan MD [address] [place] [address] PCP - General 04/26/16 Video Camera Operator Relationship Specialty Start Date End Date Augustin Jordan MD [address] [place] [address] PCP - General 04/26/16 Video Camera Operator Relationship Specialty Start Date End Date Augustin Jordan MD [address] [facility] [place] [address] PCP - General 04/26/16 Video Camera Operator Relationship Specialty Start Date End Date Augustin Jordan MD [address] [facility] [place] [address] PCP - General 04/26/16 Video Camera Operator Relationship Specialty Start Date End Date Augustin Jordan MD [address] [facility] [place] [address] PCP - General 04/26/16 Video Camera Operator Relationship Specialty Start Date End Date Augustin Jordan MD [address] [facility] [address] PCP - General 04/26/16 Video Camera Operator Relationship Specialty Start Date End Date Augustin Jordan MD [address] [place] [address] PCP - General 04/26/16 Video Camera Operator Relationship Specialty Start Date End Date Augustin Jordan MD [address] [place] [address] PCP - General 04/26/16 Video Camera Operator Relationship Specialty Start Date End Date uAgustin Jordan MD [address] [facility] [address] PCP - General 04/26/16 Video Camera Operator Relationship Specialty Start Date End Date Augustin Jordan MD [address] [facility] [place] [address] PCP - General 04/26/16 Video Camera Operator Relationship Specialty Start Date End Date Augustin Jordan MD [address] [facility] [place] [address] PCP - General 04/26/16 Video Camera Operator Relationship Specialty Start Date End Date Augustin Jordan MD [address] [facility] [place] [address] PCP - General 04/26/16 Video Camera Operator Relationship Specialty Start Date End Date Augustin Jordan MD [address] [facility] [place] [address] PCP - General 04/26/16 Video Camera Operator Relationship Specialty Start Date End Date Augustin Jordan MD [address] [place] [address] PCP - General 04/26/16 Video Camera Operator Relationship Specialty Start Date End Date Augustin Jordan MD [address] [place] [address] PCP - General 04/26/16 Video Camera Operator Relationship Specialty Start Date End Date Augustin Jordan MD [address] [facility] [place] [address] PCP - General 04/26/16 Video Camera Operator Relationship Specialty Start Date End Date Augustin Jordan MD [address] [place] [address] PCP - General 04/26/16 Video Camera Operator Relationship Specialty Start Date End Date Augustin Jordan MD [address] [place] [address] PCP - General 04/26/16 Video Camera Operator Relationship Specialty Start Date End Date Augustin Jordan MD [address] [place] [address] PCP - General 04/26/16 Video Camera Operator Relationship Specialty Start Date End Date Augustin Jordan MD [address] [facility] [place] [address] PCP - General 04/26/16 Team Status: Active Member Role Status Dates Dr. Adriana Vasquez MD Family Provider Active Dr. Adriana Vasquez MD Primary Care Provider Active Team Status: Inactive Member Role Status Dates Dr. Adriana Vasquez MD Primary Care Provider Active Start: October 28, 2024 End: October 28, 2024 Adolfo ALANIS Attending Provider Active Star t: October 28, 2024 End: October 28, 2024 Team Status: Inactive Member Role Status Dates Dr. Adriana Vasquez MD Primary Care Provider Active Start: November 04, 2024 End: November 04, 2024 Adolfo ALANIS Attending Provider Active Star t: November 04, 2024 End: November 04, 2024 Team Status: Active Member Role Status Dates Dr. Adriana Vasquez MD Primary Care Provider Active Start: October 28, 2024 Adolfo ALANIS Attending Provider Active Star t: October 28, 2024 Goals (unrecognized section and content) Goals may be documented in a n alternate section FOR RECORDS PERTAINING TO PATIENTS WHO ARE OR HAVE BEEN ENROLLED IN A CHEMICAL DEPENDENCY/SUBSTANCEABUSE PROGRAM, SOME INFORMATION MAY BE OMITTED. This clinical summary was aggregated from multiple sources. Caution should be exercised in using it in the provision of clinical care. This summary normalizes information from multiple sources, and as a consequence, information in this document may materially change the coding, format and clinical context of patient data. In addition, data may be omitted in some cases. CLINICAL DECISIONS SHOULD BE BASED ON THE PRIMARY CLINICAL RECORDS. [employer] [facility]. provides no warranty or guarantee of the accuracy or completeness of information in this document.
[2024-12-11 08:20] LABS: Hematocrit 36.8 % (37-47); Hemoglobin 11.6 g/dL (12.0-15.0); Mean Corp Hgb Conc 31.5 g/dL (32-36); Mean Corpuscular Hgb 27.6 pg (27.0-32.0); Mean Corpuscular Volume 87.4 fL (81-99); Mean Platelet Vol. 9.4 fl (6.2-12.0); Platelet Count 144 K/mm3 (150-450); RBC Distribution Width CV 13.5 % (11.6-14.6); RBC Distribution Width SD 42.8 fl (35.1-43.9); Red Blood Count 4.21 M/mm3 (4.2-5.4); White Blood Count 7.6 K/mm3 (4.4-11.0)
[2024-12-11 08:29] LABS: Anion Gap 11 (5-15); BUN 12 mg/dL (4-19); BUN/Creat Ratio 14.9 RATIO (10-20); Calcium,Total 9.7 mg/dL (7.6-11.0); Carbon Dioxide 20.4 mmol/L (21.0-32.0); Chloride 110 mmol/L (98-108); EST Glomerular Filtration Rate 85 (>60); Glucose 105 mg/dL (70-99); Sodium Level 141 mmol/L (133-145)
== END ==
LOC: OLS.ACW100 05:00
PROVIDERS: PCP Student in an Organized Health Care Education/Training Program; Visit Provider Family Medicine
DX: S82.142D Displaced bicondylar fracture of left tibia, subsequent encounter for closed fracture with routine healing (principal); S22.42XD Multiple fractures of ribs, left side, subsequent encounter for fracture with routine healing; R26.9 Unspecified abnormalities of gait and mobility
CPT/HCPCS: 36415; 80048; 85027

== ENCOUNTER → 2025-04-19 05:00 | Outpatient (REF) | payer MEDICAID, SELFPAY ==
--- OUTSIDE RECORDS SUMMARY | 2025-04-19 03:44 | XMS RPT_ITS | CCD ---
Author Organization [facility]ini[facility]va Care Team Providers Care Senior Unix Administrator Name Role Phone PROVIDER, UNKNOWN Unavailable Unavailable Augustin Jordan Unavailable Unavailable Augustin Jordan Unavailable Melvi VASQUEZ MD, DR ADRIANA Lopez Primary Care Physician UnaAUGUSTIN Handley Attending Unavailable Nikki ANDERSEN, Augustin Deonte Primary Care Provider NIKKI ANDERSEN, DR WAN Primary Care Physician DARON CHRISTIANSEN, DR MERLINE Lee Attending Unavailable NIKKI ANDERSEN, DR WAN Primary Care Unavailcrow TINOCO MD, JOE Urrutia Attending Unavail able CHRISTINA ANDERSEN, DR ADRIANA Lopez Primary Care Unavailable NIKKI ANDERSEN, DR WAN Primary Care Unavailcrow WILBURN LOGISTICS MANAGEMENT SPECIALIST-POULTRY FARM LABORER, OSMAR Richardson Attending Tyson WILBURN APRN-POULTRY FARM LABORER, OSMAR Richardson Consulting Tyson WILBURN APRN-POULTRY FARM LABORER, OSMAR Richardson Admitting Tyson JORDAN MD, DR RENETTA Jaime Consulting Unavailab brianna SAGASTUME MD, MICHAEL Smalls Attending Unavailable NIKKI ANDERSEN, DR WAN Primary Care Unavailcrow Vasquez MD, Dr. Wright Primary Care Provider Adolfo Hughes Attending Provider UnavailAUGUSTIN Sousa Primary Care Unavailable HENRIETTA KNOWLES Attending Unavailable AUGUSTIN JORDAN Primary Care Unavailable CRISTY HESTER Referring Unavailable CRISTY HESTER Attending Unavailable AUGUSTIN JORDAN Primary Care Unavailable HENRIETTA KNOWLES Attending Unavailable NIKKI, AUGUSTIN Primary Care Unavailable RENETTA JORDAN Referring Unavailable RENETTA JORDAN Attending Unavailable NIKKI, AUGUSTIN Primary Care Unavailable HENRIETTA KNOWLES Referring Unavailable HENRIETTA KNOWLES Attending Unavailable NIKKI, AUGUSTIN Primary Care Unavailable HENRIETTA KNOWLES Referring Unavailable HENRIETTA KNOWLES Attending Unavailable NIKKI, AUGUSTIN Primary Care Unavailable HENRIETTA KNOWLES Referring Unavailable HENRIETTA KNOWLES Attending Unavailable NIKKI, AUGUSTIN Primary Care Unavailable HONGREAL, SARAH Referring Unavailable NIKKI, AUGUSTIN Primary Care Unavailable BRIDENTHAL, OSBALDO Referring Unavailable BRIDENTHAL, OSBALDO Attending Unavailable NIKKI, AUGUSTIN Primary Care Unavailable BRIDENTHAL, OSBALDO Referring Unavailable BRIDENTHAL, OSBALDO Attending Unavailable NIKKI, AUGUSTIN Primary Care Unavailable MIR, CRISTY Referring Unavailable MIR, CRISTY Attending Unavailable NIKKI, AUGUSTIN Primary Care Unavailable NIKKI, AUGUSTIN Attending Unavailable NIKKI, AUGUSTIN Primary Care Unavailable IMR, CRISTY Attending Unavailable NIKKI, AUGUSTIN Primary Care Unavailable KIARRA LEON Attending Unavailable NIKKI, AUGUSTIN Primary Care Unavailable MIR, CRISTY Attending Unavailable MIR, CRISTY Admitting Unavailable NIKKI, AUGUSTIN Primary Care Unavailable MIR, CRISTY Referring Unavailable MIR, CRISTY Attending Unavailable Adolfo Hughes Attending Unavailable Blissfield, Adriana Primary Care Unavailable Adolfo Hughes Attending Unavailable Blissfield, Adriana Primary Care Unavailable Adolfo Hughes Attending Unavailable Christina, Adriana Primary Care Unavailable Blissfield, Adriana Primary Care Unavailable Adolfo Hughes Attending Unavailable Allergies Allergy Classification Reported Allergen(s) Allergy Type Date of Onset Reaction(s) Facility (20 sources) buPROPion; Translations: [bupropion] Drug Allergy 10-27-19 16 [facility] (7 sources) Clarithromycin; Translations: [clarithromycin] Drug Allergy 11-28-19 16 Nausea/Vom/[facility] (20 sources) Erythromycin; Translations: [erythromycin] Drug Allergy 11-28-19 16 Nausea/Vom/[facility] (20 sources) Clarithromycin Propensity to adverse reactions 10-27-[address] [facility] (4 sources) buPROPion; Translations: [bupropion HCl] Drug Allergy 11-28-19 16 Nausea/Vom/[facility] (6 sources) Wound Dressing Adhesive Propensity to adverse reactions 03-05-[address] 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 Do not start before March 08, 2025. 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 12 tablet 03/05/2025 03/08/2025 Active albuterol 0.83 mg/ml inhalation solution (20 sources) beta2-Adrenergic Agonist Start: 10-26-2024 albut damir 2.5 mg/3 mL (0.083%) inhalation solution Dose [...] oral tablet (20 sources) Atypical Antipsychotic Start: 05-20-2024 take 1 tablet by mouth once daily ARIPiprazole (Abilify) 15 MG tablet Take 15 mg by mouth daily. 05/20/2024 Active Start: 03-12-2023 End: 06-10-2024 ARIPiprazole (Abilify) 10 MG tablet Take 15 mg by mouth daily. 03/12/2023 06/10/2024 Discontinued Start: 03-12-2023 take 1 tablet by [facility] once daily ARIPiprazole (Abilify) 10 MG tablet [...] Date: 10/21/24 Status: Ordered Repeat number: 1 End: 03-05-2025 buprenorphine ER (Sublocade) 100 mg/0.5mL injection Inject 1 each under the skin every month to absorb continually. LAST INJECTION 02/16/25 03/05/2025 Discontinued (Ineffective) buprenorphine 8 mg / naloxone 2 mg [...] mg oral tablet (20 sources) Start: 07-08-2020 take 1 tablet by mouth in the morning busPIRone (Buspar) 10 MG tablet Take 10 mg by mouth in the morning and 10 mg in the evening. 07/08/2020 Active cephalexin 500 mg oral capsule (2 sources) Cephalosporin Antibacterial Start: 10-20-2023 End: 10-27-2023 cephalexin 500 mg oral capsule Dose : 500 mg = 1 cap(s), Oral, QID, Take with a probiotic, X 7 day(s), # 28 cap(s), 0 Refill(s), 10/27/23 5:40:00 PM EDT, 70 Start Date: 10/20/23 Stop Date: 10/27/23 Status: Ordered cholecalciferol 0.01 mg oral tablet (6 sources) Vitamin D take 1 tablet by mouth once daily cholecalciferol (Vitamin D-3) 10 MCG (400 UNIT) tablet Take 400 Units by mouth daily. Active cloNIDine hydrochloride 0.1 mg oral tablet (20 sources) Central alpha-2 Adrenergic Agonist Start: 03-29-2021 take 1 tablet by mouth twice daily as needed for anxiety cloNIDine (Catapres) 0.1 MG tablet TAKE 1 TABLET BY MOUTH TWICE A DAY NEEDED FOR RESTLESSNESS OR ANXIETY 03/29/2021 Active docusate sodium 100 mg oral capsule (7 sources) Start: 10-26-2024 Colace 100 mg oral capsule Dose : 100 mg = 1 cap(s), Oral, qDay, 0 Refill(s) Start Date: 10/26/24 Status: Ordered Repeat number: 1 Docusate Sodium (COLACE PO) Take by mouth. Active 60 actuat formoterol fumarate 0.005 mg/actuat / mometasone furoate 0.1 mg/actuat metered dose inhaler (20 sources) Corticosteroid, beta2-Adrenergic Agonist Start: 06-10-2024 End: 10-14-2024 take 2 puff(s) by mouth twice daily mometasone-formoterol (Dulera) 100-5 MCG/ACT inhaler Indications: Centrilobular emphysema [...] Quantity: 30.0 Unit: tab(s) Repeat number: 1 mirtazapine 15 mg oral tablet (2 sources) Start: 12-02-2015 Remeron 15 mg oral tablet Dose : 30 mg = 2 tab(s), Oral, qHS, # 60 tab(s), 0 Refill(s) Start Date: 12/02/15 Status: Ordered Multiple Vitamin (MULTIVITAMIN ADULT PO) (6 sources) Multiple Vitamin (MULTIVITAMIN ADULT PO) Take by mouth daily. Active Multivitamin preparation (1 source) Start: 10-21-2024 take [...] chloride 5 mg extended release oral tablet (20 sources) Cholinergic Muscarinic Antagonist Start: 10-14-2024 take 1 tablet by mouth once daily oxybutynin XL (Ditropan XL) 5 MG 24 hr tablet Indications: OAB (overactive bladder) , Urinary urgency Take 1 tablet (5 mg) by mouth daily. Do not crush, chew, or split. 30 tablet 10/14/2024 Active polyethylene glycol 3350 22487 mg powder for oral solution (1 source) [...] tablets by mouth every evening. 08/06/2018 Active 24 hr venlafaxine 37.5 mg extended release oral capsule (6 sources) Serotonin and Norepinephrine Reuptake Inhibitor take 1 capsule by mouth once daily venlafaxine XR (Effexor XR) 37.5 MG 24 hr capsule Take 37.5 mg by mouth daily. Do not crush or chew. Active Vitamin D3 (1 source) Start: 10-22-19 Vitamin D3 Dose : 10 mcg = 1 tab(s), Oral, Daily, 0 Refill(s) Start Date: 10/21/24 Status: Ordered Repeat number: 1 vortioxetine 20 mg oral tablet (20 sources) Start: 01-04-20 Trintellix Oral, qDay, 0 Refill(s) Start Date: 01/03/19 Status: Ordered Start: 11-05-2016 take 1 tablet by jp th in the morning Vortioxetine HBr (Trintellix) 20 MG tablet Take 20 mg by mouth in the morning. 11/05/2016 Active Completed/Discontinued Medications Medication Drug Class(es) Dates Sig (Normalized) Sig (Original) Acetaminophen (8 sources) Start: 03-05-2025 End: 03-05-2025 IntraVENous, Administer over 15 Minutes, As needed, Starting on Sat03/05/25 at 1430, Anesthesia Intraprocedure Start: 10-26-2024 Tylenol Dose : 1,000 mg = 2 tab(s), Oral, TID, 0 Refill(s) Start Date: 10/26/24 Status: Ordered Repeat number: 1 [facility] 2 [facility] eight hours as needed for pain acetaminophen (Tylenol) 500 MG tablet Take 1,000 mg by mouth every 8 hours as needed for mild pain (1-3). Active ALPRAZolam 0.5 mg disintegrating oral tablet (2 sources) Benzodiazepine Start: 03-05-2025 End: 03-05-2025 0.5 mg, Oral, PRN, anxiety, Starting on Sat03/05/25 at 1122, For 1 dose, Preprocedure benztropine mesylate 0.5 mg oral tablet (9 sources) Anticholinergic, Antihistamine Start: 03-22-2024 End: 06-10-2024 take 1 tablet by mouth once daily benztropine (Cogentin) 0.5 MG tablet Take 0.5 mg by mouth daily. 03/22/2024 06/10/2024 Discontinued (Therapy completed) calcium chloride 0.0014 meq/ml / potassium chloride 0.004 meq/ml / sodium chloride 0.103 meq/ml / sodium lactate 0.028 meq/ml injectable solution (3 sources) Start: 03-05-2025 End: 03-05-2025 take 50 mL intravenously every hour 50 mL/hr, IntraVENous, Continuous, Starting on Sat03/05/25 at 0945, Preprocedure, Upon admission to sameday - please start iv if patient does not have iv access. Use 500ml NS for patients on dialysis. ceFAZolin (Ancef) 2,000 mg in sodium chloride 0.9 % 100 mL IVPB (1 source) Start: 03-05-2025 End: 03-05-2025 2,000 mg, IntraVENous, at 200 mL/hr, Administer over 30 Minutes, Clerk Stenographer to O.R., On Sat03/05/25 at 0945, For 1 dose, Preprocedure, Administer within 1 hour prior to incision. Recommend to repeat in 3-4 hours after initial dose if still intra-op. Mini-Bag Plus bag, Suspected Indication (Select all that apply): Surgical Prophylaxis 1 ml dexamethasone phosphate 10 mg/ml injection (1 source) Corticosteroid Start: 03-05-2025 End: 03-05-2025 IntraVENous, As needed, Starting on Sat03/05/25 at 1233, Anesthesia Intraprocedure dexmedeTOMIDine HCl in NaCl (Precedex) injection (1 source) Start: 03-05-2025 End: 03-05-2025 IntraVENous, As needed, Starting on Sat03/05/25 at 1247, Anesthesia Intraprocedure dextromethorphan hydrobromide 2 mg/ml / guaiFENesin 20 mg/ml oral suspension (2 sources) Uncompetitive [id number]-I-[place]part[place] te Receptor Antagonist, Sigma-1 Agonist Start: 03-24-2024 End: 04-15-2024 take 10 mL by mouth every four hours as needed for cough guaiFENesin-dextr omethorphan (Robitussin DM) 100-10 MG/5ML syrup Indications: Bronchitis Take 10 mL by mouth every 4 hours as needed for cough for up to 10 days. 118 mL 03/24/2024 04/15/2024 Discontinued 1 ml diphenhydrAMINE hydrochloride 50 mg/ml cartridge (2 sources) Histamine-1 Receptor Antagonist Start: 03-05-2025 End: 03-05-2025 12.5 mg, IntraVENous, Once PRN, itching, Starting on Sat03/05/25 at 1506, For 1 dose, Recovery (only) Elastic Bandages & Supports (Medical Compression Stockings[place] [facility] (17 sources) Start: 03-04-2023 End: 08-21-2023 Elastic Bandages & Supports (Medical Compression Stockings) [facility] [place]ications: Varicose veins of both lower extremities with pain 2 each daily. 15-20 mmHg; knee high 2 each 03/04/2023 08/21/2023 Discontinued Start: 03-04-2023 End: 08-21-2023 Elastic Bandages & Supports (Medical Compression Stockings) mis Indications: Varicose veins of both lower extremities with pain 2 each daily. 15-20 mmHg; knee high 2 each 0 03/04/2023 08/21/2023 Discontinued Start: 03-04-2023 Elastic Bandag es & Supports (Medical Compression Stockings) [facility] [place]ications: Varicose veins of both lower extremities [...] mouth daily. 30 tablet 2 10/22/2023 Active 1 ml HYDROmorphone hydrochloride 1 mg/ml cartridge (5 sources) Opioid Agonist Start: 03-05-2025 End: 03-05-2025 0.5 mg, IntraVENous, Every 5 min PRN, severe pain (7-10), Starting on Sat03/05/25 at 1506, For 4 doses, Recovery (only), For Phase I. If Phase II oral narcotics have been administered in the last 60 minutes, do not administer IV narcotics unless specifically approved by provider. Start: 03-05-2025 End: 03-05-2025 0.25 mg, IntraVENous, Every 5 min PRN, moderate pain (4-6), Starting on Sat03/05/25 at 1506, For 4 doses, Recovery (only), For Phase I. If Phase II oral narcotics have been administered in the last 60 minutes, do not administer IV narcotics unless specifically approved by provider. Start: 03-05-2025 End: 03-05-2025 IntraVENous, As needed, Star ting on Sat03/05/25 at 1430, Anesthesia Intraprocedure ipratropium bromide 0.042 mg/actuat metered dose nasal [...] days. 15 mL 0 10/05/2022 04/08/2023 Discontinued ketamine 10 mg/ml injectable solution (1 source) General Anesthetic Start: 03-05-2025 End: 03-05-2025 IntraVENous, As needed, Starting on Sat03/05/25 at 1233, Anesthesia Intraprocedure 1 ml ketorolac tromethamine 30 mg/ml cartridge (4 sources) Nonsteroidal Anti-inflammatory Drug, Cyclooxygenase Inhibitor Start: 03-05-2025 End: 03-05-2025 15 mg, IntraVENous, Once, On Sat03/05/25 at 1545, For 1 dose, Recovery (only) Start: 03-05-2025 End: 03-05-2025 15 mg, IntraVENous, Once, On Sat03/05/25 at 1545, For 1 dose, Recovery (only) Start: 03-05-2025 End: 03-05-2025 IntraVENous, As needed, Star ting on Sat03/05/25 at 1430, Anesthesia Intraprocedure Start: 12-25-2021 End: 12-30-2021 ketorolac 10 mg oral tablet Dose : 10 mg = 1 tab(s), Oral, QID, PRN as needed for pain, not to exceed 40 mg/day and 5 days duration for all dose forms, X 5 day(s), # 20 tab(s), 0 Refill(s), 12/30/21 13:15:00 EDT, Chest wall pain Start Date: 12/25/21 Stop Date: 12/30/21 Status: Ordered labetalol (Normodyne,Trandate) injection 5 mg (2 sources) Start: 03-05-2025 End: 03-05-2025 labetalol (Normodyne,Trandate) injection 5 mg 10 ml lidocaine hydrochloride 20 mg/ml injection (1 source) Antiarrhythmic, Amide Local Anesthetic Start: 03-05-2025 End: 03-05-2025 IntraVENous, As needed, Starting on Sat03/05/25 at 1233, Anesthesia Intraprocedure 1 ml LORazepam 2 mg/ml injection (2 sources) Benzodiazepine Start: 03-05-2025 End: 03-05-2025 0.5 mg, IntraVENous, Once PRN, for anxiety or muscle spasm., Starting on Sat03/05/25 at 1506, For 1 dose, Recovery (only), For IV doses dilute dose with 1ml NS. methylPREDNISolone 4 mg oral tablet (20 sources) Corticosteroid Start: 06-10-2024 End: 10-14-2024 methylPREDNISolone (Medrol Dospak) 4 MG tablets Take as directed on package. 21 tablet 06/10/2024 10/14/2024 Discontinued (Med list cleanup) Start: 04-15-2023 End: 08-21-2023 methylPREDNISolone (Medrol D ospak) 4 MG tablets Take as directed on package. 21 tablet 0 04/15/2023 08/21/2023 Discontinued 2 ml midazolam 1 mg/ml injection (3 sources) Benzodiazepine Start: 03-05-2025 End: 03-05-2025 IntraVENous, As needed, Starting on Sat03/05/25 at 1231, Anesthesia Intraprocedure Start: 03-05-2025 End: 03-05-2025 2 mg, IntraVENous, PRN, anxi ety, administration per anesthesiologist direction. Up to two mg., Starting on Sat03/05/25 at 0944, Preprocedure, Pull 2 mg vial of midazolam draw up for anesthesia block placement with administration per anesthesiologist direction. 2 ml ondansetron 2 mg/ml injection (3 sources) Serotonin-3 Receptor Antagonist Start: 03-05-2025 End: 03-05-2025 4 mg, IntraVENous, Once PRN, nausea, Starting on Sat03/05/25 at 1506, For 1 dose, Recovery (only), Initial antiemetic therapy. Start: 03-05-2025 End: 03-05-2025 IntraVENous, As needed, Star ting on Sat03/05/25 at 1430, Anesthesia Intraprocedure predniSONE 20 mg oral tablet (6 sources) [...] days. 10 tablet 0 03/26/2023 03/31/2023 Active 20 ml propofol 10 mg/ml injection (1 source) General Anesthetic Start: 03-05-2025 End: 03-05-2025 IntraVENous, As needed, Starting on Sat03/05/25 at 1233, Anesthesia Intraprocedure rosuvastatin calcium 5 mg oral tablet (18 sources) HMG-CoA Reductase Inhibitor Start: 12-13-2021 End: 08-21-2023 take 1 tablet by mouth in the morning rosuvastatin (Crestor) 5 MG tablet Take 1 tablet by mouth in the morning. 12/13/2021 08/21/2023 Discontinued (Other) 50 ml sodium chloride 9 mg/ml injection (14 sources) Start: 03-05-2025 End: 03-05-2025 10 mL, IntraVENous, Every 12 hours scheduled (2 times per day), First dose on Sat03/05/25 at 0945, Preprocedure Start: 03-05-2025 End: 03-05-2025 500 mL, IntraVENous, at 1,00 0 mL/hr, Administer over 0.5 Hours, PRN, Anti-nausea, Starting on Sat03/05/25 at 1506, Recovery (only), Indications: Anti-nausea Start: 03-05-2025 End: 03-05-2025 take 10 mL intravenously once as needed 10 mL, IntraVENous, PRN, line care, Starting on Sat03/05/25 at 0944, Preprocedure, After every IV line use Start: 03-05-2025 End: 03-05-2025 take 5-40 mL intravenously every twelve hours 5-40 mL, IntraVENous, Every 12 hours, First dose on Sat03/05/25 at 0945, Preprocedure, For Line Patency: Peripheral IV = 5 mL; Midline or Central Line = 10 mL/lumen. If following IV push medication, administer flush at same rate as the IV push. Flush volume is determined by type of infusion therapy being given. For non-viscous solutions use: Peripheral IV = 5 mL Midline or Central Line = 10 mL/lumen For viscous solutions (i.e. blood components, parenteral nutrition, contrast media, or after obtaining blood sample) use: Peripheral IV = 10 mL Midline or Central Line = 20 mL/lumen traMADol hydrochloride 50 mg oral tablet (3 sources) Opioid Agonist End: 03-05-2025 traMADol (Ultram) 50 MG tablet Take by mouth Daily as needed for severe pain (7-10). 03/05/2025 Discontinued (Ineffective) 10 ml tranexamic acid 100 mg/ml injection (1 source) Antifibrinolytic Agent Start: 03-05-2025 End: 03-05-2025 IntraVENous, As needed, Starting on Sat03/05/25 at 1430, Anesthesia Intraprocedure Problems Active Problems Problem Classification Problem Date Documented Date Episodic/Chronic Anxiety disorders (20 sources) Panic attack; Translations: [Posttraumatic stress disorder] Onset: 10-27-2015 11-29-2015 Chronic Asthma (20 sources) Uncomplicated moderate persistent asthma; Translations: [Moderate persistent asthma, uncomplicated] Onset: 06-10-2024 09-24-2024 Chronic Chronic obstructive pulmonary disease and bronchiectasis (20 sources) Centriacinar emphysema; Translations: [Centrilobular emphysema] Onset: [...] (primary) hypertension] Onset: 11-27-2024 Chronic Fracture of upper limb (18 sources) Closed fracture scaphoid, tuberosity ; Translations: [Displaced fracture of distal pole of navicular [scaphoid] bone of right wrist, initial encounter for closed fracture] Onset: 01-21-2025 01-14-2025 Episodic Fracture of upper limb (16 sources) Closed fracture scaphoid, waist, comminuted ; Translations: [Displaced fracture of middle third of navicular [scaphoid] bone of left wrist, initial encounter for closed fracture] Onset: 01-13-2025 01-14-2025 Episodic Genitourinary symptoms and ill-defined conditions (20 sources) Urge incontinence of urine; Translations: [Urge incontinence] Onset: 04-06-2019 Resolved: 04-08-2023 04-07-2022 Chronic Heart valve disorders (4 sources) Mitral valve prolapse 11-29-2015 Chronic Hepatitis (20 sources) Chronic hepatitis C; Translations: [Chronic viral hepatitis C] Onset: 12-16-2015 04-07-2022 Chronic Hepatitis (4 sources) Viral hepatitis C 11-29-2015 Episodic Miscellaneous mental health disorders (20 sources) Primary insomnia; Translations: [Primary insomnia] Onset: 12-01-2018 04-07-2022 Chronic Mood disorders (20 sources) Depressive disorder; Translations: [Depression] Onset: 10-27-2015 04-07-2022 Chronic Other circulatory disease (3 sources) Pulmonary congestion [...] Translations: [Overactive bladder] Onset: 04-07-2022 Chronic Other inflammatory condition of skin (1 source) Erythema; Translations: [Erythematous condition, unspecified] 11-26-2023 Episodic Other injuries and conditions due to external causes (2 sources) Personal history of (healed) traumatic fracture; Translations: [Personal history of (healed) traumatic fracture] Onset: 03-05-2025 Episodic Other lower respiratory disease (3 sources) Cough; Translations: [Cough, unspecified type] 04-08-2023 Episodic Other nervous system disorders (1 source) Difficulty in walking, not elsewhere classified; Translations: [Difficulty in walking, not elsewhere classified] Onset: 11-26-2024 Chronic Other non-traumatic joint disorders (3 sources) Multiple joint pain; Translations: [Pain in unspecified joint] 12-02-2023 Episodic Other non-traumatic joint disorders (1 source) Bilateral wrist pain; Translations: [Pain in right wrist] 01-05-2025 Episodic Other non-traumatic joint disorders (2 sources) Pain in right wrist; Translations: [Pain in right wrist] Onset: 01-13-2025 Episodic Other non-traumatic joint disorders (2 sources) Pain in left wrist; Translations: [Pain in left wrist] Onset: 01-13-2025 Episodic Other upper respiratory infections (1 source) [...] menopausal state] 03-11-2024 Episodic Residual codes; unclassified (2 sources) History of operation on musculoskeletal system; Translations: [Other specified postprocedural states] 03-05-2025 Episodic Residual codes; unclassified (2 sources) Other specified postprocedural states; Translations: [Other specified postprocedural states] Onset: 03-05-2025 Episodic Substance-related disorders (20 sources) Heroin dependence; Translations: [Opioid abuse] Onset: 12-20-2020 10-14-2015 Chronic Thyroid disorders (3 sources) Hypothyroidism; Translations: [Hypothyroidism, unspecified] 12-02-2023 Chronic Urinary tract infections (1 source) Urinary tract infection, site not specified; Translations: [Urinary tract infection, site not specified] Onset: 01-22-2025 Episodic Varicose veins of lower extremity (1 source) Varicose veins of lower extremity; Translations: [Varicose veins of bilateral lower extremities with pain] 03-04-2023 Episodic Past or Other Problems Problem Classification Problem Date Documented Da te Episodic/Chronic Chronic obstructive pulmonary disease and bronchiectasis (20 sources) Bronchitis, not specified as acute or chronic; Translations: [Bronchitis] Onset: 12-13-2021 Resolved: 04-15-2024 Episodic Fracture of lower limb (4 sources) Closed fracture proximal tibia, bicondylar ; Translations: [Displaced bicondylar fracture of unspecified tibia, initial encounter for closed fracture] Onset: 10-21-2024 Episodic Genitourinary symptoms and ill-defined conditions (4 sources) Urgent desire to urinate; Translations: [Urgency of urination] Onset: 10-14-2024 10-14-2024 Episodic Immunizations and screening for infectious disease (3 sources) Needs influenza immunization; Translations: [Encounter for immunization] Onset: 04-15-2024 04-15-2024 Episodic Joint disorders and dislocations; trauma-related (5 sources) Subluxation of other carpometacarpal joint of left hand, subsequent encounter; Translations: [Closed dislocation of carpometacarpal (joint)] Onset: 12-24-2024 12-24-2024 Episodic Malaise and fatigue (1 source) Weakness; Translations: [Weakness] Onset: 11-26-2024 Episodic Mood disorders (20 sources) Mood disorders; Translations: [Depression, unspecified] Onset: 04-08-2023 Resolved: 10-14-2024 04-08-2023 Nonspecific chest pain (20 sources) Chest pain; Translations: [Other chest pain] Onset: 12-13-2021 Resolved: 04-08-2023 Episodic Other connective tissue disease (20 sources) Pain in left foot; Translations: [Pain in left foot] Onset: 11-11-2023 Resolved: 04-15-2024 11-11-2023 Episodic Other female genital disorders (20 sources) Abnormal uterine bleeding; Translations: [Other specified abnormal uterine and vaginal bleeding] Onset: 03-17-2019 Resolved: 04-08-2023 04-07-2022 Chronic Other fractures (2 sources) Multiple fractures of ribs, left side, subsequent encounter for fracture with routine healing; Translations: [Multiple fractures of ribs, left side, subsequent encounter for fracture with routine healing] Onset: 11-26-2024 Episodic Other gastrointestinal disorders (20 sources) Constipation; Translations: [Constipation, unspecified] Onset: 10-27-2015 04-07-2022 Episodic Other gastrointestinal disorders (2 sources) Constipation, unspecified; [...] Onset: 09-17-2023 Resolved: 04-15-2024 08-21-2023 Episodic Other lower respiratory disease (2 sources) Shortness of breath; Translations: [Shortness of breath] Onset: 09-23-2024 Episodic Other nervous system disorders (1 source) Unspecified lack of coordination; Translations: [Unspecified lack of coordination] Onset: 11-26-2024 Episodic Other non-traumatic joint disorders (20 sources) [...] Translations: [Tobacco use] Onset: 02-15-2016 04-07-2022 Episodic Residual codes; unclassified (1 source) Localized edema; Translations: [Localized edema] Onset: 11-26-2024 Episodic Sprains and strains (5 sources) Sprain of right wrist; Translations: [Unspecified sprain of right wrist, subsequent encounter] Onset: 12-24-2024 12-24-2024 Episodic Unclassified (3 sources) Patient encounter status 04-15-2024 Unclassified (3 sources) Subluxation of other carpometacarpal joint of left hand, subsequent encounter 12-24-2024 Unclassified (3 sources) Sprain of right wrist 12-24-2024 Results Test Name Value Interpretation Reference Range Facility 36on 03-24-2025 36 Signed and refaxed. Scanned to [employer] [facility] 36 Emily from [facility] called and stated that the form that was faxed back still doesn't have Dr. Hester signature on it. Teams message sent and Leah responded that she will have Dr. Hester sign the form and send it back. DARRELI [facility] 36 Signed and faxed to [facility]. Scanned to [employer] with fax confirmation sheet [facility] 36 Emily from [facility] is requesting the order for splinting needs signed and sent back dinh. She is refaxing today. Her return phone is [phone]. Please call with any issues. Thank you! [facility] 36on 03-22-2025 36 Spoke to Maria Elena, She g ot her an appointment with [facility]. Thanks! [facility] 36 Reason for call: Hel ramez, I wanted to reach out and let you know that I just called this patient to schedule her OT Splint and she stated that she already has an appointment to get the splint in [place]?? She must have scheduled outside of [facility] for this. I just wanted you to be aware. Contact Phone Number: [facility] [phone] [facility] 37 03-22-2025 37 No wrist range of motion. Finger: Rehab Exercises Your Care Instructions Here are some examples of typical rehabilitation exercises for your condition. Start each exercise slowly. Ease off the exercise if you start to have pain. Your doctor or your physical or occupational therapist will tell you when you can start these exercises and which ones will work best for you. How to do the exercises Finger extension Place your hand flat on a table, palm down. Lift and then lower your affected finger off the table. Repeat 8 to [address] times[address] your good hand on a table, palm up. Put your hand with the affected finger on top of your good hand with your fingers wrapped around the thumb of your good hand like you are making a fist. Slowly uncurl the joints of your hand with the affected finger where your fingers connect to your hand so that only the top two joints of your fingers are bent. Your fingers will look like a hook. Move back to your starting position, with your fingers wrapped around your good thumb. Repeat 8 to 12 times. DIP flexion With your good hand, grasp your affected finger. Your thumb will be on the top side of your finger just below the joint that is closest to your fingernail. Slowly bend your affected finger only at the joint closest to your fingernail. Hold for about 6 seconds. Repeat 8 to 12 times. PIP extension (with MP extension) Place your good hand on a table, palm up. Put your hand with the affected finger on top of your good hand. Use the thumb and fingers of your good hand to grasp below the middle joint of your affected finger. Bend and then straighten the last two joints of your affected finger. Repeat 8 to 12 times. Isolated PIP flexion Place the hand with the affected finger flat on a table, palm up. With your other hand, press down on the fingers that are not affected. Your affected finger will be free to move. Slowly bend your affected finger. Hold for about 6 seconds. Then straighten your finger. Repeat 8 to 12 times. Imaginary ball squeeze Pretend to hold an imaginary ball. Slowly bend your fingers around the imaginary ball, and squeeze the "ball" for about 6 seconds. Then slowly straighten your fingers to release the ball. Repeat 8 to 12 times. Tendon glides In this exercise, the steps follow one another to a make a continuous movement. Hold your hand upward. Your fingers and thumb will be pointing straight up. Your wrist should be relaxed, following the line of your fingers and thumb. Curl your fingers so that the top two joints in them are bent, and your fingers wrap down. Your fingertips should touch or be near the base of your fingers. Your fingers will look like a hook. Make a fist by bending your knuckles. Your thumb can gently rest against your index (pointing) finger. Unwind your fingers slightly so that your fingertips can touch the base of your palm. Your thumb can rest against your index finger. Move back to your starting position, with your fingers and thumb pointing up. Repeat the series of motions 8 to [address] a small towel roll on a table. With your palm facing down, grab the towel and squeeze it for about 6 seconds. Then slowly straighten your fingers to release the towel. Repeat 8 to 12 times. Towel grab Fold a small towel in half, and lay it flat on a table. Put your hand flat on the towel, palm down. Grab the towel, and scrunch it toward you until your hand is in a fist. Slowly straighten your fingers to push the towel back so it is flat on the table again. Repeat 8 to 12 times. 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 Pain is minimal, she states that after she started taking the tramodol her pain has been much more tolerable. She is taking tramadol and tylenol for pain relief. She denies significant complaints. She denies numbness and tingling. The patient denies drainage from her incision. She denies fevers and chills. She brought her bone stimulator to go over instructions of how to use it. She states that she needs a letter stating that it is okay to start taking two tramadol a day when she has PT. She reports that she is doing well since her surgery. She reports intact incision without erythema edema drainage or wound separation. Denies fevers and chills. She has been compliant with her weightbearing restriction is much as possible given her bilateral extremity nonweightbearing restriction. She is controlled pain and has been taking 1 tramadol per day in her facility. She already has her bone stimulator. Objective: Ht 5' 6" (1.676 m) Wt 208 lb (94.3 kg) BMI 33.57 kg/m? Bilateral Upper Extremities Skin: Incision(s) is/are healing appropriately. No drainage. No erythema. No warmth noted, No wound separation Edema: Minimal surrounding edema. Palpation: tender to palpation over the incisions as expected ROM: not tested Motor: Intact in the hand - able to fire AIN, PIN, and Ulnar nerves Sensation: to light touch is normal in the median, ulnar, and radial nerve distributions Perfusion: Brisk capillary refill to all digits with 2+ radial pulse. XRay: BILATERAL Wrist 3V + Scaphoid View from today show distal radius fracture s/p bilateral scaphoid ORIF with near anatomic reduction with hardware in appropriate position without signs of loosening or failure. Assessment Diagnosis Plan 1. Closed displaced fracture of scaphoid of right wrist with nonunion, unspecified portion of scaphoid, subsequent encounter 2. Closed displaced fracture of scaphoid of left wrist with nonunion, unspecified portion of scaphoid, subsequent encounter 3. Closed comminuted fracture of waist of scaphoid bone of left wrist, initial encounter 4. Closed displaced fracture of distal pole of scaphoid bone of right wrist, initial encounter Plan Idalia Jaime is doing well postoperatively.. They have healed their incision without evidence of infection., They have been compliant with their splint and NWB restriction., Their XR shows a fracture s/p ORIF with near anatomic reduction with hardware in appropriate position without signs of loosening or failure., and They have controlled pain.. Expected post operative recovery course was discussed with the patient. Signs and symptoms of infection were discussed with the patient. Patient was given a letter to have up to 2 tramadol per day for additional 2 weeks and then she will transition to just Tylenol. She knows she cannot take NSAIDs. She was educated on her custom splint and her bone stimulator. Immobilization: Patient re-wrapped in operative splint until custom splint appointment. Custom OT splint: to be worn at all times except for hygiene as discussed and outlined in her letter. Weight Bearing: Non Weight Bearing Rehabilitation: OT Rx given: To follow protocol. Finger range of motion was encouraged within the confines of the custom OT thumb spica splint. OT/PT Rx given: To follow protocol Follow-Up: Patient will follow up in 4 weeks for a 6 week Fracture ORIF Follow up and any questions or concerns they may have. Idalia Jaime will call the office with questions or concerns in the interim. She verbalized understanding and is in agreement with this plan. Future Imaging: BILATERAL Wrist 3V + Scaphoid View Sutures were removed today without complication. Post operative splint was re-wrapped on the operative extremity until patient can be seen for their custom splint appointment. Bilateral operative thumb spica splints was applied to the operative extremity without complication. Performed by: JIGNA Leon PA-C to Dr. Cristy Hester Orthopaedic Surgery Hand and Upper Extremity (Please note that portions of this note may have been completed with a voice recognition program. Efforts were made to edit the dictations but occasionally words are mis-transcribed.) [facility] XR WRIST 3+ VIEWS LEFTon XR WRIST 3+ VIEWS LEFT XRay: BILATERAL W rist 3V + Scaphoid View from today show distal radius fracture s/p bilateral scaphoid ORIF with near anatomic reduction with hardware in appropriate position without signs of loosening or failure. Normal [facility] XR WRIST 3+ VIEWS RIGHTon XR WRIST 3+ VIEWS RIGHT XRay: BILATERAL Wrist 3V + Scaphoid View from today show distal radius fracture s/p bilateral scaphoid ORIF with near anatomic reduction with hardware in appropriate position without signs of loosening or failure. Normal [facility] Airwayon 03-05-2025 MARJORIE Herrera RN - MEDICAL LEAD 03/05/2025 12:47 PM Airway Date/Time: 03/05/2025 12:33 PM Reason: scheduled Airway not difficult General Information and Staff Patient location during procedure: Procedural Resident/MEDICAL LEAD: Talib Senior APRN - MEDICAL LEAD Performed: MEDICAL LEAD Patient Condition Indications for airway management: anesthesia Patient position: C spine neutral MILS maintained throughout Sedation level: Asleep Final Airway Details Preoxygenated: yes Final airway type: supraglottic airway Successful airway: air-Q Size: 4 Number of attempts at approach: 1 [facility] Nursing Noteon 03-05-2025 Nursing Note Patient tolerating P O fluids. Patient reports lots of pain but in agreement with pain control plan. Medicated per order. Discharge instructions reviewed with patient friend, both verbalize understanding. Rn assist to/from BR, assisted with getting dressed and into wheelchair and out to car. Normal [facility] Nursing Note Received patient fro m OR to PACU with MEDICAL LEAD. Patient is awake and talking on room air. No respiratory distress noted. Cardiac monitoring on, safety maintained. Rn remains at bedside. Normal [facility] Op Noteon 03-05-2025 Op Note [facility] MA[facility] OR [address] [address] Dept: [phone] Loc: [phone] Operative Report Patient Name: Idalia Gipson Date of : 1965 Date of Surgery: 03/05/25 Location: [facility] Preoperative Diagnosis: Right scaphoid nonunion Postoperative Diagnosis: same Procedure: ORIF scaphoid nonunion Insertion of vascular pedicle/cortical cancellous distal radius bone graft Surgeon: Stan Coley MD Co-surgeon Cristy Hester MD (this was a bilateral procedure Dr. Hester did the left scaphoid nonunion concurrently while I did the right his note will be dictated separately) 1st Assist: Joleen CARO The first-assurance assistant was critical to all steps of the operation, including retraction and arm extremity stabilization during exposure, as well as the deep and superficial wound closure. I understand that section 1842(b)(7)(D) of the Social Security Act generally prohibits Medicare physician fee schedule payment for the services of assistants at surgery in teaching hospitals when qualified residents are available to furnish such services. I certify that the services for which payment is claimed were medically necessary and that no qualified resident was available to perform the services. I further understand that these services are subject to post- payment review by the Medicare carrier. 2nd Assist: None Implants: 2.5 mm 20 mm long headless compression screw [employer] Specimens Removed: None Anesthesia: General Local Anesthesia: 10 cc 1% lidocaine plain Tourniquet:: Brachium less than 2 hours Estimated Blood Loss: Less than 10 cc Antibiotics: see anesthesia record Indications: Ms. Idalia Gipson is a 59 y.o. 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 I have discussed with her, preoperatively, the complications, limitations, expectations, alternatives, and risks of surgical intervention which she has demonstrated understanding. She understood the particular risk of surgery. No guarantees were given or implied. After having all of her questions answered to her satisfaction, Ms. Idalia Gipson has provided written informed consent to proceed. Please see previous notes for full operative discussion. Procedure: Idalia Gipson was identified in the preoperative waiting area. her operative site was initialed and consent was reviewed. Final questions were answered. Ms. Idalia Gipson was brought to the operating room and placed in the supine position. All bony prominences were well padded. The aforementioned anesthesia was administered. Antibiotics were confirmed to have been given. The operative extremity was prepped and draped in the usual sterile fashion. A surgical timeout was then performed with the patient's identification, the procedure to be performed being reviewed, verification that the patient had received preoperative antibiotics if indicated, and verification of the correct surgical side. The patient's ASA was verified by the nurse asphalt paver and the anesthesia staff. Fire risk was assessed. I began my portion the procedure by making a hockey-stick incision extending down from the distal pole the scaphoid along the volar surface of the thenar eminence and then proximal along the FCR sheath. Incision was carried deep to the FCR tendon FCR tendon was retracted ulnarly and the subs sheath was opened distal to the distal pole of the scaphoid. I then continued my incision to the joint capsule identified the radioscaphocapitate ligament and marked it for subsequent repair. Proximally the incision was carried down through the subs sheath and the FCR the FPL tendon was identified the FPL and FCR tendons were then retracted ulnarly with a Hohmann retractor and the distal end of the radius was identified. The feeding vessel was identified along the radial aspect and traced through the distal pronator quadratus muscle and the muscle fibers were divided to approximately 5 mm proximal to the radial lip. I then utilized a 3 5 K wire to trephinate the distal radius and with the periosteum intact use osteotomes to harvest a cortical cancellous graft. I then used a curette to harvest additional cancellous bone graft. The turn my attention to the scaphoid. Scaphoid was identified as well as the nonunion site K wires were placed in the proximal and distal pole in the scaphoid was located open. The nonunion site was aggressively debrided utilizing combination of curettes and rongeur until healthy bleeding bone was identified. Cystic areas and fibrous nonunion was excised leaving a thin layer along the back wall. Satisfied with my debridement I then placed a guidepin for a headless compression screw with the guidepin in place I turned my attention to packing the cancellous bon (more content not included)... Normal [facility] Op Note [facility] MA[facility] OR [address] [place] [address] Dept: [phone] Loc: [phone] Operative Report Patient Name: Idalia Gipson Date of : 1965 Date of Surgery: 03/05/25 Location: [facility] Preoperative Diagnosis: LEFT scaphoid nonunion Postoperative Diagnosis: same Procedure: ORIF LEFT scaphoid waist non union with distal radius autograft Surgeon: Cristy Hester MD Co-surgeon Stan Coley MD (this was a bilateral procedure Dr. Coley did the RIGHT scaphoid nonunion concurrently while I did the LEFT. His note will be dictated separately) 1st Assist: Sarah Delong PA-C The first-assurance assistant was critical to all steps of the operation, including retraction and arm extremity stabilization during exposure, as well as the deep and superficial wound closure. I understand that section 1842(b)(7)(D) of the Social Security Act generally prohibits Medicare physician fee schedule payment for the services of assistants at surgery in teaching hospitals when qualified residents are available to furnish such services. I certify that the services for which payment is claimed were medically necessary and that no qualified resident was available to perform the services. I further understand that these services are subject to post- payment review by the Medicare carrier. 2nd Assist: None Implants: 3.0 mm 22 mm long Synthes headless compression screw Specimens Removed: None Anesthesia: General Local Anesthesia: 10 cc 1% lidocaine plain Tourniquet: Brachium Estimated Blood Loss: Less than 10 cc Antibiotics: Ancef Indications: Ms. Idalia Gipson is a 59 y.o. year-old female who presents today for fixation of bilateral scaphoid waist nonunions. I have discussed with her, preoperatively, the complications, limitations, expectations, alternatives, and risks of surgical intervention which she has demonstrated understanding. She understood the particular risk of surgery. No guarantees were given or implied. After having all of her questions answered to her satisfaction, Ms. Idalia Gipson has provided written informed consent to proceed. Please see previous notes for full operative discussion. Procedure: Idalia Gipson was identified in the preoperative waiting area. her operative site was initialed and consent was reviewed. Final questions were answered. Ms. Idalia Gipson was brought to the operating room and placed in the supine position. All bony prominences were well padded. The aforementioned anesthesia was administered. Antibiotics were confirmed to have been given. The operative extremities were prepped and draped in the usual sterile fashion. A surgical timeout was then performed with the patient's identification, the procedure to be performed being reviewed, verification that the patient had received preoperative antibiotics if indicated, and verification of the correct surgical side. The patient's ASA was verified by the nurse asphalt paver and the anesthesia staff. Fire risk was assessed. A longitudinal incision was made centered over the left wrist FCR tendon curving toward the STT joint at the wrist crease. FCR sheath was divided and the FPL retracted. The volar wrist capsule was divided obliquely along the axis of the scaphoid from the STT joint to the volar rim of the distal radius. The nonunion site was identified and hinged open with two 0.045 K wires. Fibrous tissue interposed was debrided with curved curettes and rongeurs. There was no sizable cystic void within the left scaphoid waist so I made the decision to perform ORIF with nonvascularized distal radius bone graft. For this a counterincision was made over Deana's tubercle. The EPL was released from third compartment and Deana's subperiosteally elevated. An oscillating saw was used to create a rectangular wedge of tricorticocancellous to be used for structural graft. Curved curettes were used to debride soft cancellous bone. 5 cc of cancellous graft was tamped into the donor site. Cancellous autograft was packed tightly along the dorsal one half of the scaphoid waist nonunion. The rectangular wedge from Deana's tubercle was then inset along the volar one half of the nonunion. A K wire was placed retrograde along the central axis of the scaphoid followed by 3 mm Synthes headless compression screw 22 mm in length. This achieved excellent compression of the cortical cancellous graft. Fluoroscopy confirmed anatomic reduction with appropriate hardware position. The wound was tremaine irrigated normal saline. The volar capsule was repaired end-to-end with 3-0 FiberWire sutures. The extensor retinaculum was repaired with 3-0 FiberWire sutures leaving the EPL in the subcutaneous position. The tourniquet deflated and hemostasis achieved bipolar cautery and gentle compression. Skin was c (more content not included)... Normal [facility] [id number] 03-02-2025 [id number] Medication List Accurate as of March 02, 2025 12:03 PM. Always use your most recent med list. albuterol 108 (90 Base) MCG/ACT inhaler Inhale 2 puffs every 6 hours as needed for wheezing. Medication Adjustments for Surgery: Take morning of surgery Notes to patient: IF NEEDED ARIPiprazole 15 MG tablet Commonly known as: Abilify Medication Adjustments for Surgery: Other (Comment) Notes to patient: PATIENT STATES, "NO LONGER TAKING THIS MEDICATION" buprenorphine ER 100 MG/0.5ML injection Commonly known as: Sublocade Medication Adjustments for Surgery: Other (Comment) Notes to patient: OKAY TO CONTINUE TO TAKE PRIOR TO SURGERY. busPIRone 10 MG tablet Commonly known as: Buspar Medication Adjustments for Surgery: Take morning of surgery cloNIDine 0.1 MG tablet Commonly known as: Catapres Medication Adjustments for Surgery: Take morning of surgery mometasone-formoterol 100-5 MCG/ACT inhaler Commonly known as: Dulera Inhale 2 puffs 2 times daily. Rinse mouth with water after use to reduce aftertaste and incidence of candidiasis. Do not swallow. Medication Adjustments for Surgery: Take morning of surgery MULTIVITAMIN ADULT PO Medication Adjustments for Surgery: Hold morning of surgery oxybutynin XL 5 MG 24 hr tablet Commonly known as: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 1/2 of the hamate. No additional areas of bone marrow edema/contusion or fracture. CRITICAL TEST RESULT COMMUNICATION: Notification of these findings was made to Dr. Renetta Jordan via [employer] system on 12/29/2024 2:24 PM EDT. Report Dictated on Electronically Signed By: Don Licea MD Electronically Signed Date/Time: 12/29/2024 2:24 PM EDT [facility] MR Wrist - left WO contrastO rdered By: Don Licea on 12-29-2024 [employer] Work Phone: MR Wrist - right WO contrast on 12-29-2024 Impression: 1. Minimally displaced, curvilinear fracture of the scaphoid midpole, extending to the distal pole articular surface/triscaphe joint. Surrounding bone marrow edema. 2. Mild bone marrow edema within the anterior/volar aspect of the distal radius. Trace bone marrow edema/contusion within the base of the trapezium and within the radial aspect of the capitate. No additional fracture identified. 3. Sprain of the otherwise intact scapholunate ligament. No complete ligament tear. CRITICAL TEST RESULT COMMUNICATION: Notification of these findings was made to Dr. Renetta Jordan via [employer] system on 12/29/2024 2:24 PM EDT. Report Dictated on Electronically Signed By: Don Licea MD Electronically Signed Date/Time: 12/29/2024 2:25 PM EDT [facility] Patient Name: DIALIA GIPSON : 1965 Exam Date/Time: 12/24/2024 12:06 Procedure: MR WRIST RIGHT WO IV CONTRAST Ordering Provider: JORDAN STEVEN Reason For Exam: unspecified sprain of left wrist, subsequent encounter Examination: MRI right wrist Clinical Indication: Wrist sprain Comparison: None Findings: Multiplanar multisequence high field strength MRI images were obtained through the right wrist without intravenous gadolinium contrast. Minimally displaced, curvilinear fracture of the scaphoid midpole, extending to the distal pole articular surface/triscaphe joint. Surrounding bone marrow edema. Mild bone marrow edema within the anterior/volar aspect of the distal radius. Trace bone marrow edema/contusion within the base of the trapezium and within the radial aspect of the capitate. No additional fracture identified. Sprain of the otherwise intact scapholunate ligament. No complete ligament tear. The lunotriquetral ligament is intact with no evidence of interval widening. Pisotriquetral joint effusion, extending proximally into the region of the TFCC. No additional joint effusion. The central and peripheral triangular fibrocartilage complex appears intact. No evidence of tear. The flexor and extensor tendons are intact/unremarkable without tendinopathy, tendon tear or significant tendon tenosynovitis. The carpal tunnel is normal and the median nerve demonstrates no discrete compression. Normal muscle volume and signal intensity. [facility] Don Licea MD - 12/29/2024 Patient Name: IDALIA GIPSON : 1965 Exam Date/Time: 12/24/2024 12:06 Procedure: MR WRIST RIGHT WO IV CONTRAST Ordering Provider: JORDAN STEVEN Reason For Exam: unspecified sprain of left wrist, subsequent encounter Examination: MRI right wrist Clinical Indication: Wrist sprain Comparison: None Findings: Multiplanar multisequence high field strength MRI images were obtained through the right wrist without intravenous gadolinium contrast. Minimally displaced, curvilinear fracture of the scaphoid midpole, extending to the distal pole articular surface/triscaphe joint. Surrounding bone marrow edema. Mild bone marrow edema within the anterior/volar aspect of the distal radius. Trace bone marrow edema/contusion within the base of the trapezium and within the radial aspect of the capitate. No additional fracture identified. Sprain of the otherwise intact scapholunate ligament. No complete ligament tear. The lunotriquetral ligament is intact with no evidence of interval widening. Pisotriquetral joint effusion, extending proximally into the region of the TFCC. No additional joint effusion. The central and peripheral triangular fibrocartilage complex appears intact. No evidence of tear. The flexor and extensor tendons are intact/unremarkable without tendinopathy, tendon tear or significant tendon tenosynovitis. The carpal tunnel is normal and the median nerve demonstrates no discrete compression. Normal muscle volume and signal intensity. IMPRESSION: Impression: 1. Minimally displaced, curvilinear fracture of the scaphoid midpole, extending to the distal pole articular surface/triscaphe joint. Surrounding bone marrow edema. 2. Mild bone marrow edema within the anterior/volar aspect of the distal radius. Trace bone marrow edema/contusion within the base of the trapezium and within the radial aspect of the capitate. No additional fracture identified. 3. Sprain of the otherwise intact scapholunate ligament. No complete ligament tear. CRITICAL TEST RESULT COMMUNICATION: Notification of these findings was made to Dr. Renetta Jordan via [employer] system on 12/29/2024 2:24 PM EDT. Report Dictated on Electronically Signed By: Don Licea MD Electronically Signed Date/Time: 12/29/2024 2:25 PM EDT [facility] MR Wrist - left WO contrasto n 12-24-2024 Radiology Study observation (narrative) [facility] MR Wrist - right WO contrast on 12-24-2024 Radiology Study observation (narrative) [facility] Anion gap in Serum or Plasma Ordered By: Adolfo Adams on 12-11-2024 Anion gap [Moles/Vol] 11 mmol/L - [facility] BUN/creatinine ratioOrdered By: Adolfo Adams on 12-11-2024 Urea nitrogen/Creatinine [Mass ratio] 14.9 mg/mg 04-12 [facility] Carbon dioxide, total [Moles /volume] in Central venous bloodOrdered By: Adolfo Adams on 12-11-2024 CO2 [Moles/Vol] 20.4 mmol/L Low 21.0-32.0 [facility] Chloride assayOrdered By: Jason Adams on 12-11-2024 Chloride [Moles/Vol] 110 mmol/L High 98-108 [facility] Erythrocyte distribution wid th ratioOrdered By: Adolfo Adams on 12-11-2024 Erythrocyte distribution width (RBC) [Ratio] 13.5 % 11.6-14.6 [facility] Erythrocyte distribution wid th standard deviationOrdered By: Adolfo Adams on 12-11-2024 Erythrocyte distribution width (RBC) [Ratio] 42.8 fl 35.1-43.9 [facility] Glomerular filtration rate ( GFR) estimation/1.73 sq m using serum, plasma, or whole bOrdered By: Adolfo Adams on 12-11-2024 GFR/1.73 sq M.predicted among non-blacks MDRD (S/P/Bld) [Vol rate/Area] 85 mL/min/{1.73_m2} >60 [facility] Comment on above: mL/min/1.73m2 CKD-EP I Creatinine Equation (2020) Hematocrit Auto (Bld) [Volum e fraction]Ordered By: Adolfo Adams on 12-11-2024 Hematocrit (Bld) [Volume fraction] 36.8 % Low 37-47 [facility] Hemoglobin measurementOrdere d By: Adolfo Adams on 12-11-2024 Hemoglobin (Bld) [Mass/Vol] 11.6 g/dL Low 12.0-15.0 [facility] MCV (mean corpuscular volume ) determinationOrdered By: Adolfo Adams on 12-11-2024 MCV (RBC) [Entitic vol] 87.4 fL 81-99 [facility] Mean corpuscular hemoglobin (MCH) determinationOrdered By: Adolfo Adams on 12-11-2024 MCH (RBC) [Entitic mass] 27.6 pg 27.0-32.0 [facility] Mean corpuscular hemoglobin concentration (MCHC) determinationOrdered By: Adolfo Adams on 12-11-2024 MCHC (RBC) [Mass/Vol] 31.5 g/dL Low 32-36 [facility] Mean platelet volume determi nationOrdered By: Adolfo Adams on 12-11-2024 Platelet mean volume (Bld) [Entitic vol] 9.4 fL 6.2-12.0 [facility] Platelet countOrdered By: Jason Adams on 12-11-2024 Platelets (Bld) [#/Vol] 144 10*3/uL Low 150-450 [facility] Potassium measurement (mass/ volume)Ordered By: Adolof Adams on 12-11-2024 Potassium (Unsp spec) [Mass/Vol] 4.0 mmol/L 3.3-5.1 [facility] RBC Auto (Bld) [#/Vol]Ordere d By: Adolfo Adams on 12-11-2024 RBC (Bld) [#/Vol] 4.21 10*6/uL 4.2-5.4 [facility] Serum creatinine measurement (mass/volume)Ordered By: Adolfo Adams on 12-11-2024 Creatinine [Mass/Vol] 0.80 mg/dL 0.70-1.20 [facility] Serum glucose measurement (m ass/volume)Ordered By: Adolfo Adams on 12-11-2024 Glucose [Mass/Vol] 105 mg/dL High 70-99 [facility] Serum or plasma calcium vinod urement (mass/volume)Ordered By: Adolfo Adams on 12-11-2024 Calcium [Mass/Vol] 9.7 mg/dL 7.6-11.0 [facility] Serum or plasma urea nitroge n measurement (mass/volume)Ordered By: Adolfo Adams on 12-11-2024 Urea nitrogen [Mass/Vol] 12 mg/dL 4-19 [facility] Sodium levelOrdered By: Bang Adams on 12-11-2024 Sodium [Moles/Vol] 141 mmol/L 133-145 [facility] White blood cell (WBC) count Ordered By: Adolfo Adams on 12-11-2024 WBC (Bld) [#/Vol] 7.6 10*3/uL 4.4-11.0 [facility] Bilirubin Test strip Ql (U)O rdered By: Adolfo Adams on 12-08-2024 Bilirubin Ql (U) Negative Negative [facility] Ketones Test strip Ql (U)Ord ered By: Adolfo Adams on 12-08-2024 Ketones Ql (U) Negative Negative [facility] Nitrite Test strip Ql (U)Ord ered By: Adolfo Adams on 12-08-2024 Nitrite Ql (U) Negative Negative [facility] Protein Test strip Ql (U)Ord ered By: Adolfo Adams on 12-08-2024 Protein Ql (U) 15 mg/dl High Negative [facility] Urine clarityOrdered By: Cisco Adams on 12-08-2024 Clarity (U) Clear Clear [facility] Urine color determinationOrd ered By: Adolfo Adams on 12-08-2024 Color (U) Yellow Yellow [facility] Urine cultureOrdered By: Cisco Adams on 12-08-2024 Bacteria identified Cx Nom (U) Escherichia coli Abnormal [facility] Urine glucose detectionOrder ed By: Adolfo Adams on 12-08-2024 Glucose Ql (U) Normal mg/dl Normal [facility] Urine leukocyte esterase det ection by dipstickOrdered By: Adolfo Adams on 12-08-2024 Leukocyte esterase Test strip Ql (U) 100 /ul High Negative [facility] Urine pHOrdered By: Adolfo reyes on 12-08-2024 pH (U) 6.0 [pH] 5.0 - 8.0 [facility] Urine specific gravity measu rementOrdered By: Adolfo Adams on 12-08-2024 Specific gravity (U) [Rel density] 1.010 1.002-1.030 [facility] Urine urobilinogen measureme ntOrdered By: Adolfo Adams on 12-08-2024 Urobilinogen Ql (U) Normal mg/dl Normal [facility] 11-18-2024 36 Noted. Will need to reschedule follow up when able. Normal [facility] 36on 11-17-2024 36 Name of caller: Idalia Contact phone number: [phone] Relationship to Patient: patient Provider: Dr. Jordan [...] hours to return their call: N/A Normal [facility] Anion gap in Serum or Plasma Ordered By: Adolfo Adams on 11-04-2024 Anion gap [Moles/Vol] 10 mmol/L -15 [facility] BUN/creatinine ratioOrdered By: Adolfo Adams on 11-04-2024 Urea nitrogen/Creatinine [Mass ratio] 25.6 mg/mg High 10-20 [facility] Carbon dioxide, total [Moles /volume] in Central venous bloodOrdered By: Adolfo Adams on 11-04-2024 CO2 [Moles/Vol] 20.4 mmol/L Low 21.0-32.0 [facility] Chloride assayOrdered By: Jason Adams on 11-04-2024 Chloride [Moles/Vol] 110 mmol/L High 98-108 [facility] Glomerular filtration rate ( GFR) estimation/1.73 sq m using serum, plasma, or whole bOrdered By: Adolfo Adams on 11-04-2024 GFR/1.73 sq M.predicted among non-blacks MDRD (S/P/Bld) [Vol rate/Area] 76 mL/min/{1.73_m2} >60 [facility] Comment on above: mL/min/1.73m2 CKD-EP I Creatinine Equation (2020) Potassium measurement (mass/ volume)Ordered By: Adolfo Adams on 11-04-2024 Potassium (Unsp spec) [Mass/Vol] 4.2 mmol/L 3.3-5.1 [facility] Serum creatinine measurement (mass/volume)Ordered By: Adolfo Adams on 11-04-2024 Creatinine [Mass/Vol] 0.88 mg/dL 0.70-1.20 [facility] Serum glucose measurement (m ass/volume)Ordered By: Adolfo Adams on 11-04-2024 Glucose [Mass/Vol] 96 mg/dL 70-99 [facility] Serum or plasma calcium vinod urement (mass/volume)Ordered By: Adolfo Adams on 11-04-2024 Calcium [Mass/Vol] 9.4 mg/dL 7.6-11.0 [facility] Serum or plasma urea nitroge n measurement (mass/volume)Ordered By: Adolfo Adams on 11-04-2024 Urea nitrogen [Mass/Vol] 22 mg/dL High 4-19 [facility] Sodium levelOrdered By: Bang Adams on 11-04-2024 Sodium [Moles/Vol] 140 mmol/L 133-145 [facility] Anion gap in Serum or Plasma Ordered By: Adolfo Adams on 10-28-2024 Anion gap [Moles/Vol] 9 mmol/L 5-15 [facility] BUN/creatinine ratioOrdered By: Adolfo Adams on 10-28-2024 Urea nitrogen/Creatinine [Mass ratio] 17.7 mg/mg 10-20 [facility] Carbon dioxide, total [Moles /volume] in Central venous bloodOrdered By: Adolfo Adams on 10-28-2024 CO2 [Moles/Vol] 20.0 mmol/L Low 21.0-32.0 [facility] Chloride assayOrdered By: Jason Adams on 10-28-2024 Chloride [Moles/Vol] 110 mmol/L High 98-108 [facility] Erythrocyte distribution wid th ratioOrdered By: Adolfo Adams on 10-28-2024 Erythrocyte distribution width (RBC) [Ratio] 13.5 % 11.6-14.6 [facility] Erythrocyte distribution wid th standard deviationOrdered By: Adolfo Adams on 10-28-2024 Erythrocyte distribution width (RBC) [Ratio] 41.5 fl 35.1-43.9 [facility] Glomerular filtration rate ( GFR) estimation/1.73 sq m using serum, plasma, or whole bOrdered By: Adolfo Adams on 10-28-2024 GFR/1.73 sq M.predicted among non-blacks MDRD (S/P/Bld) [Vol rate/Area] 89 mL/min/{1.73_m2} >60 [facility] Comment on above: mL/min/1.73m2 CKD-EP I Creatinine Equation (2020) Hematocrit Auto (Bld) [Volum e fraction]Ordered By: Adolfo Adams on 10-28-2024 Hematocrit (Bld) [Volume fraction] 27.8 % Low 37-47 [facility] Hemoglobin A1c percentageOrd ered By: Adolfo Adams on 10-28-2024 HbA1c (Bld) [Mass fraction] 5.4 % <5.7 [facility] Comment on above: Normal < 5.7 % Predi abetic 5.7 - 6.4 % Diabetic >or= 6.5 % Please note range changes. Hemoglobin measurementOrdere d By: Adolfo Adams on 10-28-2024 Hemoglobin (Bld) [Mass/Vol] 9.1 g/dL Low 12.0-15.0 [facility] MCV (mean corpuscular volume ) determinationOrdered By: Adolfo Adams on 10-28-2024 MCV (RBC) [Entitic vol] 85.3 fL 81-99 [facility] Mean corpuscular hemoglobin (MCH) determinationOrdered By: Adolfo Adams on 10-28-2024 MCH (RBC) [Entitic mass] 27.9 pg 27.0-32.0 [facility] Mean corpuscular hemoglobin concentration (MCHC) determinationOrdered By: Adolfo Adams on 10-28-2024 MCHC (RBC) [Mass/Vol] 32.7 g/dL 32-36 [facility] Mean platelet volume determi nationOrdered By: Adolfo Adams on 10-28-2024 Platelet mean volume (Bld) [Entitic vol] 9.9 fL 6.2-12.0 [facility] Platelet countOrdered By: Jason Adams on 10-28-2024 Platelets (Bld) [#/Vol] 155 10*3/uL 150-450 [facility] Potassium measurement (mass/ volume)Ordered By: Adolfo Adams on 10-28-2024 Potassium (Unsp spec) [Mass/Vol] 4.6 mmol/L 3.3-5.1 [facility] RBC Auto (Bld) [#/Vol]Ordere d By: Adolfo Adams on 10-28-2024 RBC (Bld) [#/Vol] 3.26 10*6/uL Low 4.2-5.4 [facility] Serum creatinine measurement (mass/volume)Ordered By: Adolfo Adams on 10-28-2024 Creatinine [Mass/Vol] 0.77 mg/dL 0.70-1.20 [facility] Serum glucose measurement (m ass/volume)Ordered By: Adolfo Adams on 10-28-2024 Glucose [Mass/Vol] 107 mg/dL High 70-99 [facility] Serum or plasma calcium vinod urement (mass/volume)Ordered By: Adolfo Adams on 10-28-2024 Calcium [Mass/Vol] 9.1 mg/dL 7.6-11.0 [facility] Serum or plasma urea nitroge n measurement (mass/volume)Ordered By: Adolfo Adams on 10-28-2024 Urea nitrogen [Mass/Vol] 14 mg/dL 4-19 [facility] Sodium levelOrdered By: Bang Adams on 10-28-2024 Sodium [Moles/Vol] 139 mmol/L 133-145 [facility] TSH DL <= 0.005 mIU/L QnOrde red By: Adolfo Adams on 10-28-2024 TSH Qn 14.200 uIU/mL High 0.300-4.200 [facility] White blood cell (WBC) count Ordered By: Adolfo Adams on 10-28-2024 WBC (Bld) [#/Vol] 4.9 10*3/uL 4.4-11.0 [facility] XR ABDOMEN APon 10-26-2024 XR ABDOMEN [...] pattern. Correlate for constipation Interpreted by: Renee Lloyd Preliminary Report By: Renee Lloyd Electronically signed By Renee Lloyd Dictated Date: 10/26/2024 11:15:47 AM Prelim Date: 10/26/2024 11:16:44 AM Sign Date: 10/26/2024 11:16:44 AM Ordering Provider: CANDIDA BURNS Normal [facility] .Auto Diffon 10-25-2024 Basophil, Absolute 0.1 10 3/mcL Normal 0.0-0.3 [facility] Comment on above: Performed By: #### A DIFF, ANEU, CBC ####[address] [address] Basophils/100 WBC (Bld) 1.2 % Normal 0.0-2.5 [facility] Comment on above: Performed By: #### A DIFF, ANEU, CBC ####[facility] [place], [place] [address] Eosinophil, Absolute 0.4 10 3/mcL Normal 0.0-0.7 [facility] Comment on above: Performed By: #### A DIFF, ANEU, CBC ####[facility] [place], [place] [address] Eosinophils/100 WBC (Bld) 7.9 % High 0.0-6.0 [facility] Comment on above: Performed By: #### A DIFF, ANEU, CBC ####[facility] [place], [place] [address] Lymphocyte, Absolute 0.7 10 3/mcL Low 0.9-4.3 [facility] Comment on above: Performed By: #### A DIFF, ANEU, CBC ####[address] [place], [place] [address] Lymphocytes/100 WBC (Bld) 15.2 % Low 20.0-40.0 [facility] Comment on above: Performed By: #### A DIFF, ANEU, CBC ####[address] [place], [place] [address] Monocyte, Absolute 0.3 10 3/mcL Normal 0.1-1.4 [facility] Comment on above: Performed By: #### A DIFF, ANEU, CBC ####[address] [place], [place] [address] Monocytes/100 WBC (Bld) 7.2 % Normal 2.0-13.0 [facility] Comment on above: Performed By: #### A DIFF, ANEU, CBC ####[facility] [place], [place] [address] Neutrophils/100 WBC (Bld) 68.5 % Normal 50.0-75.0 [facility] Comment on above: Performed By: #### A DIFF, ANEU, CBC ####[facility] [place], [place] [address] .GFRon 10-25-2024 Estimated Glomerular Filtration Rate 81 ml/min/1.73sqm Normal [facility] Comment on above: Result Comment: Stages of [...] calculate the eGFR results. Performed By: #### FOREIGN Fagan, GFR ####[address] [place], [place] [address] .NEUABSon 10-25-2024 Neutrophil, Absolute 3.2 10 3/mcL Normal 2.3-8.1 [facility] Comment on above: Performed By: #### A DIFF, ANEU, CBC ####[address] [place], [place] [address] BMPon 10-25-2024 BUN/Creatinine Ratio 19 ratio Normal 7-27 [facility] Comment on above: Performed By: #### Garcia Smalls BMP, GFR ####[address] [place], [place] [address] Calcium [Mass/Vol] 8.8 mg/dL Normal 8.4-10.2 [facility] Comment on above: Performed By: #### Garcia Smalls BMP, GFR ####[address] [place], [place] [address] Chloride [Moles/Vol] 110 mmol/L High 98-107 [facility] Comment on above: Performed By: #### Garcia Smalls, BMP, GFR ####[address] [place], [place] [address] CO2 [Moles/Vol] 24 mmol/L Normal 22-29 [facility] Comment on above: Performed By: #### Garcia Smalls BMP, GFR ####[address] [place], [place] [address] Creatinine [Mass/Vol] 0.83 mg/dL Normal 0.51-0.95 [facility] Comment on above: Performed By: #### Garcia Smalls BMP, GFR ####[address] [place], [place] [address] Electrolyte Balance 8.0 mEq/L Normal 4.0-15.0 [facility] Comment on above: Performed By: #### Garcia Smalls, BMP, GFR ####[address] [place], [place] [address] Glucose [Mass/Vol] 120 mg/dL High 70-105 [facility] Comment on above: Performed By: #### Garcia Smalls BMP, GFR ####[address] [place], [place] [address] Potassium [Moles/Vol] 4.6 mmol/L Normal 3.5-5.1 [facility] Comment on above: Performed By: #### Garcia G, BMP, GFR ####[address] [place], [place] [address] Sodium [Moles/Vol] 142 mmol/L Normal 136-145 [facility] Comment on above: Performed By: #### Garcia Smalls BMP, GFR ####[address] [place], [place] [address] Urea nitrogen [Mass/Vol] 16 mg/dL Normal 7-18 [facility] Comment on above: Performed By: #### Garcia Smalls BMP, GFR ####[address] [place], [place] [address] CBCon 10-25-2024 Erythrocyte distribution width (RBC) [Ratio] 14.0 % Normal 11.5-15.5 [facility] Comment on above: Performed By: #### A DIFF, ANEU, CBC ####[address] [place], [place] [address] Hematocrit (Bld) [Volume fraction] 29.0 % Low 34.0-46.0 [facility] Comment on above: Performed By: #### A DIFF, ANEU, CBC ####[address] [address] Hgb 9.9 G/dL Low 12.0-16.0 [facility] Comment on above: Performed By: #### A DIFF, ANEU, CBC ####[address] [place], [place] [address] MCH (RBC) [Entitic mass] 28.0 pg Normal 27.0-33.0 [facility] Comment on above: Performed By: #### A DIFF, ANEU, CBC ####[address] [address] MCHC 34.0 G/dL Normal 32.0-36.0 [facility] Comment on above: Performed By: #### A DIFF, ANEU, CBC ####[address] [place], [place] [address] MCV (RBC) [Entitic vol] 82.6 fL Normal 80.0-99.0 [facility] Comment on above: Performed By: #### A DIFF, ANEU, CBC ####[address] [address] Platelet 131 10 3/mcL Low 150-450 [facility] Comment on above: Performed By: #### A DIFF, ANEU, CBC ####[address] [address] Platelet mean volume (Bld) [Entitic vol] 7.2 fL Normal 6.6-10.5 [facility] Comment on above: Performed By: #### A DIFF, ANEU, CBC ####[address] [address] RBC 3.52 10 6/mcL Low 4.10-5.30 [facility] Comment on above: Performed By: #### A DIFF, ANEU, CBC ####[address] [address] WBC 4.7 10 3/mcL Normal 4.5-10.8 [facility] Comment on above: Performed By: #### A DIFF, ANEU, CBC ####[address] [address] LABORATORYOrdered By: SYSTEM SYSTEM on 10-25-2024 Basophils [...] 10-25-2024 Magnesium [Mass/Vol] 2.0 mg/dL Normal 1.8-2.4 [facility] Comment on above: Performed By: #### M G, BMP, GFR ####[facility] [place], [place] [address] .Auto Diffon 10-22-2024 Basophil, Absolute 0.0 10 3/mcL Normal 0.0-0.3 [facility] Comment on above: Performed By: #### G FR, ADIFF, MG, CBC, CMP, ANEU ####[facility] [place], [place] [address] Basophils/100 WBC (Bld) 0.9 % Normal 0.0-2.5 [facility] Comment on above: Performed By: #### G FR, ADIFF, MG, CBC, CMP, ANEU ####[facility] [address] [place], [place] [address] Eosinophil, Absolute 0.1 10 3/mcL Normal 0.0-0.7 [facility] Comment on above: Performed By: #### G FR, ADIFF, MG, CBC, CMP, ANEU ####[facility] [address] [place], [place] [address] Eosinophils/100 WBC (Bld) 2.7 % Normal 0.0-6.0 [facility] Comment on above: Performed By: #### G FR, ADIFF, MG, CBC, CMP, ANEU ####[address] [address] [place], [place] [address] Lymphocyte, Absolute 1.2 10 3/mcL Normal 0.9-4.3 [facility] Comment on above: Performed By: #### G FR, ADIFF, MG, CBC, CMP, ANEU ####[facility] [place], [place] [address] Lymphocytes/100 WBC (Bld) 23.2 % Normal 20.0-40.0 [facility] Comment on above: Performed By: #### G FR, ADIFF, MG, CBC, CMP, ANEU ####[facility] [place], [place] [address] Monocyte, Absolute 0.6 10 3/mcL Normal 0.1-1.4 [facility] Comment on above: Performed By: #### G FR, ADIFF, MG, CBC, CMP, ANEU ####[facility] [place], [place] [address] Monocytes/100 WBC (Bld) 11.5 % Normal 2.0-13.0 [facility] Comment on above: Performed By: #### G FR, ADIFF, MG, CBC, CMP, ANEU ####[address] [place], [place] [address] Neutrophils/100 WBC (Bld) 61.7 % Normal 50.0-75.0 [facility] Comment on above: Performed By: #### G FR, ADIFF, MG, CBC, CMP, ANEU ####[address] [place], [place] [address] .GFRon 10-22-2024 Estimated Glomerular Filtration Rate 66 ml/min/1.73sqm Normal [facility] Comment on above: Result Comment: Stages of [...] G FR, ADIFF, MG, CBC, CMP, ANEU ####[facility] [place], [place] [address] .NEUABSon 10-22-2024 Neutrophil, Absolute 3.1 10 3/mcL Normal 2.3-8.1 [facility] Comment on above: Performed By: #### G FR, ADIFF, MG, CBC, CMP, ANEU ####[facility] [place], [place] [address] CBCon 05-01-2025 Erythrocyte distribution width (RBC) [Ratio] 13.6 % Normal 11.5-15.5 [facility] Comment on above: Performed By: #### G FR, ADIFF, MG, CBC, CMP, ANEU ####[address] [place], [place] [address] Hematocrit (Bld) [Volume fraction] 33.3 % Low 34.0-46.0 [facility] Comment on above: Performed By: #### G FR, ADIFF, MG, CBC, CMP, ANEU ####[facility] [place], [place] [address] Hgb 11.3 G/dL Low 12.0-16.0 [facility] Comment on above: Performed By: #### G FR, ADIFF, MG, CBC, CMP, ANEU ####[facility] [address] [place], [place] [address] MCH (RBC) [Entitic mass] 28.1 pg Normal 27.0-33.0 [facility] Comment on above: Performed By: #### G FR, ADIFF, MG, CBC, CMP, ANEU ####[address] [address] MCHC 34.1 G/dL Normal 32.0-36.0 [facility] Comment on above: Performed By: #### G FR, ADIFF, MG, CBC, CMP, ANEU ####[address] [place], [place] [address] MCV (RBC) [Entitic vol] 82.2 fL Normal 80.0-99.0 [facility] Comment on above: Performed By: #### G FR, ADIFF, MG, CBC, CMP, ANEU ####[address] [place], [place] [address] Platelet 134 10 3/mcL Low 150-450 [facility] Comment on above: Performed By: #### G FR, ADIFF, MG, CBC, CMP, ANEU ####[facility] [address] [place], [place] [address] Platelet mean volume (Bld) [Entitic vol] 7.6 fL Normal 6.6-10.5 [facility] Comment on above: Performed By: #### G FR, ADIFF, MG, CBC, CMP, ANEU ####[facility] [place], [place] [address] RBC 4.04 10 6/mcL Low 4.10-5.30 [facility] Comment on above: Performed By: #### G FR, ADIFF, MG, CBC, CMP, ANEU ####[facility] [address] [place], [place] [address] WBC 5.0 10 3/mcL Normal 4.5-10.8 [facility] Comment on above: Performed By: #### G FR, ADIFF, MG, CBC, CMP, ANEU ####[address] [place], [place] [address] CMPon 10-22-2024 Albumin Level 3.3 G/dL Low 3.5-5.0 [facility] Comment on above: Performed By: #### G FR, ADIFF, MG, CBC, CMP, ANEU ####[address] [address] Albumin/Globulin [Mass ratio] 1.3 {ratio} Normal 1.1-2.5 [facility] Comment on above: Performed By: #### G FR, ADIFF, MG, CBC, CMP, ANEU ####[facility] [address] [place], [place] [address] ALP [Catalytic activity/Vol] 53 U/L Normal 40-135 [facility] Comment on above: Performed By: #### G FR, ADIFF, MG, CBC, CMP, ANEU ####[address] [place], [place] [address] ALT [Catalytic activity/Vol] 24 U/L Normal 14-59 [facility] Comment on above: Performed By: #### G FR, ADIFF, MG, CBC, CMP, ANEU ####[facility] [address] [place], [place] [address] AST [Catalytic activity/Vol] 20 U/L Normal 10-40 [facility] Comment on above: Performed By: #### G FR, ADIFF, MG, CBC, CMP, ANEU ####[facility] [place], [place] [address] Bili Total 0.6 mg/dL Normal 0.2-1.0 [facility] Comment on above: Result Comment: Use of this assay is not recommended for patients undergoing treatment with eltrombopag due to the potential for falsely elevated results. Performed By: #### G FR, ADIFF, MG, CBC, CMP, ANEU ####[address] [address] BUN/Creatinine Ratio 12 ratio Normal 7-27 [facility] Comment on above: Performed By: #### G FR, ADIFF, MG, CBC, CMP, ANEU ####[address] [address] Calcium [Mass/Vol] 8.9 mg/dL Normal 8.4-10.2 [facility] Comment on above: Performed By: #### G FR, ADIFF, MG, CBC, CMP, ANEU ####[address] [address] Chloride [Moles/Vol] 109 mmol/L High 98-107 [facility] Comment on above: Performed By: #### G FR, ADIFF, MG, CBC, CMP, ANEU ####[address] [address] CO2 [Moles/Vol] 25 mmol/L Normal 22-29 [facility] Comment on above: Performed By: #### G FR, ADIFF, MG, CBC, CMP, ANEU ####[address] [address] Creatinine [Mass/Vol] 0.98 mg/dL High 0.51-0.95 [facility] Comment on above: Performed By: #### G FR, ADIFF, MG, CBC, CMP, ANEU ####[address] [place], [place] [address] Electrolyte Balance 9.0 mEq/L Normal 4.0-15.0 [facility] Comment on above: Performed By: #### G FR, ADIFF, MG, CBC, CMP, ANEU ####[facility] [place] [place], [place] [address] Globulin 2.6 G/dL Low 2.7-4.4 [facility] Comment on above: Performed By: #### G FR, ADIFF, MG, CBC, CMP, ANEU ####[facility] [place] [place], [place] [address] Glucose [Mass/Vol] 116 mg/dL High 70-105 [facility] Comment on above: Performed By: #### G FR, ADIFF, MG, CBC, CMP, ANEU ####[facility] [place] [place], [place] [address] Potassium [Moles/Vol] 3.8 mmol/L Normal 3.5-5.1 [facility] Comment on above: Performed By: #### G FR, ADIFF, MG, CBC, CMP, ANEU ####[facility] [address] [place], [place] [address] Sodium [Moles/Vol] 143 mmol/L Normal 136-145 [facility] Comment on above: Performed By: #### G FR, ADIFF, MG, CBC, CMP, ANEU ####[facility] [place] [place], [place] [address] Total Protein 5.9 G/dL Low 6.4-8.2 [facility] Comment on above: Performed By: #### G FR, ADIFF, MG, CBC, CMP, ANEU ####[facility] [place], [place] [address] Urea nitrogen [Mass/Vol] 12 mg/dL Normal 7-18 [facility] Comment on above: Performed By: #### G FR, ADIFF, MG, CBC, CMP, ANEU ####[facility] [address] [place], [place] [address] LABORATORYOrdered By: SYSTEM SYSTEM on 10-22-2024 Albumin [...] 10-22-2024 Magnesium [Mass/Vol] 2.0 mg/dL Normal 1.8-2.4 [facility] Comment on above: Performed By: #### G FR, ADIFF, MG, CBC, CMP, ANEU ####[address] [place], [place] [address] .Auto Diffon 10-21-2024 Basophil, Absolute 0.0 10 3/mcL Normal 0.0-0.3 [facility] Comment on above: Performed By: #### A DIFFTERESE MDW, ALC, CBC, GFR, BMP ####[address] [address] Basophils/100 WBC (Bld) 0.2 % Normal 0.0-2.5 [facility] Comment on above: Performed By: #### A DIFFTERESE MDW, ALC, CBC, GFR, BMP ####[address] [address] Eosinophil, Absolute 0.0 10 3/mcL Normal 0.0-0.7 [facility] Comment on above: Performed By: #### A DIFFTERESE MDW, ALC, CBC, GFR, BMP ####[address] [address] Eosinophils/100 WBC (Bld) 0.2 % Normal 0.0-6.0 [facility] Comment on above: Performed By: #### A DIFF, ANEU, MDW, ALC, CBC, GFR, BMP ####[facility] [place], [place] [address] Lymphocyte, Absolute 0.6 10 3/mcL Low 0.9-4.3 [facility] Comment on above: Performed By: #### A DIFF, ANEU, MDW, ALC, CBC, GFR, BMP ####[facility] [place], [place] [address] Lymphocytes/100 WBC (Bld) 3.7 % Low 20.0-40.0 [facility] Comment on above: Performed By: #### A DIFF, ANEU, MDW, ALC, CBC, GFR, BMP ####[address] [place], [place] [address] Monocyte, Absolute 0.9 10 3/mcL Normal 0.1-1.4 [facility] Comment on above: Performed By: #### A DIFF, ANEU, MDW, ALC, CBC, GFR, BMP ####[address] [place], [place] [address] Monocytes/100 WBC (Bld) 5.3 % Normal 2.0-13.0 [facility] Comment on above: Performed By: #### A DIFF, ANEU, MDW, ALC, CBC, GFR, BMP ####[address] [place], [place] [address] Neutrophils/100 WBC (Bld) 90.6 % High 50.0-75.0 [facility] Comment on above: Performed By: #### A DIFF, ANEU, MDW, ALC, CBC, GFR, BMP ####[facility] [place], [place] [address] .GFRon 10-21-2024 Estimated Glomerular Filtration Rate 80 ml/min/1.73sqm Normal [facility] Comment on above: Result Comment: Stages of [...] DIFF, ANEU, MDW, ALC, CBC, GFR, BMP ####[facility] [address] [place], [place] [address] .MDWon 10-21-2024 Monocyte Distribution Width 13.67 Normal 0.00-20.00 [facility] Comment on above: Result Comment: For ED adult patients suspected of sepsis, MDW<=20.0 does not rule out sepsis or risk of sepsis Performed By: #### A DIFF, ANEU, MDW, ALC, CBC, GFR, BMP ####[address] [place], [place] [address] .NEUABSon 10-21-2024 Neutrophil, Absolute 15.3 10 3/mcL High 2.3-8.1 [facility] Comment on above: Performed By: #### A DIFF, ANEU, MDW, ALC, CBC, GFR, BMP ####[address] [place], [place] [address] Crystal 10-21-2024 Ethanol Level <3 Normal [facility] Comment on above: Performed By: #### A DIFF, ANEU, MDW, ALC, CBC, GFR, BMP ####[address] [place], [place] [address] BMPon 10-21-2024 BUN/Creatinine Ratio 13 ratio Normal 7-27 [facility] Comment on above: Performed By: #### A DIFF, ANEU, MDW, ALC, CBC, GFR, BMP ####[address] [place], [place] [address] Calcium [Mass/Vol] 8.3 mg/dL Low 8.4-10.2 [facility] Comment on above: Performed By: #### A DIFF, ANEU, MDW, ALC, CBC, GFR, BMP ####[address] [address] Chloride [Moles/Vol] 111 mmol/L High 98-107 [facility] Comment on above: Performed By: #### A DIFF, TERESE MDW, ALC, CBC, GFR, BMP ####[address] [place], [place] [address] CO2 [Moles/Vol] 20 mmol/L Low 22-29 [facility] Comment on above: Performed By: #### A DIFF, ANEU MDW, ALC, CBC, GFR, BMP ####[address] [place], [place] [address] Creatinine [Mass/Vol] 0.84 mg/dL Normal 0.51-0.95 [facility] Comment on above: Performed By: #### A DIFF, ANEU, MDW, ALC, CBC, GFR, BMP ####[address] [place] [address] Electrolyte Balance 10.0 mEq/L Normal 4.0-15.0 [facility] Comment on above: Performed By: #### A DIFF, ANEU, MDW, ALC, CBC, GFR, BMP ####[address] [address] Glucose [Mass/Vol] 111 mg/dL High 70-105 [facility] Comment on above: Performed By: #### A DIFF, ANEU, MDW, ALC, CBC, GFR, BMP ####[address] [address] Potassium [Moles/Vol] 3.7 mmol/L Normal 3.5-5.1 [facility] Comment on above: Performed By: #### A DIFF, ANEU, MDW, ALC, CBC, GFR, BMP ####[address] [place], [place] [address] Sodium [Moles/Vol] 141 mmol/L Normal 136-145 [facility] Comment on above: Performed By: #### A DIFF, ANEU, MDW, ALC, CBC, GFR, BMP ####[address] [place], [place] [address] Urea nitrogen [Mass/Vol] 11 mg/dL Normal 7-18 [facility] Comment on above: Performed By: #### A DIFF, ANEU, MDW, ALC, CBC, GFR, BMP ####[address] [address] CBCon 10-21-2024 Erythrocyte distribution width (RBC) [Ratio] 13.7 % Normal 11.5-15.5 [facility] Comment on above: Performed By: #### A DIFF, ANEU, MDW, ALC, CBC, GFR, BMP #### [place] [address] Hematocrit (Bld) [Volume fraction] 37.7 % Normal 34.0-46.0 [facility] Comment on above: Performed By: #### A DIFF, ANEU, MDW, ALC, CBC, GFR, BMP #### [place] [address] Hgb 12.2 G/dL Normal 12.0-16.0 [facility] Comment on above: Performed By: #### A DIFF, ANEU, MDW, ALC, CBC, GFR, BMP #### [place] [address] MCH (RBC) [Entitic mass] 27.7 pg Normal 27.0-33.0 [facility] Comment on above: Performed By: #### A DIFF, ANEU, MDW, ALC, CBC, GFR, BMP #### [place] [address] MCHC 32.4 G/dL Normal 32.0-36.0 [facility] Comment on above: Performed By: #### A DIFF, ANEU, MDW, ALC, CBC, GFR, BMP #### [place] [id number] MCV (RBC) [Entitic vol] 85.5 fL Normal 80.0-99.0 [facility] Comment on above: Performed By: #### A DIFF, ANEU, MDW, ALC, CBC, GFR, BMP #### [address] [place], [place] [address] Platelet 154 10 3/mcL Normal 150-450 [facility] Comment on above: Performed By: #### A DIFF, ANEU, MDW, ALC, CBC, GFR, BMP #### [place] [address] [place], [place] [address] Platelet mean volume (Bld) [Entitic vol] 6.9 fL Normal 6.6-10.5 [facility] Comment on above: Performed By: #### A DIFF, ANEU, MDW, ALC, CBC, GFR, BMP #### [address] [place], [place] [address] RBC 4.41 10 6/mcL Normal 4.10-5.30 [facility] Comment on above: Performed By: #### A DIFF, ANEU, MDW, ALC, CBC, GFR, BMP #### [address] [place], [place] [address] WBC 16.9 10 3/mcL High 4.5-10.8 [facility] Comment on above: Performed By: #### A DIFF, ANEU, MDW, ALC, CBC, GFR, BMP #### [place] [place], [place] [address] CT ABD/PELVIS W/ IV CONTRAST ONLYon 10-21-2024 [...] Date: 10/21/2024 1:37:15 PM Ordering Provider: JOE TINOCO [facility] CT HEAD OR BRAIN W/O CONTRAS Ton [...] 10/21/2024 12:30:50 PM Ordering Provider: JOE TINOCO [facility] CT KNEE W/O CONTRAST LEFTon 10-21-2024 CT [...] 10/21/2024 9:37:59 PM Ordering Provider: RENETTA JORDAN [facility] CT SPINE CERVICAL W/O ANGELA Hastings 10-21-2024 CT SPINE CERVICAL W/O CONTRAST ORIGINAL [...] 10/21/2024 12:34:13 PM Ordering Provider: JOE Aguilar [facility] CT THORAX W/ CONTRASTon 04-3 CT THORAX [...] 10/21/2024 1:06:18 PM Ordering Provider: JOE Aguilar [facility] LABORATORYOrdered By: Lincoln Cunningham on 10-21-2024 Amphetamines [...] SS UAon 10-21-2024 Color (U) Yellow Normal [facility] Comment on above: Performed By: #### U DRUG, UA ####[address] [place], [place] [address] Glucose (U) [Mass/Vol] Negative Normal Negative [facility] Comment on above: Performed By: #### U DRUG, UA ####[address] [place], [place] [address] Ketones Ql (U) Negative Normal Negative [facility] Comment on above: Performed By: #### U DRUG, UA ####[address] [place], [place] [address] UA Appear Clear Normal Clear [facility] Comment on above: Performed By: #### U DRUG, UA ####[address] [place], [place] [address] UA Blood Negative Normal Negative [facility] Comment on above: Performed By: #### U DRUG, UA ####[address] [place], [place] [address] UA Leuk Est Trace Normal Negative [facility] Comment on above: Performed By: #### U DRUG, UA ####[address] [place], [place] [address] UA Nitrite Negative Normal Negative [facility] Comment on above: Performed By: #### U DRUG, UA ####[address] [place] [address] UA pH 6.0 Normal 5.0 - 8.0 [facility] Comment on above: Performed By: #### U DRUG, UA ####[address] [place] [address] UA Protein Negative Normal Negative [facility] Comment on above: Performed By: #### U DRUG, UA ####[address] [place] [address] UA Spec Grav 1.015 Normal 1.015-1.025 [facility] Comment on above: Performed By: #### U DRUG, UA ####[address] [place], [place] [address] UA Specimen Type Clean Catch Normal [facility] Comment on above: Performed By: #### U DRUG, UA ####[address] [place] [address] UA Urobilinogen 0.2 E.U./dL Normal 0.2-1.0 [facility] Comment on above: Performed By: #### U DRUG, UA ####[address] [place] [address] Urobilinogen (U) [Mass/Vol] Negative Normal Negative [facility] Comment on above: Performed By: #### U DRUG, UA ####[address] [place] [address] UDRUGon 10-21-2024 Amphetamine (u) Negative Normal Negative [facility] Comment on above: Order Comment: Lisset johnson performed on urine reagent strip. Performed By: #### U DRUG, UA ####[address] [address] Barbiturate (u) Negative Normal Negative [facility] Comment on above: Order Comment: Manua l reading performed on urine reagent strip. Performed By: #### U DRUG, UA ####[address] [place], [place] [address] Benzodiazepine (u) Negative Normal Negative [facility] Comment on above: Order Comment: Manua l reading performed on urine reagent strip. Performed By: #### U DRUG, UA ####[address] [address] Cannabinoid (u) Positive Abnormal Negative [facility] Comment on above: Order Comment: Manua l reading performed on urine reagent strip. Performed By: #### U DRUG, UA ####[address] [place], [place] [address] Cocaine Ql (U) Negative Normal Negative [facility] Comment on above: Order Comment: Manua l reading performed on urine reagent strip. Performed By: #### U DRUG, UA ####[address] [address] Methadone Ql (U) Negative Normal Negative [facility] Comment on above: Order Comment: Manua l reading performed on urine reagent strip. Performed By: #### U DRUG, UA ####[address] [address] Opiate (u) Positive Abnormal Negative [facility] Comment on above: Order Comment: Manua l reading performed on urine reagent strip. Performed By: #### U DRUG, UA ####[address] [place], [place] [address] PCP (u) Negative Normal Negative [facility] Comment on above: Order Comment: Manua l reading performed on urine reagent strip. Performed By: #### U DRUG, UA ####[address] [place], [place] [address] Urine Drugs screened: See Below Normal L [facility] Comment on above: Order Comment: Manua [...] PURPOSES ONLY. Performed By: #### U DRUG, ####[facility] [place], [place] [address] XR KNEE 1 OR 2 VIEWS LEFTon 10-21-2024 XR KNEE 1 OR 2 VIEWS [...] Date: 10/21/2024 12:54:50 PM Ordering Provider: JOE TINOCO [facility] XR WRIST TWO VIEWS LEFTon XR WRIST TWO VIEWS LEFT ORIGINAL HISTORY: [...] 10/21/2024 12:51:00 PM Ordering Provider: JOE TINOCO [facility] XR WRIST TWO VIEWS RIGHTon 0 10-21-2024 [...] 10/21/2024 12:50:07 PM Ordering Provider: JOE TINOCO [facility] Office Visiton 10-14-2024 Follow-up visit [id number] Idalia Gipson 1965 F Date Provider Department Center 10/14/2024 [id number] KNOWLES [facility] Family History Problem Relation Age of Onset [...] Alive Paternal Grandmother Father's Sister Level of Service:42169 [place] OFFICE/OUTPATIENT ESTABLISHED MOD MDM 30 MIN Reason for Visit and Comments: Medication Check [7847197821] Anxiety [9] Depression [32] Hyperlipidemia [182] Insomnia [633684] Health Maintenance [872] - Hiv screen- declines CRCS- declines PNA- agrees Blood Work [330595] [facility] Progress Noteon 10-14-2024 Progress Note 10/14/2024 Idalia Gipson (: 1965) is a [...] how symptoms respond. Discussed follow-up with your director embalmer if symptoms do not improve. 7. Bladder spasms - Basic metabolic panel - POCT Urinalysis dipstick - UA negative for signs of infection during office visit today. Will start on daily oxybutynin and see how symptoms respond. Discussed follow-up with your director embalmer if symptoms do not improve. 8. Hyperlipidemia, [...] <5.0 (calc) (more content not included)... Normal [facility] [place] [facility] Progress Note Patient verified by last name and . Normal [facility] Urinalysis macro (dipstick) panel (U)on 10-14-2024 Bilirubin, UA Negative [facility] Blood, UA Negative [facility] Glucose, UA Negative [facility] Ketones, POC (mg/dL) Negative [facility] Leukocytes, UA Negative [facility] th Nitrite, UA Negative [facility] pH, UA 8.[address] [facility] Protein, UA Negative [facility] Spec Grav, UA 1.025 [facility] Urobilinogen, UA 0.2 [facility] DBT Breast - bilateral scree tanigon 09-25-2024 [...] MD Electronically Signed Date/Time: 09/25/2024 2:23 PM [facility] 1965 [id number] Exam Date/Time: 09/25/2024 13:41 Procedure: BI MAMMOGRAM SCREENING TOMOSYNTHESIS BILATERAL Ordering Provider: KNOWLES HOLLY Reason For Exam: This exam was performed at [address] [id number] RISK ALERT: The Cancer Risk Assessment scores [...] images: BB's = Nipples; skin lesions Open prairie band = Palpable Line = Scar COMPARISON: 05/20/2023 [...] evidence of skin thickening or nipple retraction. [facility] RADIOLOGY SYSTEM Yanet Cardona MD - 09/25/2024 Patient Name: IDALIA GIPSON : 1965 Exam Date/Time: 09/25/2024 13:41 Procedure: BI MAMMOGRAM SCREENING TOMOSYNTHESIS BILATERAL Ordering Provider: KNOWLES HOLLY Reason For Exam: This exam was performed at [address] [address] RISK ALERT: The Cancer Risk Assessment scores [...] images: BB's = Nipples; skin lesions Open prairie band = Palpable Line = Scar COMPARISON: 05/20/2023 [...] of this examination. LIFETIME BREAST CANCER RISK: Tyrer-Cuzick 8: 16.89% - If greater than or [...] Electronically Signed Date/Time: 09/25/2024 2:23 PM EDT [facility] Radiology Study observation (narrative) [facility] DBT Breast - bilateral scree ningOrdered By: Yanet Cardona on 09-25-2024 [facility] [employer] [place] Work Phone: No Panel Informationon 09-[address] [facility] .Urinalysis Microscopic (AO) on 09-04-2024 UA Bacteria 1+ /hpf Abnormal [facility] Comment on above: Performed By: #### U A, [place] #### [place] [address] UA RBC LOADED Abnormal None Seen [facility] Comment on above: Performed By: #### U A, UAMICAO #### [address] [address] UA Squam Epithelial 0-5 Abnormal None Seen [facility] Comment on above: Performed By: #### U A, [place]AM[place]O #### [place] [address] UA WBC 15-25 Abnormal None Seen [facility] Comment on above: Performed By: #### U A, UAMICAO #### [place] [address] 36on 09-04-2024 36 Noted. Thank you. [facility] 36 Spoke to Idalia, states she is going to go to [facility] ER. Will call us back and let us know how she is doing/to schedule ER follow up Normal [facility] 36 Unfortunately the office closed at noon today. Would she be able to come in and provide a urine sample first thing next week? Normal [facility] 36 S: Patient spoke wit h CAC nurse regarding urinary symptoms B: Onset [...] to urinate (i.e., urgency) Protocols used: Urinary Aphjmenj-RJDYN-MQ Normal [facility] UAon 09-04-2024 Color (U) Wilson Abnormal [facility] Comment on above: Performed By: #### U A, UAMICAO #### [place] [address] Glucose (U) [Mass/Vol] 100 mg/dL Abnormal Negative [facility] Comment on above: Performed By: #### U A, UAMICAO #### [place] [address] Ketones Ql (U) Negative Normal Negative [facility] Comment on above: Performed By: #### U A, UAMICAO #### [place] [address] UA Appear Clear Normal Clear [facility] Comment on above: Performed By: #### U A, UAMICAO #### [address] [address] UA Blood Large Abnormal Negative [facility] Comment on above: Performed By: #### U A, UAMICAO #### [place] [address] UA Leuk Est Trace Abnormal Negative [facility] Comment on above: Performed By: #### U A, UAMICAO #### [place] [address] UA Nitrite Positive Abnormal Negative [facility] Comment on above: Performed By: #### U A, UAMICAO #### [address] [address] UA pH 5.5 Normal 5.0 - 8.0 [facility] Comment on above: Performed By: #### U A, UAMICAO #### [address] [address] UA Protein 100 mg/dL Abnormal Negative [facility] Comment on above: Performed By: #### U A, UAMICAO #### [address] [address] UA Spec Grav 1.010 Abnormal 1.015-1.025 [facility] Comment on above: Performed By: #### U A, UAMICAO #### [address] [address] UA Specimen Type Clean Catch Normal [facility] Comment on above: Performed By: #### U A, UAMICAO #### [address] [address] UA Urobilinogen 2.0 E.U./dL Abnormal 0.2-1.0 [facility] Comment on above: Performed By: #### U A, UAMICAO #### [address] [address] Urobilinogen (U) [Mass/Vol] Negative Normal Negative [facility] Comment on above: Performed By: #### U A, UAMICAO #### [address] [address] 36on 08-17-2024 36 Okay, thank you Normal [facility] 36on 08-14-2024 [address] findings and current guidelines with Idalia. Agreeable to repeat CT in 1 year versus 6 months. Normal [facility] 36 Patient calling to s if she can be checked in 6 mos instead of a year for the lung nodules. Please advise. Normal [facility] 36 Idalia wanted you to know that she stopped smoking on 06/10/24 after she saw you and you told her she needs to stop smoking. She states she told you she would and wants you to know that she kept her word. I have updated her chart. Normal [facility] CT Chest for screening WO co ntraston [...] Electronically Signed Date/Time: 08/13/2024 4:38 PM EST [employer] Patient Name: IDALIA GIPSON : 1965 [...] are grossly normal on this unenhanced scan. [facility] [employer] Devin Quinn MD - 08/13/2024 Patient Name: IDAL[facility] GIPSON [facility] 1965 [id number] Exam Date/Time: 08/13/2024 14:23 Procedure: CT LUNG [...] Electronically Signed Date/Time: 08/13/2024 4:38 PM EST [facility] Radiology Study observation (narrative) [facility] CT Chest for screening WO co ntrastOrdered By: Devin Quinn on 08-13-2024 [employer] Work Phone: CT LUNG SCREENING LOW DOSEon [...] 2 MONTHS. 30 YEARS 1 PPD. Normal [facility] Office Visiton 06-10-2024 Follow-up visit [id number] Idalia Gipson 1965 F Date Provider Department Center 06/10/2024 [id number]-EJNNSOAUGUSTIN JORDAN CARLOJOHANATAMMYSerina [facility] Family History Problem Relation Age of Onset [...] Alive Paternal Grandmother Father's Sister Level of Service:38158 [place] OFFICE/OUTPATIENT ESTABLISHED LOW MDM 20 MIN Reason for Visit and Comments: Wheezing [719987] - When start moving around - bring up light green Cough [28] Chills [337407] - Sometimes hot and sometimes cold Normal [facility] Progress Noteon 06-10-2024 Progress Note Dulera 100-5 2 puffs twice a day, continue to use albuterol as needed and follow-up for testing as scheduled. Normal [facility] Progress Note 06/10/2024 Idalia Gipson (: 1965) is a [...] note. Augustin Jordan MD 06/10/2024 3:14 PM [facility] Progress Note Patient verified by last name and date of . [facility] 36on 06-09-2024 36 S: Patient spoke wit h CAC nurse regarding Cough chest congestion chills [...] cough treatment per Care Advice Protocols used: Yjbvx-GBHKG-YJ [address] 06-05-2024 36 Thank you Valerie. [address] 06-04-2024 36 Spoke to Idalia, she is going to call to schedule this. [address] 06-01-2024 36 Please check with Idalia if she still plans to get this done. Thank you. [facility] 36 Pt given orders for CT-Lung Screen on 04/15/24 Several attempts to contact pt including a follow up letter were made. No response from pt to sched; Okay to closed orders? [address] 05-22-2024 36 S: Patient spoke wit h [facility] nurse regarding cough B: Onset of symptoms/concern 3 days A: Wheezing, non productive cough. Pt speaking in full sentences without audible wheezing. Denies - shortness of breath, fever, chest congestion Pt requesting to have prednisone to be sent to pharmacy. R: Home care advised given for non-productive cough - Cough - Acute Yic-Xrtpukzirc-HRCNW- Care Advice COUGH DROPS FOR COUGH: * Cough drops can help a lot, especially for mild coughs. They reduce coughing by soothing your irritated throat and removing that tickle sensation in the back of the throat. * Cough drops also have the advantage of portability - you can carry them with you. * Cough drops are available lwzd-rsn-hkxaxay (OTC). * HOME REMEDY - HARD CANDY: [...] Disposition Cough Protocols used: Cough - Acute Uya-Ydkhwnoeza-ELQXY-AH [facility] 36on 04-27-2024 36 Medication name: albuterol 108 (90 Base) MCG/ACT inhaler Patient is calling in to have their inhaler for next month ready to nut picker when their current inhaler runs out. Medication [...] prior to picking up the medication: Yes [facility] 36on 04-24-2024 36 Noted [facility] 36 Please leave open fo r 90 days. Then if not scheduled ok to close. [facility] 36 Pt given orders for Complete PFT on 03/24/24 Several attempts to contact pt including a follow up letter were maid. No response from pt to sched; Okay to closed orders? [facility] Office Visiton 04-15-2024 Follow-up visit [id number] Idalia Gipson 1965 F Date Provider Department Center 04/15/2024 43691-TOLWIHENRIETTA KNOWLES [facility] Family History Problem Relation Age of Onset [...] Alive Paternal Grandmother Father's Sister Level of Service:28689 [place] PERIODIC PREVENTIVE MED EST PATIENT 40-64YRS Reason for Visit and Comments: Gynecologic Exam [50] Health Maintenance [872] - Lung cx screen- declines CRCS- declines Flu- agrees Covid- not done Blood Work [442619] Normal [facility] Progress Noteon 04-15-2024 Progress Note Patient verified by last name and . After obtaining consent, and per orders of STANLEY Payne, injection of Influenza given in the Right Deltoid by Damaris Linda. Patient instructed to report any adverse reactions immediately. Normal [facility] Progress Note [facility] [address] [facility] [address] Dept: [phone] Dept Loc: [phone] HPI: Idalia Gipson is a 58 y.o. [...] NON HDL CHOLESTEROL <130 mg/dL (calc) 113 Depression/Anxiety/PTSD : Takes Abilify, Buspar, and Trintellix as prescribed. [...] Problem Relation Name Age of Onset Other (78847) Mother cancer Heart disease Mother Mental illness [...] MOUTH T (more content not included)... Normal [facility] No Panel Informationon 11-13 Radiology Study observation (narrative) [facility] XR Ankle - left 3 Viewson No acute osseous abnormality of the left ankle. Report Dictated on Electronically Signed By: Shahab Pinto MD Electronically Signed Date/Time: 11/14/2023 4:36 PM [facility] Patient Name: IDALIA MEJIA : 1965 [id number] Exam Date/Time: 11/14/2023 12:18 Procedure: XR ANKLE [...] no effusion. The soft tissues are unremarkable. [facility] Miriam Pinto MD - 11/14/2023 Patient Name: [...] Electronically Signed Date/Time: 11/14/2023 4:36 PM EDT [facility] XR Ankle - left 3 ViewsOrder ed By: Miriam Pinto on 11-14-[address] [facility] Work Phone: XR Foot - left 3 Viewson No acute osseous abnormality of the left foot. Report Dictated on Electronically Signed By: Shahab Pinto MD Electronically Signed Date/Time: 11/14/2023 4:35 PM EDT [facility] [employer] Patient Name: IDALIA MEJIA : 1965 [...] is no effusion.The soft tissues are unremarkable. [facility] Miriam Pinto MD - 11/14/2023 Patient Name: [...] Electronically Signed Date/Time: 11/14/2023 4:35 PM EDT [facility] DBT Breast - bilateral diagn osticon 05-20-2023 Ruptured left breast saline implant. No mammographic evidence of malignancy. A one year screening exam is recommended. Markings on images: BB's = Nipples; skin lesions Open prairie band = Palpable Line = Scar ASSESSMENT: Category 2 Benign RECOMMENDATION: Routine screening mammogram in 1 year. Bilateral Report Dictated on Electronically Signed By: Yanet Cardona MD Electronically Signed Date/Time: 05/20/2023 11:12 AM EST [facility] [employer] Patient Name: IDALIA MEJIA : 1965 [...] no suspicious findings seen within either breast. [facility] Yanet Cardona MD - 05/20/2023 Patient Name: IDALIA MEJIA : 1965 [id number] Exam Date/Time: 05/20/2023 11:13 Procedure: BI MAMMOGRAM [...] images: BB's = Nipples; skin lesions Open prairie band = Palpable Line = Scar ASSESSMENT: Category 2 Benign RECOMMENDATION: Routine screening mammogram in 1 year. Bilateral Report Dictated on Electronically Signed By: Yanet Cardona MD Electronically Signed Date/Time: 05/20/2023 11:12 AM EST [employer] [place] Radiology Study observation (narrative) [facility] DBT Breast - bilateral diagn osticOrdered By: Yanet Cardona on 05-20-[address] [facility] XR Chest 2 Viewson No acute cardiopulmonary disease. Report Dictated on Electronically Signed By: Carmelo Espitia MD Electronically Signed Date/Time: 04/12/2023 7:12 PM EDT [facility] Patient Name: IDALIA MEJIA : 1965 [...] unremarkable as visualized for the patient's age. [facility] Carmelo Espitia MD - 04/12/2023 Patient [...] Electronically Signed Date/Time: 04/12/2023 7:12 PM EDT [facility] Radiology Study observation (narrative) [facility] XR Chest 2 ViewsOrdered By: Carmelo Espitia on 04-12-2023 [facility] [place] Work Phone: 36on 06-21-2022 36 Idalia Lofton Yeni Davila. This is an important reminder about your recent Cologuard order. Our records indicate that you have not returned your Cologuard collection kit yet. Please plan to return your kit within the next two weeks. If it?s lost or you need a new kit, please contact the [employer] patient support team at . Pt on suboxone, has kit. Only goes to bathroom every two weeks or so but will try to get sent in within the next two weeks. [facility] 36on 05-04-2022 36 Called again and cou ld not reach pharmacy. Called in script on their vm instead. [address] 05-03-2022 36 Called 2x and cannot get through to anyone, the automated prompt menu just keeps going in circles. [place] [address] Tried to call the pharmacy to check on this but they are at lunch. [facility] 36 Name of caller: Idalia Davila Contact phone number: [phone] Relationship to Patient: patient Provider: Nikki Yates Practice: [facility] Chief Complaint/Reason for Call: Patient states the pharmacy never received :Wmxilwhqb-Vlosgdfa-RF 30-1-20 MG/5ML liquid . Please advise. Best time of day caller can be reached: any Patient advised that office/PCP has 24-48 business hours to return their call: Yes [address] 04-25-2022 36 Called and notified that her pap smear results were normal. [place] [address] Please send this to Henrietta she is the one that did her Pap [place] [address] Name of caller: Idalia Davila Contact phone number: [phone] Relationship to Patient: patient Provider: Augustin Jordan MD Practice: [facility] Chief Complaint/Reason for Call: Would like a call back of her Pap Smear on 04/04/22. Best time of day caller can be reached: any Patient advised that office/PCP has 24-48 business hours to return their call: No [facility] LABORATORYOrdered By: Lincoln Cunningham on 12-25-2021 Basophil, [...] Albumin [Mass/Vol] 4.5 g/dL Normal 3.2-5.0 [facility] Comment on above: Performed By: #### L 500.78276, L500.30504 #### [facility] [address] [place], [place] [address] Albumin/Globulin [Mass ratio] 1.7 {ratio} Normal 0.8-2.0 [facility] Comment on above: Performed By: #### L 500.06235, L500.58097 #### [facility] [address] [place] [address] ALK PHOS 50 U/L Normal 45-117 [facility] Comment on above: Performed By: #### L 500.70293, L500.65372 #### [facility] [address] [place] [address] ALT [Catalytic activity/Vol] 9 U/L Low 13-61 [facility] Comment on above: Result Comment: RESU LTS MAY BE FALSELY DEPRESSED AFTER THE ADMINISTRATION OF SULFASALAZINE AND/OR SULFAPYRIDINE. Performed By: #### L 500.58153, L500.00480 #### [facility] [address] [place], [place] [address] Anion gap [Moles/Vol] 7 mmol/L Normal 5-16 [facility] Comment on above: Performed By: #### L 500.30319, L500.34173 #### [facility] [address] [place], [place] [address] AST [Catalytic activity/Vol] 19 U/L Normal 8-34 [facility] Comment on above: Result Comment: RESU LTS MAY BE FALSELY DEPRESSED AFTER THE ADMINISTRATION OF SULFASALAZINE AND/OR SULFAPYRIDINE. Performed By: #### L 500.29922, L500.92470 #### [facility] [address] [place], [place] [address] BILI TOTAL 0.30 MG/DL Normal 0.2-1.0 [facility] Comment on above: Performed By: #### L 500.89871, L500.03233 #### [facility] [address] [place] [address] Calcium [Mass/Vol] 10.8 mg/dL High 8.5-10.5 [facility] Comment on above: Result Comment: NOTE NEW NORMAL RANGE DUE TO REAGENT CHANGE Performed By: #### L 500.26763, L500.26577 #### [facility] [address] [place] [address] Chloride [Moles/Vol] 109 mmol/L High 98-107 [facility] Comment on above: Performed By: #### L 500.65805, L500.47753 #### [facility] [address] [place] [address] CO2 [Moles/Vol] 24.0 mmol/L Normal 21-32 [facility] Comment on above: Performed By: #### L 500.10655, L500.27767 #### [facility] [address] [place] [address] Creatinine [Mass/Vol] 0.82 mg/dL Normal 0.510-0.950 [facility] Comment on above: Result Comment: Brionna ents receiving either N-Acetylcysteine (NAC) or Metamizole prior to venipuncture, may have falsely depressed results. Performed By: #### L 500.80104, L500.02780 #### [facility] [address] [place] [address] Globulin (S) [Mass/Vol] 2.6 g/dL Normal 2.2-4.2 M [facility] Comment on above: Performed By: #### L 500.18712, L500.04413 #### [facility] [address] [place] [address] Glucose [Mass/Vol] 94 mg/dL Normal 70-100 [facility] Comment on above: Result Comment: 70-1 00- Normal Fasting; 100-125 Impaired Fasting; greater than 126 on more than one result- Diabetes. ADA guidelines. Results may be falsely elevated after the administration of Sulfapyridine. Results may be falsely depressed after the administration of Sulfasalazine. Performed By: #### L 500.60353, L500.29821 #### [facility] [place] [address] Potassium [Moles/Vol] 4.5 mmol/L Normal 3.5-5.1 [facility] Comment on above: Result Comment: Slig ht Hemolysis, Result may be affected. Performed By: #### L 500.71621, L500.54804 #### [facility] [address] [place] [address] Protein [Mass/Vol] 7.1 g/dL Normal 6.0-8.5 [facility] Comment on above: Performed By: #### L 500.86294, L500.99920 #### [facility] [address] [place] [address] Sodium [Moles/Vol] 140 mmol/L Normal 136-145 [facility] Comment on above: Performed By: #### L 500.42548, L500.39264 #### [facility] [address] [place] [address] Urea nitrogen [Mass/Vol] 13 mg/dL Normal 7-26 [facility] Comment on above: Performed By: #### L 500.08495, L500.17659 #### [facility] [address] [place] [address] Urea nitrogen/Creatinine [Mass ratio] 16 mg/mg Normal 15-24 [facility] Comment on above: Performed By: #### L 500.95696, L500.86201 #### [facility] [address] [place] [address] GFR ESTon 08-11-2020 IF AMER Greater than 60 Normal [facility] Comment on above: Performed By: #### L 500.09621, L500.23881 #### [facility] [address] [place] [address] IF non-AFR AMER Greater than 60 Normal [facility] Comment on above: Performed By: #### L 500.07634, L500.19145 #### [facility] [address] [place] [address] Glucose,Bedsideon 06-18-2019 Glucose [Mass/Vol] 102 mg/dL High 70-100 [facility] Comment on above: Result Comment: Test performed by glucose meter. Results may be 10%-15% lower than serum/plasma values. (CLIA ID [id number]) Performed By: #### B GLU #### [facility] [address] [place] [address] US Pelvis TA/TVon 02-20-2019 US Pelvis TA/TV Patient Name: IDALIA LAROSE Ultrasound Exam Date/Time 02/19/2019 15:59:55 EDT Exam US Pelvis TA/TV Ordering Physician MD NIKKI, AUGUSTIN BURRELL Accession Number [id number] CPT4 Codes 29220 (US Pelvis TA/TV), 39872 (US Transvaginal) Reason For Exam PAIN, PELVIS [...] Transcribed Date and Time: 02/20/2019 8:21 Normal [facility] Breast Tomosynthesis Scr Blon 02-13-2019 MG Breast Tomosynthesis Scr Bl Patient Name: IDALIA LAROSE Mammography Exam Date/Time 02/13/2019 16:41:27 EDT Exam MG Breast Tomosynthesis BI Scr Ordering Physician FLAVIA KNOWLES HOLLY S Accession Number [id number] CPT4 Codes 93754 (MG Breast Tomosynthesis Scr Bl), 50664 ( MAMMO 2D SCREENING) Reason For Exam screening Report PATIENT HISTORY: Patient had first child at age 31. Family history of unknown cancer at age 50 in mother, breast cancer at age 40 in paternal aunt, unknown cancer in paternal grandmother. Saline implants in both breasts, 1995. Took hormonal contraceptives for 10 years. Patient [...] images: BB's = Nipples; skin lesions Open prairie band = Palpable Line = Scar 2D digital [...] by: MD DE LA O KERISTEN L [facility] CR Ankle 2 Views Lefton 09-22 CR Ankle 2 Views Left Patient Name: IDALIA LAROSE Diagnostic Radiology Exam Date/Time 10/09/2018 14:57:53 EDT Exam CR Ankle 2 Views Left Ordering Physician FLAVIA KNOWLES HOLLY S Accession Number [id number] CPT4 Codes 78770 () Reason For Exam fall with injury; [...] Report Dictated on Final Dictating Physician: MD MELISSA, MICHELLE Signed Date and Time: 10/09/2018 3:01 pm Signed by: MD TORRES RISA Transcribed Date and Time: 10/09/2018 3:02 Normal [facility] CR Foot Complete 3+ Views Le fton 10-09-2018 CR Foot Complete 3+ Views Left Patient Name: IDALIA LAROSE Diagnostic Radiology Exam Date/Time 10/09/2018 14:57:53 EDT Exam CR Foot Complete 3+ Views Left Ordering Physician FLAVIA KNOWLES HOLLY S Accession Number [id number] CPT4 Codes 35941 () Reason For Exam fall with injury; [...] Transcribed Date and Time: 10/09/2018 4:09 Normal [facility] Vital Signs Date Time Vital Sign Value Performing Clinician Linda levi 03-22-2025 08:33-0400 Body height 167.6 cm Yarsani Backer PA-C Work Phone: [facility] [place] 03-22-2025 08:33-0400 Body mass index (BMI) [Ratio] 33.57 kg/m2 Yarsani Backer PA-C Work Phone: [facility] [place] 03-22-2025 08:33-0400 Body weight 94.35 kg Yarsani Backer PA-C Work Phone: [facility] [place] 03-05-2025 16:15-0400 Body temperature 97.59 [degF] Cristy Hester MD Work Phone: [facility] [place] 03-05-2025 16:15-0400 Diastolic blood pressure 82 mm[Hg] Cristy Hester MD Work Phone: [facility] [place] 03-05-2025 16:15-0400 Heart rate 80 /min Cristy Hester MD Work Phone: [facility] [place] 03-05-2025 16:15-0400 Respiratory rate 14 /min Cristy Hester MD Work Phone: [facility] [place] 03-05-2025 16:15-0400 SaO2% (BldA) [Mass fraction] 100 % Cristy Hester MD Work Phone: [facility] [place] 03-05-2025 16:15-0400 Systolic blood pressure 154 mm[Hg] Cristy Hester MD Work Phone: [facility] [place] 03-05-2025 10:31-0400 Body height 167.6 cm Cristy Hester MD Work Phone: [facility] [place] 03-05-2025 10:31-0400 Body mass index (BMI) [Ratio] 33.57 kg/m2 Cristy Hester MD Work Phone: [facility] [place] 03-05-2025 10:31-0400 Body weight 94.35 kg Cristy Hester MD Work Phone: [facility] [place] 01-13-2025 13:35-0400 Body height 167.6 cm Cristy Hester MD Work Phone: [facility] [place] 01-13-2025 13:35-0400 Body mass index (BMI) [Ratio] 31.64 kg/m2 Cristy Hester MD Work Phone: [facility] [place] 01-13-2025 13:35-0400 Body weight 88.91 kg Cristy Hester MD Work Phone: [facility] [place] 10-26-2024 13:31-0400 Body temperature 98.6 [degF] OSMAR WILBURN [employer]IST[employer] MANAGEMENT SPECIALIST-[employer] [place] [address]-05-2025 13:31-0400 Diastolic Blood Pressure Non-Invasive 66 mm[Hg] OSMAR BRITOVera LOGISTICS MANAGEMENT SPECIALIST-[employer] [facility] 10-26-2024 13:31-0400 Heart rate 91 /min OSMAR BRITOVera LOGISTICS MANAGEMENT SPECIALIST-[employer] [facility] 10-26-2024 13:31-0400 Reason For Taking VItal Signs OSMAR BRITOVera LOGISTICS MANAGEMENT SPECIALIST-[employer] [facility] 10-26-2024 13:31-0400 Respiratory rate 16 /min OSMAR BRITOVera LOGISTICS MANAGEMENT SPECIALIST-[employer] [facility] 10-26-2024 13:31-0400 Systolic Blood Pressure Non-Invasive 123 mm[Hg] OSMARMK MARQUEZANKUSH LOGISTICS MANAGEMENT SPECIALIST-[employer] [facility] 10-26-2024 10:58-0400 Body temperature 98.06 [degF] OSMAR BRITON LOGISTICS MANAGEMENT SPECIALIST-[employer] [facility] 10-26-2024 10:58-0400 Diastolic Blood Pressure Non-Invasive 73 mm[Hg] OSMAR BRITOVera LOGISTICS MANAGEMENT SPECIALIST-[employer] [facility] 10-26-2024 10:58-0400 Heart rate 96 /min OSMAR BRITOVera LOGISTICS MANAGEMENT SPECIALIST-[employer] [facility] 10-26-2024 10:58-0400 Reason For Taking VItal Signs OSMAR BRITOVera LOGISTICS MANAGEMENT SPECIALIST-[employer] [facility] 10-26-2024 10:58-0400 Respiratory rate 16 /min OSMAR BRITOVera LOGISTICS MANAGEMENT SPECIALIST-[employer]ER [facility] 10-26-2024 10:58-0400 Systolic Blood Pressure Non-Invasive 131 mm[Hg] OSMAR WILBURN LOGISTICS MANAGEMENT SPECIALIST-[employer] [facility] 10-26-2024 09:48-0400 Heart rate 87 /min OSMAR WILBURN LOGISTICS MANAGEMENT SPECIALIST-[employer] [facility] 10-26-2024 09:48-0400 Respiratory rate 16 /min OSMAR WILBURN LOGISTICS MANAGEMENT SPECIALIST-[employer] [facility] 10-26-2024 06:28-0400 Body temperature 98.06 [degF] OSMAR WILBURN LOGISTICS MANAGEMENT SPECIALIST-[employer] [facility] 10-26-2024 06:28-0400 Diastolic Blood Pressure Non-Invasive 75 mm[Hg] OSMAR WILBURN LOGISTICS MANAGEMENT SPECIALIST-[employer] [facility] 10-26-2024 06:28-0400 Heart rate 90 /min OSMAR WILBURN LOGISTICS MANAGEMENT SPECIALIST-[employer] [facility] 10-26-2024 06:28-0400 Reason For Taking VItal Signs OSMAR WILBURN LOGISTICS MANAGEMENT SPECIALIST-[employer] [facility] 10-26-2024 06:28-0400 Systolic Blood Pressure Non-Invasive 134 mm[Hg] OSMAR WILBURN LOGISTICS MANAGEMENT SPECIALIST-[employer] [facility] 10-26-2024 06:14-0400 Heart rate 80 /min OSMAR WILBURN LOGISTICS MANAGEMENT SPECIALIST-[employer] [facility] 10-26-2024 03:41-0400 Heart rate 87 /min OSMAR WILBURN LOGISTICS MANAGEMENT SPECIALIST-[employer] [facility] 10-21-2024 15:38-0400 Body height 167.6 cm OSMAR BRITOVera LOGISTICS MANAGEMENT SPECIALIST-[employer] [facility] 10-21-2024 15:38-0400 Body weight 91.3 kg OSMAR WILBURN LOGISTICS MANAGEMENT SPECIALIST-[employer] [facility] 10-21-2024 15:38-0400 Body weight 32.5 kg/m2 OSMAR WILBURN LOGISTICS MANAGEMENT SPECIALIST-[employer] [facility] 10-21-2024 14:39-0400 Mean blood pressure 80 mm[Hg] OSMAR WILBURN LOGISTICS MANAGEMENT SPECIALIST-[employer] [facility] 10-14-2024 12:58-0400 Body height 167.6 cm Henrietta Knowles LOGISTICS MANAGEMENT SPECIALIST - [employer] Work Phone: [facility] [place] 10-14-2024 12:58-0400 Body mass index (BMI) [Ratio] 31.64 kg/m2 Henrietta Benson LOGISTICS MANAGEMENT SPECIALIST - [employer] Work Phone: [facility] [place] 10-14-2024 12:58-0400 Body weight 88.91 kg Henrietta Knowles LOGISTICS MANAGEMENT SPECIALIST - [employer] Work Phone: [employer] [facility] [place] 10-14-2024 12:58-0400 Diastolic blood pressure 81 mm[Hg] Henrietta Benson LOGISTICS MANAGEMENT SPECIALIST - [employer] Work Phone: [employer] [facility] [place] 10-14-2024 12:58-0400 Heart rate 75 /min Henrietta Knowles LOGISTICS MANAGEMENT SPECIALIST - [employer] Work Phone: [employer] [facility] [place] 10-14-2024 12:58-0400 SaO2% (BldA) [Mass fraction] 94 % Henrietta Knowles LOGISTICS MANAGEMENT SPECIALIST - [employer] Work Phone: [employer] [facility] [place] 10-14-2024 12:58-0400 Systolic blood pressure 129 mm[Hg] Henrietta Benson LOGISTICS MANAGEMENT SPECIALIST - [employer] Work Phone: [employer] [facility] [place] 09-25-2024 13:51-0400 Body height 167.6 cm Henrietta Benson LOGISTICS MANAGEMENT SPECIALIST - [employer] Work Phone: [employer] [facility] [place] 09-25-2024 13:51-0400 Body mass index (BMI) [Ratio] 31.47 kg/m2 Henrietta Knowles LOGISTICS MANAGEMENT SPECIALIST - [employer] Work Phone: [employer] [facility] [place] 09-25-2024 13:51-0400 Body weight 88.45 kg Henrietta Benson LOGISTICS MANAGEMENT SPECIALIST - [employer] Work Phone: [facility] [place] 06-10-2024 14:11-0500 Body height 167.6 cm Augustin Jordan MD Work Phone: [facility] [place] 06-10-2024 14:11-0500 Body mass index (BMI) [Ratio] 31.22 kg/m2 Augustin Jordan MD Work Phone: [facility] [place] 06-10-2024 14:11-0500 Body temperature 98.8 [degF] Augustin Jordan MD Work Phone: [facility] [place] 06-10-2024 14:11-0500 Body weight 87.73 kg Augustin Jordan MD Work Phone: [facility] [place] 06-10-2024 14:11-0500 Diastolic blood pressure 78 mm[Hg] Augustin Jordan MD Work Phone: [facility] [place] 06-10-2024 14:11-0500 Heart rate 66 /min Augustin Jordan MD Work Phone: [facility] [place] 06-10-2024 14:11-0500 SaO2% (BldA) [Mass fraction] 94 % Augustin Jordan MD Work Phone: [facility] [place] 06-10-2024 14:11-0500 Systolic blood pressure 133 mm[Hg] Augustin Jordan MD Work Phone: [facility] [place] 04-15-2024 10:57-0400 Body height 167.6 cm Henriettamarivel Knowles LOGISTICS MANAGEMENT SPECIALIST - [employer] Work Phone: [employer] [facility] [place] 04-15-2024 10:57-0400 Body mass index (BMI) [Ratio] 31.38 kg/m2 Henrietta Knowles LOGISTICS MANAGEMENT SPECIALIST - [employer] Work Phone: [employer] [facility] [place] 04-15-2024 10:57-0400 Body weight 88.18 kg Henrietta Knowles LOGISTICS MANAGEMENT SPECIALIST - [employer] Work Phone: [employer] 04-15-2024 10:57-0400 Diastolic blood pressure 80 mm[Hg] Henrietta Knowles LOGISTICS MANAGEMENT SPECIALIST - [employer] Work Phone: [employer] [facility] [place] 04-15-2024 10:57-0400 Heart rate 90 /min Henrietta Knowles LOGISTICS MANAGEMENT SPECIALIST - [employer] Work Phone: [employer] [facility] [place] 04-15-2024 10:57-0400 SaO2% (BldA) [Mass fraction] 95 % Henrietta Knowles LOGISTICS MANAGEMENT SPECIALIST - [employer] Work Phone: [facility] 04-15-2024 10:57-0400 Systolic blood pressure 118 mm[Hg] Henrietta Knowles LOGISTICS MANAGEMENT SPECIALIST - [employer] Work Phone: [employer] [facility] [place] 03-24-2024 10:56-0400 Body height 167.6 cm Osbaldo Bridenthal LOGISTICS MANAGEMENT SPECIALIST - [employer] Work Phone: [employer] [facility] [place] 03-24-2024 10:56-0400 Body mass index (BMI) [Ratio] 31.15 kg/m2 Osbaldo Bridenthal LOGISTICS MANAGEMENT SPECIALIST - [employer] Work Phone: [facility] 03-24-2024 10:56-0400 Body temperature 98.4 [degF] Osbaldo Bridenthal LOGISTICS MANAGEMENT SPECIALIST - [employer] Work Phone: [facility] 03-24-2024 10:56-0400 Body weight 87.54 kg Osbaldo Bridenthal LOGISTICS MANAGEMENT SPECIALIST - [employer] Work Phone: [facility] 03-24-2024 10:56-0400 Diastolic blood pressure 68 mm[Hg] Osbaldo Bridenthal LOGISTICS MANAGEMENT SPECIALIST - [employer] Work Phone: [facility] 03-24-2024 10:56-0400 Heart rate 103 /min Osbaldo Bridenthal LOGISTICS MANAGEMENT SPECIALIST - [employer] Work Phone: [facility] 03-24-2024 10:56-0400 SaO2% (BldA) [Mass fraction] 94 % Osbaldo Bridenthal LOGISTICS MANAGEMENT SPECIALIST - [employer] Work Phone: [employer] [facility] [place] 03-24-2024 10:56-0400 Systolic blood pressure 110 mm[Hg] Osbaldo Gabriel LOGISTICS MANAGEMENT SPECIALIST - [employer] Work Phone: [employer] [facility] [place] 11-26-2023 13:40-0400 Body height 167.6 cm Shahab Parker MD Work Phone: [employer] [facility] [place] 11-26-2023 13:40-0400 Body mass index (BMI) [Ratio] 30.83 kg/m2 Shahab Parker MD Work Phone: [employer] [facility] [place] 11-26-2023 13:40-0400 Body weight 86.64 kg Shahab Parker MD Work Phone: [employer] [facility] [place] 11-11-2023 13:17-0400 Body height 167.6 cm Augustin Jordan MD Work Phone: [employer] [facility] [place] 11-11-2023 13:17-0400 Body mass index (BMI) [Ratio] 30.86 kg/m2 Augustin Jordan MD Work Phone: [employer] [facility] [place] 11-11-2023 13:17-0400 Body weight 86.73 kg Augustin Jordan MD Work Phone: [employer] [facility] [place] 11-11-2023 13:17-0400 Diastolic blood pressure 77 mm[Hg] Augustin Jordan MD Work Phone: [employer] [facility] [place] 11-11-2023 13:17-0400 Heart rate 80 /min Augustin Jordan MD Work Phone: [employer] [facility] [place] 11-11-2023 13:17-0400 SaO2% (BldA) [Mass fraction] 95 % Augustin Jordan MD Work Phone: [employer] [facility] [place] 11-11-2023 13:17-0400 Systolic blood pressure 119 mm[Hg] Augustin Jordan MD Work Phone: [employer] [facility] [place] 10-31-2023 10:31-0400 Body height 167.6 cm Augustin Jordan MD Work Phone: [facility] [place] 10-31-2023 10:31-0400 Body mass index (BMI) [Ratio] 30.28 kg/m2 Augustin Jordan MD Work Phone: [employer] [facility] [place] 10-31-2023 10:31-0400 Body weight 85.09 kg Augustin Jordan MD Work Phone: [employer] [facility] [place] 10-31-2023 10:31-0400 Diastolic blood pressure 73 mm[Hg] Augustin Jordan MD Work Phone: [employer] [facility] [place] 10-31-2023 10:31-0400 Heart rate 88 /min Augustin Jordan MD Work Phone: [employer] [facility] [place] 10-31-2023 10:31-0400 SaO2% (BldA) [Mass fraction] 92 % Augustin Jordan MD Work Phone: [employer] [facility] [place] 10-31-2023 10:31-0400 Systolic blood pressure 123 mm[Hg] Augustin Jordan MD Work Phone: [facility] [place] 10-22-2023 08:14-0400 Body height 167.6 cm Augustin Jordan MD Work Phone: [employer] [facility] [place] 10-22-2023 08:14-0400 Body mass index (BMI) [Ratio] 31.22 kg/m2 Augustin Jordan MD Work Phone: [employer] [facility] [place] 10-22-2023 08:14-0400 Body weight 87.73 kg Augustin Jordan MD Work Phone: [employer] [facility] [place] 10-22-2023 08:14-0400 Diastolic blood pressure 65 mm[Hg] Augustin Jordan MD Work Phone: [employer] [facility] [place] 10-22-2023 08:14-0400 Heart rate 98 /min Augustin Jordan MD Work Phone: [employer] [facility] [place] 10-22-2023 08:14-0400 SaO2% (BldA) [Mass fraction] 96 % Augustin Jordan MD Work Phone: [employer] [facility] [place] 10-22-2023 08:14-0400 Systolic blood pressure 109 mm[Hg] Augustin Jordan MD Work Phone: [employer] [facility] [place] 10-20-2023 17:26-[address] MERLINE NERI DO [facility] 10-20-2023 17:26-0400 Body temperature 98.24 [degF] DR MERLINE NERI DO [facility] 10-20-2023 17:26-0400 Diastolic Blood Pressure Non-Invasive 82 mm[Hg] DR MERLINE NERI DO [facility] 10-20-2023 17:26-0400 Heart rate 104 /min DR MERLINE NERI DO [facility] 10-20-2023 17:26-0400 Respiratory rate 16 /min DR MERLINE NERI DO [facility] 10-20-2023 17:26-0400 Systolic Blood Pressure Non-Invasive 137 mm[Hg] DR MERLINE NERI DO [facility] 10-07-2023 13:11-0400 Body height 167.6 cm Henrietta Knowles LOGISTICS MANAGEMENT SPECIALIST - [employer] Work Phone: [employer] [facility] [place] 10-07-2023 13:11-0400 Body mass index (BMI) [Ratio] 30.96 kg/m2 Henrietta Knowles LOGISTICS MANAGEMENT SPECIALIST - [employer] Work Phone: [employer] [facility] [place] 10-07-2023 13:11-0400 Body weight 87 kg Henrietta Knowles LOGISTICS MANAGEMENT SPECIALIST - [employer] Work Phone: [employer] [facility] [place] 10-07-2023 13:11-0400 Diastolic blood pressure 72 mm[Hg] Henrietta Knowles LOGISTICS MANAGEMENT SPECIALIST - [employer] Work Phone: [employer] [facility] [place] 10-07-2023 13:11-0400 Heart rate 67 /min Henrietta Knowles LOGISTICS MANAGEMENT SPECIALIST - [employer] Work Phone: [facility] 10-07-2023 13:11-0400 SaO2% (BldA) [Mass fraction] 95 % Henrietta Knowles LOGISTICS MANAGEMENT SPECIALIST - [employer] Work Phone: [facility] 10-07-2023 13:11-0400 Systolic blood pressure 118 mm[Hg] Henrietta Knowles LOGISTICS MANAGEMENT SPECIALIST - [employer] Work Phone: [facility] 09-17-2023 10:37-0400 Diastolic Blood Pressure Non-Invasive 67 mm[Hg] JOE TINOCO MD [facility] 09-17-2023 10:37-0400 Heart rate 87 /min JOE TINOCO MD [facility] 09-17-2023 10:37-0400 Respiratory rate 20 /min JOE TINOCO MD [facility] 09-17-2023 10:37-0400 Systolic Blood Pressure Non-Invasive 117 mm[Hg] JOE TINOCO MD [facility] 09-17-2023 09:57-0400 Heart rate 88 /min JOE TINOCO MD [facility] 09-17-2023 09:57-0400 Respiratory rate 20 /min JOE TINOCO MD [facility] 09-17-2023 09:50-0400 Blood Pressure Location JOE TINOCO MD [facility] 09-17-2023 09:50-0400 Blood Pressure Method JOE TINOCO MD [facility] 09-17-2023 09:50-0400 Body temperature 97.7 [degF] JOE TINOCO MD [facility] 09-17-2023 09:50-0400 Diastolic Blood Pressure Non-Invasive 68 mm[Hg] JOE TINOCO MD [facility] 09-17-2023 09:50-0400 Heart rate 92 /min JOE TINOCO MD [facility] 09-17-2023 09:50-0400 Respiratory rate 20 /min JOE TINOCO MD [facility] 09-17-2023 09:50-0400 Systolic Blood Pressure Non-Invasive 157 mm[Hg] JOE TINOCO MD [facility] 09-16-2023 09:14-0400 Body mass index (BMI) [Ratio] 29.7 kg/m2 Osbaldo Bridenthal LOGISTICS MANAGEMENT SPECIALIST - [employer] Work Phone: [facility] [place] 09-16-2023 09:14-0400 Body temperature 97.7 [degF] Osbaldo Bridenthal LOGISTICS MANAGEMENT SPECIALIST - [employer] Work Phone: [facility] [place] 09-16-2023 09:14-0400 Body weight 83.46 kg Osbaldo Bridenthal LOGISTICS MANAGEMENT SPECIALIST - [employer] Work Phone: [facility] [place] 09-16-2023 09:14-0400 Diastolic blood pressure 65 mm[Hg] Osbaldo Bridenthal LOGISTICS MANAGEMENT SPECIALIST - [employer] Work Phone: [facility] [place] 09-16-2023 09:14-0400 Heart rate 81 /min Osbaldo Bridenthal LOGISTICS MANAGEMENT SPECIALIST - [employer] Work Phone: [facility] [place] 09-16-2023 09:14-0400 Respiratory rate 26 /min Osbaldo Bridenthal LOGISTICS MANAGEMENT SPECIALIST - [employer] Work Phone: [facility] [place] 09-16-2023 09:14-0400 SaO2% (BldA) [Mass fraction] 95 % Osbaldo Bridenthal LOGISTICS MANAGEMENT SPECIALIST - [employer] Work Phone: [facility] 09-16-2023 09:14-0400 Systolic blood pressure 117 mm[Hg] Osbaldo Gabriel LOGISTICS MANAGEMENT SPECIALIST - [employer] Work Phone: [employer] [facility] [place] 08-21-2023 14:51-0500 Body height 167.6 cm Henrietta Knowles LOGISTICS MANAGEMENT SPECIALIST - [employer] Work Phone: [facility] 08-21-2023 14:51-0500 Body mass index (BMI) [Ratio] 29.7 kg/m2 Henrietta Knowles LOGISTICS MANAGEMENT SPECIALIST - [employer] Work Phone: [facility] 08-21-2023 14:51-0500 Body temperature 98.71 [degF] Henrietta Knowles LOGISTICS MANAGEMENT SPECIALIST - [employer] Work Phone: [employer] [facility] [place] 08-21-2023 14:51-0500 Body weight 83.46 kg Henrietta Knowles LOGISTICS MANAGEMENT SPECIALIST - [employer] Work Phone: [employer] [facility] [place] 08-21-2023 14:51-0500 Diastolic blood pressure 70 mm[Hg] Henrietta Knowles LOGISTICS MANAGEMENT SPECIALIST - [employer] Work Phone: [facility] 08-21-2023 14:51-0500 Heart rate 75 /min Henrietta Knowles LOGISTICS MANAGEMENT SPECIALIST - [employer] Work Phone: [facility] 08-21-2023 14:51-0500 SaO2% (BldA) [Mass fraction] 95 % Henrietta Knowles LOGISTICS MANAGEMENT SPECIALIST - [employer] Work Phone: [facility] 08-21-2023 14:51-0500 Systolic blood pressure 115 mm[Hg] Henrietta Knowles LOGISTICS MANAGEMENT SPECIALIST - [employer] Work Phone: [facility] 04-08-2023 13:26-0400 Body mass index (BMI) [Ratio] 25.92 kg/m2 Henrietta Knowles LOGISTICS MANAGEMENT SPECIALIST - [employer] Work Phone: [facility] 04-08-2023 13:26-0400 Body temperature 97.81 [degF] Henrietta Knowles LOGISTICS MANAGEMENT SPECIALIST - [employer] Work Phone: [facility] 04-08-2023 13:26-0400 Body weight 72.85 kg Henrietta Knowles LOGISTICS MANAGEMENT SPECIALIST - [employer] Work Phone: [facility] 04-08-2023 13:26-0400 Diastolic blood pressure 62 mm[Hg] Henrietta Knowles LOGISTICS MANAGEMENT SPECIALIST - [employer] Work Phone: [facility] [place] 04-08-2023 13:26-0400 Heart rate 73 /min Henrietta Knowles LOGISTICS MANAGEMENT SPECIALIST - [employer] Work Phone: [facility] [place] 04-08-2023 13:26-0400 Respiratory rate 24 /min Henrietta Knowles LOGISTICS MANAGEMENT SPECIALIST - [employer] Work Phone: [facility] [place] 04-08-2023 13:26-0400 SaO2% (BldA) [Mass fraction] 95 % Henrietta Knowles LOGISTICS MANAGEMENT SPECIALIST - [employer] Work Phone: [facility] [place] 04-08-2023 13:26-0400 Systolic blood pressure 97 mm[Hg] Henrietta Knowles LOGISTICS MANAGEMENT SPECIALIST - [employer] Work Phone: [facility] [place] 03-26-2023 14:30-0400 Body mass index (BMI) [Ratio] 25.82 kg/m2 Osbaldo Bridenthal LOGISTICS MANAGEMENT SPECIALIST - [employer] Work Phone: [facility] [place] 03-26-2023 14:30-0400 Body temperature 98.01 [degF] Osbaldo Bridenthal LOGISTICS MANAGEMENT SPECIALIST - [employer] Work Phone: [facility] [place] 03-26-2023 14:30-0400 Body weight 72.58 kg Osbaldo Bridenthal LOGISTICS MANAGEMENT SPECIALIST - [employer] Work Phone: [employer] [facility] [place] 03-26-2023 14:30-0400 Diastolic blood pressure 60 mm[Hg] Osbaldo Bridenthal LOGISTICS MANAGEMENT SPECIALIST - [employer] Work Phone: [employer] [facility] [place] 03-26-2023 14:30-0400 Heart rate 88 /min Osbaldo Bridenthal LOGISTICS MANAGEMENT SPECIALIST - [employer] Work Phone: [facility] [place] 03-26-2023 14:30-0400 Respiratory rate 24 /min Osbaldo Bridenthal LOGISTICS MANAGEMENT SPECIALIST - [employer] Work Phone: [facility] [place] 03-26-2023 14:30-0400 SaO2% (BldA) [Mass fraction] 96 % Osbaldo Gabriel LOGISTICS MANAGEMENT SPECIALIST - [employer] Work Phone: [facility] [place] 03-26-2023 14:30-0400 Systolic blood pressure 120 mm[Hg] Osbaldo Gabriel LOGISTICS MANAGEMENT SPECIALIST - [employer] Work Phone: [facility] [place] 03-04-2023 11:13-0400 Body height 167.6 cm Henrietta Knowles LOGISTICS MANAGEMENT SPECIALIST - [employer] Work Phone: [facility] [place] 03-04-2023 11:13-0400 Body mass index (BMI) [Ratio] 25.02 kg/m2 Henrietta Knowles LOGISTICS MANAGEMENT SPECIALIST - [employer] Work Phone: [facility] [place] 03-04-2023 11:13-0400 Body temperature 98.4 [degF] Henrietta Knowles LOGISTICS MANAGEMENT SPECIALIST - [employer] Work Phone: [facility] [place] 03-04-2023 11:13-0400 Body weight 70.31 kg Henrietta Knowles LOGISTICS MANAGEMENT SPECIALIST - [employer] Work Phone: [facility] 03-04-2023 11:13-0400 Diastolic blood pressure 60 mm[Hg] Henrietta Knowles LOGISTICS MANAGEMENT SPECIALIST - [employer] Work Phone: [facility] [place] 03-04-2023 11:13-0400 Heart rate 78 /min Henrietta Knowles LOGISTICS MANAGEMENT SPECIALIST - [employer] Work Phone: [facility] 03-04-2023 11:13-0400 SaO2% (BldA) [Mass fraction] 98 % Henrietta Knowles LOGISTICS MANAGEMENT SPECIALIST - [employer] Work Phone: [facility] [place] 03-04-2023 11:13-0400 Systolic blood pressure 106 mm[Hg] Henrietta Bneson LOGISTICS MANAGEMENT SPECIALIST - [employer] Work Phone: [facility] [place] 02-22-2023 07:37-0400 Body height 167.6 cm Henrietta Benson LOGISTICS MANAGEMENT SPECIALIST - [employer] Work Phone: [facility] 02-22-2023 07:37-0400 Body mass index (BMI) [Ratio] 24.05 kg/m2 Henrietta Knowles LOGISTICS MANAGEMENT SPECIALIST - [employer] Work Phone: [facility] 02-22-2023 07:37-0400 Body weight 67.59 kg Henrietta Knowles LOGISTICS MANAGEMENT SPECIALIST - [employer] Work Phone: [facility] 02-22-2023 07:37-0400 Diastolic blood pressure 60 mm[Hg] Henrietta Knowles LOGISTICS MANAGEMENT SPECIALIST - [employer] Work Phone: [facility] [place] 02-22-2023 07:37-0400 Heart rate 80 /min Henrietta Knowles LOGISTICS MANAGEMENT SPECIALIST - [employer] Work Phone: [facility] 02-22-2023 07:37-0400 SaO2% (BldA) [Mass fraction] 97 % Henrietta Knowles LOGISTICS MANAGEMENT SPECIALIST - [employer] Work Phone: [facility] 02-22-2023 07:37-0400 Systolic blood pressure 120 mm[Hg] Henrietta nKowles LOGISTICS MANAGEMENT SPECIALIST - [employer] Work Phone: [facility] 12-25-2021 11:47-0400 Body height 167.6 cm JOE TINOCO MD [facility] 12-25-2021 11:47-0400 Body temperature 98.42 [degF] JOE TINOCO MD [facility] 12-25-2021 11:47-0400 Body weight 70 kg JOE TINOCO MD [facility] 12-25-2021 11:47-0400 Diastolic blood pressure 96 mm[Hg] JOE TINOCO MD [facility] 12-25-2021 11:47-0400 Heart rate 89 /min JOE TINOCO MD [facility] 12-25-2021 11:47-0400 Respiratory rate 20 /min JOE TINOCO MD [facility] 12-25-2021 11:47-0400 Systolic blood pressure 145 mm[Hg] JOE TINOCO MD [facility] Encounters Encounter Date Encounter Type Care Provider Facility Start: 03-24-2025 End: 03-24-2025 Telephone encounter Cristy Hester MD Work Phone: [facility] Clinical Communication Comment on above: Orders Start: 03-22-2025 End: 03-22-2025 Postop follow up visit related to original px Kiarra Leon PA-C Work Phone: [facility] Orthopedics and Sports Medicine - [facility] Porter Comment on above: Closed displaced fra cture of scaphoid of right wrist with nonunion, unspecified portion of scaphoid, subsequent encounter (Primary Dx); Closed displaced fracture of scaphoid of left wrist with nonunion, unspecified portion of scaphoid, subsequent encounter; Closed comminuted fracture of waist of scaphoid bone of left wrist, initial encounter; Closed displaced fracture of distal pole of scaphoid bone of right wrist, initial encounter Start: 03-22-2025 End: 03-22-2025 [facility] Start: 03-05-2025 End: 03-05-2025 Anesthesia consultation No Anesthesiologist - Tara/Gonzalez ANDERSEN Work Phone: [facility] MA[facility] OR Start: 03-05-2025 End: 03-05-2025 [facility] Start: 03-05-2025 End: 03-05-2025 Subsequent hospital visit by physician Cristy Hester MD Work Phone: [facility] MA[facility] OR Comment on above: S/P ORIF (open reduc tion internal fixation) fracture (Primary Dx); 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 - [facility] Start: 02-25-2025 End: 03-02-2025 Telephone encounter Lou Goodrich PA-C Work Phone: [facility] Orthopedic Surg Start: 02-05-2025 End: 02-08-2025 Telephone encounter Cristy Hester MD Work Phone: [facility] Orthopedics [facility] Sports Medicine - [facility] Porter Comment on above: Other (Call back ) Surgery Scheduling ( 03/04 ) Start: 01-28-2025 End: 02-10-2025 Telephone encounter Cristy Hester MD Work Phone: [facility] Clinical Communication Comment on above: Other (CT results Pt in facility) Other (02/26) Start: 01-21-2025 End: 01-21-2025 Subsequent hospital visit by physician Cristy Hester MD Work Phone: [facility] CT Comment on above: Closed displaced fra cture of distal pole of scaphoid bone of right wrist, initial encounter Closed comminuted fr acture of waist of scaphoid bone of left wrist, initial encounter Start: 01-21-2025 End: 01-21-2025 ambulatory [facility] Start: 01-13-2025 End: 01-13-2025 Office outpatient new 30 minutes Cristy Hester MD Work Phone: [facility] Comment on above: Bilateral wrist pain (Primary Dx); Closed comminuted fracture of waist of scaphoid bone of left wrist, initial encounter; Closed displaced fracture of distal pole of scaphoid bone of right wrist, initial encounter Start: 01-13-2025 End: 01-13-2025 ambulatory [facility] Start: 12-24-2024 End: 12-24-2024 Subsequent hospital visit by physician Renetta Jordan MD Work Phone: [facility] MRI Comment on above: Subluxation of other carpometacarpal joint of left hand, subsequent encounter Unspecified sprain o f right wrist, subsequent encounter Start: 12-24-2024 End: 12-24-2024 ambulatory AUGUSTIN NIKKI [facility] Start: 12-11-2024 ambulatory Adolfo ALANIS Facil ity:[facility] Start: 12-11-2024 Registered Referred Adolfo Burrell - [address] Start: 12-08-2024 End: 12-08-2024 Departed Referred Adolfo Burrell - [address] Start: 12-08-2024 End: 12-08-[address] Adriana Vasquez MD Work Phone: -Madan [facility] [address] Start: 12-02-2024 End: 03-03-2025 Transcribe Orders Renetta Jordan MD Work Phone: [facility] Central Scheduling Comment on above: Subluxation of other carpometacarpal joint of left hand, subsequent encounter (Primary Dx); Unspecified sprain of right wrist, subsequent encounter Start: 11-04-2024 End: 11-04-[address] Adriana Vasquez MD Work Phone: [facility] Work Phone: Start: 11-04-2024 End: 11-04-2024 Departed Referred Adolfo Burrell - [address] Start: 11-04-2024 End: 11-04-2024 ambulatory Adolfo ALANIS Facility:[facility] Start: 10-28-2024 End: 10-28-[address] Adriana Vasquez MD Work Phone: [facility] Work Phone: Start: 10-28-2024 End: 10-28-2024 Departed Referred Adolfo Burrell - [address] Start: 10-28-2024 Registered Referred Adolfo Burrell - [address] Start: 10-28-2024 End: 10-28-2024 ambulatory Adriana Vasquez Facility:[facility] Start: 10-21-2024 End: 10-26-2024 Evaluation and management of inpatient OSMAR WILBURN APRN-[employer] [facility] Start: 10-14-2024 End: 10-14-2024 Office outpatient visit 25 minutes Henrietta Knowles LOGISTICS MANAGEMENT SPECIALIST - [employer] Work Phone: [facility] Comment on above: Primary insomnia (Pr imary Dx); History of drug abuse (HCC); Constipation, unspecified constipation type; OAB (overactive bladder); Midline cystocele; Urinary urgency; Bladder spasms; Hyperlipidemia, unspecified hyperlipidemia type; Mild episode of recurrent major depressive disorder (HCC); Anxiety; PTSD (post-traumatic stress disorder); Centrilobular emphysema (HCC); Cigarette nicotine dependence with nicotine-induced disorder Start: 10-14-2024 End: 10-14-2024 ambulatory [facility] Start: 09-25-2024 End: 09-25-2024 Subsequent hospital visit by physician Henrietta Knowles LOGISTICS MANAGEMENT SPECIALIST - [employer] Work Phone: [facility] Comment on above: Screening mammogram for breast cancer Start: 09-25-2024 End: 09-25-2024 ambulatory [facility] Start: 09-23-2024 End: 09-23-2024 Subsequent hospital visit by physician Osbaldo Gabriel LOGISTICS MANAGEMENT SPECIALIST - [employer] Work Phone: [facility] PFT Comment on above: Chronic shortness of breath Start: 09-23-2024 End: 09-23-2024 ambulatory [facility] Start: 09-04-2024 End: 09-04-2024 ambulatory [facility] Start: 09-04-2024 End: 09-04-2024 Patient encounter procedure [facility] Start: 09-04-2024 End: 09-04-2024 Emergency department patient visit MICHAEL SAGASTUME MD Facility:[facility] Start: 08-14-2024 End: 08-14-2024 Telephone encounter Augustin Jordan MD Work Phone: [facility] Comment on above: Advice Only Start: 08-13-2024 End: 08-13-2024 Subsequent hospital visit by physician Henrietta Knowles APRN - [employer] Work Phone: [facility] CT Comment on above: Cigarette nicotine d ependence without complication; Screening for lung cancer Start: 08-13-2024 End: 08-13-2024 ambulatory [facility] Start: 08-04-2024 End: 08-04-2024 ambulatory [facility] Start: 07-22-2024 End: 07-22-2024 ambulatory [facility] Start: 06-10-2024 End: 06-10-2024 Office outpatient visit 15 minutes Augustin Jordan MD Work Phone: [facility] Comment on above: Centrilobular emphys jocelyn (HCC) (Primary Dx) Start: 06-10-2024 End: 06-10-2024 ambulatory [facility] Start: 06-09-2024 End: 06-09-2024 ambulatory Maricruz Resendez RN [facility] Clinical Communication Start: 06-09-2024 End: 06-09-2024 Patient encounter procedure Maricruz Resendez RN [facility] Clinical Communication Start: 06-01-2024 End: 06-01-2024 Telephone encounter Henrietta Knowles APRN - [employer] Work Phone: [facility] Comment on above: Orders (CT-Lung Scre en) Start: 05-22-2024 End: 05-22-2024 ambulatory [facility] Start: 05-22-2024 End: 05-22-2024 Patient encounter procedure Maria L Chen RN [facility] Clinical Communication Start: 04-27-2024 End: 04-27-2024 Refill Augustin Jordan MD Work Phone: [facility] Comment on above: Chronic shortness of breath Start: 04-15-2024 End: 04-15-2024 Patient encounter status Henrietta Flanagan CNP Work Phone: [facility] Start: 04-15-2024 End: 04-15-2024 Periodic preventive med est patient 40-64yrs Henrietta Knowles LOGISTICS MANAGEMENT SPECIALIST - [employer] Work Phone: [facility] Comment on above: Well female exam wit [...] vaccine need Start: 04-15-2024 End: 04-15-2024 ambulatory AUGUSTIN NIKKI [facility] Start: 04-15-2024 End: 04-15-2024 Encounter for gynecological examination (general) (routine) without abnormal findings HENRIETTA KNOWLES [facility] Start: 03-24-2024 End: 03-24-2024 Office outpatient visit 15 minutes Osbaldo Gabriel LOGISTICS MANAGEMENT SPECIALIST - [employer] Work Phone: [facility] Comment on above: Bronchitis (Primary Dx); Chronic shortness of breath Start: 03-23-2024 End: 03-25-2024 ambulatory [facility]arn[facility] Start: 03-23-2024 End: 03-25-2024 Patient encounter procedure Earnestine Sweeeny RN [facility] Clinical Communication Start: 03-11-2024 End: 03-11-2024 Telephone encounter Augustin Jordan MD Work Phone: [facility] Comment on above: Request For Order(s) Start: 03-08-2024 End: 03-09-2024 Refill Augustin Jordan MD Work Phone: [facility] Comment on above: Chronic shortness of breath Start: 12-14-2023 End: 12-14-2023 Telephone encounter Shahab Parker MD Work Phone: [facility] Central Scheduling Comment on above: Scheduling Start: 11-29-2023 Telephone encounter Augustin Mcfadden MD Work Phone: [facility] Medicine Comment on above: Referral Start: 11-26-2023 End: 11-26-2023 Office outpatient new 30 minutes Shahab Parker MD Work Phone: [facility] Orthopedic & Sports Medicine Comment on above: Erythema of foot (Pr imary Dx); Bilateral swelling of feet; Pain and swelling of left lower leg Start: 11-14-2023 Telephone encounter Augustin Mcfadden MD Work Phone: [facility] Comment on above: Test Scheduling Start: 11-14-2023 End: 11-14-2023 Subsequent hospital visit by physician Augustin Jordan MD Work Phone: [facility] Radiology Comment on above: Acute left ankle marilu n; Left foot pain Start: 11-11-2023 End: 11-11-2023 Office outpatient visit 15 minutes Augustin Jordan MD Work Phone: [facility] Comment on above: Dependent edema (Nicol siomara Dx); Acute left ankle pain; Left foot pain Start: 10-31-2023 End: 10-31-2023 Office outpatient visit 15 minutes Augustin Jordan MD Work Phone: [facility] Comment on above: Acute left ankle marilu n (Primary Dx) Start: 10-22-2023 End: 10-22-2023 Office outpatient visit 25 minutes Augustin Jordan MD Work Phone: [facility] Comment on above: Dependent edema (Nicol siomara Dx); OAB (overactive bladder); Mixed stress and urge urinary incontinence Start: 10-20-2023 End: 10-20-2023 Emergency department patient visit DR MERLINE NERI DO Facility:[facility] Start: 10-20-2023 End: 10-20-2023 Emergency department patient visit DR MERLINE NERI DO [facility] Start: 10-07-2023 End: 10-07-2023 Office outpatient visit 25 minutes Henrietta Knowles LOGISTICS MANAGEMENT SPECIALIST - [employer] Work Phone: [facility] Family Medicine Comment on above: Primary insomnia (Pr [...] Emergency department patient visit JOE TINOCO MD Facility: Start: 09-17-2023 End: 09-17-2023 Emergency department patient visit JOE TINOCO MD [facility] Start: 09-16-2023 amb[facility] Start: 09-16-2023 Patient encounter procedure Sravanthi Granda RN [facility] Clinical Communication Start: 09-16-2023 End: 09-16-2023 Office outpatient visit 15 minutes Osbaldo Gabriel LOGISTICS MANAGEMENT SPECIALIST - [employer] Work Phone: [facility] Family Medicine Comment on above: Bronchitis (Primary Dx); Cigarette nicotine dependence without complication Start: 08-21-2023 End: 08-21-2023 Office outpatient visit 15 minutes Henrietta Knowles LOGISTICS MANAGEMENT SPECIALIST - [employer] Work Phone: [facility] Family Medicine Comment on above: Sinobronchitis (Prim ken Dx); Chronic shortness of breath Start: 08-21-2023 ambulatory Sneha Spivey [facility] Start: 08-21-2023 Patient encounter procedure Sneha Spivey RN [facility] Communication Start: 05-29-2023 End: 05-29-2023 Office outpatient visit 10 minutes Godfrey Minaya MD Work Phone: [facility] Plastic & Reconstructive Surgery Comment on above: Pain from breast imp lant, initial encounter (Primary Dx); Ruptured left breast implant, initial encounter Start: 05-29-2023 Admission to [facility] Godfrey Minaya MD Work Phone: [facility] Plastic & Reconstructive Surgery Comment on above: Pain from breast imp lant, initial encounter (Primary Dx) Start: 05-29-2023 ambulatory Godfrey Minaya MD Work Phone: [facility] Plastic & Reconstructive Surgery Start: 05-23-2023 ambulatory [facility] Start: 05-23-2023 End: 05-23-2023 Office outpatient visit 15 minutes Trudy Perez LOGISTICS MANAGEMENT SPECIALIST - [employer] Work Phone: [facility] Internal Medicine Comment on above: Acute non-recurrent pansinusitis (Primary Dx) Start: 05-23-2023 Patient encounter procedure Betty [facility] Start: 05-20-2023 End: 05-20-2023 Subsequent hospital visit by physician Rach Boudreaux PA-C Work Phone: [facility] Comment on above: Pain from breast imp lant, initial encounter; Ruptured left breast implant, initial encounter Start: 04-19-2023 Orders Only Rach guy PA-C Work Phone: [facility] Plastic & Reconstructive Surgery Comment on above: Pain from breast imp lant, initial encounter (Primary Dx); Ruptured left breast implant, initial encounter Start: 04-12-2023 End: 04-12-2023 Subsequent hospital visit by physician Henrietta Knowles LOGISTICS MANAGEMENT SPECIALIST - [employer] Work Phone: [facility] Radiology Comment on above: Cough, unspecified t ype; Chest congestion; Cigarette nicotine dependence without complication Start: 04-10-2023 End: 04-10-2023 Telephone encounter Godfrey Minaya MD Work Phone: [facility] Plastic & Reconstructive Surgery Comment on above: Surgery Scheduling ( [facility] ) Start: 04-10-2023 End: 04-10-2023 Office outpatient new 30 minutes Godfrey iMnaya MD Work Phone: [facility] Plastic & Reconstructive Surgery Comment on above: Pain from breast imp lant, initial encounter (Primary Dx); Ruptured left breast implant, initial encounter Start: 04-08-2023 End: 04-08-2023 Patient encounter status Henrietta Knowles LOGISTICS MANAGEMENT SPECIALIST - [employer] Work Phone: [facility] [employer] [facility] Work Phone: Start: 04-08-2023 End: 04-08-2023 Periodic preventive med est patient 40-64yrs Henrietta Knowles LOGISTICS MANAGEMENT SPECIALIST - [employer] Work Phone: [facility] Family Medicine Comment on above: Well female [...] 03-26-2023 Office outpatient visit 15 minutes Osbaldo Gabriel LOGISTICS MANAGEMENT SPECIALIST - [employer] Work Phone: [facility] Family Medicine Comment on above: Bronchitis (Primary Dx) Start: 03-04-2023 End: 03-04-2023 Office outpatient visit 15 minutes Henrietta Knowles LOGISTICS MANAGEMENT SPECIALIST - [employer] Work Phone: [facility] Family Medicine Comment on above: Varicose veins of belkis th lower extremities with pain (Primary Dx) Start: 02-22-2023 End: 02-22-2023 Office outpatient visit 25 minutes Henrietta Knowles LOGISTICS MANAGEMENT SPECIALIST - [employer] Work Phone: [facility] Family Medicine Comment on above: Pain from breast imp lant, initial encounter (Primary Dx); Ruptured left breast implant, initial encounter; Hyperlipidemia, unspecified hyperlipidemia type; Screening for diabetes mellitus Start: 05-01-2022 End: 05-01-20[facility] Start: 12-25-2021 End: 12-25-2021 Emergency department patient visit JOE TINOCO MD [facility] Start: 09-18-2017 Ambulatory UNKNOWN PROVIDER [facility] Procedures Date Procedure Procedure Detail Performing Clinician Start: 03-05-2025 ANESTHESIA INTUBATION J jocelin Senior LOGISTICS MANAGEMENT SPECIALIST - MEDICAL LEAD Work Phone: Start: 12-08-[address] Adriana noriega MD Work Phone: Start: 12-08-2024 Urnls dip stick/tabl et reagent auto microscopy Dr. Adriana Vasquez MD Work Phone: Start: 10-28-2024 Vitamin D, 25-hydrox y measurement Dr. Adriana Vasquez MD Work Phone: Comment on above: Vitamin D StatusDefi ciency: <20 ng/mL (50nmol/L)Insufficiency: 20-30 ng/mL (50-75 nmol/L)Sufficiency: 30-100 ng/mL (75-250 nmol/L)Toxicity: >100 ng/mL (>250 nmol/L) Start: 10-14-2024 Urnls dip stick/tabl et rgnt non-auto w/o micrscp Henrietta Knowles LOGISTICS MANAGEMENT SPECIALIST - [employer] Work Phone: Start: 09-25-2024 End: 09-25-2024 Screening digital breast tomosynthesis bi Henrietta Knowles LOGISTICS MANAGEMENT SPECIALIST - [employer] Work Phone: Start: 09-23-2024 Brncdilat rspse spmt ry pre&post-brncdilat admn Osbaldoenmanuel Gabriel LOGISTICS MANAGEMENT SPECIALIST - [employer] Work Phone: Start: 08-13-2024 CT Chest for screeni ng WO contrast Henrietta Knowles LOGISTICS MANAGEMENT SPECIALIST - [employer] Work Phone: Start: 04-15-2024 Lipid 1996 panel [...] 05-20-2023 Diagnostic mammography computer-aided detcj bi Rach MCKOY-C Work Phone: Start: 04-12-2023 Radiologic exam ches t 2 views Henrietta Knowles LOGISTICS MANAGEMENT SPECIALIST - [employer] Work Phone: Start: 04-08-2023 Microscopic observat ion [Identifier] in Cervix by Cyto stain Rach MCKOY-C Work Phone: Start: 02-22-2023 Lipid 1996 panel - S jayde or Plasma Henrietta Knowles LOGISTICS MANAGEMENT SPECIALIST - [employer] Work Phone: Start: 04-04-2022 Lipid 1996 panel - S jayde or Plasma Henrietta Knowles LOGISTICS MANAGEMENT SPECIALIST - [employer] Work Phone: Start: 04-04-2022 Microscopic observat ion [Identifier] in Cervix by Cyto stain Henrietta Knowles LOGISTICS MANAGEMENT SPECIALIST - [employer] Work Phone: Abscess (disorder) SOMAR LEZAMA LOGISTICS MANAGEMENT SPECIALIST-[employer] Comment on above: removal right leg Augmentation mammoplasty ZAKIA WILBURN LOGISTICS MANAGEMENT SPECIALIST-[employer] Plan of Treatment Date Care Activity Detail Author Start: 2040 RSV Immunization for Adults (1 - 1-dose 75+ series) RSV Immunization for Adults (1 - 1-dose 75+ series) [facility] Start: 02-04-2033 DTaP/Tdap/Td Vaccines (2 - Td or Tdap) DTaP/Tdap/Td Vaccines (2 - Td or Tdap) [employer] [facility] Start: 2030 Pneumococcal Vaccine: Pediatrics (0 to 5 Years) and At-Risk Patients (6 to 64 Years) (3 - PPSV23 if available, else PCV20) Pneumococcal Vaccine: Pediatrics (0 to 5 Years) and At-Risk Patients (6 to 64 Years) (3 - PPSV23 if available, else PCV20) [facility] Start: 2030 Pneumococcal Vaccine: Pediatrics (0 to 5 Years) and At-Risk Patients (6 to 64 Years) (3 - PPSV23 or PCV20) Pneumococcal Vaccine: Pediatrics (0 to 5 Years) and At-Risk Patients (6 to 64 Years) (3 - PPSV23 or PCV20) [facility] Start: 2030 Pneumococcal Vaccine: Pediatrics (0 to 5 Years) and At-Risk Patients (6 to 64 Years) (3 of 3 - PPSV23 or PCV20) Pneumococcal Vaccine: Pediatrics (0 to 5 Years) and At-Risk Patients (6 to 64 Years) (3 of 3 - PPSV23 or PCV20) [facility] Start: 04-15-2029 Lipid panel Lipid Panel [facility] Start: 04-15-2029 Screening for malignant neoplasm of cervix [facility] Start: 02-23-2028 Lipid panel Lipid Panel [facility] Start: 04-15-2027 Screening for malignant neoplasm of cervix Pap Smear [facility] Start: 04-04-2027 Lipid panel Lipid Panel [facility] Start: 10-06-2026 Diabetes mellitus screening Diabetes Screening [facility] Start: 04-08-2026 Screening for malignant neoplasm of cervix [facility] Start: 04-03-2026 Screening for malignant neoplasm of cervix [facility] Start: 09-25-2025 Screening for malignant neoplasm of breast Mammogram [facility] Start: 08-13-2025 Screening for malignant neoplasm of lung Lung Cancer Screening [facility] Start: 2025 RSV Immunization aged 60 or older (1 - 1-dose 60+ series) RSV Immunization aged 60 or older (1 - 1-dose 60+ series) [facility] Start: 04-26-2025 End: 04-26-2025 Patient encounter procedure 04/26/2025 1:30 PM EST Office Visit [facility] Orth[facility]ics [facility] - [place] [address] [place] [address] Cristy Hester MD [address] [place] [address] [facility] [place] Start: 04-15-2025 COVID-19 Vaccine ( season) COVID-19 Vaccine ( season) [facility] Comment on above: Postponed from 02/23/2024 (Patient Refus ed) Start: 04-15-2025 Depression Monitoring Depression Monitoring [facility] Start: 04-04-2025 Screening for malignant neoplasm of cervix Pap Smear [facility] Start: 03-16-2025 End: 03-16-2025 Patient encounter procedure 03/16/2025 2:00 PM EDT Office Visit [facility] [address] [place] [phone] Sarah Delong PA-C [address] [place], [place] [id number] [facility] - [place] Start: 03-05-2025 End: 03-05-2025 Admission to same day surgery center [facility] MAIN OR Comment on above: OPEN REDUCTION INTERNAL FIXATION BILATER AL SCAPHOID WAIST NON UNIONS WITH DISTAL RADIUS AUTOGRAFT [92123 (CPT )] Start: 03-05-2025 End: 03-05-2025 Anesthesia consultation 03/05/2025 11:00 AM EDT Anesthesia Event [facility] MAIN OR [address] [place] [phone] Krystian Castillo, LOGISTICS MANAGEMENT SPECIALIST - MEDICAL LEAD [address] [place] [address] [facility] MAIN OR Start: 03-05-2025 End: 03-05-2025 Insertion vascular pedicle carpal bone [facility] Operating Room Start: 03-05-2025 Subsequent hospital visit by physician [facility] MAIN OR Start: 03-02-2025 End: 03-02-2025 Admission to establishment 03/02/2025 9:00 AM EDT Pre-Admission Testing [facility] Pre-Admit Testing [address] [place] [address] Cristy Hester MD [address] [place] [address] [facility] Pre-Admit Testing Start: 02-22-2025 COVID-19 Vaccine ( season) COVID-19 Vaccine () [facility] Start: 02-22-2025 Influenza vaccination Influenza Vaccine (#1) [facility] Start: 01-21-2025 End: 01-21-2025 Patient encounter procedure [facility] CT Start: 01-13-2025 End: 01-13-2026 CT Wrist - left WO contrast CT wrist left wo IV contrast Imaging Routine Closed comminuted fracture of waist of scaphoid bone of left wrist, initial encounter Expected: 01/13/2025, Expires: 01/13/2026 [facility] Comment on above: Expected: 01/13/2025, Expires: Start: 01-13-2025 End: 01-13-2026 CT Wrist - right WO contrast CT wrist right wo IV contrast Imaging Routine Closed displaced fracture of distal pole of scaphoid bone of right wrist, initial encounter Expected: 01/13/2025, Expires: 01/13/[address] [facility] Comment on above: Expected: 01/13/2025, Expires: Start: 01-13-2025 End: 01-05-2026 XR Wrist - left 3 Views [facility] Work Phone: Comment on above: Expected: 01/13/2025, Expires: Start: 01-13-2025 End: 01-05-2026 XR Wrist - right 3 Views [facility] [employer] [facility] Comment on above: Expected: 01/13/2025, Expires: Start: 12-17-2024 Thyroid stimulating hormone measurement TSH Level [facility] Start: 11-18-2024 End: 11-18-2024 Patient encounter procedure 11/18/2024 10:40 AM EDT Office Visit [facility] [address] [place] [address] [address] Henrietta Knowles, LOGISTICS MANAGEMENT SPECIALIST - [employer] [address] [facility] [place] [address] [facility] Start: 10-14-2024 End: 10-14-2025 Basic metabolic 1998 [...] nicotine-induced disorder Expected: 10/14/2024 (Approximate), Expires: 10/14/[address] [facility] Work Phone: Comment on above: Expected: 10/14/2024 (Approximate), Expi res: 10/14/2025 Start: 10-14-2024 Depression Monitoring Depression Monitoring [facility] Start: 10-14-2024 End: 10-14-2024 Patient encounter procedure 10/14/2024 1:00 PM EDT Office Visit [facility] [address] [place] [address] Henrietta Knowles, LOGISTICS MANAGEMENT SPECIALIST - [employer] [address] [facility] [place] [address] [facility] Start: 10-06-2024 Diabetes mellitus screening Diabetes Screening [facility] Start: 10-06-2024 HIV screening HIV Screening [facility] Comment on above: Postponed from 1965 (Patient Refus ed) Start: 09-25-2024 End: 09-25-2024 Patient encounter procedure 09/25/2024 2:00 PM EDT Appointment [facility] [address] [place] [phone] Henrietta Knowles, LOGISTICS MANAGEMENT SPECIALIST - [employer] [address] [facility] [place] [address] [facility] Start: 09-23-2024 End: 09-23-2024 Patient encounter procedure 09/23/2024 12:00 PM EDT Appointment [facility] [address] [place] [phone] BridenthCrow marinca, LOGISTICS MANAGEMENT SPECIALIST - [employer] [address] [place] [address] [place] [address] [facility] Start: 08-04-2024 End: 08-04-2024 Patient encounter procedure 08/04/2024 9:30 AM EST Appointment [facility] [address] [place] [phone] OlienthOsbaldo marin, LOGISTICS MANAGEMENT SPECIALIST - [employer]ER [address] [place] [address] [place] [address] [facility] Start: 07-22-2024 End: 07-22-2024 Patient encounter procedure 07/22/2024 12:40 PM EST Appointment [facility] [address] [place] [phone] Henrietta Knowles, LOGISTICS MANAGEMENT SPECIALIST - [employer]ER [address] [place] [address] [place] [address] [facility] Start: 07-22-2024 End: 07-22-2024 Patient encounter procedure 07/22/2024 11:30 AM EST Appointment [facility] [address] [place] [phone] Henrietta Knowles, LOGISTICS MANAGEMENT SPECIALIST - [employer]ER [address] [place] [address] [place] [address] [facility] [address] Start: 06-10-2024 End: 06-10-2024 Patient encounter procedure 06/10/2024 2:15 PM EST Office Visit [facility] [address] [place] [address] Augustin Jordan MD [address] [place] [address] [facility] [place] [address] [facility] Start: 06-01-2024 Pneumococcal Vaccine: 50+ Years (3 of 3 - PCV20 or PCV21) Pneumococcal Vaccine: 50+ Years (3 of 3 - PCV20 or PCV21) [facility] Start: 05-21-2024 End: 06-15-2025 DBT Breast - bilateral screening Bilateral screening mammogram with tomosynthesis Imaging Routine Screening mammogram for breast cancer Expected: 05/21/2024, Expires: 06/15/2025 [facility] Comment on above: Expected: 05/21/2024, Expires: Start: 05-20-2024 Screening for malignant neoplasm of breast Mammogram [facility] Start: 04-15-2024 End: 04-14-2025 Comprehensive metabolic 1998 [...] diabetes mellitus Expected: 04/15/2024 (Approximate), Expires: 04/14/2025 [facility] Comment on above: Expected: 04/15/2024 (Approximate), Expi res: 04/14/2025 Start: 04-15-2024 End: 04-15-2025 CT Chest for screening WO contrast CT lung screening low dose Imaging Routine Cigarette nicotine dependence without complication Screening for lung cancer Expected: 04/15/2024, Expires: 04/15/2025 [facility] Comment on above: Expected: 04/15/2024, Expires: Start: 04-15-2024 End: 04-14-2025 Lipid 1996 panel - Serum or Plasma Lipid panel Lab Routine Hyperlipidemia, unspecified hyperlipidemia type Expected: 04/15/2024 (Approximate), Expires: 04/14/2025 [facility] Work Phone: Comment on above: Expected: 04/15/2024 (Approximate), Expi res: 04/14/2025 Start: 04-15-2024 End: 04-15-2024 Patient encounter procedure [facility] Start: 04-08-2024 COVID-19 Vaccine (#1) COVID-19 Vaccine (#1) [facility] Comment on above: Postponed from 01/24/1966 (Patient Refus ed) Start: 04-08-2024 COVID-19 Vaccine () COVID-19 Vaccine () [facility] Comment on above: Postponed from 02/22/2023 (Patient Refus ed) Start: 04-08-2024 MMR Vaccines (1 of 1 - Standard series) MMR Vaccines (1 of 1 - Standard series) [facility] Comment on above: Postponed from 1966 (Patient Refus ed) Start: 04-07-2024 Depression Monitoring Depression Monitoring [facility] Start: 04-07-2024 Depresssion Monitoring Depresssion Monitoring [facility] Start: 03-24-2024 End: 03-24-2025 Complete PFT pre and post bronchodilator Complete PFT pre and post bronchodilator PFT Routine Chronic shortness of breath Expected: 03/24/2024 (Approximate), Expires: 03/24/2025 [facility] Work Phone: Comment on above: Expected: 03/24/2024 (Approximate), Expi res: 03/24/2025 Start: 03-16-2024 End: 03-16-2024 Clinical Support 03/16/2024 11:00 AM EDT Clinical Support [address] [address] [facility] Start: 03-11-2024 End: 03-11-2025 Estradiol Estradiol Lab Routine Menopause Expected: 03/11/2024 (Approximate), Expires: 03/11/2025 [facility] Work Phone: Comment on above: Expected: 03/11/2024 (Approximate), Expi res: 03/11/2025 Start: 03-11-2024 End: 03-11-2025 Follicle stimulating hormone Follicle stimulating hormone Lab Routine Menopause Expected: 03/11/2024 (Approximate), Expires: 03/11/[address] [facility] Comment on above: Expected: 03/11/2024 (Approximate), Expi res: 03/11/2025 Start: 03-11-2024 End: 03-11-2025 Luteinizing hormone Luteinizing hormone Lab Routine Menopause Expected: 03/11/2024 (Approximate), Expires: 03/11/[address] [facility] Comment on above: Expected: 03/11/2024 (Approximate), Expi res: 03/11/2025 Start: 03-11-2024 End: 03-11-2025 Progesterone Progesterone Lab Routine Menopause Expected: 03/11/2024 (Approximate), Expires: 03/11/[address] [facility] Comment on above: Expected: 03/11/2024 (Approximate), Expi res: 03/11/2025 Start: 02-23-2024 COVID-19 Vaccine ( season) COVID-19 Vaccine ( season) [facility] Start: 02-23-2024 Influenza vaccination Influenza Vaccine (#1) [facility] Start: 12-02-2023 End: 12-01-2024 Antistreptolysin O screen Antistreptolysin O screen Lab Routine Bilateral lower extremity edema Polyarthralgia Expected: 12/02/2023 (Approximate), Expires: 12/01/[address] [facility] Work Phone: Comment on above: Expected: 12/02/2023 (Approximate), Expi res: 12/01/2024 Start: 12-02-2023 End: 12-01-2024 C reactive protein [Mass/volume] in Serum or Plasma C-reactive protein Lab Routine Bilateral lower extremity edema Polyarthralgia Expected: 12/02/2023 (Approximate), Expires: 12/01/[address] [facility] Comment on above: Expected: 12/02/2023 (Approximate), Expi res: 12/01/2024 Start: 12-02-2023 End: 12-01-2024 CBC W Auto Differential panel - Blood CBC auto differential Lab Routine Bilateral lower extremity edema Polyarthralgia Expected: 12/02/2023 (Approximate), Expires: 12/01/2024 [employer] [facility] Comment on above: Expected: 12/02/2023 (Approximate), Expi res: 12/01/2024 Start: 12-02-2023 End: 12-01-2024 Comprehensive metabolic 1998 panel - Serum or Plasma Comprehensive metabolic panel Lab Routine Bilateral lower extremity edema Polyarthralgia Expected: 12/02/2023 (Approximate), Expires: 12/01/2024 [employer] [facility] Comment on above: Expected: 12/02/2023 (Approximate), Expi res: 12/01/2024 Start: 12-02-2023 End: 12-01-2024 Nuclear Ab [Titer] in Serum by Immunofluorescence SIGIFREDO Lab Routine Bilateral lower extremity edema Polyarthralgia Expected: 12/02/2023 (Approximate), Expires: 12/01/2024 [employer] [facility] Comment on above: Expected: 12/02/2023 (Approximate), Expi res: 12/01/2024 Start: 12-02-2023 End: 12-01-2024 Rheumatoid factor [Units/volume] in Serum or Plasma Rheumatoid factor Lab Routine Bilateral lower extremity edema Polyarthralgia Expected: 12/02/2023 (Approximate), Expires: 12/01/2024 [employer] [facility] Comment on above: Expected: 12/02/2023 (Approximate), Expi res: 12/01/2024 Start: 12-02-2023 End: 12-01-2024 Thyrotropin [Units/volume] in Serum or Plasma TSH Lab Routine Bilateral lower extremity edema Polyarthralgia Hypothyroidism, unspecified type Expected: 12/02/2023 (Approximate), Expires: 12/01/2024 [employer] [facility] Comment on above: Expected: 12/02/2023 (Approximate), Expi res: 12/01/2024 Start: 12-02-2023 End: 12-01-2024 Urate [Mass/volume] in Serum or Plasma Uric acid Lab Routine Bilateral lower extremity edema Polyarthralgia Expected: 12/02/2023 (Approximate), Expires: 12/01/2024 [employer] [facility] Comment on above: Expected: 12/02/2023 (Approximate), Expi res: 12/01/2024 Start: 11-11-2023 End: 11-10-2024 C reactive protein [Mass/volume] in Serum or Plasma C-reactive protein Lab Routine Acute left ankle pain Left foot pain Expected: 11/11/2023 (Approximate), Expires: 11/10/2024 [facility] Comment on above: Expected: 11/11/2023 (Approximate), Expi res: 11/10/2024 Start: 11-11-2023 End: 11-10-2024 CBC panel - Blood by Automated count CBC Lab Routine Acute left ankle pain Left foot pain Expected: 11/11/2023 (Approximate), Expires: 11/10/2024 [facility] Comment on above: Expected: 11/11/2023 (Approximate), Expi res: 11/10/2024 Start: 11-11-2023 End: 11-10-2024 Erythrocyte sedimentation rate Sedimentation rate, automated Lab Routine Acute left ankle pain Left foot pain Expected: 11/11/2023 (Approximate), Expires: 11/10/2024 [facility] Comment on above: Expected: 11/11/2023 (Approximate), Expi res: 11/10/2024 Start: 11-11-2023 End: 11-10-2024 Urate [Mass/volume] in Serum or Plasma Uric acid Lab Routine Acute left ankle pain Left foot pain Expected: 11/11/2023 (Approximate), Expires: 11/10/2024 [facility] Comment on above: Expected: 11/11/2023 (Approximate), Expi res: 11/10/2024 Start: 11-11-2023 End: 11-10-2024 XR Ankle - left 3 Views XR ankle 3+ views left Imaging Routine Acute left ankle pain Left foot pain Expected: 11/11/2023, Expires: 11/10/2024 [facility] Comment on above: Expected: 11/11/2023, Expires: Start: 11-11-2023 End: 11-10-2024 XR Foot - left 3 Views XR foot 3+ views left Imaging Routine Acute left ankle pain Left foot pain Expected: 11/11/2023, Expires: 11/10/2024 [facility] Work Phone: Comment on above: Expected: 11/11/2023, Expires: Start: 10-08-2023 Depresssion Monitoring [facility] Start: 10-07-2023 End: 10-06-2024 Basic metabolic 1998 [...] Pedal edema Expected: 10/07/2023 (Approximate), Expires: 10/06/2024 [facility] Comment on above: Expected: 10/07/2023 (Approximate), Expi res: 10/06/2024 Start: 10-07-2023 End: 10-06-2024 Hemoglobin A1c measurement Hemoglobin A1c Lab Routine Elevated fasting glucose Expected: 10/07/2023 (Approximate), Expires: 10/06/2024 [facility] Work Phone: Comment on above: Expected: 10/07/2023 (Approximate), Expi res: 10/06/2024 Start: 10-07-2023 End: 10-06-2024 XR Chest 2 Views XR chest 2 views Imaging Routine Cigarette nicotine dependence without complication Bronchitis Expected: 10/07/2023, Expires: 10/06/2024 [facility] Comment on above: Expected: 10/07/2023, Expires: Start: 10-07-2023 End: 10-07-2023 Patient encounter procedure 10/07/2023 1:20 PM EDT Office Visit [facility] [address] [place] [address] Henrietta Knowles, CASSIE - [employer]ER [address] [place] [address] [facility] Start: 08-21-2023 End: 08-21-2024 Complete PFT study Complete PFT study PFT Routine Chronic shortness of breath Expected: 08/21/2023 (Approximate), Expires: 08/21/2024 [facility] Work Phone: Comment on above: Expected: 08/21/2023 (Approximate), Expi res: 08/21/2024 Start: 05-24-2023 End: 05-24-2023 Patient encounter procedure 05/24/2023 2:00 PM EST Office Visit [facility] [address] [place] [phone] Godfrey Minaya MD [address] [facility] [address] [place], [place] [phone] [facility] Start: 05-20-2023 End: 05-20-2023 Patient encounter procedure [facility] Start: 05-08-2023 End: 05-08-2023 Patient encounter procedure 05/08/2023 2:00 PM EST Office Visit [facility] [address] [place] [address] [place] [phone] Godfrey Minaya MD [address] [facility] [address] [place], [place] [phone] [facility] Start: 04-19-2023 End: 06-19-2024 DBT Breast - bilateral diagnostic Bilateral diagnostic mammogram with tomosynthesis Imaging Routine Pain from breast implant, initial encounter Ruptured left breast implant, initial encounter Expected: 04/19/2023, Expires: 06/19/2024 [facility] Work Phone: Comment on above: Expected: 04/19/2023, Expires: Start: 04-19-2023 End: 06-19-2024 US Breast - left limited Left breast US limited Imaging Routine Pain from breast implant, initial encounter Ruptured left breast implant, initial encounter Expected: 04/19/2023, Expires: 06/19/2024 [facility] Work Phone: Comment on above: Expected: 04/19/2023, Expires: Start: 04-10-2023 End: 04-10-2023 Patient encounter procedure [facility] Start: 04-08-2023 End: 04-08-2024 XR Chest 2 Views XR chest 2 views Imaging Routine Cough, unspecified type Chest congestion Cigarette nicotine dependence without complication Expected: 04/08/2023, Expires: 04/08/2024 [facility] Work Phone: Comment on above: Expected: 04/08/2023, Expires: Start: 04-08-2023 End: 04-08-2023 Patient encounter procedure 04/08/2023 1:20 PM EDT Procedure Visit [facility] [address] [place], [place] [id number] Henrietta Knowles, LOGISTICS MANAGEMENT SPECIALIST - [employer]ER [address] [place], [place] [phone] [facility] Start: 02-22-2023 End: 02-23-2024 CBC panel - Blood by Automated count CBC Lab Routine Pain from breast implant, initial encounter Ruptured left breast implant, initial encounter Expected: 02/22/2023 (Approximate), Expires: 02/23/[address] [facility] [employer] Work Phone: Comment on above: Expected: 02/22/2023 (Approximate), Expi res: 02/23/2024 Start: 02-22-2023 End: 02-23-2024 Comprehensive metabolic 1998 panel - Serum or Plasma Comprehensive metabolic panel Lab Routine Hyperlipidemia, unspecified hyperlipidemia type Screening for diabetes mellitus Expected: 02/22/2023 (Approximate), Expires: 02/23/2024 [facility] Comment on above: Expected: 02/22/2023 (Approximate), Expi res: 02/23/2024 Start: 02-22-2023 End: 02-23-2024 Lipid 1996 panel - Serum or Plasma Lipid panel Lab Routine Hyperlipidemia, unspecified hyperlipidemia type Expected: 02/22/2023 (Approximate), Expires: 02/23/2024 [facility] Comment on above: Expected: 02/22/2023 (Approximate), Expi res: 02/23/2024 Start: 2015 Screening for malignant neoplasm of lung Lung Cancer Screening [facility] Start: 2005 Screening for malignant neoplasm of breast Mammogram [facility] Start: 1983 Diabetes mellitus screening Diabetes Screening [facility] Start: 1977 Depresssion Monitoring Depresssion Monitoring [facility] Start: 1966 MMR Vaccines (1 of 1 - Standard series) MMR Vaccines (1 of 1 - Standard series) [facility] Start: 01-24-1966 COVID-19 Vaccine (#1) COVID-19 Vaccine (#1) [facility] Start: 1965 HIV screening HIV Screening [facility] Start: 1965 Screening for malignant neoplasm of colon [facility] Start: 1965 Thyroid stimulating hormone measurement TSH Level [employer] [facility] Cologuard colon canc er screening Cologuard colon cancer screening Lab Routine Screening for colon cancer Ordered: 10/07/2023 [facility] Comment on above: Ordered: 10/07/2023 End: 01-21-2025 CT Wrist - left WO contrast [facility] Work Phone: Comment on above: Once for 1 Occurrences starting 01/22/20 until 01/21/2025 End: 01-21-2025 CT Wrist - right WO contrast [facility] Work Phone: Comment on above: Once for 1 Occurrences starting 01/22/20 until 01/21/2025 Cytology Cervical or vaginal smear or scraping study Pap Smear Pathology and Cytology Routine Encounter for Papanicolaou smear for cervical cancer screening Ordered: 04/08/2023 [facility] Comment on above: Ordered: 04/08/2023 Cytology Cervical or vaginal smear or scraping study Pap Smear Pathology and Cytology Routine Encounter for Papanicolaou smear for cervical cancer screening 04/15/2024 11:27 AM EDT [facility] DBT Breast - bilater al diagnostic Bilateral diagnostic mammogram with tomosynthesis Imaging Routine Pain from breast implant, initial encounter Ruptured left breast implant, initial encounter Ordered: 04/10/2023 [facility] Work Phone: Comment on above: Ordered: 04/10/2023 HPV High Risk PCR HPV High Risk PCR Microbiology Routine Encounter for Papanicolaou smear for cervical cancer screening 04/15/2024 11:27 AM EDT [facility] End: 12-24-2024 MR Wrist - left WO contrast [facility] Work Phone: Comment on above: Once for 1 Occurrences starting 12/25/19 until 12/24/2024 End: 12-24-2024 MR Wrist - right WO contrast [facility] Work Phone: Comment on above: Once for 1 Occurrences starting 12/25/19 until 12/24/2024 OUTSIDE PROCEDURE SCAN OUTSIDE P ROCEDURE SCAN Procedures Ordered: 11/14/2023 [facility] Comment on above: Ordered: 11/14/2023 End: 05-20-2023 US Breast - left limited Left breast US limited Imaging Routine Pain from breast implant, initial encounter Ruptured left breast implant, initial encounter Once for 1 Occurrences starting 05/20/2023 until 05/20/2023 [facility] Work Phone: Comment on above: Once for 1 Occurrences starting 05/20/20 until 05/20/2023 Immunizations Immunization Date Immunization Notes Care Provider G[facility] 04-15-2024 influenza virus vacc ine, unspecified formulation OSMAR WILBURN LOGISTICS MANAGEMENT SPECIALIST-[employer]ARM LAB[employer]ER [facility] 04-15-2024 influenza, seasonal, injectable, preservative free Henrietta Knowles LOGISTICS MANAGEMENT SPECIALIST - P[employer]ORER Work Phone: [facility] 02-04-2023 influenza, injectabl e, quadrivalent, preservative free Henrietta Knowles LOGISTICS MANAGEMENT SPECIALIST - POUL[employer]ARM LABORER Work Phone: [facility] 02-04-2023 tetanus toxoid, redu anjel diphtheria toxoid, and acellular pertussis vaccine, adsorbed Henrietta Knowles LOGISTICS MANAGEMENT SPECIALIST - POULTRY FARM LABORER Work Phone: [facility] 02-04-2023 influenza virus vacc ine, unspecified formulation Augustin Jordan MD Work Phone: [facility] 04-04-2022 influenza virus vacc ine, unspecified formulation OSMAR WILBURN LOGISTICS MANAGEMENT SPECIALIST-P[employer]ER [facility] Comment on above: Result Comment: 2024: VIS DATE: 01/27/2021 04-04-2022 influenza, injectabl e, quadrivalent, preservative free Henrietta Knowles LOGISTICS MANAGEMENT SPECIALIST - P[employer]ER Work Phone: [facility] 04-03-2021 influenza virus vacc ine, unspecified formulation OSMAR WILBURN LOGISTICS MANAGEMENT SPECIALIST-P[employer]ER [facility] Comment on above: Result Comment: 2024: VIS DATE: 01/27/2021 04-03-2021 influenza, injectabl e, quadrivalent, contains preservative Henrietta Knowles LOGISTICS MANAGEMENT SPECIALIST - P[employer]ER Work Phone: [facility] 08-15-2020 influenza virus vacc ine, unspecified formulation OSMAR WILBURN LOGISTICS MANAGEMENT SPECIALIST-P[employer]ER [facility] Comment on above: Result Comment: 2024: VIS DATE: 02/05/2019 08-15-2020 influenza, injectabl e, quadrivalent, contains preservative Henrietta Knowles LOGISTICS MANAGEMENT SPECIALIST - P[employer]ER Work Phone: [facility] 06-03-2019 influenza virus vacc ine, unspecified formulation OSMAR WILBURN LOGISTICS MANAGEMENT SPECIALIST-POULTRY [employer]ORER [facility] Comment on above: Result Comment: 2024: VIS DATE: 02/05/2019 06-03-2019 influenza, injectabl e, quadrivalent, preservative free Henrietta Knowles LOGISTICS MANAGEMENT SPECIALIST - P[employer]ER Work Phone: [facility] 06-01-2019 pneumococcal polysaccharide vaccine, 23 valent Henrietta Knowles LOGISTICS MANAGEMENT SPECIALIST - P[employer]ER Work Phone: [facility] Comment on above: Result Comment: 2024: VIS DATE: 04/22/2019 05-21-2018 influenza virus vacc ine, unspecified formulation OSMAR WILBURN LOGISTICS MANAGEMENT SPECIALIST-P[employer]ER [facility] Comment on above: Result Comment: 2024: VIS DATE: 01/28/2015 05-21-2018 influenza, injectabl e, quadrivalent, contains preservative Henrietta Knowles LOGISTICS MANAGEMENT SPECIALIST - [employer]ER Work Phone: [facility] 05-21-2018 pneumococcal conjuga te vaccine, 13 valent Henrietta Knowles LOGISTICS MANAGEMENT SPECIALIST - P[employer]ER Work Phone: [facility] Comment on above: Result Comment: 2024: VIS DATE: 04/28/2015 01-14-2018 zoster vaccine recombinant Henrietta Knowles LOGISTICS MANAGEMENT SPECIALIST - [employer]ER Work Phone: [facility] 10-15-2017 zoster vaccine recombinant Henrietta Knowles LOGISTICS MANAGEMENT SPECIALIST - POUL[employer]ER Work Phone: [facility] 01-10-2017 hepatitis A vaccine, adult dosage Henrietta Knowles LOGISTICS MANAGEMENT SPECIALIST - P[employer]ER Work Phone: [facility] Comment on above: Result Comment: 2024: VIS DATE: 01/11/16 01-10-2017 hepatitis B vaccine, adult dosage Henrietta Knowles LOGISTICS MANAGEMENT SPECIALIST - [employer]ER Work Phone: [facility] Comment on above: Result Comment: 2024: VIS DATE: 01/11/2016 07-13-2016 hepatitis B vaccine, adult dosage Henrietta Knowles LOGISTICS MANAGEMENT SPECIALIST - [employer]ER Work Phone: [facility] 04-26-2016 hepatitis A vaccine, pediatric dosage, unspecified formulation OSMAR WILBURN LOGISTICS MANAGEMENT SPECIALIST-[employer]ER [facility] 04-26-2016 hepatitis A vaccine, unspecified formulation Henrietta Knowles LOGISTICS MANAGEMENT SPECIALIST - P[employer]ER Work Phone: [facility] 04-26-2016 hepatitis B vaccine, adult dosage Henrietta Knowles LOGISTICS MANAGEMENT SPECIALIST - P[employer]ER Work Phone: [facility] Payers Date Payer Category Payer Self-pay 2024 Private Health Insurance 2024 Unknown [id number] 2022 Medicaid [employer] UHC MEDICAID [place] [id number] 2022-Present [phone] [address] [place] [address] Medicaid HMO [id number] 2022 Medicaid HMO [facility] MEDICAID ODM [id number] 2022 Private Health Insurance [facility] [id number] 2021 Medicaid [id number] 1965 Unknown [id number] 1965 Unknown [id number] 1965 Unknown [id number] 1965 Unknown [id number] Unknown [id number] Unknown [id number] Unknown [id number] Unknown [id number] Social History Date Type Detail Facility Start: 12-01-2019 Tobacco smoking status Heavy t obacco smoker (finding) [facility]igned [facility] Start: 11-28-2015 End: 05-01-2022 Tobacco smoking status NHIS Smokes tobacco daily [facility] Start: 1971 End: 06-10-2024 History of tobacco use Cigarette Smoker [facility] Start: 05-01-2022 End: 06-10-2024 Cigarettes smoked current (pack per day) - Reported [address] [facility] Start: 05-01-2022 End: 03-02-2025 Tobacco use and exposure Smokeless tobacco non-user [facility] Start: 02-22-2023 End: 03-22-2025 Alcohol intake Current non-drinker of alcohol (finding) [facility] Start: 10-05-2022 End: 06-10-2024 Tobacco use panel [facility] How hard is it for y ou to pay for the very basics like food, housing, medical care, and heating Not very hard [facility] (I/We) worried wheth er (my/our) food would run out before (I/we) got money to buy more. Never true [facility] In the past 12 month s, has lack of transportation kept you from medical appointments or from getting medications? No [facility] Start: 1965 Sex Assigned At Not on file S [facility] Start: 02-12-2023 End: 03-04-2023 Exposure to SARS-CoV-2 (event) Not sure [facility] How hard is it for y ou to pay for the very basics like food, housing, medical care, and heating Somewhat hard [facility] (I/We) worried wheth er (my/our) food would run out before (I/we) got money to buy more. Sometimes true [facility] In the past 12 month s, was there a time when you were not able to pay the mortgage or rent on time? No [facility] Start: 10-14-2015 End: 01-22-2022 Sex Female (finding) [facility] Are you now , , , , never or living with a partner? [facility] Do you feel stress - tense, restless, nervous, or anxious, or unable to sleep at night because your mind is troubled all the time - these days [OSQ] Rather much [facility] Start: 08-14-2024 End: 03-02-2025 Tobacco smoking status NHIS Ex-smoker [facility] Start: 1971 End: 06-10-2024 History of tobacco use Current smoker [facility] Start: 1965 Sex Assigned At Female [facility] How often do you nee d to have someone help you when you read instructions, pamphlets, or other written material from your doctor or pharmacy [SILS] Never [facility] Medical Equipment Procedure Code Equipment Code Equipment Origin al Text Equipment Identifier Dates Graft Dbm Gel Bi o 1cc Syr - [id number] Start: 03-05-2025 Bio Chips Cancel lous 5cc 1-8mm - [id number] Start: 03-05-2025 Screw Arie Comp 3.0x22mm - [id number] Start: 03-05-2025 Functional Status Date Assessment Result Facility 10-26-2024 Functional Status Other: 7AM-213PM [facility] 10-26-2024 Functional Status Identified as high risk, Fall ID band on, Non-Slip footwear, Room check performed [facility] 10-26-2024 Functional Status Done Sukh [facility] 10-26-2024 Functional Status Sukh [facility] 10-26-2024 Functional Status Sukh [facility] 10-26-2024 Functional Status Repositions self [facility] 10-25-2024 Functional Status Sukh [facility] 10-25-2024 Functional Status Sukh [facility] 10-25-2024 Functional Status Sukh [facility] 10-25-2024 Functional Status Sukh [facility] 10-25-2024 Functional Status Sukh [facility] 10-25-2024 Functional Status Sukh [facility] 10-24-2024 Functional Status Sukh [facility] 10-23-2024 Functional Status Dinner Percent 50 [facility] 10-23-2024 [facility] Functional Status Apartment, 2nd floor bedroom, 2nd floor bathroom [facility] 10-21-2024 Functional Status heel(s)s elevated [facility] 10-21-2024 Functional Status [facility] 10-21-2024 Functional Status Sensory Deficits None [facility] 10-21-2024 Functional Status Environmental Safety Implemented Adequate room lighting, Bed in low position, Call device within reach, Wheels locked [facility] 10-20-2023 Functional Status ID band on [facility] 09-17-2023 Functional Status ID band on, Allergy Band on, Call device within reach, Bed in low position, Wheels locked, Upper/Half-Length side-rails up, Safety level maintained [facility] 12-25-2021 Functional Status Independent [facility] 12-25-2021 Functional Status Resting [facility] Mental Status Date Assessment Result Facility 10-26-2024 Mental Status Oriented x 4 [facility] 10-26-2024 Mental Status [facility] 10-25-2024 Mental Status [facility] 10-25-2024 Mental Status [facility] 10-24-2024 [facility] 10-[facility]23 Mental Status Orientation Oriented x 4 [facility] 09-17-2023 Mental Status Oriented x 4 [facility] 12-25-2021 Mental Status Orientation Oriented x 4 [facility] 12-25-2021 Mental Status [facility] Clinical Notes 12-25-2021 to 03-24-2025 Telephone Encounter - Basilia Arango - 03/24/2025 1:03 PM EDTTelephone Encounter - Basilia Arango - 03/24/2025 1:03 PM EDTTelephone Encounter - Allegra Zapata - 03/24/2025 12:01 PM EDT Note Date & Type Note [facility] 03-24-2025 Telephone encounter Note Signed and refaxed. Scanned to media [facility] 03-24-2025 Miscellaneous Notes Signed and refaxed. Scanned to media Emily from [facility] called and stated that the form that was faxed back still doesn't have Dr. Hester signature on it. Teams message sent and Leah responded that she will have Dr. Hester sign the form and send it back. FYI Signed and faxed to [facility]. Scanned to media with fax confirmation sheet Emily from [facility] is requesting the order for splinting needs signed and sent back dinh. She is refaxing today. Her return phone is [phone]. Please call with any issues. Thank you! documented in this encounter [facility] 03-24-2025 Telephone encounter Note Emily from [facility] called and stated that the form that was faxed back still doesn't have Dr. Hester signature on it. Teams message sent and Leah responded that she will have Dr. Hester sign the form and send it back. FYDen [facility] 03-24-2025 Telephone encounter Note Signed and faxed to [facility]. Scanned to media with fax confirmation sheet [facility] [employer] 03-24-2025 Telephone encounter Note Emily from [facility] is requesting the order for splinting needs signed and sent back dinh. She is refaxing today. Her return phone is [phone]. Please call with any issues. Thank you! [facility] [employer] 03-22-2025 History of Presen t illness Narrative Subjective: Idalia Jaime is approximately 2.5 week(s) s/p Bilateral nonunion scaphoid ORIF. Pain is minimal, she states that after she started taking the tramodol her pain has been much more tolerable. She is taking tramadol and tylenol for pain relief. She denies significant complaints. She denies numbness and tingling. The patient denies drainage from her incision. She denies fevers and chills. She brought her bone stimulator to go over instructions of how to use it. She states that she needs a letter stating that it is okay to start taking two tramadol a day when she has PT. She reports that she is doing well since her surgery. She reports intact incision without erythema edema drainage or wound separation. Denies fevers and chills. She has been compliant with her weightbearing restriction is much as possible given her bilateral extremity nonweightbearing restriction. She is controlled pain and has been taking 1 tramadol per day in her facility. She already has her bone stimulator. Objective: Ht 5' 6" (1.676 m) Wt 208 lb (94.3 kg) BMI 33.57 kg/m Bilateral Upper Extremities Skin: Incision(s) is/are healing appropriately. No drainage. No erythema. No warmth noted, No wound separation Edema: Minimal surrounding edema. Palpation: tender to palpation over the incisions as expected ROM: not tested Motor: Intact in the hand - able to fire AIN, PIN, and Ulnar nerves Sensation: to light touch is normal in the median, ulnar, and radial nerve distributions Perfusion: Brisk capillary refill to all digits with 2+ radial pulse. XRay: BILATERAL Wrist 3V + Scaphoid View from today show distal radius fracture s/p bilateral scaphoid ORIF with near anatomic reduction with hardware in appropriate position without signs of loosening or failure. Assessment Diagnosis Plan 1. Closed displaced fracture of scaphoid of right wrist with nonunion, unspecified portion of scaphoid, subsequent encounter 2. Closed displaced fracture of scaphoid of left wrist with nonunion, unspecified portion of scaphoid, subsequent encounter 3. Closed comminuted fracture of waist of scaphoid bone of left wrist, initial encounter 4. Closed displaced fracture of distal pole of scaphoid bone of right wrist, initial encounter Plan Idalia Jaime is doing well postoperatively.. They have healed their incision without evidence of infection., They have been compliant with their splint and NWB restriction., Their XR shows a fracture s/p ORIF with near anatomic reduction with hardware in appropriate position without signs of loosening or failure., and They have controlled pain.. Expected post operative recovery course was discussed with the patient. Signs and symptoms of infection were discussed with the patient. Patient was given a letter to have up to 2 tramadol per day for additional 2 weeks and then she will transition to just Tylenol. She knows she cannot take NSAIDs. She was educated on her custom splint and her bone stimulator. Immobilization: Patient re-wrapped in operative splint until custom splint appointment. Custom OT splint: to be worn at all times except for hygiene as discussed and outlined in her letter. Weight Bearing: Non Weight Bearing Rehabilitation: OT Rx given: To follow protocol. Finger range of motion was encouraged within the confines of the custom OT thumb spica splint. OT/PT Rx given: To follow protocol Follow-Up: Patient will follow up in 4 weeks for a 6 week Fracture ORIF Follow up and any questions or concerns they may have. Idalia Jaime will call the office with questions or concerns in the interim. She verbalized understanding and is in agreement with this plan. Future Imaging: BILATERAL Wrist 3V + Scaphoid View Sutures were removed today without complication. Post operative splint was re-wrapped on the operative extremity until patient can be seen for their custom splint appointment. Bilateral operative thumb spica splints was applied to the operative extremity without complication. Performed by: JIGNA Leon PA-C to Dr. Cristy Hester Orthopaedic Surgery Hand and Upper Extremity (Please note that portions of this note may have been completed with a voice recognition program. Efforts were made to edit the dictations but occasionally words are mis-transcribed.) documented in this encounter [facility] 03-22-2025 Instructions Kiarra Leon PA-C - 03/22/2025 9:15 AM EDT Images from the original note were not included. No wrist range of motion. Finger: Rehab Exercises Your Care Instructions Here are some examples of typical rehabilitation exercises for your condition. Start each exercise slowly. Ease off the exercise if you start to have pain. Your doctor or your physical or occupational therapist will tell you when you can start these exercises and which ones will work best for you. How to do the exercises Finger extension Place your hand flat on a table, palm down. Lift and then lower your affected finger off the table. Repeat 8 to [address] times[address] your good hand on a table, palm up. Put your hand with the affected finger on top of your good hand with your fingers wrapped around the thumb of your good hand like you are making a fist. Slowly uncurl the joints of your hand with the affected finger where your fingers connect to your hand so that only the top two joints of your fingers are bent. Your fingers will look like a hook. Move back to your starting position, with your fingers wrapped around your good thumb. Repeat 8 to 12 times. DIP flexion With your good hand, grasp your affected finger. Your thumb will be on the top side of your finger just below the joint that is closest to your fingernail. Slowly bend your affected finger only at the joint closest to your fingernail. Hold for about 6 seconds. Repeat 8 to 12 times. PIP extension (with MP extension) Place your good hand on a table, palm up. Put your hand with the affected finger on top of your good hand. Use the thumb and fingers of your good hand to grasp below the middle joint of your affected finger. Bend and then straighten the last two joints of your affected finger. Repeat 8 to 12 times. Isolated PIP flexion Place the hand with the affected finger flat on a table, palm up. With your other hand, press down on the fingers that are not affected. Your affected finger will be free to move. Slowly bend your affected finger. Hold for about 6 seconds. Then straighten your finger. Repeat 8 to 12 times. Imaginary ball squeeze Pretend to hold an imaginary ball. Slowly bend your fingers around the imaginary ball, and squeeze the "ball" for about 6 seconds. Then slowly straighten your fingers to release the "ball." Repeat 8 to 12 times. Tendon glides In this exercise, the steps follow one another to a make a continuous movement. Hold your hand upward. Your fingers and thumb will be pointing straight up. Your wrist should be relaxed, following the line of your fingers and thumb. Curl your fingers so that the top two joints in them are bent, and your fingers wrap down. Your fingertips should touch or be near the base of your fingers. Your fingers will look like a hook. Make a fist by bending your knuckles. Your thumb can gently rest against your index (pointing) finger. Unwind your fingers slightly so that your fingertips can touch the base of your palm. Your thumb can rest against your index finger. Move back to your starting position, with your fingers and thumb pointing up. Repeat the series of motions 8 to [address] a small towel roll on a table. With your palm facing down, grab the towel and squeeze it for about 6 seconds. Then slowly straighten your fingers to release the towel. Repeat 8 to 12 times. Towel grab Fold a small towel in half, and lay it flat on a table. Put your hand flat on the towel, palm down. Grab the towel, and scrunch it toward you until your hand is in a fist. Slowly straighten your fingers to push the towel back so it is flat on the table again. Repeat 8 to 12 times. documented in this encounter [facility] 03-05-2025 Nurse Note Patient tolerating PO fluids. Patient reports lots of pain but in agreement with pain control plan. Medicated per order. Discharge instructions reviewed with patient friend, both verbalize understanding. Rn assist to/from BR, assisted with getting dressed and into wheelchair and out to car. [facility] 03-05-2025 Miscellaneous Notes Patient tolerating PO fluids. Patient reports lots of pain but in agreement with pain control plan. Medicated per order. Discharge instructions reviewed with patient friend, both verbalize understanding. Rn assist to/from BR, assisted with getting dressed and into wheelchair and out to car. Received patient from OR to PACU with [facility]ICAL [facility]. Patient is awake and talking on room air. No respiratory distress noted. Cardiac monitoring on, safety maintained. Rn remains at bedside. [facility] OR [address] [address] Dept: [phone] Loc: [phone] Operative Report Patient Name: Idalia Gipson Date of : 1965 Date of Surgery: 03/05/25 Location: [facility] Preoperative Diagnosis: Right scaphoid nonunion Postoperative Diagnosis: same Procedure: ORIF scaphoid nonunion Insertion of vascular pedicle/cortical cancellous distal radius bone graft Surgeon: Stan Coley MD Co-surgeon Cristy Hester MD (this was a bilateral procedure Dr. Hester did the left scaphoid nonunion concurrently while I did the right his note will be dictated separately) 1st Assist: Joleen CARO The first-assurance assistant was critical to all steps of the operation, including retraction and arm extremity stabilization during exposure, as well as the deep and superficial wound closure. I understand that section 1842(b)(7)(D) of the Social Security Act generally prohibits Medicare physician fee schedule payment for the services of assistants at surgery in teaching hospitals when qualified residents are available to furnish such services. I certify that the services for which payment is claimed were medically necessary and that no qualified resident was available to perform the services. I further understand that these services are subject to post- payment review by the Medicare carrier. 2nd Assist: None Implants: 2.5 mm 20 mm long headless compression screw [employer] Specimens Removed: None Anesthesia: General Local Anesthesia: 10 cc 1% lidocaine plain Tourniquet:: Brachium less than 2 hours Estimated Blood Loss: Less than 10 cc Antibiotics: see anesthesia record Indications: Ms. Idalia Gipson is a 59 y.o. 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 I have discussed with her, preoperatively, the complications, limitations, expectations, alternatives, and risks of surgical intervention which she has demonstrated understanding. She understood the particular risk of surgery. No guarantees were given or implied. After having all of her questions answered to her satisfaction, Ms. Idalia Gipson has provided written informed consent to proceed. Please see previous notes for full operative discussion. Procedure: Idalia Gipson was identified in the preoperative waiting area. her operative site was initialed and consent was reviewed. Final questions were answered. Ms. Idalia Gipson was brought to the operating room and placed in the supine position. All bony prominences were well padded. The aforementioned anesthesia was administered. Antibiotics were confirmed to have been given. The operative extremity was prepped and draped in the usual sterile fashion. A surgical timeout was then performed with the patient's identification, the procedure to be performed being reviewed, verification that the patient had received preoperative antibiotics if indicated, and verification of the correct surgical side. The patient's ASA was verified by the nurse asphalt paver and the anesthesia staff. Fire risk was assessed. I began my portion the procedure by making a hockey-stick incision extending down from the distal pole the scaphoid along the volar surface of the thenar eminence and then proximal along the FCR sheath. Incision was carried deep to the FCR tendon FCR tendon was retracted ulnarly and the subs sheath was opened distal to the distal pole of the scaphoid. I then continued my incision to the joint capsule identified the radioscaphocapitate ligament and marked it for subsequent repair. Proximally the incision was carried down through the subs sheath and the FCR the FPL tendon was identified the FPL and FCR tendons were then retracted ulnarly with a Hohmann retractor and the distal end of the radius was identified. The feeding vessel was identified along the radial aspect and traced through the distal pronator quadratus muscle and the muscle fibers were divided to approximately 5 mm proximal to the radial lip. I then utilized a 3 5 K wire to trephinate the distal radius and with the periosteum intact use osteotomes to harvest a cortical cancellous graft. I then used a curette to harvest additional cancellous bone graft. The turn my attention to the scaphoid. Scaphoid was identified as well as the nonunion site K wires were placed in the proximal and distal pole in the scaphoid was located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 patientsnumber. Thank you! * Telephone Encounter - Basilia Arango - 02/23/2025 3:10 PM EDT Called jennifer @ [phone] Told to call back, she's on the phone. Still waiting on surgery slip. * Telephone Encounter - Ko Loera - 02/23/2025 2:43 PM EDT Jennifer with the facility is asking for a call back in regards to a time for saturday since they need day notice for transportation. Please advise * Telephone Encounter - Kiarra Leon PA-C - 02/19/2025 3:09 PM EDT Carla Arredondo, When you schedule this patient please charo that we will not be able to change her time the day before. We can keep that in mind so we can change the other patients around this patients time. Additionally she will be transported from a facility which typically include delays and will not be able to come in early if needed so we should have her come in 3 hours prior to scheduled time. Thanks! * Telephone Encounter - Rose Galarza - 02/19/2025 1:48 PM EDT Facility called in about the patient requesting some information about the surgery date they statedthat for transportation they need 2 business days to set that up please advise. Jennifer (Trucking Supervisor) [phone] * Telephone Encounter - Stan Coley MD - 02/16/2025 8:00 AM EDT Yes lets do it ou pick the saturday * Telephone Encounter - Basilia Arango - 02/11/2025 10:02 AM EDT Spoke with Leilani Sparks at [place], she said as long as the pt meets the criteria, yes. Ex: can ambulate; has a ride; no airway/cardiac issues, etc.... * Telephone Encounter - Stan Coley MD - 02/09/2025 8:05 AM EDT If She is at a facfility can't do at [facility] * Telephone Encounter - Stan Coley MD - 02/09/2025 8:04 AM EDT Sure * Telephone Encounter - Basilia Arango - 02/08/2025 1:03 PM EDT Called Jennifer at [phone]. Jennifer unavailable, left message for her to call back. Also faxed over TE attached to [phone]. * Telephone Encounter - Cristy Hester MD - 02/08/2025 12:46 PM EDT I called and spoke with Idalia this afternoon regarding the results of her bilateral wrist CT scans. 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 She is now nearly 4 months status post her injury and I do not believe continued conservative care will be of any benefit. I recommend ORIF of her bilateral scaphoid nonunions with distal radius autograft to give her the best chance at healing and having functional use of her wrist. Her situation is complicated and that she is at a skilled rehab facility for other injuries she sustained in her initial trauma. She did not feel that she would be safe to go home following bilateralwrist surgeries and I am in complete agreement. I do believe she should stay at her rehab facility prior to and following her bilateral wrist surgery which I will begin coordinating. She understands that I may perform her bilateral wrist surgeries or I may ask one of my partners to work simultaneously. She also understands that it will be 3 to 4 months before we would expect any type of union or progressive weightbearing. She also understands that even with our best surgical efforts she is still at a risk for nonunion requiring salvage procedures in the future. Regardless, with her lower extremity and bilateral upper extremity injuries a rehab facility will be the most feasible location forher recovery. We will update Jennifer Owen who is in charge of her care with the plan and start coordinating her surgery. * Telephone Encounter - Shyann Maxwell MA - 02/05/2025 12:17 PM EDT Patient called in very upset she has not received the results of her CT after multiple calls to theoffice. She states she is in a facility and the results determine if she stays in the facility or gets discharged home. Patient requesting call back with results today. * Telephone Encounter - Ko Loera - 02/02/2025 1:32 PM EDT Patient called back in and would like to know if she can get an update on the results at the earliest convenience. Please advise * Telephone Encounter - Allegra Zapata - 01/28/2025 2:30 PM EDT Name of Caller: Idalia Contact Reason for Appointment: Pt calling in and stated that Dr. Hester was going to call her about her CT results due to her being in a facility. She was reminding him to call so she knows what the next steps are. Office Name: Ortho documented in this encounterSUniversity Hospitals Portage Medical [id number] Telephone encounter Note* Telephone Encounter - Kiarra Leon PA-C - 02/25/2025 1:19 PM EDT PAT Orders Signed. [facility] Phone: [phone] Telephone encounter Note* Telephone Encounter - Basilia Arango - 02/25/2025 1:19 PM EDT Called Jennifer owen at [phone]. Left a message to notify that surgery has been officially moved and scheduled for 03/05. Since the pt is in a facility, she will need to have tele PAT. IPO scheduled. Awaiting call back to notify of bola/day/locations [facility] [id number] Miscellaneous Notes* Telephone Encounter - Kiarra Leon PA-C - 02/25/2025 1:19 PM EDT PAT Orders Signed. * Telephone Encounter - Basilia Arango - 02/25/2025 1:19 PM EDT Called Jennifer owen at [phone]. Left a message to notify that surgery has been officially moved and scheduled for 03/05. Since the pt is in a facility, she will need to have tele PAT. IPO scheduled. Awaiting call back to notify of bola/day/locations * Telephone Encounter - Basilia Arango - 02/25/2025 12:57 PM EDT Images from the original note were not included. Please enter PAT orders, please Sx- 03/05 Consent- Open reduction internal fixation BILATERAL scaphoid waist non unions with distal radius autograft Dx-(M25.531, M25.532) Bilateral wrist pain Anesthesia-General, Regional (choice of side) PAT-tele CT-no XR IPO-yes DIABETIC- Surgery Checklist Details Calendar done Clearance no Case # [id number] Authorization Approved [id number] PAT Day/Time PAT Orders to Yarsani done Splint no IPO 03/16 @ 2pm MD Basilia Berrios; Stan Coley MD; Carolina HESTER SURGERY SCHEDULING SLIP Patient: Idalia Gipson Date of : 1965 Date of Surgery: 03/05/25 Day of Surgery: [facility]: [place] Duration: 3hrs Type: Outpatient PAT: Yes - in person Med Clearance: No Anesthesia: General Block: Regional (choice of side) Position: Supine Table: Stretcher Arm Board: Roll-up arm table (X2) Radiology: Small C-Arm CPT Code: 50412, 69575 Consent: OPEN REDUCTION INTERNAL FIXATION BILATERAL SCAPHOID WAIST NON UNIONS WITH DISTAL RADIUS AUTOGRAFT FollowUp: Any P.A. in 10-14 days XRays: Yes OT Splint needed at first PO appointment: No Special Requests 2 extremity setup 2 synthes cannulated screw sets 2 hand trays 2 mini C arms 0.045 K Wires Small vessel loops Small osteotomes Curves curettes RemB with small sagittal saw * Telephone Encounter - Allegra Zapata - 02/08/2025 12:00 PM EDT Jennifer [phone] from [facility] is calling again the patient almost left facility AMA due to notgetting an answer from the office. Teams message sent and call made to Leah got on the phone with CAC and said she cannot get provider to call patient back. Facility said they don't have order about the splint or anything else. All patient wants to know is does she need sx if not she wants togo home. This is high priority. * Telephone Encounter - Shyann Maxwell MA - 02/05/2025 12:19 PM EDT Images from the original note were not included. I spoke with patient, documented from other TE: Me CARLTON 02/05/25 12:19 PM Note Patient called in very upset she has not received the results of her CT [facility] She states she is in a facility and the results determine if she stays in the facility or gets discharged home. Patient requesting call back with results today. * Telephone Encounter - Ko Loera - 02/05/2025 9:51 AM EDT Name of caller: Idalia Contact phone number: [phone] Relationship to Patient: patient Provider: Practice: Ortho Chief Complaint/Reason for Call: Patient states she has been calling in for about a week to get herimaging results and has not heard anything back. Patient is upset and ask to speak with office management. Please advise Best time of day caller can be reached: Any Patient advised that office/PCP has 24-48 business hours to return their call: Yes documented in this encounterSumma [id number] Telephone encounter Note* Telephone Encounter - Lou Goodrich PA-C - 02/25/2025 1:10 PM EDT I have entered an order for an [employer] ultrasound bone stimulator. Can we send the order with the demographic sheet to the food products sales representative for this company to get the patient a bone stimulator machine prior to surgery next Saturday? [facility] [id number] Telephone encounter Note* Telephone Encounter - Lou Goodrich PA-C - 02/25/2025 1:09 PM EDT ----- Message from Cristy Hester MD sent at 02/25/2025 12:38 PM EDT ----- Regarding: combo case 03/05 - schedule at 1PM MIR SURGERY SCHEDULING SLIP Patient: Idalia Gipson Date of : 1965 Date of Surgery: 03/05/25 Day of Surgery: [facility] [place] Duration: 3hrs Type: Outpatient PAT: Yes - in person Med Clearance: No Anesthesia: General Block: Regional (choice of side) Position: Supine Table: Stretcher Arm Board: Roll-up arm table (X2) Radiology: Small C-Arm CPT Code: 65933, 17561 Consent: Open reduction internal fixation BILATERAL scaphoid waist non unions with distal radius autograft FollowUp: Any P.A. in 10-14 days XRays: Yes OT Splint needed at first PO appointment: No Special Requests 2 extremity setup 2 synthes cannulated screw sets 2 hand trays 2 mini C arms 0.045 K Wires Small vessel loops Small osteotomes Curves curettes RemB with small sagittal saw [facility] [id number] Telephone encounter Note* Telephone Encounter - Basilia Arango - 02/25/2025 12:57 PM EDT Images from the original note were not included. Please enter PAT orders, please Sx- 03/05 Consent- Open reduction internal fixation BILATERAL scaphoid waist non unions with distal radius autograft Dx-(M25.531, M25.532) Bilateral wrist pain Anesthesia-General, Regional (choice of side) PAT-tele CT-no XR IPO-yes DIABETIC- Surgery Checklist Details Calendar done Clearance no Case # [id number] Authorization Approved [id number] PAT Day/Time PAT Orders to Yarsani done Splint no IPO 03/16 @ 2pm MD Basilia Berrios; Stan Coley MD; Carolina HESTER SURGERY SCHEDULING SLIP Patient: Idalia Gipson Date of : 1965 Date of Surgery: 03/05/25 Day of Surgery: [facility] [place] Duration: 3hrs Type: Outpatient PAT: Yes - in person Med Clearance: No Anesthesia: General Block: Regional (choice of side) Position: Supine Table: Stretcher Arm Board: Roll-up arm table (X2) Radiology: Small C-Arm CPT Code: 05864, 41525 Consent: OPEN REDUCTION INTERNAL FIXATION BILATERAL SCAPHOID WAIST NON UNIONS WITH DISTAL RADIUS AUTOGRAFT FollowUp: Any P.A. in 10-14 days XRays: Yes OT Splint needed at first PO appointment: No Special Requests 2 extremity setup 2 synthes cannulated screw sets 2 hand trays 2 mini C arms 0.045 K Wires Small vessel loops Small osteotomes Curves curettes RemB with small sagittal saw [id number] Telephone encounter Note* Telephone Encounter - Kiarra Leon PA-C - 02/25/2025 11:56 AM EDT This is that combo case. [employer] Phone: [phone] Telephone encounter Note* Telephone Encounter - Allegra Zapata - 02/25/2025 11:16 AM EDT Patient called and has questions about sx. Please call her back to answer them. Thank you [facility] [id number] Telephone encounter Note* Telephone Encounter - Basilia Arango - 02/25/2025 9:37 AM EDT Pt surgery moved to 03/05. Lvm for Jennifer owen to notify surgery is moved to 03/05. I will call with more details when surgery slip is entered. [facility] [id number] Telephone encounter Note* Telephone Encounter - Flash Peralta - 02/24/2025 12:42 PM EDT Pt and Jennifer on speakerphone calling to speak with Basilia. Staff was not available on TEAMS or byphone at this time. Please call Jennifer ANAYA at [facility], if we can't get through to Jennifer, please call the patientsnumber. Thank you! [facility] HospitalTasmnt02-45-1281 Miscellaneous Notes* Telephone Encounter - Flash Peralta - 02/24/2025 12:42 PM EDT Pt and Jennifer on speakerphone calling to speak with Basilia. Staff was not available on TEAMS or byphone at this time. Please call Jennifer ANAYA at [facility], if we can't get through to Jennifer, please call the patientsnumber. Thank you! * Telephone Encounter - Basilia Arango - 02/23/2025 3:10 PM EDT Called jennifer @ [phone] Told to call back, she's on the phone. Still waiting on surgery slip. * Telephone Encounter - Ko Loera - 02/23/2025 2:43 PM EDT Jennifer with the facility is asking for a call back in regards to a time for saturday since they need a2 day notice for transportation. Please advise * Telephone Encounter - Kiarra Leon PA-C - 02/19/2025 3:09 PM EDT Carla Maria Elena, When you schedule this patient please charo that we will not be able to change her time the day before. We can keep that in mind so we can change the other patients around this patients time. Additionally she will be transported from a facility which typically include delays and will not be able to come in early if needed so we should have her come in 3 hours prior to scheduled time. Thanks! * Telephone Encounter - Rose Galarza - 02/19/2025 1:48 PM EDT Facility called in about the patient requesting some information about the surgery date they statedthat for transportation they need 2 business days to set that up please advise. Jennifer (Trucking Supervisor) [phone] * Telephone Encounter - Stan Coley MD - 02/16/2025 8:00 AM EDT Yes lets do it ou pick the saturday * Telephone Encounter - Basilia Arango - 02/11/2025 10:02 AM EDT Spoke with Leilani Sparks at [place], she said as long as the pt meets the criteria, yes. Ex: can ambulate; has a ride; no airway/cardiac issues, etc.... * Telephone Encounter - Stan Coley MD - 02/09/2025 8:05 AM EDT If She is at a facfility can't do at [facility] * Telephone Encounter - Stan Coley MD - 02/09/2025 8:04 AM EDT Sure * Telephone Encounter - Basilia Arango - 02/08/2025 1:03 PM EDT Called Jennifer at [phone]. Jennifer unavailable, left message for her to call back. Also faxed over TE attached to [phone]. * Telephone Encounter - Cristy Hester MD - 02/08/2025 12:46 PM EDT I called and spoke with Idalia this afternoon regarding the results of her bilateral wrist CT scans. 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 She is now nearly 4 months status post her injury and I do not believe continued conservative care will be of any benefit. I recommend ORIF of her bilateral scaphoid nonunions with distal radius autograft to give her the best chance at healing and having functional use of her wrist. Her situation is complicated and that she is at a skilled rehab facility for other injuries she sustained in her initial trauma. She did not feel that she would be safe to go home following bilateralwrist surgeries and I am in complete agreement. I do believe she should stay at her rehab facility prior to and following her bilateral wrist surgery which I will begin coordinating. She understands that I may perform her bilateral wrist surgeries or I may ask one of my partners to work simultaneously. She also understands that it will be 3 to 4 months before we would expect any type of union or progressive weightbearing. She also understands that even with our best surgical efforts she is still at a risk for nonunion requiring salvage procedures in the future. Regardless, with her lower extremity and bilateral upper extremity injuries a rehab facility will be the most feasible location forher recovery. We will update Jennifer Owen who is in charge of her care with the plan and start coordinating her surgery. * Telephone Encounter - Shyann Maxwell MA - 02/05/2025 12:17 PM EDT Patient called in very upset she has not received the results of her CT [facility] She states she is in a facility and the results determine if she stays in the facility or gets discharged home. Patient requesting call back with results today. * Telephone Encounter - Ko Loera - 02/02/2025 1:32 PM EDT Patient called back in and would like to know if she can get an update on the results at the earliest convenience. Please advise * Telephone Encounter - Allegra Zapata - 01/28/2025 2:30 PM EDT Name of Caller: Idalia Contact Reason for Appointment: Pt calling in and stated that Dr. Hester was going to call her about her CT results due to her being in a facility. She was reminding him to call so she knows what the next steps are. Office Name: Ortho documented in this [facility]09-02-2025 Telephone encounter Note* Telephone Encounter - Basilia Arango - 02/23/2025 3:10 PM EDT Called jennifer @ [phone] Told to call back, she's on the phone. Still waiting on surgery slip. [facility] [id number] Miscellaneous Notes* Telephone Encounter - Basilia Arango - 02/23/2025 3:10 PM EDT Called jennifer @ [phone] Told to call back, she's on the phone. Still waiting on surgery slip. * Telephone Encounter - Ko Loera - 02/23/2025 2:43 PM EDT Jennifer with the facility is asking for a call back in regards to a time for saturday since they need day notice for transportation. Please advise * Telephone Encounter - Kiarra Leon PA-C - 02/19/2025 3:09 PM EDT Carla Arredondo, When you schedule this patient please charo that we will not be able to change her time the day before. We can keep that in mind so we can change the other patients around this patients time. Additionally she will be transported from a facility which typically include delays and will not be able to come in early if needed so we should have her come in 3 hours prior to scheduled time. Thanks! * Telephone Encounter - Rose Galarza - 02/19/2025 1:48 PM EDT Facility called in about the patient requesting some information about the surgery date they statedthat for transportation they need 2 business days to set that up please advise. Jennifer (Trucking Supervisor) [phone] * Telephone Encounter - Stan Coley MD - 02/16/2025 8:00 AM EDT Yes lets do it ou pick the saturday * Telephone Encounter - Basilia Arango - 02/11/2025 10:02 AM EDT Spoke with Leilani Sparks at [place], she said as long as the pt meets the criteria, yes. Ex: can ambulate; has a ride; no airway/cardiac issues, etc.... * Telephone Encounter - Stan Coley MD - 02/09/2025 8:05 AM EDT If She is at a facfility can't do at [facility] * Telephone Encounter - Stan Coley MD - 02/09/2025 8:04 AM EDT Sure * Telephone Encounter - Basilia Arango - 02/08/2025 1:03 PM EDT Called Jennifer at [phone]. Jennifer unavailable, left message for her to call back. Also faxed over TE attached to [phone]. * Telephone Encounter - Cristy Hester MD - 02/08/2025 12:46 PM EDT I called and spoke with Idalia this afternoon regarding the results of her bilateral wrist CT scans. 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 She is now nearly 4 months status post her injury and I do not believe continued conservative care will be of any benefit. I recommend ORIF of her bilateral scaphoid nonunions with distal radius autograft to give her the best chance at healing and having functional use of her wrist. Her situation is complicated and that she is at a skilled rehab facility for other injuries she sustained in her initial trauma. She did not feel that she would be safe to go home following bilateralwrist surgeries and I am in complete agreement. I do believe she should stay at her rehab facility prior to and following her bilateral wrist surgery which I will begin coordinating. She understands that I may perform her bilateral wrist surgeries or I may ask one of my partners to work simultaneously. She also understands that it will be 3 to 4 months before we would expect any type of union or progressive weightbearing. She also understands that even with our best surgical efforts she is still at a risk for nonunion requiring salvage procedures in the future. Regardless, with her lower extremity and bilateral upper extremity injuries a rehab facility will be the most feasible location forher recovery. We will update Jennifer Sita who is in charge of her care with the plan and start coordinating her surgery. * Telephone Encounter - Shyann Maxwell MA - 02/05/2025 12:17 PM EDT Patient called in very upset she has not received the results of her CT after multiple calls to theoffice. She states she is in a facility and the results determine if she stays in the facility or gets discharged home. Patient requesting call back with results today. * Telephone Encounter - Ko Loera - 02/02/2025 1:32 PM EDT Patient called back in and would like to know if she can get an update on the results at the earliest convenience. Please advise * Telephone Encounter - Allegra Zapata - 01/28/2025 2:30 PM EDT Name of Caller: Idalia Contact Reason for Appointment: Pt calling in and stated that Dr. Hester was going to call her about her CT results due to her being in a facility. She was reminding him to call so she knows what the next steps are. Office Name: Ortho documented in this encounterSUniversity Hospitals Portage Medical [id number] Telephone encounter Note* Telephone Encounter - Ko Loera - 02/23/2025 2:43 PM EDT Jennifer with the facility is asking for a call back in regards to a time for saturday since they need day notice for transportation. Please advise [facility] [id number] Telephone encounter Note* Telephone Encounter - Kiarra Leon PA-C - 02/19/2025 3:09 PM EDT Carla Arredondo, When you schedule this patient please charo that we will not be able to change her time the day before. We can keep that in mind so we can change the other patients around this patients time. Additionally she will be transported from a facility which typically include delays and will not be able to come in early if needed so we should have her come in 3 hours prior to scheduled time. Thanks! [facility] Phone: [phone] 779-910308-29-2025 Miscellaneous Notes* Telephone Encounter - Kiarra Leon PA-C - 02/19/2025 3:09 PM EDT Carla Arredondo, When you schedule this patient please charo that we will not be able to change her time the day before. We can keep that in mind so we can change the other patients around this patients time. Additionally she will be transported from a facility which typically include delays and will not be able to come in early if needed so we should have her come in 3 hours prior to scheduled time. Thanks! * Telephone Encounter - Rose Galarza - 02/19/2025 1:48 PM EDT Facility called in about the patient requesting some information about the surgery date they statedthat for transportation they need 2 business days to set that up please advise. Jennifer (Trucking Supervisor) [phone] * Telephone Encounter - Stan Coley MD - 02/16/2025 8:00 AM EDT Yes lets do it ou pick the saturday * Telephone Encounter - Basilia Arango - 02/11/2025 10:02 AM EDT Spoke with Leilani Sparks at [place], she said as long as the pt meets the criteria, yes. Ex: can ambulate; has a ride; no airway/cardiac issues, etc.... * Telephone Encounter - Stan Coley MD - 02/09/2025 8:05 AM EDT If She is at a facfility can't do at [facility] * Telephone Encounter - Stan Coley MD - 02/09/2025 8:04 AM EDT Sure * Telephone Encounter - Baislia Arango - 02/08/2025 1:03 PM EDT Called Jennifer at [phone]. Jennifer unavailable, left message for her to call back. Also faxed over TE attached to [phone]. * Telephone Encounter - Cristy Hester MD - 02/08/2025 12:46 PM EDT I called and spoke with Idalia this afternoon regarding the results of her bilateral wrist CT scans. 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 She is now nearly 4 months status post her injury and I do not believe continued conservative care will be of any benefit. I recommend ORIF of her bilateral scaphoid nonunions with distal radius autograft to give her the best chance at healing and having functional use of her wrist. Her situation is complicated and that she is at a skilled rehab facility for other injuries she sustained in her initial trauma. She did not feel that she would be safe to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 Jordan Practice: [facility] Chief Complaint/Reason for Call: Patient is requesting [...] return their call: Yes documented in this encounterSUniversity Hospitals Portage Medical CenterVrbzzy16-85-1480 Telephone encounter Note* Telephone Encounter - Damaris Linda MA - 03/11/2024 4:35 PM EDT Left a message to return call. [facility] HospitalFbcvmh91-86-6445 Miscellaneous Notes* Telephone Encounter - Damaris Linda MA - 03/11/2024 4:35 PM EDT Left a message to return call. * Telephone Encounter - Augustin Jordan MD - 03/11/2024 3:32 PM EDT Labs ordered * Telephone Encounter - Ayah Robertson - 03/11/2024 12:05 PM EDT Name of caller: Idalia Contact phone number: [phone] Relationship to Patient: patient Provider: Dr Jordan Practice: [facility] Chief Complaint/Reason for Call: Patient is requesting [...] return their call: Yes documented in this encounterSUniversity Hospitals Portage Medical CenterPirtyk50-98-2931 Telephone encounter Note* Telephone Encounter - Augustin Jordan MD - 03/11/2024 3:32 PM EDT Labs [facility] HospitalIvafsy45-07-3558 Telephone encounter Note* Telephone Encounter - Ayah Robertson - 03/11/2024 12:05 PM EDT Name of caller: Idalia Contact phone number: [phone] Relationship to Patient: patient Provider: Dr Jordan Practice: [facility] Chief Complaint/Reason for Call: Patient is requesting [...] business hours to return their call: Yes [facility] HospitalChybpe69-78-7042 Telephone encounter Note* Telephone Encounter - Damaris Linda MA - 03/09/2024 8:58 AM EDT Prescription Request: Last medication check: 10/07/2023 Last physical exam: 04/08/2023 Next scheduled appointment: 04/15/2024 Last date of refill on this medication: 12/04/[address] [facility] HospitalNhtjuw45-11-9722 Miscellaneous Notes* Telephone Encounter - Damaris Linda MA - 03/09/2024 8:58 AM EDT Prescription Request: Last medication check: 10/07/2023 Last physical exam: 04/08/2023 Next scheduled appointment: 04/15/2024 Last date of refill on this medication: 12/04/2023 documented in this [facility] Telephone encounter Note* Telephone Encounter - Daly Sanchez - 12/14/2023 10:15 AM EDT We have been unable to reach your patient to schedule their testing. Test Name: Vascular Ultrasound 1st Attempt: Mychart 2nd Attempt: Voicemail message [facility] HospitalKninpw19-94-0375 Miscellaneous Notes* Telephone Encounter - Daly Sanchez - 12/14/2023 10:15 AM EDT We have been unable to reach your patient to schedule their testing. Test Name: Vascular Ultrasound 1st Attempt: Mychart 2nd Attempt: Voicemail message documented in this [facility]06-19-2024 Telephone encounter Note* Telephone Encounter - Sharyn Mann - 12/11/2023 10:44 AM EDT LM to call for appointment. Will try to submit for removal of rupture but patient may have to pay for new implant. Did patient stop smoking. [facility] HospitalZckixx58-92-5726 Miscellaneous Notes* Telephone Encounter - Sharyn Mann [...] Breast implants. Thank you. documented in this encounterSUniversity Hospitals Portage Medical CenterTueijt90-18-3451 Telephone encounter Note* Telephone Encounter - Augustin Jordan MD - 12/02/2023 1:08 PM EDT Thank you appreciate your help [facility] HospitalJgycpu72-33-8421 Miscellaneous Notes* Telephone Encounter - Augustin Jordan [...] will need to have her see a staff technologist, not sports medicine issue. Bilateral lower extremity [...] Name of caller: Idalia Contact phone number: [phone] Relationship to Patient: patient Provider: Practice: [facility] Chief Complaint/Reason for Call: Patient states told her needs needs a vascular referral so patient would like to know if she can get one put in. Please advise Best time of day caller can be reached: Any Patient advised that office/PCP has 24-48 business hours to return their call: No documented in this encounterSUniversity Hospitals Portage Medical CenterMffzax12-49-7128 Note* Addendum Note - Shahab Parker MD - 12/02/2023 1:01 PM EDTAddended by: SHAHAB PARKER on: 12/02/2023 01:01 PM Modules accepted: Orders [facility] HospitalAeuubk20-77-7912 Note* Addendum Note - Shahab Parker MD - 12/02/2023 1:01 PM EDTAddended by: SHAHAB PARKER on: 12/02/2023 01:01 PM Modules accepted: Orders [facility] HospitalYtqogx05-23-6392 Note* Addendum Note - Shahab Parker MD - 12/02/2023 1:01 PM EDTAddended by: SHAHAB PARKER on: 12/02/2023 01:01 PM Modules accepted: Orders [facility] HospitalBpgjgg72-69-1993 Telephone encounter Note* Telephone Encounter - Shahab Parker MD - 12/02/2023 12:59 PM EDT Appreciate above note, we can start the workup and send her off for secondary referrals as indicated. Preliminary and labs ordered, pending results we will need to have her see a staff technologist, not sports medicine issue. Bilateral lower extremity edema, preliminary testing ordered, follow-up with cardiology for underlying vascular issue, not sports medicine issue [facility] HospitalOdzihp32-20-3729 Telephone encounter Note* Telephone Encounter - Valerie Desir MA - 12/02/2023 10:29 AM EDT Spoke to patient, she states when she saw Dr. Parker he advised her he couldn't do anything further for her. I let her know I will send this message to Dr. Parker to advise on what other studies and lab work she should have so we can order. [facility] HospitalSommct80-07-8121 Telephone encounter Note* Telephone Encounter - Augustin [...] labs and studies he thinks are appropriate. [facility] HospitalYrwfzt20-23-7801 Telephone encounter Note* Telephone Encounter - Ko Loera - 11/29/2023 10:34 AM EDT Name of caller: Idalia Contact phone number: [phone] Relationship to Patient: patient Provider: Practice: [facility] Chief Complaint/Reason for Call: Patient states told her needs needs a vascular referral so patient would like to know if she can get one put in. Please advise Best time of day caller can be reached: Any Patient advised that office/PCP has 24-48 business hours to return their call: No [facility] HospitalGttdwp97-91-6458 History of Present illness Narrative* Sal Springer MA - 11/26/2023 1:45 PM EDT Images from the original note were not included. [facility] [address] [place] [address] Dept: [phone] Dept Chief Complaint Patient presents with New [...] prior to signing but minor errors in pharmacy tech customer service may have occurred. documented in this [facility]05-24-2024 Telephone encounter Note* Telephone Encounter - CASSIE Guaman CNP - 11/15/2023 8:20 AM EDT Noted. Thank you. [facility] HospitalPytupx13-20-6751 Miscellaneous Notes* Telephone Encounter - CASSIE Guaman CNP - 11/15/2023 8:20 AM EDT Noted. Thank you. * Telephone Encounter - Obi Rice - 11/14/2023 11:55 AM EDT FYI called to schedule pt for PFT put in by Henrietta Knowles on 08.21.23 1st attempt-My Chart 11/04/2023 TJ 2nd attempt//pt at and wants another Basisnote AGt message sent with info, she will c/b to schedule// TE to office// 11.14.23 KGK documented in this encounterSUniversity Hospitals Portage Medical CenterTiejfz10-90-8442 Telephone encounter Note* Telephone Encounter - Obi Rice - 11/14/2023 11:55 AM EDT FYI called to schedule pt for PFT put in by Henrietta Knowles on 08.21.23 1st attempt-My Chart 11/04/2023 TJ 2nd attempt//pt at and wants another Respect Networkhart message sent with info, she will c/b to schedule// TE to office// 11.14.[address] [facility] HospitalTsguhm36-91-5687 Evaluation + Plan note* Assessment & Plan Note - Augustin Jordan MD - 11/11/2023 2:01 PM EDTAssociated Problem(s): Left foot pain X-ray of the foot and ankle, lab work to be obtained. [facility] HospitalUlkffs34-04-4593 Miscellaneous Notes* Assessment & Plan Note - [...] of infection or inflammation. documented in this [facility]05-20-2024 Evaluation + Plan note* Assessment & Plan Note - Augustin Jordan MD - 11/11/2023 2:00 PM EDT Associated Problem(s): Dependent edema Lab work to be done, she is to keep her leg elevated. [facility] HospitalNdncnb88-13-8160 Evaluation + Plan note* Assessment & Plan Note - Augustin Jordan MD - 11/11/2023 2:00 PM EDTAssociated Problem(s): Acute left ankle pain X-ray to be obtained. Will get blood work looking for signs of infection or inflammation. [facility] HospitalLwvptg98-95-5600 History of Present illness Narrative* Rosa M [...] MD 11/11/2023 2:02 PM documented in this [facility]05-09-2024 Evaluation + Plan note* Assessment & Plan Note - Augsutin Jordan MD - 10/31/2023 10:48 AM EDT Associated Problem(s): Acute left ankle pain I am still not convinced that this is a cellulitis but I want her to finish all the antibiotics, will start her on prednisone, instructions given. I suspect this could be gout so when this is cleared up we will check her uric acid level. [facility] HospitalUovksn98-18-2686 Miscellaneous Notes* Assessment & Plan Note - [...] her uric acid level. documented in this [facility]05-09-2024 History of Present illness Narrative* Rosa M [...] improve. SUBJECTIVE/OBJECTIVE: HPI -Idalia comes in today for follow-up on her [...] MD 10/31/2023 10:48 AM documented in this [facility]04-30-2024 Evaluation + Plan note* Assessment & Plan Note - Augustin Jordan MD - 10/22/2023 12:46 PM EDT Associated Problem(s): Dependent edema Stable, edema is significantly decreased from yesterday no erythema will give her Maxzide to use susan as-needed basis if she wakes up and can make a dent in her skin she is to take a water pill. [facility] HospitalGzexrp65-96-4448 Miscellaneous Notes* Assessment & Plan Note - [...] to have a problem. documented in this [facility]04-30-2024 Evaluation + Plan note* Assessment & Plan Note - Augustin Jordan MD - 10/22/2023 12:45 PM EDT Associated Problem(s): OAB (overactive bladder) Discussed possible use of medication if needed currently she is deferring. [facility] HospitalCeqpdf04-29-8147 Evaluation + Plan note* Assessment & Plan Note - Augustin Jordan MD - 10/22/2023 12:45 PM EDTAssociated Problem(s): Mixed stress and urge urinary incontinence Discussed Kegel exercises at length, she will start doing these multiple times during the day and call or return if she continues to have a problem. [facility] HospitalPbptrz89-58-6815 History of Present illness Narrative* Rosa M Kate MA - 10/22/2023 7:45 AM EDT Patient verified by last name and date of . * Augustin Jordan MD - 10/22/2023 7:45 AM EDT Images from the original note were not included. 10/22/2023 Idalia Mejia (: 1965) is a 58 y.o. female , Established patient, here for evaluation of the following chief complaint(s): ER Follow-up ([facility] Rowland- 10/20/23- started on Keflex but has [...] MD 10/22/2023 12:46 PM documented in this [facility]-28-[facility] Discharge instructions Patient Education 10/20/2023 17:40:26 [...] or higher after 2 days on antibiotics [id number] [employer]. [address] [place] [address]. All rights reserved. This information is not intended as a substitute for professional medical care. Always follow yourhealthcare professional's instructions. Follow Up Care 10/20/2023 17:12:53 With:AUGUSTIN JORDAN MD Address: [address] [place] [address]- When:2-4 days [facility] 04-28-2024 Emergency department Discharge summary Discharge Instructions Thank you for allowing [facility] to assist you with your healthcare needs. The following is importantdischarge information regarding your hospital visit. Diagnosis from Today's Visit BLE Leg pain-swelling What to Do Next Instructions from Your Care Team No qualifying data available. Post Acute Orders No qualifying data available. You Need to Schedule the Following Appointments Follow Up with AUGUSTIN JORDAN MD When Within 2-4 days Where: [address] [place], [place] [id number] Allergies Biaxin Wellbutrin erythromycin base Medications Please [...] may report side effects to FDA at [phone]. What other drugs will affect cephalexin? Tell your doctor about all your other medicines, especially: metformin; or probenecid. This list is not complete. Other drugs may affect cephalexin, including prescription and duxj-vtp-cjmrmla medicines, vitamins, and herbal products. Not all [...] to ensure that the information provided by [employer]. ('[employer]') is accurate, up-to-date, and complete, but no guarantee is made to that effect. Drug information contained herein may be time sensitive. [employer] information has been compiled for use by healthcare practitioners and consumers in the [place] and therefore [employer] does not warrant that uses outside of the [place] are appropriate, unless specifically indicated otherwise. uma information technologys drug information does not endorse drugs, diagnose patients or recommend therapy. [employer] drug information isan informational resource designed to [...] effective or appropriate for any given patient. [employer] does not assume any responsibility for any aspect of healthcare administered with the aid of information [employer] provides. The information contained herein is not intended to cover all possible uses, directions, precautions, warnings, drug interactions, allergic reactions, or adverse effects. If you have questions about the drugs you are taking, check with your doctor, nurse or pharmacist. Copyright 5777-9012 [employer]. Version: .. Revision Date: 01/23/2023. Education Materials [...] or higher after 2 days on antibiotics [phone] [employer]. [address] [place] [address]. All rights reserved. This information is not intended as a substitute for professional medical care. Always follow yourhealthcare professional's instructions. Additional Information VACCINATE! IT SAVES LIVES! Members of the community who have not yet received the COVID-19 vaccine and would like to receive it can visit one of [facility] vaccine clinics. There are many vaccine clinic locations within the [facility]. For locations and available times, please visit www.gettheshot.coronavirus.[place].gov/. It is important to note that some COVID mobile vaccine clinics are held outdoors and may be canceled in rainy or stormy conditions. To learn more about pediatric vaccinations (ages 5-11), we invite you to visit the [facility] webpage. https://www.[facility].org/pages/4007-Rjdch-Cnmfszorygg-Zdkwbesykg-Oaayn-Spp stions.htmlTo learn more about the COVID-19 vaccine, we invite you to visit the CDC website for a list of frequently asked questions. https://www.cdc.gov/coronavirus/2019-ncov/vaccines/faq.html [facility] One[facility] Patient Portal Access Instructions: Stay connected with your healthcare team and access your personal medical information anytime with the [facility] Patient Portal. If you would like a full copy of your medical records please contact the [facility] Medical Records Department Saturday through Saturday between 8a.m. and 4:30p.m. Please follow the directions below to access the portal: 1.Access the email account you provided upon registration to the [facility].2.Look for an invitation email from [facility].3.Open the email and access the invitation link: Accept Invitation to [facility]ensor4.Fill in the required smith to create your account. Sign into [email or web address] with your username and password that you [...] you will allow to register on the [facility] Patient Portal for access to your information. You can also access the [facility] Patient Portal on the SNAPP'. Simply click on "Health Records" under "HealthData" and then click on the Sukh logo. HOW TO SAFELY DISPOSE OF PRESCRIPTION [...] Call your local pharmacy or go to http://Videology.JRD Communication/7W5Hb2y to find one close to you.3.Make use of household items: Use cat litter or old coffee grounds to dispose medications if other options arenot available. Mix your drugs with these household products, seal them in an airtight container andthrow it into the garbage. Call [facility]: [phone] to be sure your drugs can be [...] reviewed and explained to me and I,IDALIA GIPSNO understand my current condition and have read and understand these discharge instructions. I have received a written copy of the plan/instructions. If I have questions, I am aware that I should contact my doctor. 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 15. Screening for colon cancer - Cologuard colon cancer screening Follow up in about [...] her pneumococcal vaccinations (PCV13 on 05/21/18 and JGFJ60zc 06/01/19). Tdap is current: 02/04/23. Is fully [...] last name and . documented in this [facility]03-26-[facility] Discharge instructions Patient Education 09/17/2023 10:22:29 [...] or as directed by your healthcare provider [phone] [employer]. [address] [place] [address]. All rights reserved. This information is not intended as a substitute for professional medical care. Always follow yourhealthcare professional's instructions. Follow Up Care 09/17/2023 09:43:40 With:Follow up with primary care provider Address:Unknown When:2-4 days [facility] 03-26-2024 Note Discharge Instructions Thank you for allowing [facility] to assist you with your healthcare needs. [...] or as directed by your healthcare provider [phone] [employer]. [address] [place] [address], [place] [address]. All rights reserved. This information is not intended as a substitute for professional medical care. Always follow yourhealthcare professional's instructions. Additional Information VACCINATE! IT SAVES LIVES! Members of the community who have not yet received the COVID-19 vaccine and would like to receive it can visit one of [facility] vaccine clinics. There are many vaccine clinic locations within the [facility]. For locations and available times, please visit www.gettheshot.coronavirus.[place].gov/. It is important to note that some COVID mobile vaccine clinics are held outdoors and may be canceled in rainy or stormy conditions. To learn more about pediatric vaccinations (ages 5-11), we invite you to visit the [employer] webpage. https://www.The Digital [employer]ss.org/pages/1925-Ivegp-Kgnlvnfptrv-Iobqplocdf-Ecmmv-Omr stions.htmlTo learn more about the COVID-19 vaccine, we invite you to visit the CDC website for a list of frequently asked questions. https://www.cdc.gov/coronavirus/2019-ncov/vaccines/faq.html [facility] Patient Portal Access Instructions: Stay connected with your healthcare team and access your personal medical information anytime with the [facility] Patient Portal. If you would like a full copy of your medical records please contact the [facility] Medical Records Department Saturday through Saturday between 8a.m. and 4:30p.m. Please follow the directions below to access the portal: 1.Access the email account you provided upon registration to the hospital.2.Look for an invitation email from [facility].3.Open the email and access the invitation link: Accept Invitation to [facility]onders[facility]amp4.Fill in the required smith to create your account. Sign into [email or web address] with your username and password that you [...] you will allow to register on the [facility] Patient Portal for access to your information. You can also access the [facility] Patient Portal on the SNAPP'. Simply click on "Health Records" under "HealthData" and then click on the [employer] logo. HOW TO SAFELY DISPOSE OF PRESCRIPTION [...] Call your local pharmacy or go to http://Videology.JRD Communication/2C0Bs7i to find one close to you.3.Make use of household items: Use cat litter or old coffee grounds to dispose medications if other options arenot available. Mix your drugs with these household products, seal them in an airtight container andthrow it into the garbage. Call [facility]: [phone] to be sure your drugs can be [...] been reviewed and explained to me and I,SALVADOR IDALIA understand my current condition and have read and understand these discharge instructions. I have received a written copy of the plan/instructions. If I have questions, I am aware that I should contact my doctor. 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 HospitalSxdrfd26-07-7462 Evaluation + Plan note* Assessment & Plan Note - CASSIE Mora CNP - 09/16/2023 12:04 PM EDTAssociated Problem(s): Bronchitis Will treat for suspected copd exacerbation. No acute distress, pulse ox 95% on RA. Recommend getting the PFT completed to further evaluate once feeling a bet better and back to baseline. [facility] HospitalVhgzel03-24-5952 Miscellaneous Notes* Assessment & Plan Note - [...] and back to baseline. documented in this [facility]03-25-2024 History of Present illness Narrative* Ruby Cee - 09/16/2023 9:40 AM EDT Patient was identified by name and Date of . * CASSIE Mora CNP - 09/16/2023 9:40 AM EDT Images from the original note were not included. 09/16/2023 Idalia Jaime Jackie (: 1965) is a 58 y.o. female [...] fail to improve. SUBJECTIVE/OBJECTIVE: HPI - Idalia A Jackie (: 1965) is a 58 y.o. female [...] needed for wheezing. 08/21/23 Yes Henrietta Knowles, LOGISTICS MANAGEMENT SPECIALIST - POULTRY FARM LABORER ARIPiprazole (Abilify) 10 MG tablet Take 10 [...] CNP 09/16/2023 12:04 PM documented in this [facility]03-25-2024 Instructions* Patient Instructions* CASSIE Mora CNP - 09/16/2023 9:40 AM EDT Please call Central Scheduling at [phone] to schedule your outpatient test -call and schedule your pulmonary function testing once you are feeling a little better. documented in this [facility]03-25-2024 Telephone encounter Note* Telephone Encounter - Sravanthi Granda RN - 09/16/2023 8:49 AM EDT S: Patient spoke with [facility] nurse regarding sinus congestion. B: Onset of [...] and stillpresent when not coughing Protocols used: Yppyj-UEIGP-YC [facility] HospitalQlfzhw46-12-5166 Miscellaneous Notes* Telephone Encounter - Sravanthi Granda RN - 09/16/2023 8:49 AM EDT S: Patient spoke with [facility] nurse regarding sinus congestion. B: Onset of [...] and stillpresent when not coughing Protocols used: Kvmjl-KAMML-VT documented in this encounterSUniversity Hospitals Portage Medical CenterGbjfvm21-17-7107 History of Present illness Narrative* Henrietta Knowles APRN - FLAVIA - 08/21/2023 2:40 PM EST Images from [...] (on 10/07/2023) for Next scheduled follow-up. SUBJECTIVE/OBJECTIVE: PADMA Friedman presents today with concerns of bilateral ear [...] Turbinates: Swollen. Left Turbinates: Swollen. Mouth/Throat: Lips: Wingate. Mouth: Mucous membranes are moist. Pharynx: Oropharynx [...] verified by name and documented in this [facility]02-28-2024 Telephone encounter Note* Telephone Encounter - Sneha Spivey RN - 08/21/2023 9:32 AM EST S: Patient spoke with [facility] nurse regarding URI symptoms B: Onset of [...] Disposition Earache Protocols used: Sinus Pain or Xxzxxszkss-DTRLM-QC [facility] HospitalMxswxh14-64-9310 Miscellaneous Notes* Telephone Encounter - Sneha Spivey RN - 08/21/2023 9:32 AM EST S: Patient spoke with [facility] nurse regarding URI symptoms B: Onset of [...] Disposition Earache Protocols used: Sinus Pain or Klzjnsjlpm-ELBHY-RA documented in this [facility]12-06-2023 History of Present illness Narrative* Godfrey Minaya [...] images: BB's = Nipples; skin lesions Open prairie band = Palpable Line = Scar ASSESSMENT: Category [...] Problem Relation Name Age of Onset Other (44387) Mother cancer Heart disease Mother Mental illness [...] Problem Relation Name Age of Onset Other (97840) Mother cancer Heart disease Mother Mental illness [...] dictated using voice recognitionsoftware. documented in this [facility] Health11-30-2023 History of Present illness Narrative* Trudy Perez APRN - [employer]ER - 05/23/2023 2:00 PM EST Images from the original note were not included. Patient was identified and seen today via Telehealth by agreement and consent. I used the followingTelehealth technology: Audio and video capabilities. Patient location: VV Patient Location: Home. This patient encounter is [...] stated that they are currently in the [facility]. If the patient is a minor, permission has been obtained by the parent or guardian for the patient to receive medical care at this visit. [address] [address] Dept: [phone] Dept Visit type: Established patient Reason for [...] cough and states that mucous is green [place] feverish the first night but not since [...] Constipation Dependent edema 04/06/2019 Depression Drug abuse ([facility]) ([facility]) Dysfunctional uterine bleeding 03/17/2019 Headache Hyperlipidemia 04/05/2021 [...] Problem Relation Name Age of Onset Other (20777) Mother cancer Heart disease Mother Mental illness [...] Imaging/Testing: CASSIE Larios CNP documented in this [facility] [id number] Telephone encounter Note* Telephone Encounter - CASSIE Mora CNP - 05/23/2023 12:06 PM EST Noted. Agree with disposition. [facility] [id number] Miscellaneous Notes* Telephone Encounter - CASSIE Mora [...] Disposition Earache also present Protocols used: Sore [id number] documented in this [facility]-30-[facility]23 Telephone encounter Note* Telephone Encounter - Betty [...] Disposition Earache also present Protocols used: Sore [id number] [facility] [id number] Telephone encounter Note* Telephone Encounter - Sharyn Mann - 04/10/2023 12:24 PM EDT Case# Procedure: Sx Date: Time: Location: Anesthesia: CPT: ICD-10: Special Equipment: PAT: Submitted auth thru insurance portal, awaiting determination. [facility] [id number] Telephone encounter Note* Telephone Encounter - Sharyn [...] to her surgery. Breast implants. Thank you. [facility] [id number] History of Present illness Narrative* Godfrey Minaya [...] Problem Relation Name Age of Onset Other (94758) Mother cancer Heart disease Mother Mental illness [...] dictated using voice recognitionsoftware. documented in this [facility]10-16-2023 History of Present illness Narrative* Ruby Cee - 04/08/2023 1:20 PM EDT Patient was identified by name and Date of . * Henrietta Knowles APRN - FLAVIA - 04/08/2023 1:20 PM EDT Images from the original note were not included. [facility] [address] [facility] [address] [facility] [address] Dept: [phone] Dept Loc: [phone] HPI: Idalia Mejia is a 57 y.o. [...] Constipation Dependent edema 04/06/2019 Depression Drug abuse ([facility]) (HCC) Dysfunctional uterine bleeding 03/17/2019 Headache Hyperlipidemia [...] Problem Relation Name Age of Onset Other (06104) Mother cancer Heart disease Mother Mental illness [...] Wt 160 lb 9.6 oz (72.8 kg) RkE881% BMI 25.92 kg/m Physical Exam Constitutional: Oriented [...] cervical cancer screening - Pap Smear Idalia Yeni received counseling on the following healthy behaviors: [...] CNP 04/08/2023 2:01 PM documented in this [facility]10-03-[facility]23 Evaluation + Plan note* Assessment & Plan Note - CASSIE Mora CNP - 03/26/2023 6:04 PM EDTAssociated Problem(s): Bronchitis Will will treat for suspected COPD exacerbation. A Zithromax x5 days and steroid burst, albuterol inhaler as directed. Follow-up for worsening or failure for symptoms to improve, consider obtaining PFT in future to further evaluate [facility] [id number] Miscellaneous Notes* Assessment & Plan Note - CASSIE Mora CNP - 03/26/2023 6:04 PM EDTAssociated Problem(s): Bronchitis Will will treat for suspected COPD exacerbation. A Zithromax x5 days and steroid burst, albuterol inhaler as directed. Follow-up for worsening or failure for symptoms to improve, consider obtaining PFT in future to further evaluate documented in this [facility]10-03-2023 History of Present illness Narrative* Ruby Cee [...] 6 hours as needed for wheezing. 02/22/23Yes Henrietta Knowles APRN - [employer] ARIPiprazole (Abilify) 10 MG tablet Take 10 [...] CNP 03/26/2023 6:06 PM documented in this [facility]09-11-2023 History of Present illness Narrative* CASSIE Guaman [...] CNP 03/04/2023 11:48 AM documented in this [facility]09-01-2023 History of Present illness Narrative* CASSIE Guaman CNP - 02/22/2023 7:40 AM EDT Images from the original note were not included. 02/22/2023 Idalia Jaime Jackie (: 1965) is a 57 y.o. female , Established patient, here for evaluation of the following chief complaint(s): breast implant problem ASSESSMENT/PLAN: 1. Pain from breast implant, initial encounter - [facility] Plastic Surgery - Referral placed with specialist. Discussed signs and symptoms warranting immediate attention- verbalized understanding. 2. Ruptured left breast implant, initial encounter - [facility] Plastic Surgery - Referral placed with specialist. [...] WFE- does not need to fast. SUBJECTIVE/OBJECTIVE: HPI - Idalia presents today with concerns of her left [...] CNP 02/22/2023 8:50 AM documented in this [facility]07-04-[facility] Hospital Discharge instructions Patient Education 12/25/2021 13:15:12 [...] Swelling, pain, or redness in one leg 2196-0744 The [employer]. [address] [place] [address], [place] [address]. All rights reserved. This information is not intended as a substitute for professional medical care. Always follow yourhealthcare professional's instructions. Follow Up Care 12/25/2021 11:38:52 With:CHRISTINA ANDERSEN, ADRIANA Lopez Address: [address] [place] [phone] When:2-4 days [facility] 07-04-2022 Evaluation + Plan note Diagnostic Tests Pending * Respiratory ID Panel with COVID-19 by PCR 12/25/21 [facility] 07-04-2022 Note Discharge Instructions Thank you for allowing [facility] to assist you with your healthcare needs. The following is importantdischarge information regarding your hospital visit. Diagnosis from Today's Visit Chest wall pain Chest pain - Pleuritic What to Do Next Instructions from Your Care Team No qualifying data available. Post Acute Orders No qualifying data available. You Need to Schedule the Following Appointments Follow Up with CHRISTINA ANDERSEN, ADRIANA Lopez When Within 2-4 days Where: [address] [facility] [place] [address] Allergies Biaxin Wellbutrin erythromycin base Medications Please [...] may report side effects to FDA at [phone]. What other drugs will affect ketorolac? Ask [...] drugs may affect ketorolac, including prescription and ewwm-wru-rlpjhpr medicines, vitamins, and herbal products. Not all [...] to ensure that the information provided by [employer]. ('[employer]') is accurate, up-to-date, and complete, but no guarantee is made to that effect. Drug information contained herein may be time sensitive. [employer] information has been compiled for use by healthcare practitioners and consumers in the [place] and therefore [employer] does not warrant that uses outside of the [place] are appropriate, unless specifically indicated otherwise. [employer] information techn[employer]ys drug information does not endorse drugs, diagnose patients or recommend therapy. [employer] drug information isan informational resource designed to [...] effective or appropriate for any given patient. [employer] does not assume any responsibility for any aspect of healthcare administered with the aid of information [employer] provides. The information contained herein is not intended to cover all possible uses, directions, precautions, warnings, drug interactions, allergic reactions, or adverse effects. If you have questions about the drugs you are taking, check with your doctor, nurse or pharmacist. Copyright 3042-0843 [employer]. Version: 10.. Revision Date: 07/08/2020. Education Materials Noncardiac Chest [...] Swelling, pain, or redness in one leg 2222-4794 [employer]. [address] [place] [address]. All rights reserved. This information is not intended as a substitute for professional medical care. Always follow yourhealthcare professional's instructions. Additional Information VACCINATE! IT SAVES LIVES! Members of the community who have not yet received the COVID-19 vaccine and would like to receive it can visit one of [facility] vaccine clinics. There are many vaccine clinic locations within the [facility]. For locations and available times, please visit [email or web address]. It is important to note that some COVID mobile vaccine clinics are held outdoors and may be canceled in rainy orstormy conditions. To learn more about pediatric vaccinations (ages 5-11), we invite you to visit the [facility] webpage. [email or web address] stions.htmlTo learn more about the COVID-19 vaccine, we invite you to visit the [employer] website for a list of frequently asked questions. [email or web address] _[email or web address]-Questions.pdf [facility] Patient Portal Access Instructions: Stay connected with your healthcare team and access your personal medical information anytime with the [facility] Patient Portal. If you would like a full copy of your medical records please contact the [facility] Medical Records Department Saturday through Saturday between 8a.m. and 4:30p.m. Please follow the directions below to access the portal: 1.Access the email account you provided upon registration to the [facility].2.Look for an invitation email from [facility].3.Open the email and access the invitation link: Accept Invitation to [facility]4.Fill in the required smith to create your account. Sign into [email or web address] with your username and password that you [...] you will allow to register on the [facility] Patient Portal for access to your information. You can also access the [facility] Patient Portal on the [employer] keven. Simply click on "Health Records" under "HealthData" and then click on the [facility] logo. HOW TO SAFELY DISPOSE OF PRESCRIPTION [...] Call your local pharmacy or go to [email or web address] to find one close to you.3.Make use of household items: Use cat litter or old coffee grounds to dispose medications if other options arenot available. Mix your drugs with these household products, seal them in an airtight container andthrow it into the garbage. Call [facility]: [phone] to be sure your drugs can be [...] aware that I should contact my doctor. 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 Note ORIGINAL EXAMINATION: ONE XRAY VIEW [...] Sign Date: 12/25/2021 12:53:05 PM [facility] Diagnosis Pain from breast implant, initial encounter- Primary Ruptured left breast implant, initial encounter Hyperlipidemia, unspecified hyperlipidemia type Screening for diabetes mellitus [facility] Diagnosis Varicose veins of both lower extremities with pain- Primary [facility] Diagnosis Bronchitis- Primary Bronchitis, not specified as acute or chronic [facility]* Diagnosis Well female exam with routine gynecological exam- Primary Routine gynecological examination Chronic hepatitis C without hepatic coma ([facility]) (HCC) Primary insomnia Persistent disorder of initiating [...] cervical cancer screening [facility]* Diagnosis Pain from breast implant, initial encounter- Primary Ruptured left breast implant, initial encounter [facility]* Diagnosis Cough, unspecified type Chest congestion Other symptoms involving respiratory system and chest Cigarette nicotine dependence without complication [facility]* Diagnosis Pain from breast implant, initial encounter- Primary Ruptured left breast implant, initial encounter [facility]* Diagnosis Pain from breast implant, initial encounter Ruptured left breast implant, initial encounter [facility]* Diagnosis Pain from breast implant, initial encounter Ruptured left breast implant, initial encounter [facility]* Diagnosis Acute non-recurrent pansinusitis- Primary [facility]* Diagnosis Pain from breast implant, initial encounter- Primary Ruptured left breast implant, initial encounter [facility] Diagnosis Pain from breast implant, initial encounter- Primary [facility]* Diagnosis Sinobronchitis- Primary Chronic shortness of breath [facility]* Diagnosis Bronchitis- Primary Bronchitis, not specified as acute or chronic Cigarette nicotine dependence without complication [facility]* Diagnosis Primary insomnia- Primary Persistent disorder [...] malignant neoplasms, colon documented in this encounter [facility]* Diagnosis Dependent edema- Primary Edema OAB (overactive bladder) Mixed stress and urge urinary incontinence Mixed incontinence urge and stress (male)(female) [facility] Diagnosis Acute left ankle pain- Primary documented in this encounter [facility]* Diagnosis Dependent edema- Primary Edema Acute left ankle pain Left foot pain Pain in soft tissues of limb documented in this encounter [facility]* Diagnosis Acute left ankle pain Left foot pain Pain in soft tissues of limb [facility]* Diagnosis Erythema of foot- Primary Bilateral swelling of feet Swelling of limb Pain and swelling of left lower leg documented in this encounter [facility]* Diagnosis Bilateral lower extremity edema- Primary Polyarthralgia Pain in joint, multiple sites Hypothyroidism, unspecified type documented in this encounter [facility]* Diagnosis Chronic shortness of breath documented in this encounter [facility]* Diagnosis Menopause- Primary Symptomatic menopausal or female climacteric states documented in this encounter [facility]* Diagnosis Menopause- Primary Symptomatic menopausal or female climacteric states documented in this encounter [facility]* Diagnosis Bronchitis- Primary Bronchitis, not specified as acute or chronic Chronic shortness of breath documented in this encounter [facility]* Diagnosis Bronchitis- Primary Bronchitis, not [...] Flu vaccine need [facility]* Diagnosis Bronchitis- Primary Bronchitis, not specified as acute or chronic Cigarette nicotine dependence without complication Dependent edema- Primary Edema OAB (overactive bladder) Mixed stress and urge urinary incontinence Mixed incontinence urge and stress (male)(female) Chronic shortness of breath [facility]* Diagnosis Bronchitis- Primary Bronchitis, not specified as acute or chronic Cigarette nicotine dependence without complication Dependent edema- Primary Edema OAB (overactive bladder) Mixed stress and urge urinary incontinence Mixed incontinence urge and stress (male)(female) Centrilobular emphysema (HCC)- Primary [facility]* Diagnosis Bronchitis- Primary Bronchitis, not specified as acute or chronic Cigarette nicotine dependence without complication Dependent edema- Primary Edema OAB (overactive bladder) Mixed stress and urge urinary incontinence Mixed incontinence urge and stress (male)(female) Centrilobular emphysema (HCC)- Primary Cigarette nicotine dependence without complication Screening for lung cancer [facility]* Diagnosis Bronchitis- Primary Bronchitis, not specified as acute or chronic Cigarette nicotine dependence without complication Dependent edema- Primary Edema OAB (overactive bladder) Mixed stress and urge urinary incontinence Mixed incontinence urge and stress (male)(female) Centrilobular emphysema (HCC)- Primary Chronic shortness of breath [facility]* Diagnosis Bronchitis- Primary Bronchitis, not specified as acute or chronic Cigarette nicotine dependence without complication Dependent edema- Primary Edema OAB (overactive bladder) Mixed stress and urge urinary incontinence Mixed incontinence urge and stress (male)(female) Centrilobular emphysema (HCC)- Primary Screening mammogram for breast cancer [facility]* Diagnosis Bronchitis- Primary Bronchitis, not [...] with nicotine-induced disorder [facility] noteNo assessment information availableWDunlap [facility] Work Phone: Evaluation note* Diagnosis Bronchitis- Primary Bronchitis, not specified as acute or chronic Cigarette nicotine dependence without complication Dependent edema- Primary Edema OAB (overactive bladder) Mixed stress and urge urinary incontinence Mixed incontinence urge and stress (male)(female) Centrilobular emphysema (HCC)- Primary Subluxation of other carpometacarpal joint of left hand, subsequent encounter [facility]* Diagnosis Bronchitis- Primary Bronchitis, not specified as acute or chronic Cigarette nicotine dependence without complication Dependent edema- Primary Edema OAB (overactive bladder) Mixed stress and urge urinary incontinence Mixed incontinence urge and stress (male)(female) Centrilobular emphysema (HCC)- Primary Unspecified sprain of right wrist, subsequent encounter [facility]* Diagnosis Bronchitis- Primary Bronchitis, not specified as acute or chronic Cigarette nicotine dependence without complication Dependent edema- Primary Edema OAB (overactive bladder) Mixed stress and urge urinary incontinence Mixed incontinence urge and stress (male)(female) Centrilobular emphysema (HCC)- Primary Bilateral wrist pain- Primary Closed comminuted fracture of waist of scaphoid bone of left wrist, initial encounter Closed displaced fracture of distal pole of scaphoid bone of right wrist, initial encounter [facility]* Diagnosis Bronchitis- Primary Bronchitis, not specified as acute or chronic Cigarette nicotine dependence without complication Dependent edema- Primary Edema OAB (overactive bladder) Mixed stress and urge urinary incontinence Mixed incontinence urge and stress (male)(female) Centrilobular emphysema (HCC)- Primary Closed displaced fracture of distal pole of scaphoid bone of right wrist, initial encounter documented in this encounter [facility]* Diagnosis Bronchitis- Primary Bronchitis, not specified as acute or chronic Cigarette nicotine dependence without complication Dependent edema- Primary Edema OAB (overactive bladder) Mixed stress and urge urinary incontinence Mixed incontinence urge and stress (male)(female) Centrilobular emphysema (HCC)- Primary Closed comminuted fracture of waist of scaphoid bone of left wrist, initial encounter documented in this encounter [facility]* Diagnosis Bronchitis- Primary Bronchitis, not specified as acute or chronic Cigarette nicotine dependence without complication Dependent edema- Primary Edema OAB (overactive bladder) Mixed stress and urge urinary incontinence Mixed incontinence urge and stress (male)(female) Centrilobular emphysema (HCC)- Primary Closed comminuted fracture of waist of scaphoid bone of left wrist, initial encounter- Primary Closed displaced fracture of distal pole of scaphoid bone of right wrist, initial encounter Closed displaced fracture of scaphoid of right wrist with nonunion, unspecified portion of scaphoid, subsequent encounter Closed displaced fracture of scaphoid of left wrist with nonunion, unspecified portion of scaphoid, subsequent encounter Pain in right wrist Pain in joint, forearm Pain in left wrist Pain in joint, forearm Closed comminuted fracture of waist of scaphoid bone of left wrist, initial encounter- Primary Closed displaced fracture of distal pole of scaphoid bone of right wrist, initial encounter Closed displaced fracture of scaphoid of right wrist with nonunion, unspecified portion of scaphoid, subsequent encounter Closed displaced fracture of scaphoid of left wrist with nonunion, unspecified portion of scaphoid, subsequent encounter documented in [facility] encounter [facility]* Diagnosis Bronchitis- Primary Bronchitis, not specified as acute or chronic Cigarette nicotine dependence without complication Dependent edema- Primary Edema OAB (overactive bladder) Mixed stress and urge urinary incontinence Mixed incontinence urge and stress (male)(female) Centrilobular emphysema (HCC)- Primary Subluxation of other carpometacarpal joint of left hand, subsequent encounter- Primary Unspecified sprain of right wrist, subsequent encounter Subluxation of other carpometacarpal joint of left hand, subsequent encounter Unspecified sprain of right wrist, subsequent encounter Pain in right wrist Pain in joint, forearm Pain in left wrist Pain in joint, forearm Closed comminuted fracture of waist of scaphoid bone of left wrist, initial encounter- Primary Closed displaced fracture of distal pole of scaphoid bone of right wrist, initial encounter Closed displaced fracture of scaphoid of right wrist with nonunion, unspecified portion of scaphoid, subsequent encounter Closed displaced fracture of scaphoid of left wrist with nonunion, unspecified portion of scaphoid, subsequent encounter documented in [facility] encounter [facility]* Diagnosis Bronchitis- Primary Bronchitis, not specified as acute or chronic Cigarette nicotine dependence without complication Dependent edema- Primary Edema OAB (overactive bladder) Mixed stress and urge urinary incontinence Mixed incontinence urge and stress (male)(female) Centrilobular emphysema (HCC)- Primary S/P ORIF (open reduction internal fixation) fracture- Primary 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, subsequent encounter Closed comminuted fracture of waist of scaphoid bone of left wrist, initial encounter- Primary Closed displaced fracture of distal pole of scaphoid bone of right wrist, initial encounter Closed displaced fracture of scaphoid of right wrist with nonunion, unspecified portion of scaphoid, subsequent encounter Closed displaced fracture of scaphoid of left wrist with nonunion, unspecified portion of scaphoid, subsequent encounter documented [facility]* Diagnosis Bronchitis- Primary Bronchitis, not specified as acute or chronic Cigarette nicotine dependence without complication Dependent edema- Primary Edema OAB (overactive bladder) Mixed stress and urge urinary incontinence Mixed incontinence urge and stress (male)(female) Centrilobular emphysema (HCC)- Primary Closed displaced fracture of scaphoid of right wrist with nonunion, unspecified portion of scaphoid, subsequent encounter- Primary Closed displaced fracture of scaphoid of left wrist with nonunion, unspecified portion of scaphoid, subsequent encounter Closed comminuted fracture of waist of scaphoid bone of left wrist, initial encounter Closed displaced fracture of distal pole of scaphoid bone of right wrist, initial encounter documented in this encounter [facility] course Narrative No data available for this section [facility] Instructions* Attachments The following attachments cannot be sent through Care Everywhere. * Cervical Cancer Screening Tests ([place]i) documented in this encounterSumpa HealthInstructions* Attachments The following attachments cannot be sent through Care Everywhere. * Flu Vaccine ([place]i) documented in this encounterSUniversity [facility]als [facility]age [facility] CenterReason for referral (narrative)* Consultation (Routine) - Pending Review Specialty Diagnoses / Procedures Referred By Contac t Referred To Contact Plastic Surgery Diagnoses Pain from breast implant, initial encounter Ruptured left breast implant, initial encounter Procedures RI OFFICE/OUTPATIENT NEW HIGH [facility] 60-74 MINUTES Henrietta Knowles APRN - POULTRY FARM LABORER [address] [place] [address] [facility] [address] [facility] [place] [address] Referral ID Status Reason Start Date Expiration Date Visits Requested Visits Authorized [id number] Pending Review Specialty Services Required 02/22/2023 02/22/2024 1 1 [facility] for referral (narrative)* Consultation (Routine) - Authorized Specialty Diagnoses / Procedures Referred By Contac t Referred To Contact Cardiology Diagnoses Bilateral lower extremity edema Polyarthralgia Hypothyroidism, unspecified type Procedures RI OFFICE/OUTPATIENT NEW HIGH MDM 60 MINUTES Shahab Parker MD [address] [place] [address] [facility] [address] [place] [address] Referral ID Status Reason Start Date Expiration Date Visits Requested Visits Authorized [id number] Authorized Specialty Services Required 12/02/2023 12/01/2024 1 1 * Imaging (Routine) - Pending Review Specialty Diagnoses / Procedures Referred By Contac t Referred To Contact Cardiology Diagnoses Bilateral lower extremity edema Procedures Vascular US lower extremity venous duplex right Shahab Parker MD [address] [place] [address] Referral ID Status Reason Start Date Expiration Date V isits Requested Visits Authorized [id number] Pending Review 12/02/2023 12/01/2024 1 1 * Imaging (Routine) - Pending Review Specialty Diagnoses / Procedures Referred By Contac t Referred To Contact Cardiology Diagnoses Bilateral lower extremity edema Procedures Vascular US lower extremity venous duplex left Shahab Parker MD [address] [place] [address] Referral ID Status Reason Start Date Expiration Date V isits Requested Visits Authorized [id number] Pending Review 12/02/2023 12/01/2024 1 1 [facility] (narrative)No reason for referral information availableWDunlap [facility] Work Phone: Reason for visit Narrative* Imaging (Routine) - Closed Specialty Diagnoses / Procedures Referred By Catrachitoac t Referred To Contact Radiology Diagnoses Cigarette nicotine dependence without complication Screening for lung cancer Procedures CT lung screening low dose Henrietta Knowles LOGISTICS MANAGEMENT SPECIALIST - POULTRY FARM LABORER [address] [place] [address] Phone: tel: fax: Referral ID Status Reason Start Date Expiration Date Visits Re quested Visits Authorized [id number] Closed 04/15/2024 04/15/2025 1 1 [facility] N[facility]* Imaging (Routine) - Closed Specialty Diagnoses / Procedures Referred By Catrachitoac t Referred To Contact Radiology Diagnoses Chronic shortness of breath Procedures Complete PFT pre and post bronchodilator Osbaldo Gabriel LOGISTICS MANAGEMENT SPECIALIST - POULTRY FARM LABORER [address] [facility] [place] [address] Phone: tel: fax: Referral ID Status Reason Start Date Expiration Date Visits Re quested Visits Authorized [id number] Closed 03/24/2024 03/19/2025 [address] for [facility] Narrative* Imaging (Routine) - Closed Specialty Diagnoses / Procedures Referred By Kelsey t Referred To Contact Radiology Diagnoses Subluxation of other carpometacarpal joint of left hand, subsequent encounter Procedures MR wrist left wo IV contrast Renetta Jordan MD [address] [place] [address] [place] [address] Phone: tel: fax: [facility] [address] [place] [address] Phone: tel: Referral ID Status Reason Start Date Expiration Date Visits Re quested Visits Authorized [id number] Closed 12/02/2024 12/02/2025 1 1 [facility] for visit Narrative* Imaging (Routine) - Closed Specialty Diagnoses / Procedures Referred By Kelsey t Referred To Contact Radiology Diagnoses Unspecified sprain of right wrist, subsequent encounter Procedures MR wrist right wo IV contrast Renetta Jordan MD [address] [place] [address] [place] [address] Phone: tel: fax: [facility] MRI [address] [place] [address] Phone: tel: Referral ID Status Reason Start Date Expiration Date Visits Re quested Visits Authorized [id number] Closed 12/02/2024 12/02/2025 [address] [facility] for visit Narrative* Imaging (Routine) - Closed Specialty Diagnoses / Procedures Referred By Kelsey t Referred To Contact Radiology Diagnoses Closed displaced fracture of distal pole of scaphoid bone of right wrist, initial encounter Procedures CT wrist right wo IV contrast Cristy Hester MD 1 [facility] [address] [place] [address] Phone: tel: fax: Referral ID Status Reason Start Date Expiration Date Visits Re quested Visits Authorized [id number] Closed 01/13/2025 01/13/2026 [address] [facility] for visit Narrative* Imaging (Routine) - Closed Specialty Diagnoses / Procedures Referred By Contac t Referred To Contact Radiology Diagnoses Closed comminuted fracture of waist of scaphoid bone of left wrist, initial encounter Procedures CT wrist left wo IV contrast Cristy Hseter MD 1 [facility] [address] [place] [address] Phone: tel: fax: Referral ID Status Reason Start Date Expiration Date Visits Re quested Visits Authorized [id number] Closed 01/13/2025 01/13/2026 1 1 [facility] for visit Narrative* Auth/Cert (Routine) Specialty Diagnoses / Procedures Referred By Kelsey t Referred To Contact Diagnoses Pain in right wrist Pain in left wrist Procedures RI INSERTION VASCULAR PEDICLE CARPAL BONE RI RPR NONUNION SCAPHOID CARPAL B1 W/WO RDL STYLODC OPEN REDUCTION INTERNAL FIXATION BILATERAL SCAPHOID WAIST NON UNIONS WITH DISTAL RADIUS AUTOGRAFT Cristy Hester MD 1 [facility] [address] [place] [address] Phone: tel: fax: Referral ID Status Reason Start Date Expiration Date Visits Re quested Visits Authorized [id number]/25/2025 [address] 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 Power of Athletic Turf Worker 03/08/2025 1:18 PM Date Activated Date Inactivated Comments 03/05/2025 9:44 AM 03/05/2025 6:36 PM Documents on File Type Date Recorded 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 Expl 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 Power of Athletic Turf Worker 03/08/2025 1:18 PM Date Activated Date Inactivated Comments 03/05/2025 9:44 AM 03/05/2025 6:36 PM Reason for Referral Specialty Diagnoses / Procedures Referred By Kelsey gayle Referred To Contact Radiology Diagnoses Chronic shortness of breath Procedures Complete PFT pre and post bronchodilator Osbaldo Gabriel, LOGISTICS MANAGEMENT SPECIALIST - POULTRY FARM LABORER [address] [place] [address] Referral ID Status Reason Start Date Expiration Date V isits Requested Visits Authorized [id number] Authorized 03/24/2024 03/19/2025 1 1 Specialty Diagnoses / Procedures Referred By Kelsey t Referred To Contact Diagnoses Chronic shortness of breath Procedures Complete PFT study BensonHenrietta S, LOGISTICS MANAGEMENT SPECIALIST - POULTRY FARM LABORER [address] [facility] [place] [address] [place] [address] Referral ID Status Reason Start Date Expiration Date V isits Requested Visits Authorized [id number] Pending Review 08/21/2023 08/15/2024 1 1 Chief Complaint and Reason for Visit Chief Complaint Admit Date [facility] October 28, 2024 5:00 am LABWORK November 04, 2024 5:00a m Chief Complaint Admit Date LABWORK November 04, 2024 5:00a m Chief Complaint Admit Date [facility] WORK October 28, 2024 5:00 am LABWORK November 04, 2024 5:00a m [facility] December 08, 2024 1: 00am [facility] December 11, 2024 5: 00am Additional Source Comments INFORMATION SOURCE (unrecogn ized section and content) DATE CREATED AUTHOR 12/13/2017 [facility] DATE CREATED AUTHOR AUTHOR'S ORGANIZ ATION 07/08/2019 [facility] DATE CREATED AUTHOR AUTHOR'S ORGANIZ ATION 11/08/2020 [facility] DATE CREATED AUTHOR AUTHOR'S ORGANIZ ATION 06/21/2022 [facility] DATE CREATED AUTHOR AUTHOR'S ORGANIZ ATION 10/27/2023 [facility] DATE CREATED AUTHOR AUTHOR'S ORGANIZ ATION 10/31/2024 [facility] DATE CREATED AUTHOR AUTHOR'S ORGANIZ ATION 04/04/2025 [facility] DATE CREATED AUTHOR AUTHOR'S ORGANIZ ATION 04/17/2025 [facility] Care Team (unrecognized sect ion and content) Care Team Personnel Name: CHRISTINA ANDERSEN, ADRIANA Lopez Member Role: Primary Care Physician Address: Address: [address] [facility] [place] [address] Care Team Related Persons Name: ASHUTOSH MEJIA Address: Home [address] [place] [address] Reason for Visit (unrecogniz ed section and [...] Ruptured left breast implant, initial encounter Procedures RI OFFICE/OUTPATIENT NEW HIGH MDM 60-74 MINUTES Henrietta Knowles S, LOGISTICS MANAGEMENT SPECIALIST - POULTRY FARM LABORER [address] [facility] [place] [address] [place] [address] [facility] [employer] [address] [place] [address] [place] [address] Referral ID Status Reason Start Date Expiration Date Visits Requested Visits Authorized [id number] Pending Review Specialty Services Required 02/22/2023 02/22/2024 [...] Hyperlipidemia Anxiety Depression Reason Comments ER Follow-up Sukh Rowland- - started on Keflex but has [...] left Specialty Diagnoses / Procedures Referred By Contac t Referred To Contact Orthopedic Surgery Diagnoses Pain and swelling of left lower leg Augustin Jordan MD [address] [facility] [place] [address] [facility] [address] [place] [address] Referral ID Status Reason Start Date Expiration Date Visits Requested Visits Authorized [id number] Pending Review Specialty Services Required 11/15/2023 11/14/2024 [...] declines CRCS- declines PNA- agrees Blood Work Reason Comments New Patient Bilateral wrist pain Reason Onset Date Comments Other 02/05/2025 Call back Reason Onset Date Comments Other 01/28/2025 CT results Pt in facility Reason Comments Other 02/26 Reason Comments Surgery Scheduling 03/04 Reason Comments Post-op IPO sx 03/05 ORIF ARMAND ATERAL scaphoid waist non unions with distal radius autograft Reason Onset Date Comments Orders 03/24/2025 Care Teams (unrecognized sec tion and content) Senior Unix Administrator Relationship Specialty Start Date End Date Augustin Jordan MD [address] [place] [address] PCP - General 04/26/16 Senior Unix Administrator Relationship Specialty Start Date End Date Augustin Jordan MD [address] [place] [address] PCP - General 04/26/16 Senior Unix Administrator Relationship Specialty Start Date End [place] [address] PCP - General 04/26/16 Senior Unix Administrator Relationship Specialty Start Date End [place] [address] PCP - General 04/26/16 Senior Unix Administrator Relationship Specialty Start Date End [place] [address] PCP - General 04/26/16 Senior Unix Administrator Relationship Specialty Start Date End Date Augustin Jordan MD [address] [place] [address] PCP - General 04/26/16 Senior Unix Administrator Relationship Specialty Start Date End Date Augustin Jordan MD [address] [place] [address] PCP - General 04/26/16 Senior Unix Administrator Relationship Specialty Start Date End Date Augustin Jordan MD [address] [facility] [place] [address] PCP - General 04/26/16 Senior Unix Administrator Relationship Specialty Start Date End Date Augustin Jordan MD [address] [facility] [place] [address] PCP - General 04/26/16 Senior Unix Administrator Relationship Specialty Start Date End Date Augustin Jordan MD [address] [facility] [place] [address] PCP - General 04/26/16 Senior Unix Administrator Relationship Specialty Start Date End Date Augustin Jordan MD [address] [facility] [address] PCP - General 04/26/16 Senior Unix Administrator Relationship Specialty Start Date End Date Augustin Jordan MD [address] [facility] [place] [address] PCP - General 04/26/16 Senior Unix Administrator Relationship Specialty Start Date End Date Augustin Jordan MD [address] [facility] [place] [address] PCP - General 04/26/16 Senior Unix Administrator Relationship Specialty Start Date End Date Augustin Jordan MD [address] [facility] [place] [address] PCP - General 04/26/16 Senior Unix Administrator Relationship Specialty Start Date End Date Augustin Jordan MD [address] [facility] [place] [address] PCP - General 04/26/16 Senior Unix Administrator Relationship Specialty Start Date End Date Augustin Jordan MD [address] [place] [place] [address] PCP - General 04/26/16 Senior Unix Administrator Relationship Specialty Start Date End Date Augustin Jordan MD [address] [facility] [place] [address] PCP - General 04/26/16 Senior Unix Administrator Relationship Specialty Start Date End Date Augustin Jordan MD [address] [place] [place] [address] PCP - General 04/26/16 Senior Unix Administrator Relationship Specialty Start Date End Date Augustin Jordan MD [address] [facility] [place] [address] PCP - General 04/26/16 Senior Unix Administrator Relationship Specialty Start Date End Date Augustin Jordan MD [address] [facility] [place] [address] PCP - General 04/26/16 Senior Unix Administrator Relationship Specialty Start Date End Date Augustin Jordan MD [address] [facility] [place] [address] PCP - General 04/26/16 Senior Unix Administrator Relationship Specialty Start Date End Date Augustin Jordan MD [address] [facility] [place] [address] PCP - General 04/26/16 Senior Unix Administrator Relationship Specialty Start Date End Date Augustin Jordan MD [address] [place] [address] PCP - General 04/26/16 Senior Unix Administrator Relationship Specialty Start Date End Date Augustin Jordan MD [address] [place] [address] PCP - General 04/26/16 Senior Unix Administrator Relationship Specialty Start Date End Date Augustin Jordan MD [address] [place] [address] PCP - General 04/26/16 Senior Unix Administrator Relationship Specialty Start Date End Date Augustin Jordan MD [address] [place] [address] PCP - General 04/26/16 Senior Unix Administrator Relationship Specialty Start Date End Date Augustin Jordan MD [address] [facility] [place] [address] PCP - General 04/26/16 Senior Unix Administrator Relationship Specialty Start Date End Date Augustin Jordan MD [address] [facility] [place] [address] PCP - General 04/26/16 Senior Unix Administrator Relationship Specialty Start Date End Date Augustin Jordan MD [address] [facility] [place] [address] PCP - General 04/26/16 Senior Unix Administrator Relationship Specialty Start Date End [place] [address] PCP - General 04/26/16 Senior Unix Administrator Relationship Specialty Start Date End [place] [address] PCP - General 04/26/16 Team Status: Active [...] Provider Active Star t: October 28, 2024 Senior Unix Administrator Relationship Specialty Start Date End [place] [address] PCP - General 04/26/16 Senior Unix Administrator Relationship Specialty Start Date End Date Augustin Jordan MD [facility] [place] [address] PCP - General 04/26/16 Senior Unix Administrator Relationship Specialty Start Date End [place] [address] PCP - General 04/26/16 Team Status: Active Member Role/Relationship Status Dates Dr. Adriana Vasquez MD Family Provider Active Dr. Adriana Vasquez MD Primary Care Provider Active Team Status: Inactive Member Role/Relationship Status Dates Dr. Adriana Vasquez MD Primary Care Provider Active Start: October 28, 2024 End: October 28, 2024 Adolfo ALANIS Attending Provider Active Star t: October 28, 2024 End: October 28, 2024 Team Status: Inactive Member Role/Relationship Status Dates Dr. Adriana Vasquez MD Primary Care Provider Active Start: November 04, 2024 End: November 04, 2024 Adolfo ALANIS Attending Provider Active Star t: November 04, 2024 End: November 04, 2024 Team Status: Inactive Member Role/Relationship Status Dates Dr. Adriana Vasquez MD Primary Care Provider Active Start: December 08, 2024 End: December 08, 2024 Adolfo ALANIS Attending Provider Active Star t: December 08, 2024 End: December 08, 2024 Team Status: Active Member Role/Relationship Status Dates Dr. Adriana Vasquez MD Primary Care Provider Active Start: December 11, 2024 Adolfo ALANIS Attending Provider Active Star t: December 11, 2024 Senior Unix Administrator Relationship Specialty Start Date End Date Augustin Jordan MD [address] [place] [address] PCP - General 04/26/16 Senior Unix Administrator Relationship Specialty Start Date End Date Augustin Jordan MD [address] [place] [address] PCP - General 04/26/16 Senior Unix Administrator Relationship Specialty Start Date End Date Augustin Jordan MD [address] [place] [address] PCP - General 04/26/16 Senior Unix Administrator Relationship Specialty Start Date End Date Augustin Jordan MD [address] [place], [place] [address] [address] PCP - General 04/26/16 Senior Unix Administrator Relationship Specialty Start Date End Date Augustin Jordan MD [address] [facility] [address] PCP - General 04/26/16 Senior Unix Administrator Relationship Specialty Start Date End Date Augustin Jordan MD [address] [facility] [address] PCP - General 04/26/16 Senior Unix Administrator Relationship Specialty Start Date End Date Augustin Jordan MD [address] [facility] [address] PCP - General 04/26/16 Senior Unix Administrator Relationship Specialty Start Date End Date Augustin Jordan MD [address] [facility] [address] PCP - General 04/26/16 Senior Unix Administrator Relationship Specialty Start Date End Date Augustin Jordan MD [address] [facility] [address] PCP - General 04/26/16 Senior Unix Administrator Relationship Specialty Start Date End Date Augustin Jordan MD [address] [facility] [address] PCP - General 04/26/16 Senior Unix Administrator Relationship Specialty Start Date End Date Augustin Jordan MD [address] [facility] [address] PCP - General 04/26/16 Senior Unix Administrator Relationship Specialty Start Date End Date Augustin Jordan MD [address] [place], [place] [address] [address] PCP - General 04/26/16 Senior Unix Administrator Relationship Specialty Start Date End Date Augustin Jordan MD [address] [place], [place] [address] [address] PCP - General 04/26/16 Senior Unix Administrator Relationship Specialty Start Date End Date Augustin Jordan MD [address] [place], [place] [address] [address] PCP - General 04/26/16 Senior Unix Administrator Relationship Specialty Start Date End Date Augustin Jordan MD [address] [place], [place] [address] [address] PCP - General 04/26/16 Goals (unrecognized section and content) Goals may be documented in a n alternate section Scheduled Active and Recently Administ ered Medications (unrecognized section and content) Medication Order 03/03/2025 03/04/2025 03/05/2025 acetaminophen (Tylenol) tablet 1,000 mg 1,000 mg, Oral, Once, On Sat03/05/25 at 0945, For 1 dose, Preprocedure, Administer 60 minutes prior to surgery. 1044 (Not Given - Pr ovider: Basilia Jacobs RN - Reason: Other - Comment: pt took 1000mg at 0830) ceFAZolin (Ancef) 2,000 mg in sodium chloride 0.9 % 100 mL IVPB (COMPLETED) 2,000 mg, IntraVENous, at 200 mL/hr, Administer over 30 Minutes, Clerk Stenographer to O.R., On Sat03/05/25 at 0945, For 1 dose, Preprocedure, Administer within 1 hour prior to incision. Recommend to repeat in 3-4 hours after initial dose if still intra-op. Mini-Bag Plus bag, Suspected Indication (Select all that apply): Surgical Prophylaxis 1238 (New Bag - Prov ider: Talib Senior, LOGISTICS MANAGEMENT SPECIALIST - MEDICAL LEAD) smjPKVRVacfrc-yjekpgycsgc-nzkol phrine (TAP) syringe 30 mL 30 mL, Injection, Once, On Sat03/05/25 at 0945, For 1 dose, Preprocedure, For use by anesthesia for regional block 0945 (Canceled Entry - Provider: Automatic Discharge Provider - Comment: Automatically canceled at discontinue of medication order) famotidine (Pepcid) tablet 20 mg (COMPLETED)(Linked Group 1) 20 mg, Oral, Once, On Sat03/05/25 at 0945, For 1 dose, Preprocedure, IV or Oral - Use PO option as first line. If unable to tolerate PO, then okay to use IV. 1044 (Given - Provid er: Basilia Jacobs RN) ketorolac (Toradol) injection 15 mg (COMPLETED) 15 mg, IntraVENous, Once, On Sat03/05/25 at 1545, For 1 dose, Recovery (only) 1544 (Self Administe red Via Pump - Provider: Kathy Hernandez RN) lidocaine PF (Xylocaine) 1 % injection 5 mL 5 mL, Infiltration, Once, On Sat03/05/25 at 0945, For 1 dose, Preprocedure, Draw up for block placement. 0945 (Canceled Entry - Provider: Automatic Discharge Provider - Comment: Automatically canceled at discontinue of medication order) sodium chloride 0.9% (NS) flush 10 mL 10 mL, IntraVENous, Every 12 hours scheduled (2 times per day), First dose on Sat03/05/25 at 0945, Preprocedure 0945 (Canceled Entry - Provider: Automatic Discharge Provider - Comment: Automatically canceled at discontinue of medication order) sodium chloride 0.9% (NS) flush 5-40 mL 5-40 mL, IntraVENous, Every 12 hours, First dose on Sat03/05/25 at 0945, Preprocedure, For Line Patency: Peripheral IV = 5 mL; Midline or Central Line = 10 mL/lumen. If following IV push medication, administer flush at same rate as the IV push. Flush volume is determined by type of infusion therapy being given. For non-viscous solutions use: Peripheral IV = 5 mL Midline or Central Line = 10 mL/lumen For viscous solutions (i.e. blood components, parenteral nutrition, contrast media, or after obtaining blood sample) use: Peripheral IV = 10 mL Midline or Central Line = 20 mL/lumen 0945 (Canceled Entry - Provider: Automatic Discharge Provider - Comment: Automatically canceled at discontinue of medication order) Continuous Medication Order 03/03/2025 03/04/2025 03/05/2025 lactated Ringer's (LR) infusion 50 mL/hr, IntraVENous, Continuous, Starting on Sat03/05/25 at 0945, Preprocedure, Upon admission to sameday - please start iv if patient does not have iv access. Use 500ml NS for patients on dialysis. 1121 (New Bag - Prov ider: Basilia Jacobs RN)1230 (Continued by Anesthesia - Provider: CASSIE Herrera CRNA)1505 (Anesthesia Volume Adjustment - Provider: CASSIE Herrera CRNA)1831 (Due: Order Ending - Provider: Automatic Discharge Provider - Comment: [Order ends at this time. Document the following action when infusion is complete: Stopped]) PRN Medication Order 03/03/2025 03/04/2025 03/05/2025 ALPRAZolam (Niravam) disintegrating tablet 0.5 mg (COMPLETED) 0.5 mg, Oral, PRN, anxiety, Starting on Sat03/05/25 at 1122, For 1 dose, Preprocedure 1132 (Given - Provid er: Basilia Jacobs RN) diphenhydrAMINE (BENADryl) injection 12.5 mg 12.5 mg, IntraVENous, Once PRN, itching, Starting on Sat03/05/25 at 1506, For 1 dose, Recovery (only) hydrALAZINE (Apresoline) injection 5 mg(Linked Group 2) 5 mg, IntraVENous, Every 15 min PRN, high blood pressure, for SBP greater than 160 mmHg for 2 consecutive measurements taken from different sites, Starting on Sat03/05/25 at 1506, For 2 doses, Recovery (only), PRN for SBP > 160 for 2 consecutive measurements, and if one of the following conditions is met: 1) If IV labetolol is ineffective. 2) If HR is under 60. 3) If patient has heart block, COPD or asthma. If both labetalol and hydralazine ineffective, notify anesthesia provider. HYDROmorphone (Dilaudid) injection 0.25 mg 0.25 mg, IntraVENous, Every 5 min PRN, moderate pain (4-6), Starting on Sat03/05/25 at 1506, For 4 doses, Recovery (only), For Phase I. If Phase II oral narcotics have been administered in the last 60 minutes, do not administer IV narcotics unless specifically approved by provider. HYDROmorphone (Dilaudid) injection 0.5 mg 0.5 mg, IntraVENous, Every 5 min PRN, severe pain (7-10), Starting on Sat03/05/25 at 1506, For 4 doses, Recovery (only), For Phase I. If Phase II oral narcotics have been administered in the last 60 minutes, do not administer IV narcotics unless specifically approved by provider. 1508 (Self Administe red Via Pump - Provider: Kathy Hernandez RN) labetalol (Normodyne,Trandate) injection 5 mg(Linked Group 2) 5 mg, IntraVENous, Every 10 min PRN, high blood pressure, for SBP greater than 160 mmHg for 2 consecutive measurements taken from different sites., Starting on Sat03/05/25 at 1506, For 2 doses, Recovery (only), PRN for SBP >160 for 2 consecutive measurements, if HR is 60 or greater. If beta rosanna is contraindicated (HR less than 60, heart block, COPD or asthma) use hydralazine IV order. lidocaine (Xylocaine) 1 % injection (CANCELED) As needed, Starting on Sat03/05/25 at 1322, Intraprocedure 1322 (Given - Provid er: Cristy Hester MD - Comment: Surgical site right) lidocaine-EPINEPHrine (Xylocaine W/EPI) 1 %-[id number] injection (CANCELED) As needed, Starting on Sat03/05/25 at 1322, Intraprocedure 1322 (Given - Provid er: Cristy Hester MD - Comment: surgical site left) LORazepam (Ativan) injection 0.5 mg 0.5 mg, IntraVENous, Once PRN, for anxiety or muscle spasm., Starting on Sat03/05/25 at 1506, For 1 dose, Recovery (only), For IV doses dilute dose with 1ml NS. midazolam (Versed) injection 2 mg 2 mg, IntraVENous, PRN, anxiety, administration per anesthesiologist direction. Up to two mg., Starting on Sat03/05/25 at 0944, Preprocedure, Pull 2 mg vial of midazolam draw up for anesthesia block placement with administration per anesthesiologist direction. ondansetron (Zofran) injection 4 mg (COMPLETED) 4 mg, IntraVENous, Once PRN, nausea, Starting on Sat03/05/25 at 1506, For 1 dose, Recovery (only), Initial antiemetic therapy. 1507 (Self Administe red Via Pump - Provider: Kathy Hernandez, ABAD) oxyCODONE (Roxicodone) immediate release tablet 10 mg (COMPLETED)(Linked Group 3) 10 mg, Oral, Every 4 hours PRN, severe pain (7-10), Starting on Sat03/05/25 at 1506, For 1 dose, Recovery (only), PHASE II 1603 (Self Administe red Via Pump - Provider: Kathy Hernandez, ABAD) sodium chloride 0.9 % bolus 500 mL 500 mL, IntraVENous, at 1,000 mL/hr, Administer over 0.5 Hours, PRN, Anti-nausea, Starting on Sat03/05/25 at 1506, Recovery (only), Indications: Anti-nausea sodium chloride 0.9 % infusion 5-250 mL/hr, IntraVENous, PRN, if patient receiving piggyback infusions and maintenance fluids are not ordered OR KVO fluids to protect IV site / prevent frequent line interruptions / long duration, Starting on Sat03/05/25 at 0944, Preprocedure, For piggyback infusion, administer at same rate as piggyback for a total of 25 mL. Enter 25 mL into dose field and piggyback rate into rate field of order. If piggyback is infusing at a rate less than 100 mL/hr, enter 25 mL into dose field and 100 mL/hr into rate field of order. For KVO fluids, enter rate of 20 mL/hr or less into rate field of order. sodium chloride 0.9 % infusion 5-250 mL/hr, IntraVENous, PRN, if patient receiving piggyback infusions and maintenance fluids are not ordered OR KVO fluids to protect IV site / prevent frequent line interruptions/ long duration, Starting on Sat03/05/25 at 0944, Preprocedure, For piggyback infusion, administer at same rate as piggyback for a total of 25 mL. Enter 25 mL into dose field and piggyback rate into rate field of order. If piggyback is infusing at a rate less than 100 mL/hr, enter 25 mL into dose field and 100 mL/hr into rate field of order. For KVO fluids, enter rate of 20 mL/hr or less into rate field of order. sodium chloride 0.9 % irrigation solution (CANCELED) As needed, Starting on Sat03/05/25 at 1321, Intraprocedure 1321 (Given - Provid er: Cristy Hester MD - Comment: surgical site) sodium chloride 0.9% (NS) flush 10 mL 10 mL, IntraVENous, PRN, line care, Starting on Sat03/05/25 at 0944, Preprocedure, After every IV line use sodium chloride 0.9% (NS) flush 5-40 mL 5-40 mL, IntraVENous, PRN, line care, After every IV line use, Starting on Sat03/05/25 at 0944, Preprocedure, For Line Patency: Peripheral IV = 5 mL; Midline or Central Line = 10 mL/lumen. If following IV push medication, administer flush at same rate as the IV push. Flush volume is determined by type of infusion therapy being given. For non-viscous solutions use: Peripheral IV = 5 mL Midline or Central Line = 10 mL/lumen For viscous solutions (i.e. blood components, parenteral nutrition, contrast media, or after obtaining blood sample) use: Peripheral IV = 10 mL Midline or Central Line = 20 mL/lumen Linked Groups Order Group 1: famotidine (Pepcid) tablet 20 mg (COMPLETED)Jump to med 20 mg, Oral, Once, On Sat03/05/25 at 0945, For 1 dose, Preprocedure, IV or Oral - Use PO option as first line. If unable to tolerate PO, then okay to use IV. Or famotidine (Pepcid) 20 mg in sodium chloride (PF) 0.9 % 10 mL injection (COMPLETED) 20 mg, IntraVENous, Administer over 2 Minutes, Once, On Sat03/05/25 at 0945, For 1 dose, Preprocedure, IV or Oral Group 2: labetalol (Normodyne,Trandate) injection 5 mgJump to med 5 mg, IntraVENous, Every 10 min PRN, high blood pressure, for SBP greater than 160 mmHg for 2 consecutive measurements taken from different sites., Starting on Sat03/05/25 at 1506, For 2 doses, Recovery (only), PRN for SBP >160 for 2 consecutive measurements, if HR is 60 or greater. If beta rosanna is contraindicated (HR less than 60, heart block, COPD or asthma) use hydralazine IV order. Or hydrALAZINE (Apresoline) injection 5 mgJump to med 5 mg, IntraVENous, Every 15 min PRN, high blood pressure, for SBP greater than 160 mmHg for 2 consecutive measurements taken from different sites, Starting on Sat03/05/25 at 1506, For 2 doses, Recovery (only), PRN for SBP > 160 for 2 consecutive measurements, and if one of the following conditions is met: 1) If IV labetolol is ineffective. 2) If HR is under 60. 3) If patient has heart block, COPD or asthma. If both labetalol and hydralazine ineffective, notify anesthesia provider. Group 3: oxyCODONE (Roxicodone) immediate release tablet 5 mg (COMPLETED) 5 mg, Oral, Every 4 hours PRN, moderate pain (4-6), Starting on Sat03/05/25 at 1506, For 1 dose, Recovery (only), PHASE II Or oxyCODONE (Roxicodone) immediate release tablet 10 mg (COMPLETED)Jump to med 10 mg, Oral, Every 4 hours PRN, severe pain (7-10), Starting on Sat03/05/25 at 1506, For 1 dose, Recovery (only), PHASE II FOR RECORDS PERTAINING TO PATIENTS WHO ARE [...] BE BASED ON THE PRIMARY CLINICAL RECORDS. [facility]. provides no warranty or guarantee of the accuracy or completeness of information in this document.
[2025-04-19 08:55] LABS: Hematocrit 36.7 % (37-47); Hemoglobin 11.6 g/dL (12.0-15.0); Mean Corp Hgb Conc 31.6 g/dL (32-36); Mean Corpuscular Volume 87.6 fL (81-99); Mean Platelet Vol. 9.9 fl (6.2-12.0); Platelet Count 169 K/mm3 (150-450); RBC Distribution Width CV 12.5 % (11.6-14.6); RBC Distribution Width SD 39.9 fl (35.1-43.9); Red Blood Count 4.19 M/mm3 (4.2-5.4); White Blood Count 4.3 K/mm3 (4.4-11.0)
[2025-04-19 09:59] LABS: AST(SGOT) 15 U/L (<=31); Alanine Aminotransfer ALT/SGPT 10 U/L (<=34); Albumin, Serum 3.9 g/dL (3.5-5.0); Alkaline Phosphatase 52 U/L (35-104); Anion Gap 10 (5-15); BUN 14 mg/dL (4-19); BUN/Creat Ratio 19.3 RATIO (10-20); Calcium,Total 9.2 mg/dL (7.6-11.0); Carbon Dioxide 21.6 mmol/L (21.0-32.0); Chloride 111 mmol/L (98-108); Globulin 2.4 g/dL (2.2-4.2); Glucose 100 mg/dL (70-99); Potassium 4.1 mmol/L (3.3-5.1); Vitamin D,25 Hydroxy 23.7 ng/mL (30-100)
== END ==
LOC: OLS.ACW100 05:00
PROVIDERS: PCP Student in an Organized Health Care Education/Training Program; Visit Provider Family Medicine
DX: S82.142D Displaced bicondylar fracture of left tibia, subsequent encounter for closed fracture with routine healing (principal); S22.42XD Multiple fractures of ribs, left side, subsequent encounter for fracture with routine healing
CPT/HCPCS: 36415; 80053; 82306; 84443; 85027